=== PATIENT | female | born 1925 | race Hispanic/Latino ===

== ENCOUNTER 2016-12-08 19:07 | Inpatient (IN) | payer MEDICARE ==
[2016-12-08 19:18] VITALS: BMI 22.2
--- NOTE | 2016-12-08 19:33 | ED PDOC ---
Arrival/HPI - General Chief Complaint: Weakness/Neurological Deficit Time Seen by Provider: 12/08/16 19:10 Historian: Patient, Family - History of Present Illness Narrative History of Present Illness (Text): 12/08/16 19:29 Pt. presents to ED PMHX HTN,COPD,ulcerative colitis,chronic .leg wound,WV,CHF, TIA,DM,gout to ED with c/o generalized weakness,diarrhea for the past couple of days.Pt. with slight decreased appetite.Taking some liquids according to the family.No hx. of any fever.No N/V.Denies any chest or abdominal pain.No SOB. Past Medical History - Provider Review Nursing Documentation Reviewed: Yes - Travel History Have you recently traveled outside [place] w/in the past 3 mons?: No - Infectious Disease Hx of Infectious Diseases: None - Cardiac Hx Cardiac Disorders: Yes Hx Hypertension: Yes - Pulmonary Hx Respiratory Disorders: Yes Hx Chronic Obstructive Pulmonary Disease (COPD): Yes Hx Emphysema: Yes - Neurological Hx Neurological Disorder: Yes - HEENT Hx HEENT Disorder: Yes Other/Comment: wear weas glasses for reading and distance - Renal Hx Renal Disorder: No - Endocrine/Metabolic Hx Endocrine Disorders: No - Hematological/Oncological Hx Blood Disorders: No - Integumentary Hx Dermatological Disorder: No - Musculoskeletal/Rheumatological Hx Falls: No - Gastrointestinal Hx Gastrointestinal Disorders: Yes Other/Comment: colitis - Genitourinary/Gynecological Hx Genitourinary Disorders: No - Psychiatric Hx Psychophysiologic Disorder: Yes Hx Anxiety: Yes Hx Substance Use: No - Surgical History Other/Comment: pacemaker - Anesthesia Hx Anesthesia Reactions: No Hx Malignant Hyperthermia: No Family/Social History - Physician Review Nursing Documentation Reviewed: Yes Family/Social History: Hypertension Smoking Status: Never Smoked Hx Alcohol Use: No Hx Substance Use: No Allergies/Home Meds Allergies/Adverse Reactions: Allergies silver [From SilvaSorb] Allergy (Verified 12/09/16 01:05) SWELLING silver sulfadiazine [From Silvadene] Allergy (Verified 12/09/16 01:05) SWELLING Sulfa (Sulfonamide Antibiotics) Allergy (Verified 12/08/16 19:17) SHORTNESS OF BREATH Home Medications: Home Meds Medication Instructions Recorded Confirmed ALPRAZolam [Xanax] 0.125 mg PO BID PRN 12/08/16 12/08/16 Acetaminophen [Pain Relief Extra 500 mg PO BID PRN 12/08/16 12/08/16 Strength] Ascorbic Acid [Vitamin C] 120 mg PO DAILY 12/08/16 12/08/16 Aspirin [Adult Low Dose Aspirin EC] 81 mg PO DAILY 12/08/16 12/08/16 Ca/D3/Mag Ox/Zinc/Celery Cutter/Steffen/Bor 1 each PO DAILY 12/08/16 12/08/16 [Calcium 600+D3 Plus Caplet] Diclofenac Epolamine [Flector] 1 each TD PRN PRN 12/08/16 12/08/16 Fexofenadine HCl [HeatherNf] 180 mg PO DAILY 12/08/16 12/08/16 Fluticasone/Salmeterol 250/50 1 puff IH BID 12/08/16 12/08/16 [Advair Diskus] Lactobacillus Acidophilus [Bacid 500 cap PO DAILY 12/08/16 12/08/16 Acidophilus] Mesalamine [Lialda] 1.2 gm PO BID 12/08/16 12/08/16 Multivit with Iron,Hematinic 1 each PO DAILY 12/08/16 12/08/16 [Central-Katia] Omeprazole 20 mg PO DAILY 12/08/16 12/08/16 Valsartan/Hydrochlorothiazide 1 each PO DAILY 12/08/16 12/08/16 [Valsartan-Hctz 160-25 mg Tab] amLODIPine [Norvasc] 10 mg PO DAILY 12/08/16 12/08/16 Review of Systems - Review of Systems Systems not reviewed;Unavailable: Other (generalized weakness) Constitutional: Normal Eyes: Normal ENT: Normal Respiratory: Normal Cardiovascular: Normal Gastrointestinal: Normal Genitourinary Female: Normal Musculoskeletal: Normal Skin: Normal Neurological: Normal Endocrine: Normal Hemo/Lymphatic: Normal Psychiatric: Normal Physical Exam Vital Signs Temp Pulse Resp BP Pulse Ox 12/09/16 01:30 79 18 108/49 L 98 12/09/16 01:15 79 20 96/34 L 97 12/09/16 00:45 78 20 106/46 L 99 12/09/16 00:30 76 20 99/38 L 100 12/09/16 00:15 73 16 96/46 L 100 12/09/16 00:00 76 18 104/43 L 100 12/08/16 23:40 89 16 92/47 L 100 12/08/16 23:00 63 18 82/32 L 100 12/08/16 21:40 57 L 16 101/38 L 100 12/08/16 19:17 97.5 F L 67 16 121/45 L 100 Temperature: Afebrile Blood Pressure: Normal Pulse: Regular Respiratory Rate: Normal Appearance: Positive for: Well-Appearing, Non-Toxic, Comfortable Pain Distress: None Mental Status: Positive for: Alert and Oriented X 3 - Systems Exam Head: Present: Atraumatic, Normocephalic Pupils: Present: PERRL Extroacular Muscles: Present: EOMI Conjunctiva: Present: Normal Ears: Present: NORMAL TM Mouth: Present: Dry Pharnyx: Present: Normal Neck: Present: Normal Range of Motion Respiratory/Chest: Present: Clear to Auscultation, Good Air Exchange. No: Respiratory Distress, Accessory Muscle Use Cardiovascular: Present: Regular Rate and Rhythm, Normal S1, S2. No: Murmurs Abdomen: Present: Normal Bowel Sounds. No: Tenderness, Distention, Peritoneal Signs Back: Present: Normal Inspection Upper Extremity: Present: Normal Inspection. No: Cyanosis, Edema Lower Extremity: Present: Normal Inspection, NORMAL PULSES, Normal ROM, Other ( chronic right lower leg wound/bandaged). No: Edema, CALF TENDERNESS Neurological: Present: GCS=15, CN II-XII Intact, Speech Normal, Motor Func Grossly Intact, Normal Sensory Function Skin: Present: Warm, Dry, Normal Color. No: Rashes Psychiatric: Present: Alert, Oriented x 3, Normal Insight, Normal Concentration Medical Decision Making ED Course and Treatment: 12/08/16 22:20 Reviewed radiology, Chest X-ray shows no acute processes. 12/08/16 22:23 Labs reviewed, lactate: 2.1, WBC: 21.1, and pH: 6.88. Code Sepsis called. Equipment Installer paged. 12/08/16 22:[address] Mcguire, tobacco curer, who agrees to evaluate pt. CT Abdomen and Pelvis ordered. 12/08/16 22:[address] Escobedo, covering for Dr. Mcenill, who is aware and agrees with plan. Requests pt go to ICU. Pt will be admitted to ICU for renal failure, sepsis, hyponatremic dehydration, and hyperkalemia under Dr. Mcneill's service. Requests Dr. Lowe on consult. - Critical Care Critical Care Minutes: 30 minutes - Lab Interpretations Lab Results: 12/08/16 19:50 12/08/16 19:50 Lab Results 12/08/16 22:31: Urine Color Yellow, Urine Appearance Slight-cloudy, Urine pH 5.0 , Ur Specific [place] >= 1.030, Urine Protein 30 H, Urine Glucose (UA) Negative , Urine Ketones Negative, Urine Blood Negative, Urine Nitrate Negative, Urine Bilirubin Negative, Urine Urobilinogen 0.2, Ur Leukocyte Esterase Large H, Urine RBC TEST NOT PERFORMED, Urine WBC 15 - 20, Ur Epithelial Cells Many, Amorphous Sediment Moderate, Urine Bacteria Small 12/08/16 20:40: pO2 228 H, VBG pH 6.88 L*, VBG pCO2 37.0 L, VBG HCO3 6.9 L, VBG Total CO2 8.0 L, VBG O2 Sat (Calc) 100.2 H, VBG Base Excess -25.5 L, Glucose 112 H, Lactate 2.1, FiO2 21.0, Sodium 107.0 L*, Chloride 88.0 L 12/08/16 19:50: WBC 21.1 H D, RBC 3.46 L, Hgb 10.2 L, Hct 29.6 L, MCV 85.5, MCH 29.5, MCHC 34.5, RDW 12.8, Plt Count 421, MPV 7.8 12/08/16 19:50: Sodium 118 L*, Potassium 5.9 H*, Chloride 90 L, Carbon Dioxide 12 L, Anion Gap 22 H, BUN 91 H, Creatinine 6.2 H, Est GFR ( Amer) 8, Est GFR (Non-Af Amer) 6, Random Glucose 118 H, Calcium 8.8, Total Bilirubin 0.5, AST 44 H, ALT 29, Alkaline Phosphatase 101, Lactate Dehydrogenase 432, Total Creatine Kinase 513 H, CK-MB (CK-2) 8.9 H, CK-MB (CK-2) % 1.7 L, Troponin I 0.02 D, Total Protein 7.2, Albumin 3.6, Globulin 3.7, Albumin/Globulin Ratio 1.0 L 12/08/16 19:50: PT 10.4, INR 0.96, APTT 31.4 H I have reviewed the lab results: Yes - RAD Interpretation Radiology Orders: 12/08/16 21:10 CHEST PORTABLE [RAD] Stat 12/08/16 22:39 ABD & PELVIS W/O PO OR IV CONT [CT] Stat Purchasing Manager/Sales: ED Physician - EKG Interpretation EKG Interpretation (Text): 12/08/16 20:28 EKG- 100% paced rhythm Interpreted by ED Physician: Yes Type: 12 lead EKG - Medication Orders Current Medication Orders: Acetaminophen (Tylenol 325mg Tab) 650 mg PO Q6H PRN PRN Reason: Fever >100.4 F Last Admin: 12/09/16 02:33 Dose: 650 mg Re-Assess: MAR Pain/Vitals Document 12/09/16 03:33 [facility] (Rec: 12/09/16 05:35 [facility] [id number] Pain Reassessment Is This A Pain ReAssessment? Yes Sleep Is patient sleeping during reassessment? Yes Arformoterol Tartrate (Brovana) 15 mcg IH [id number] [facility] Aspirin (Ecotrin) 81 mg PO DAILY [facility] Last Admin: 12/09/16 09:44 Dose: 81 mg Budesonide (Pulmicort Respules) 0.5 mg IH [id number] [facility] Last Admin: 12/09/16 08:09 Dose: 0.5 mg Heparin Sodium (Porcine) (Heparin) 5,000 units SC Q12 [facility] PRN Reason: Protocol Last Admin: 12/09/16 09:44 Dose: 5,000 units Metronidazole (Flagyl) 500 mg in 100 mls @ 100 mls/hr IVPB Q8 [facility] PRN Reason: Protocol Last Admin: 12/09/16 14:19 Dose: 100 mls/hr Ceftriaxone Sodium (Rocephin 1 Gram Ivpb) 1 gm in 100 mls @ 100 mls/hr IVPB DAILY [facility] PRN Reason: Protocol Stop: 12/17/16 10:09 Last Admin: 12/09/16 10:20 Dose: 100 mls/hr Sodium Bicarbonate 150 meq/ (Dextrose) 1,150 mls @ 75 mls/hr IV .[id number] [facility] Last Admin: 12/09/16 13:58 Dose: 75 mls/hr Lactobacillus Acidophilus (Bacid Acidophilus) 1 cap PO DAILY [facility] Last Admin: 12/09/16 11:03 Dose: 1 cap Ondansetron HCl (Zofran Inj) 4 mg IVP Q6H PRN PRN Reason: Nausea/Vomiting Pantoprazole Sodium (Protonix Ec Tab) 40 mg PO 0600 [facility] Last Admin: 12/09/16 08:34 Dose: 40 mg Potassium Chloride (Potassium Chloride Oral Soln) 40 meq PO ONCE ONE Stop: 12/09/16 19:24 Vancomycin HCl (Vancocin 25 Mg/Ml (Oral Use)) 250 mg PO QID [facility] PRN Reason: Protocol Stop: 12/18/16 14:01 Last Admin: 12/09/16 17:15 Dose: 250 mg Discontinued Medications Albumin Human (Albumin Human 5% (12.5 Gm/250 Ml)) 12.5 gm IV Q1H [facility] Stop: 12/09/16 15:01 Last Admin: 12/09/16 13:40 Dose: 12.5 gm Dextrose (Dextrose 50% Inj) 50 ml IVP ONCE ONE Stop: 12/08/16 20:47 Last Admin: 12/08/16 21:01 Dose: 50 ml Sodium Chloride (Sodium Chloride 0.9%) 500 mls @ 500 mls/hr IV .Q1H STA Stop: 12/08/16 20:40 Last Admin: 12/08/16 20:05 Dose: 500 mls/hr Sodium Chloride (Hypertonic Saline 3%) 500 mls @ 40 mls/hr IV .[id number] [facility] Last Admin: 12/08/16 21:02 Dose: 40 mls/hr Sodium Chloride (Sodium Chloride 0.9%) 500 mls @ 500 mls/hr IV .Q1H STA Stop: 12/08/16 21:44 Last Admin: 12/08/16 21:03 Dose: 500 mls/hr Sodium Chloride (Sodium Chloride 0.9%) 500 mls @ 500 mls/hr IV .Q1H STA Stop: 12/08/16 21:55 Last Admin: 12/08/16 21:35 Dose: 500 mls/hr Metronidazole (Flagyl) 500 mg in 100 mls @ 100 mls/hr IVPB STAT STA PRN Reason: Protocol Stop: 12/08/16 21:56 Last Admin: 12/08/16 22:49 Dose: 100 mls/hr Meropenem 1g/NS 100mL IVPB (Meropenem 1g/Ns 100ml Ivpb) 1 gm in 100 mls @ 100 mls/hr IVPB STAT STA PRN Reason: Protocol Stop: 12/08/16 22:02 Last Admin: 12/08/16 21:34 Dose: 100 mls/hr Sodium Chloride (Sodium Chloride 0.9%) 1,000 mls @ 150 mls/hr IV .Q6H40M [facility] Last Admin: 12/09/16 01:04 Dose: 150 mls/hr Meropenem 1g/NS 100mL IVPB (Meropenem 1g/Ns 100ml Ivpb) 1 gm in 100 mls @ 100 mls/hr IVPB Q8 [facility] PRN Reason: Protocol Stop: 12/09/16 06:59 Last Admin: 12/09/16 05:34 Dose: 100 mls/hr Dextrose (Dextrose 5% In Water 1000 Ml) 1,000 mls @ 150 mls/hr IV .Q6H40M [facility] Last Admin: 12/09/16 02:44 Dose: 150 mls/hr Sodium Chloride (Sodium Chloride 0.9%) 1,000 mls @ 75 mls/hr IV .[id number] [facility] Last Admin: 12/09/16 09:45 Dose: 75 mls/hr Vancomycin HCl (Vancomycin 1gm) 1 gm in 250 mls @ 167 mls/hr IVPB STAT STA PRN Reason: Protocol Stop: 12/09/16 11:37 Last Admin: 12/09/16 10:21 Dose: 167 mls/hr Sodium Chloride (Sodium Chloride 0.9%) 500 mls @ 999 mls/hr IV .Q31M STA Stop: 12/09/16 11:21 Last Admin: 12/09/16 11:13 Dose: 999 mls/hr Insulin Human Regular (Humulin R) 10 units IVP STAT STA Stop: 12/08/16 20:47 Last Admin: 12/08/16 21:01 Dose: 10 units Lactobacillus Acidophilus (Bacid Acidophilus) 500 cap PO DAILY [facility] Sodium Bicarbonate (Sodium Bicarbonate (8.4%) 50 Meq Syringe) 50 meq IVP ONCE ONE Stop: 12/08/16 20:48 Last Admin: 12/08/16 21:01 Dose: 50 meq Sodium Polystyrene Sulfonate (Kayexalate Oral Susp) 30 gm PO ONCE ONE Stop: 12/08/16 20:47 Last Admin: 12/08/16 21:02 Dose: 30 gm Disposition/Present on Arrival - Present on Arrival Any Indicators Present on Arrival: No History of DVT/PE: No History of Uncontrolled Diabetes: No Urinary Catheter: No History of Decub. Ulcer: No History Surgical Site Infection Following: None - Disposition Have Diagnosis and Disposition been Completed?: Yes Diagnosis: Hyponatremia, Dehydration, Renal failure, Hyperkalemia, Sepsis Disposition: HOSPITALIZED Disposition Time: 23:08 Patient Plan: ICU Patient Problems: Current Active Problems Problem Status Onset Dehydration Acute Hyperkalemia Acute Hyponatremia Acute Renal failure Acute Sepsis Acute Condition: GUARDED
[2016-12-08] MEDS ORDERED: Sodium Chloride 0.9% 500 ML IV STA ×3 (19:41→20:56)
[2016-12-08 20:01] LABS: HEMOGLOBIN 10.2 gm/dL (12.0-16.0); MEAN CELL VOLUME 85.5 fL (80.0-105.0); MEAN CORPUSCULAR HEMOGLOBIN 29.5 pg (25.0-35.0); MEAN CORPUSCULAR HGB CONC 34.5 g/dl (31.0-37.0); MEAN PLATELET VOLUME 7.8 fl (7.0-11.0); RBC 3.46 10^6/uL (3.5-6.1); RED CELL DISTRIBUTION WIDTH 12.8 % (11.5-14.5); WHITE BLOOD COUNT 21.1 10^3/ul (4.5-11.0)
[2016-12-08 20:16] LABS: INR 0.96 (0.93-1.08); PARTIAL THROMBOPLASTIN TIME 31.4 Seconds (23.7-30.8); PROTHROMBIN TIME 10.4 Seconds (9.9-11.8)
[2016-12-08 20:19] LABS: ALBUMIN 3.6 g/dL (3.0-4.8); CALCIUM 8.8 mg/dL (8.4-10.5)
[2016-12-08 20:30] LABS: TROPONIN I 0.02 ng/mL
[2016-12-08] MEDS ORDERED: Sodium Chloride 3% 500 ML IV SCH (20:45)
[2016-12-08] MEDS ORDERED: Insulin Regular 1 UNITS/0.01 ML ML IVP STA (20:46)
[2016-12-08] MEDS ORDERED: Sod Polystyrene Sulf 15 gm/60 ml Oral Susp PO ONE (20:46)
[2016-12-08] MEDS ORDERED: Dextrose 50% SYRINGE Inj (50 ml) IVP ONE (20:46)
[2016-12-08] MEDS ORDERED: Sodium Bicarbonate (8.4%) 50 Meq Syringe IVP ONE (20:47)
[2016-12-08] MEDS ORDERED: metroNIDAZOLE IV 500 mg/100 ml 500 MG/100 ML BAG IVPB STA (20:57)
[2016-12-08 20:58] LABS: CK MB% 1.7 % (2.5-3.0); CK-MB 8.9 ng/mL (0.0-3.6)
[2016-12-08] MEDS ORDERED: Meropenem 1g/NS 100mL IVPB 1 GM/100 ML PIGGYBACK IVPB STA (21:03)
[2016-12-08 21:09] LABS: VENOUS BLOOD GAS BASE EXCESS -25.5 mmol/L (0.0-2.0); VENOUS BLOOD GAS PO2 228 mm/Hg (30-55); VENOUS BLOOD PH 6.88 (7.32-7.43)
[2016-12-08 22:42] LABS: URINE BILIRUBIN NEGATIVE (NEGATIVE); URINE BLOOD NEGATIVE (NEGATIVE); URINE GLUCOSE (UA) NEGATIVE (NEGATIVE); URINE LEUKOCYTE ESTERASE LARGE Leu/uL (NEGATIVE); URINE NITRATE NEGATIVE (NEGATIVE); URINE PROTEIN 30 mg/dL (<30 mg/dL); URINE UROBILINOGEN 0.2 E.U./dL (<1 E.U./dL)
[2016-12-08 22:43] LABS: URINE APPEARANCE SLIGHT-CLOUDY (CLEAR); URINE COLOR YELLOW (YELLOW)
[2016-12-08 22:48] LABS: URINE AMORPHOUS SEDIMENT MODERATE; URINE BACTERIA SMALL (NEG); URINE EPITHELIAL CELLS MANY /hpf (0-5); URINE WBC 15 - 20 /hpf (0-6)
--- NOTE | 2016-12-08 23:30 | CP.PCM.HP ---
"History of Present Illness - History of Present Illness History of Present Illness: Patient is a 89 year old female who presented to the ED with complaints of generalized weakness and fatigue x 3 days. Per patient's daughter. Patient stated that she was functioning at her baseline; but starting 3 days ago she began to have diarrhea. Following her bouts her diarrhea, patient began showing symptoms of somnolence and fatigue. Patient has been compliant with all her medications. She currently denies feeling week. Per nurse and daughter , patient is looking much better than she did when she first arrived to the ED. This is s/p Fluids and Antibiotics. ROS: Denies: SOB, Chest Pain, Headache, palpitations, abdominal pain, N/V constipation, Dysuria, Dizziness, Lightheadedness, Muscle pain, back pain, changes in vision, recent changes in diet. Complains of: decreased appetite, non-bloody diarrhea PMHx: HTN, Ulcerative Colitis, Chronic Leg wound, GERD, Pacemaker, COPD PSHx: Denies Allergies: Sulfa Family Hx: Rheumatic Fever (Mother)| Emphysema (Father) Social Hx: Denies Tobacco, Alcohol, or other illicit drug use. Review of Systems - Review of Systems All systems: reviewed and no additional remarkable complaints except Past Patient History - Infectious Disease Hx of Infectious Diseases: None - Past Social History Smoking Status: Never Smoked - CARDIAC Hx Cardiac Disorders: Yes Hx Hypertension: Yes - PULMONARY Hx Respiratory Disorders: Yes Hx Chronic Obstructive Pulmonary Disease (COPD): Yes Hx Emphysema: Yes - NEUROLOGICAL Hx Neurological Disorder: Yes - HEENT Hx HEENT Problems: Yes Other/Comment: wear weas glasses for reading and distance - RENAL Hx Chronic Kidney Disease: No - ENDOCRINE/METABOLIC Hx Endocrine Disorders: No - HEMATOLOGICAL/ONCOLOGICAL Hx Blood Disorders: No - INTEGUMENTARY Hx Dermatological Problems: No - MUSCULOSKELETAL/RHEUMATOLOGICAL Hx Falls: No - GASTROINTESTINAL Hx Gastrointestinal Disorders: Yes Other/Comment: colitis - GENITOURINARY/GYNECOLOGICAL Hx Genitourinary Disorders: No - PSYCHIATRIC Hx Psychophysiologic Disorder: Yes Hx Anxiety: Yes Hx Substance Use: No - SURGICAL HISTORY Other/Comment: pacemaker - ANESTHESIA Hx Anesthesia Reactions: No Hx Malignant Hyperthermia: No Meds Allergies/Adverse Reactions: Allergies Allergy/AdvReac Type Severity Reaction Status Date / Time Sulfa (Sulfonamide Allergy SHORTNESS Verified 12/08/16 19:17 Antibiotics) OF BREATH Physical Exam - Constitutional Appears: Well, Non-toxic, No Acute Distress - Head Exam Head Exam: ATRAUMATIC, NORMOCEPHALIC - Eye Exam Eye Exam: EOMI, Normal appearance - ENT Exam ENT Exam: Mucous Membranes Moist - Neck Exam Neck exam: Negative for: Lymphadenopathy - Respiratory Exam Respiratory Exam: Clear to Auscultation Bilateral, NORMAL BREATHING PATTERN. absent: Rales, Rhonchi, Wheezes, Respiratory Distress, Stridor - Cardiovascular Exam Cardiovascular Exam: +S1, +S2. absent: Bradycardia, Tachycardia, Systolic Murmur Additional comments: +Pacemaker - GI/Abdominal Exam GI & Abdominal Exam: Soft. absent: Organomegaly, Tenderness Additional comments: No Suprapubic tenderness - Extremities Exam Extremities exam: Negative for: pedal edema Additional comments: Chronic leg wound on left leg. Currently wrapped. - Back Exam Back exam: absent: CVA tenderness (L), CVA tenderness (R) Additional comments: Severe Kyphosis - Neurological Exam Neurological exam: Alert, Oriented x3 - Psychiatric Exam Psychiatric exam: Normal Affect, Normal Mood - Skin Skin Exam: Dry, Normal Color, Warm Results - Vital Signs Recent Vital Signs: Last Vital Signs Temp 97.5 F L 12/08/16 19:17 Pulse 57 L 12/08/16 21:40 Resp 16 12/08/16 21:40 BP 101/38 L 12/08/16 21:40 Pulse Ox 100 12/08/16 21:40 - Labs Result Diagrams: 12/08/16 19:50 12/08/16 19:50 Labs: Laboratory Results - last 24 hr 12/08/16 12/08/16 12/08/16 19:50 19:50 19:50 WBC 21.1 H D RBC 3.46 L Hgb 10.2 L Hct 29.6 L MCV 85.5 MCH 29.5 MCHC 34.5 RDW 12.8 Plt Count 421 MPV 7.8 PT 10.4 INR 0.96 APTT 31.4 H pO2 VBG pH VBG pCO2 VBG HCO3 VBG Total CO2 VBG O2 Sat (Calc) VBG Base Excess Glucose Lactate FiO2 Sodium 118 L* Potassium 5.9 H* Chloride 90 L Carbon Dioxide 12 L Anion Gap 22 H BUN 91 H Creatinine 6.2 H Est GFR ( Amer) 8 Est GFR (Non-Af Amer) 6 Random Glucose 118 H Calcium 8.8 Total Bilirubin 0.5 AST 44 H ALT 29 Alkaline Phosphatase 101 Lactate Dehydrogenase 432 Total Creatine Kinase 513 H CK-MB (CK-2) 8.9 H CK-MB (CK-2) % 1.7 L Troponin I 0.02 D Total Protein 7.2 Albumin 3.6 Globulin 3.7 Albumin/Globulin Ratio 1.0 L Urine Color Urine Appearance Urine pH Ur Specific [place] Urine Protein Urine Glucose (UA) Urine Ketones Urine Blood Urine Nitrate Urine Bilirubin Urine Urobilinogen Ur Leukocyte Esterase Urine RBC Urine WBC Ur Epithelial Cells Amorphous Sediment Urine Bacteria 12/08/16 12/08/16 20:40 22:31 WBC RBC Hgb Hct MCV MCH MCHC RDW Plt Count MPV PT INR APTT pO2 228 H VBG pH 6.88 L* VBG pCO2 37.0 L VBG HCO3 6.9 L VBG Total CO2 8.0 L VBG O2 Sat (Calc) 100.2 H VBG Base Excess -25.5 L Glucose 112 H Lactate 2.1 FiO2 21.0 Sodium 107.0 L* Potassium Chloride 88.0 L Carbon Dioxide Anion Gap BUN Creatinine Est GFR ( Amer) Est GFR (Non-Af Amer) Random Glucose Calcium Total Bilirubin AST ALT Alkaline Phosphatase Lactate Dehydrogenase Total Creatine Kinase CK-MB (CK-2) CK-MB (CK-2) % Troponin I Total Protein Albumin Globulin Albumin/Globulin Ratio Urine Color Yellow Urine Appearance Slight-cloudy Urine pH 5.0 Ur Specific [place] >= 1.030 Urine Protein 30 H Urine Glucose (UA) Negative Urine Ketones Negative Urine Blood Negative Urine Nitrate Negative Urine Bilirubin Negative Urine Urobilinogen 0.2 Ur Leukocyte Esterase Large H Urine RBC TEST NOT PERFORMED Urine WBC 15 - 20 Ur Epithelial Cells Many Amorphous Sediment Moderate Urine Bacteria Small Assessment & Plan - Assessment and Plan (Free Text) Assessment: 89 year old female who presented to the ED with complaints of generalized fatigue and diarrhea. UA showed Large Leuk Es, elevated urine Protein, urine bacteria, and many epithelial cells. CXR shows no active disease. Lactate on Admission is 2.1, and WBC is 21.1. A code sepsis was called @ 10:24pm on . CT of Abd/Pelvis pending. Plan: 1. Sepsis -WBC 21.1; Lactate 2.1; UA"
[2016-12-09 00:09] LABS: VENOUS BLOOD GAS BASE EXCESS -17.3 mmol/L (0.0-2.0); VENOUS BLOOD GAS PO2 53 mm/Hg (30-55); VENOUS BLOOD PH 7.13 (7.32-7.43)
[2016-12-09] MEDS ORDERED: Sodium Chloride 0.9% 1,000 ML IV SCH ×2 (00:45→09:45)
[2016-12-09] MEDS: Meropenem 1g/NS 100mL IVPB 1 GM/100 ML PIGGYBACK IVPB SCH ×2 (01:00→05:34)
[2016-12-09 01:32] LABS: MEAN CELL VOLUME 85.1 fL (80.0-105.0); MEAN CORPUSCULAR HEMOGLOBIN 29.9 pg (25.0-35.0); MEAN CORPUSCULAR HGB CONC 35.1 g/dl (31.0-37.0); MEAN PLATELET VOLUME 7.7 fl (7.0-11.0); RBC 3.35 10^6/uL (3.5-6.1); RED CELL DISTRIBUTION WIDTH 12.8 % (11.5-14.5); WHITE BLOOD COUNT 22.5 10^3/ul (4.5-11.0)
[2016-12-09 01:45] LABS: CALCIUM 7.9 mg/dL (8.4-10.5)
--- NOTE | 2016-12-09 03:37 | CP.PCM.CON ---
"<Alvaro Hopson - Last Filed: 12/09/16 04:08> History of Present Illness - History of Present Illness History of Present Illness: Patient is a 89 year old female who presented to the ED with complaints of generalized weakness and fatigue x 3 days. Per patient's daughter. Patient stated that she was functioning at her baseline; but starting 3 days ago she began to have diarrhea. Following her bouts her diarrhea, patient began showing symptoms of somnolence and fatigue. Patient has been compliant with all her medications. She currently denies feeling week. Per nurse and daughter , patient is looking much better than she did when she first arrived to the ED. This is s/p Fluids and Antibiotics. ROS: Denies: SOB, Chest Pain, Headache, palpitations, abdominal pain, N/V constipation, Dysuria, Dizziness, Lightheadedness, Muscle pain, back pain, changes in vision, and recent changes in diet. Complains of: decreased appetite, non-bloody diarrhea PMHx: HTN, Ulcerative Colitis, Chronic Leg wound, GERD, Pacemaker, COPD PSHx: Denies Allergies: Sulfa Family Hx: Rheumatic Fever (Mother)| Emphysema (Father) Social Hx: Denies Tobacco, Alcohol, or other illicit drug use. Review of Systems - Review of Systems All systems: reviewed and no additional remarkable complaints except Past Patient History - Infectious Disease Hx of Infectious Diseases: None - Past Social History Smoking Status: Never Smoked - CARDIAC Hx Cardiac Disorders: Yes Hx Hypertension: Yes - PULMONARY Hx Respiratory Disorders: Yes Hx Chronic Obstructive Pulmonary Disease (COPD): Yes Hx Emphysema: Yes - NEUROLOGICAL Hx Neurological Disorder: Yes - HEENT Hx HEENT Problems: Yes Other/Comment: wear weas glasses for reading and distance - RENAL Hx Chronic Kidney Disease: No - ENDOCRINE/METABOLIC Hx Endocrine Disorders: No - HEMATOLOGICAL/ONCOLOGICAL Hx Blood Disorders: No - INTEGUMENTARY Hx Dermatological Problems: No - MUSCULOSKELETAL/RHEUMATOLOGICAL Hx Falls: No - GASTROINTESTINAL Hx Gastrointestinal Disorders: Yes Other/Comment: colitis - GENITOURINARY/GYNECOLOGICAL Hx Genitourinary Disorders: No - PSYCHIATRIC Hx Psychophysiologic Disorder: Yes Hx Anxiety: Yes Hx Substance Use: No - SURGICAL HISTORY Other/Comment: pacemaker - ANESTHESIA Hx Anesthesia Reactions: No Hx Malignant Hyperthermia: No Meds Allergies/Adverse Reactions: Allergies Allergy/AdvReac Type Severity Reaction Status Date / Time silver [From SilvaSorb] Allergy SWELLING Verified 12/09/16 01:05 silver sulfadiazine Allergy SWELLING Verified 12/09/16 01:05 [From Silvadene] Sulfa (Sulfonamide Allergy SHORTNESS Verified 12/08/16 19:17 Antibiotics) OF BREATH - Medications Medications: Current Medications Acetaminophen (Tylenol 325mg Tab) 650 mg PO Q6H PRN PRN Reason: Fever >100.4 F Last Admin: 12/09/16 02:33 Dose: 650 mg Arformoterol Tartrate (Brovana) 15 mcg IH [id number] [facility] Aspirin (Ecotrin) 81 mg PO DAILY [facility] Budesonide (Pulmicort Respules) 0.5 mg IH [id number] [facility] Heparin Sodium (Porcine) (Heparin) 5,000 units SC Q12 [facility] PRN Reason: Protocol Sodium Chloride (Sodium Chloride 0.9%) 1,000 mls @ 150 mls/hr IV .Q6H40M [facility] Last Admin: 12/09/16 01:04 Dose: 150 mls/hr Metronidazole (Flagyl) 500 mg in 100 mls @ 100 mls/hr IVPB Q8 [facility] PRN Reason: Protocol Meropenem 1g/NS 100mL IVPB (Meropenem 1g/Ns 100ml Ivpb) 1 gm in 100 mls @ 100 mls/hr IVPB Q8 [facility] PRN Reason: Protocol Stop: 12/09/16 06:59 Last Admin: 12/09/16 01:00 Dose: Not Given Dextrose (Dextrose 5% In Water 1000 Ml) 1,000 mls @ 150 mls/hr IV .Q6H40M [facility] Last Admin: 12/09/16 02:44 Dose: 150 mls/hr Lactobacillus Acidophilus (Bacid Acidophilus) 500 cap PO DAILY [facility] Ondansetron HCl (Zofran Inj) 4 mg IVP Q6H PRN PRN Reason: Nausea/Vomiting Pantoprazole Sodium (Protonix Ec Tab) 40 mg PO 0600 [facility] Physical Exam - Constitutional Appears: Well, No Acute Distress - Head Exam Head Exam: ATRAUMATIC, NORMOCEPHALIC - Eye Exam Eye Exam: EOMI, Normal appearance - ENT Exam ENT Exam: Mucous Membranes Moist - Neck Exam Neck exam: Negative for: Lymphadenopathy - Respiratory Exam Respiratory Exam: Clear to Auscultation Bilateral. absent: Accessory Muscle Use , Rales, Rhonchi, Wheezes, Respiratory Distress, Stridor - Cardiovascular Exam Cardiovascular Exam: +S1, +S2. absent: Bradycardia, Tachycardia, Diastolic murmur, Systolic Murmur Additional comments: +Pacemaker - GI/Abdominal Exam GI & Abdominal Exam: Normal Bowel Sounds, Soft. absent: Tenderness - Extremities Exam Extremities exam: Negative for: pedal edema Additional comments: Chronic wound on left leg. Currently dressed and wrapped. - Back Exam Back exam: absent: CVA tenderness (L), CVA tenderness (R) Additional comments: Severe Kyphosis - Neurological Exam Neurological exam: Alert, Oriented x3 - Psychiatric Exam Psychiatric exam: Normal Affect, Normal Mood - Skin Skin Exam: Dry, Intact, Normal Color, Warm Results - Vital Signs Recent Vital Signs: Last Vital Signs Temp 98 F 12/09/16 02:13 Pulse 78 12/09/16 03:00 Resp 27 H 12/09/16 03:00 BP 109/40 L 12/09/16 03:00 Pulse Ox 99 12/09/16 03:00 - Labs Result Diagrams: 12/09/16 01:10 12/09/16 01:10 Labs: Laboratory Results - last 24 hr 12/08/16 12/09/16 12/09/16 23:50 01:10 01:10 WBC 22.5 H RBC 3.35 L Hgb 10.0 L Hct 28.5 L MCV 85.1 MCH 29.9 MCHC 35.1 RDW 12.8 Plt Count 354 MPV 7.7 APTT 29.9 pO2 53 VBG pH 7.13 L* VBG pCO2 32.0 L VBG HCO3 10.6 L VBG Total CO2 11.6 L VBG O2 Sat (Calc) 90.3 H VBG Base Excess -17.3 L VBG Potassium 5.3 H Sodium 136.0 Chloride 89.0 L Glucose 75 Lactate 3.1 H FiO2 21.0 Potassium Carbon Dioxide Anion Gap BUN Creatinine Est GFR ( Amer) Est GFR (Non-Af Amer) Random Glucose Calcium Venous Blood Potassium 5.3 H 12/09/16 01:10 WBC RBC Hgb Hct MCV MCH MCHC RDW Plt Count MPV APTT pO2 VBG pH VBG pCO2 VBG HCO3 VBG Total CO2 VBG O2 Sat (Calc) VBG Base Excess VBG Potassium Sodium 127 L Chloride 100 Glucose Lactate FiO2 Potassium 4.4 Carbon Dioxide 12 L Anion Gap 19 BUN 83 H Creatinine 4.9 H Est GFR ( Amer) 10 Est GFR (Non-Af Amer) 8 Random Glucose 88 Calcium 7.9 L Venous Blood Potassium Assessment & Plan - Assessment and Plan (Free Text) Assessment: 89 year old with a PMHx of HTN, Ulcerative Colitis, Chronic Leg wound, GERD, Pacemaker, and COPD who is being admitted for generalized weakness, fatigue, anion gap metabolic acidosis, hypovolemic hyponatremia 2/2 diarrhea and Severe Sepsis. Plan: Neuro: Pt awake, oriented to self, place and time. Will cont. to monitor. Cardio: -Pacemaker -Hold Hypertensive due to hypotension -maintain MAP>65. Resp: -Saturating Well on RA -CXR pending Read -O2Sat >90% GI:. -NPO -Stool Cultures w/ c diff, OVA/Parasites, -CT Abd/pelvis pending read -Flagyl Nephro: GILBERT (Prerenal) -Anion Gap Metabolic Acidosis -Received Hypertonic Saline in ED (Stopped) -Normal Saline 150ml per hour. Do not correct more than 10mEq in 12hr period. ID: afebrile, leukocytosis at 22.5; lactate 2.1 -CT Abd/Pelvis Pending read -Blood/Urine Culture; Stool Culture w/ c Diff, OVA & Parasite -Meropenem and Flagyl Maintain normothermia Endo: -Random Glucose - 88 -Maintain euglycemia. Hem/Onc: HGB is 10 -Patient is at baseline. DVT PPX: Heparin GI PPX: Protonix Discussed and seen with PGY2 and attending Alvaro Hopson PGY1 - Date & Time Date: 12/08/16 Time: 23:00 <Glen Mcguire Q - Last Filed: 12/09/16 06:15> Meds - Medications Medications: Current Medications Acetaminophen (Tylenol 325mg Tab) 650 mg PO Q6H PRN PRN Reason: Fever >100.4 F Last Admin: 12/09/16 02:33 Dose: 650 mg Arformoterol Tartrate (Brovana) 15 mcg IH [id number] [facility] Aspirin (Ecotrin) 81 mg PO DAILY [facility] Budesonide (Pulmicort Respules) 0.5 mg IH [id number] [facility] Heparin Sodium (Porcine) (Heparin) 5,000 units SC Q12 [facility] PRN Reason: Protocol Sodium Chloride (Sodium Chloride 0.9%) 1,000 mls @ 150 mls/hr IV .Q6H40M [facility] Last Admin: 12/09/16 01:04 Dose: 150 mls/hr Metronidazole (Flagyl) 500 mg in 100 mls @ 100 mls/hr IVPB Q8 [facility] PRN Reason: Protocol Last Admin: 12/09/16 05:35 Dose: 100 mls/hr Meropenem 1g/NS 100mL IVPB (Meropenem 1g/Ns 100ml Ivpb) 1 gm in 100 mls @ 100 mls/hr IVPB Q8 [facility] PRN Reason: Protocol Stop: 12/09/16 06:59 Last Admin: 12/09/16 05:34 Dose: 100 mls/hr Dextrose (Dextrose 5% In Water 1000 Ml) 1,000 mls @ 150 mls/hr IV .Q6H40M [facility] Last Admin: 12/09/16 02:44 Dose: 150 mls/hr Lactobacillus Acidophilus (Bacid Acidophilus) 500 cap PO DAILY [facility] Ondansetron HCl (Zofran Inj) 4 mg IVP Q6H PRN PRN Reason: Nausea/Vomiting Pantoprazole Sodium (Protonix Ec Tab) 40 mg PO 0600 [facility] Results - Vital Signs Recent Vital Signs: Last Vital Signs Temp 97.9 F 12/09/16 04:00 Pulse 81 12/09/16 05:00 Resp 28 H 12/09/16 05:00 BP 115/42 L 12/09/16 05:00 Pulse Ox 99 12/09/16 05:00 - Labs Result Diagrams: 12/09/16 01:10 12/09/16 03:55 Labs: Laboratory Results - last 24 hr 12/08/16 12/09/16 12/09/16 23:50 01:10 01:10 WBC 22.5 H RBC 3.35 L Hgb 10.0 L Hct 28.5 L MCV 85.1 MCH 29.9 MCHC 35.1 RDW 12.8 Plt Count 354 MPV 7.7 APTT 29.9 pO2 53 VBG pH 7.13 L* VBG pCO2 32.0 L VBG HCO3 10.6 L VBG Total CO2 11.6 L VBG O2 Sat (Calc) 90.3 H VBG Base Excess -17.3 L VBG Potassium 5.3 H Sodium 136.0 Chloride 89.0 L Glucose 75 Lactate 3.1 H FiO2 21.0 Potassium Carbon Dioxide Anion Gap BUN Creatinine Est GFR ( Amer) Est GFR (Non-Af Amer) Random Glucose Calcium Venous Blood Potassium 5.3 H Urine Color Urine Appearance Urine pH Ur Specific [place] Urine Protein Urine Glucose (UA) Urine Ketones Urine Blood Urine Nitrate Urine Bilirubin Urine Urobilinogen Ur Leukocyte Esterase Urine RBC Urine WBC Urine Bacteria 12/09/16 12/09/16 12/09/16 01:10 03:55 04:00 WBC RBC Hgb Hct MCV MCH MCHC RDW Plt Count MPV APTT pO2 VBG pH VBG pCO2 VBG HCO3 VBG Total CO2 VBG O2 Sat (Calc) VBG Base Excess VBG Potassium Sodium 127 L 126 L Chloride 100 97 Glucose Lactate FiO2 Potassium 4.4 4.0 Carbon Dioxide 12 L 13 L Anion Gap 19 20 BUN 83 H 81 H Creatinine 4.9 H 4.5 H Est GFR ( Amer) 10 11 Est GFR (Non-Af Amer) 8 9 Random Glucose 88 146 H Calcium 7.9 L 8.1 L Venous Blood Potassium Urine Color Yellow Urine Appearance Slight-cloudy Urine pH 5.5 Ur Specific [place] 1.025 Urine Protein 30 H Urine Glucose (UA) Negative Urine Ketones Negative Urine Blood Negative Urine Nitrate Negative Urine Bilirubin Negative Urine Urobilinogen 0.2 Ur Leukocyte Esterase Negative Urine RBC 0 - 2 Urine WBC 0 - 2 Urine Bacteria Mod Attending/Attestation - Attestation I have personally seen and examined this patient.: Yes I have fully participated in the care of the patient.: Yes I have reviewed all pertinent clinical information: Yes Notes (Text): 12/09/16 06:07 I agree with the above mentioned note by the internet systems administrator with the addition/exception of the following: Physical exam: chronic lower extremity leg wound is present on the Right leg, not the left 89 y/o female with a PMHx as listed above presented to the ED with her daughters for worsening lethargy and weakness after experiencing 3 days of nonbloody diarrhea. Patient's daughter's reports that she has not been eating or drinking well and has slowly gotten more tired and lethargic so she was brought in. Patient's presentation and labs were all consistent with dehydration secondary to GI losses and GILBERT secondary to dehydration with hypovolemic hyponatremia. After receiving 1.5L IVF in the ED, she was started on hypertonic saline by the ED Physician. I discontinued this (she did not have neurological manifestations) and started her on 0.9% normal saline for volume resuscitation and a slower rate of Sodium correction. After a few short hours, her sodium had increased by 9mEq. 0.9% was stopped immediately and she was placed on D5W @ 150cc/hr. Her repeat Sodium has appropriately come down to 126 from 127 (initially started at 118). Will obtain repeat lab work this morning and adjust her IVF accordingly; stool cultures for the diarrhea have been sent. As per the daughter, the most recent course of Antibiotics she has had was po ciprofloxacin that she took for a total of 10 days approximately 5 weeks ago. She was admitted to the ICU for closer hemodynamic monitoring as well as frequent bloodwork for monitoring of her Sodium. All labs and images available thus far reviewed personally Case discussed with the residents as well as Dr. Brothers in the ED total time of care: 40 minutes"
[2016-12-09 04:10] LABS: CALCIUM 8.1 mg/dL (8.4-10.5)
[2016-12-09 04:40] LABS: PH,URINE 5.5 (4.7-8.0); URINE BILIRUBIN NEGATIVE (NEGATIVE); URINE BLOOD NEGATIVE (NEGATIVE); URINE GLUCOSE (UA) NEGATIVE (NEGATIVE); URINE LEUKOCYTE ESTERASE NEGATIVE Leu/uL (NEGATIVE); URINE NITRATE NEGATIVE (NEGATIVE); URINE PROTEIN 30 mg/dL (<30 mg/dL); URINE UROBILINOGEN 0.2 E.U./dL (<1 E.U./dL)
[2016-12-09 04:44] LABS: URINE APPEARANCE SLIGHT-CLOUDY (CLEAR); URINE COLOR YELLOW (YELLOW)
[2016-12-09 04:55] LABS: URINE RBC 0 - 2 /hpf (0-2); URINE WBC 0 - 2 /hpf (0-6)
[2016-12-09 04:58] LABS: URINE BACTERIA MOD (NEG)
[2016-12-09] MEDS: metroNIDAZOLE IV 500 mg/100 ml 500 MG/100 ML BAG IVPB SCH ×3 (05:35→22:00)
[2016-12-09 06:31] LABS: OSMOLALITY,URINE 329 mosm/kg (50-645)
[2016-12-09 07:49] LABS: CALCIUM 7.8 mg/dL (8.4-10.5)
[2016-12-09] MEDS ORDERED: Arformoterol 15 mcg/2 ml Inh Sol IH SCH (08:00)
[2016-12-09] MEDS: Budesonide 0.5 mg/2 ml Inhal Susp UD IH SCH ×2 (08:09→20:53)
[2016-12-09] MEDS: Pantoprazole 40 mg EC Tab PO SCH (08:34)
[2016-12-09] MEDS ORDERED: Lactobacillus Acidophilus 500 MU Cap PO SCH (10:00)
[2016-12-09] MEDS ORDERED: [UNRECOGNIZED DRUG - OTHER] PO SCH (10:00)
[2016-12-09] MEDS ORDERED: HYDROCHLOROTHIAZIDE PO SCH (10:00)
[2016-12-09] MEDS ORDERED: VALSARTAN PO SCH (10:00)
[2016-12-09] MEDS ORDERED: Vancomycin 1gm in NS 250ml 1 GM/250 ML BAG IVPB STA (10:08)
[2016-12-09] MEDS: cefTRIAXone 1 gm 1 GM/100 ML BAG IVPB SCH (10:20)
[2016-12-09] MEDS ORDERED: Sodium Chloride 0.9% 500 ML IV STA (10:51)
[2016-12-09] MEDS: Lactobacillus Acidophilus 500 MU Cap PO SCH (11:03)
--- NOTE | 2016-12-09 11:08 | CT ---
PROCEDURE: CT Abdomen and Pelvis without intravenous contrast HISTORY: renal failure COMPARISON: None. TECHNIQUE: Helical CT of the chest performed without intravenous contrast as per referring physician request. No prior CT available for comparison.. Contrast Dose: None Radiation dose: Total exam DLP = 403 mGy-cm. This CT exam was performed using one or more of the following dose reduction techniques: Automated exposure control, adjustment of the mA and/or kV according to patient size, and/or use of iterative reconstruction technique. FINDINGS: LOWER THORAX: Grossly nonfocal but significantly motion artifacted. Pacemaker leads are identified in the right heart which appears normal size nevertheless. LIVER: A segment of the hepatic flexure is interposed between the dome of the liver in the right hemidiaphragm posteriorly. Intrahepatic biliary duct dilatation is questioned. GALLBLADDER AND BILE DUCTS: Poorly identified either prominent artifacts from pacing leads as well as the lack of contrast agents. Cholelithiasis is questioned within the mildly distended gallbladder. PANCREAS: Unremarkable. No gross lesion or ductal dilatation. SPLEEN: Unremarkable. ADRENALS: Unremarkable. No mass. KIDNEYS AND URETERS: Unremarkable. No hydronephrosis. No solid mass. VASCULATURE: Atherosclerotic nonaneurysmal abdominal aorta. BOWEL: Sigmoid diverticular disease is suspected however no definite acute diverticulitis pattern is appreciated this time. . APPENDIX: Poorly identified appendix. No definite CT evidence of appendicitis nevertheless. PERITONEUM: Unremarkable. No free fluid. No free air. LYMPH NODES: Unremarkable. No enlarged lymph nodes. BLADDER: Unremarkable. REPRODUCTIVE: Unremarkable. BONES: Prominent lumbar scoliotic deformity with advanced multilevel degenerative disc disease. OTHER FINDINGS: None. IMPRESSION: Limited exam is did artifacts from the pacemaking leads in the heart scattered over the upper abdomen as well as body habitus and lack images intravenous contrast. Cholelithiasis within a contracted gallbladder with intrahepatic biliary dilatation is suspected. Consider follow-up abdomen ultrasound exam. Concur with [facility] report by Dr. Mae.
--- NOTE | 2016-12-09 11:24 | CP.PCM.PN ---
<Griselda Hollins - Last Filed: 12/09/16 12:27> Subjective - Date & Time of Evaluation Date of Evaluation: 12/09/16 Time of Evaluation: 11:24 - Subjective Subjective: PGY-2 ICU progress note Patient seen and examined at bedside in ICU. No acute distress. Patient presented to hospital for weakness and diarrhea. She states that this morning she feels better. Denies fever, chill, abd pain, chest pain, sob. She does report tenderness in RLE. Objective - Vital Signs/Intake and Output Vital Signs (last 24 hours): Temp Pulse Resp BP Pulse Ox 97.9 F 78 28 H 109/70 99 12/09/16 04:00 12/09/16 10:10 12/09/16 06:00 12/09/16 06:00 12/09/16 06:00 Intake and Output: 12/09/16 12/09/16 06:59 18:59 Intake Total 1100 Output Total 200 Balance 900 - Medications Medications: Current Medications Acetaminophen (Tylenol 325mg Tab) 650 mg PO Q6H PRN PRN Reason: Fever >100.4 F Last Admin: 12/09/16 02:33 Dose: 650 mg Arformoterol Tartrate (Brovana) 15 mcg IH [id number] [facility] Aspirin (Ecotrin) 81 mg PO DAILY [facility] Last Admin: 12/09/16 09:44 Dose: 81 mg Budesonide (Pulmicort Respules) 0.5 mg IH [id number] [facility] Last Admin: 12/09/16 08:09 Dose: 0.5 mg Heparin Sodium (Porcine) (Heparin) 5,000 units SC Q12 [facility] PRN Reason: Protocol Last Admin: 12/09/16 09:44 Dose: 5,000 units Metronidazole (Flagyl) 500 mg in 100 mls @ 100 mls/hr IVPB Q8 [facility] PRN Reason: Protocol Last Admin: 12/09/16 05:35 Dose: 100 mls/hr Sodium Chloride (Sodium Chloride 0.9%) 1,000 mls @ 75 mls/hr IV .[id number] [facility] Last Admin: 12/09/16 09:45 Dose: 75 mls/hr Ceftriaxone Sodium (Rocephin 1 Gram Ivpb) 1 gm in 100 mls @ 100 mls/hr IVPB DAILY [facility] PRN Reason: Protocol Stop: 12/17/16 10:09 Last Admin: 12/09/16 10:20 Dose: 100 mls/hr Vancomycin HCl (Vancomycin 1gm) 1 gm in 250 mls @ 167 mls/hr IVPB STAT [facility] PRN Reason: Protocol Stop: 12/09/16 11:37 Last Admin: 12/09/16 10:21 Dose: 167 mls/hr Lactobacillus Acidophilus (Bacid Acidophilus) 1 cap PO DAILY [facility] Last Admin: 12/09/16 11:03 Dose: 1 cap Ondansetron HCl (Zofran Inj) 4 mg IVP Q6H PRN PRN Reason: Nausea/Vomiting Pantoprazole Sodium (Protonix Ec Tab) 40 mg PO 0600 [facility] Last Admin: 12/09/16 08:34 Dose: 40 mg Vancomycin HCl (Vancocin 25 Mg/Ml (Oral Use)) 250 mg PO QID [facility] PRN Reason: Protocol Stop: 12/18/16 14:01 - Labs Labs: 12/09/16 01:10 12/09/16 07:25 PT 10.4 Seconds (9.9-11.8) 12/08/16 19:50 INR 0.96 (0.93-1.08) 12/08/16 19:50 APTT 29.9 Seconds (23.7-30.8) 12/09/16 01:10 - Constitutional Appears: No Acute Distress - Head Exam Head Exam: ATRAUMATIC, NORMOCEPHALIC - Eye Exam Eye Exam: EOMI, Normal appearance - ENT Exam ENT Exam: Mucous Membranes Moist - Respiratory Exam Respiratory Exam: Clear to Ausculation Bilateral, NORMAL BREATHING PATTERN. absent: Rales, Rhonchi, Wheezes, Respiratory Distress - Cardiovascular Exam Cardiovascular Exam: REGULAR RHYTHM, +S1, +S2. absent: Tachycardia, Diastolic murmur, Murmur - GI/Abdominal Exam GI & Abdominal Exam: Soft, Normal Bowel Sounds. absent: Distended, Firm, Tenderness - Extremities Exam Extremities Exam: Tenderness (RLE ). absent: Pedal Edema Additional comments: RLE wound with erhyema - Neurological Exam Neurological Exam: Alert, Awake, Oriented x3 - Skin Skin Exam: Dry, Intact, Normal Color, Warm Assessment and Plan - Assessment and Plan (Free Text) Assessment: 89 year old female with a PMHx of HTN, Ulcerative Colitis, Chronic Leg wound, GERD, Pacemaker, and COPD who is being admitted for severe sepsis, anion gap metabolic acidosis, GILBERT and hypovolemic hyponatremia most likely 2/2 diarrhea. Plan: Neuro: - Pt awake, alerted and oriented x3 - cont to monitor. Cardio: -Pacemaker -Hold Hypertensive due to hypotension -maintain MAP>65. Resp: - Saturating Well on RA - CXR pending Read - maintain SpO2 >90% - cont home meds, pulmicort, brovana GI:. - NPO - Stool Cultures w/ c diff, OVA/Parasites, - CT Abd/pelvis read pending. - abx vanco, ceftriaxone and Flagyl - GI consulted Nephro: - GILBERT - Anion Gap Metabolic Acidosis- improved - lactic acid 3.1, cont NS @75 - hyponatremia will not correct more than 10mEq in 12hr period. - nephro consulted ID: - afebrile with leukocytosis at 22.5; lactate 3.1 - CT Abd/pelvis read pending. - Blood/Urine Culture; Stool Culture w/ c Diff, OVA & Parasite - RLE wound with cellulitis - podiatry consulted - vanco, ceftriaxone and Flagyl - Maintain normothermia - ID conulted Endo: - Maintain euglycemia. Hem/Onc: HGB is 10 -Patient is at baseline. DVT PPX: Heparin GI PPX: Protonix <Thierno Luis - Last Filed: 12/09/16 15:12> Objective - Vital Signs/Intake and Output Vital Signs (last 24 hours): Temp Pulse Resp BP Pulse Ox 97.9 F 78 28 H 109/70 99 12/09/16 04:00 12/09/16 10:10 12/09/16 06:00 12/09/16 06:00 12/09/16 06:00 Intake and Output: 12/09/16 12/09/16 06:59 18:59 Intake Total 1100 Output Total 200 Balance 900 - Medications Medications: Current Medications Acetaminophen (Tylenol 325mg Tab) 650 mg PO Q6H PRN PRN Reason: Fever >100.4 F Last Admin: 12/09/16 02:33 Dose: 650 mg Arformoterol Tartrate (Brovana) 15 mcg IH [id number] [facility] Aspirin (Ecotrin) 81 mg PO DAILY [facility] Last Admin: 12/09/16 09:44 Dose: 81 mg Budesonide (Pulmicort Respules) 0.5 mg IH [id number] [facility] Last Admin: 12/09/16 08:09 Dose: 0.5 mg Heparin Sodium (Porcine) (Heparin) 5,000 units SC Q12 [facility] PRN Reason: Protocol Last Admin: 12/09/16 09:44 Dose: 5,000 units Metronidazole (Flagyl) 500 mg in 100 mls @ 100 mls/hr IVPB Q8 [facility] PRN Reason: Protocol Last Admin: 12/09/16 14:19 Dose: 100 mls/hr Ceftriaxone Sodium (Rocephin 1 Gram Ivpb) 1 gm in 100 mls @ 100 mls/hr IVPB DAILY [facility] PRN Reason: Protocol Stop: 12/17/16 10:09 Last Admin: 12/09/16 10:20 Dose: 100 mls/hr Sodium Bicarbonate 150 meq/ (Dextrose) 1,150 mls @ 75 mls/hr IV .[id number] [facility] Last Admin: 12/09/16 13:58 Dose: 75 mls/hr Lactobacillus Acidophilus (Bacid Acidophilus) 1 cap PO DAILY [facility] Last Admin: 12/09/16 11:03 Dose: 1 cap Ondansetron HCl (Zofran Inj) 4 mg IVP Q6H PRN PRN Reason: Nausea/Vomiting Pantoprazole Sodium (Protonix Ec Tab) 40 mg PO 0600 [facility] Last Admin: 12/09/16 08:34 Dose: 40 mg Vancomycin HCl (Vancocin 25 Mg/Ml (Oral Use)) 250 mg PO QID [facility] PRN Reason: Protocol Stop: 12/18/16 14:01 Last Admin: 12/09/16 14:19 Dose: 250 mg - Labs Labs: 12/09/16 01:10 12/09/16 11:50 PT 10.4 Seconds (9.9-11.8) 12/08/16 19:50 INR 0.96 (0.93-1.08) 12/08/16 19:50 APTT 29.9 Seconds (23.7-30.8) 12/09/16 01:10 Attending/Attestation - Attestation I have personally seen and examined this patient.: Yes I have fully participated in the care of the patient.: Yes I have reviewed all pertinent clinical information, including history, physical exam and plan: Yes Notes (Text): 12/09/16 15:07 89 yo female with severe sepsis secondary to likely billiary source ascending cholangitis vs acute cholecystitis, complicated by MODS, including GILBERT, septic encephalopathy, hyponatriemia, severe lactic acidosis. Fluid resusciatation is in progress, 750 cc of 5% albumin is given, bicarb drip is ongoing, empiric abx started, septic workup initiated. CT abdomen showed dilated CBD with choledocholithiasis and cholelithiasis. abdominal US confirmed dilated CBD. HIDA scan and MRCP are pending-->discussed with Dr. Dalal: GI. If positive will get surgery involved. Will trend procalcitonin, lactate and VBG/ph. Will maintain euvolemia, euglycemia and normothermia. Patient is DNR/DNI. ccm time 40 min
--- NOTE | 2016-12-09 11:50 | RAD ---
HISTORY: weak COMPARISON: Portable chest 04/15/2015. FINDINGS: LUNGS: Limited patchy infiltrate is questioned at the medial right apex with prominent elevation right hemidiaphragm again noted. The lower face obscures the medial apices bilaterally nevertheless. No pleural effusion or gross pneumothorax bilaterally. However after markers are stable as well as cardiac size. Pacemaker again identified. PLEURA: No significant pleural effusion identified, no pneumothorax apparent. CARDIOVASCULAR: As per above OSSEOUS STRUCTURES: No significant abnormalities. VISUALIZED UPPER ABDOMEN: Normal. OTHER FINDINGS: None. IMPRESSION: Limited right medial apical infiltrate is in question however the upper right medial apex obscured by the patient's lower face well as the left side. Remainder of the examination appears stable.
[2016-12-09 12:09] LABS: CALCIUM 7.9 mg/dL (8.4-10.5)
[2016-12-09] MEDS ORDERED: Sodium Chloride 0.9% 1,000 ML IV STA (12:36)
[2016-12-09] MEDS ORDERED: Sodium Bicarbonate 8.4% 150 MEQ in Dextrose 5% In Water 1,000 ML IV SCH ×2 (13:00)
--- NOTE | 2016-12-09 13:01 | CP.PCM.PN ---
"Subjective - Date & Time of Evaluation Date of Evaluation: 12/09/16 Time of Evaluation: 10:30 - Subjective Subjective: 89 y/o female with PMHx of HTN, Ulcerative Colitis, Chronic Leg wound, GERD, Pacemaker, COPD seen at bedside for superficial ulceration on right lower extremity. Pt is alert and awake but is not responding to the questions properly. Unable to obtain full history due to a poor historian. Pt appears to be resting comfortably in her bed. Pt appears in no acute distress. PMHx: HTN, Ulcerative Colitis, Chronic Leg wound, GERD, Pacemaker, COPD PSHx: Denies Allergies: Sulfa Family Hx: Rheumatic Fever (Mother)| Emphysema (Father) Social Hx: Denies Tobacco, Alcohol, or other illicit drug use Objective - Vital Signs/Intake and Output Vital Signs (last 24 hours): Temp Pulse Resp BP Pulse Ox 97.9 F 78 28 H 109/70 99 12/09/16 04:00 12/09/16 10:10 12/09/16 06:00 12/09/16 06:00 12/09/16 06:00 Intake and Output: 12/09/16 12/09/16 06:59 18:59 Intake Total 1100 Output Total 200 Balance 900 - Medications Medications: Current Medications Acetaminophen (Tylenol 325mg Tab) 650 mg PO Q6H PRN PRN Reason: Fever >100.4 F Last Admin: 12/09/16 02:33 Dose: 650 mg Albumin Human (Albumin Human 5% (12.5 Gm/250 Ml)) 12.5 gm IV Q1H [facility] Stop: 12/09/16 15:01 Arformoterol Tartrate (Brovana) 15 mcg IH [id number] [facility] Aspirin (Ecotrin) 81 mg PO DAILY [facility] Last Admin: 12/09/16 09:44 Dose: 81 mg Budesonide (Pulmicort Respules) 0.5 mg IH [id number] [facility] Last Admin: 12/09/16 08:09 Dose: 0.5 mg Heparin Sodium (Porcine) (Heparin) 5,000 units SC Q12 [facility] PRN Reason: Protocol Last Admin: 12/09/16 09:44 Dose: 5,000 units Metronidazole (Flagyl) 500 mg in 100 mls @ 100 mls/hr IVPB Q8 [facility] PRN Reason: Protocol Last Admin: 12/09/16 05:35 Dose: 100 mls/hr Ceftriaxone Sodium (Rocephin 1 Gram Ivpb) 1 gm in 100 mls @ 100 mls/hr IVPB DAILY [facility] PRN Reason: Protocol Stop: 12/17/16 10:09 Last Admin: 12/09/16 10:20 Dose: 100 mls/hr Sodium Bicarbonate 150 meq/ (Dextrose) 1,150 mls @ 75 mls/hr IV .[id number] [facility] Lactobacillus Acidophilus (Bacid Acidophilus) 1 cap PO DAILY [facility] Last Admin: 12/09/16 11:03 Dose: 1 cap Ondansetron HCl (Zofran Inj) 4 mg IVP Q6H PRN PRN Reason: Nausea/Vomiting Pantoprazole Sodium (Protonix Ec Tab) 40 mg PO 0600 [facility] Last Admin: 12/09/16 08:34 Dose: 40 mg Vancomycin HCl (Vancocin 25 Mg/Ml (Oral Use)) 250 mg PO QID [facility] PRN Reason: Protocol Stop: 12/18/16 14:01 - Labs Labs: 12/09/16 01:10 12/09/16 11:50 PT 10.4 Seconds (9.9-11.8) 12/08/16 19:50 INR 0.96 (0.93-1.08) 12/08/16 19:50 APTT 29.9 Seconds (23.7-30.8) 12/09/16 01:10 - Constitutional Appears: Well, Non-toxic, No Acute Distress - Extremities Exam Additional comments: VASC: DP/PT pulses are palpable 1/4 b/l, PHONE MANAGER: < 3 sec to all digits, TG: warm to warm, no pitting or non pitting edema noted b/l DERM: Diffuse superficial ulcer noted on distal right leg/ankle extending to drosum and plantar aspect of the foot with active serous drainage, [place] of fibrotic skin noted on the dorsum of the foot and lateral aspect of the leg, no malodor, no probe to bone, erythema noted on the distal leg as well as the foot , no clinical suspicion of active infection noted from the right lower extremity NEURO: Unable to obtain due to poor responses ORTHO: Tenderness on palpation of the right ankle as well as the foot - Neurological Exam Neurological Exam: Alert, Awake - Psychiatric Exam Psychiatric exam: Normal Affect, Normal Mood Assessment and Plan - Assessment and Plan (Free Text) Assessment: 89 y/o female seen at bedside for superficial ulceration on right lower extremity Plan: Pt evaluated and charts reviewed Pt discussed in details with attending Dr. Workman Vitals and labs reviewed (afebrile, WBC @ 22.5) Ulceration cleaned using saline and dressing applied using xeroform, ABD, kerlix Pt to remain on IV abx as per ID Podiatry to follow while patient is in house Thank you for the podiatry consult"
[2016-12-09] MEDS: Albumin Human 5% (12.5 gm/250 ml) IV SCH ×3 (13:26→13:55)
--- NOTE | 2016-12-09 13:38 | CP.PCM.CON ---
"History of Present Illness - History of Present Illness History of Present Illness: 89 y/o female with PMHx of HTN, Ulcerative Colitis, Chronic Leg wound, GERD, Pacemaker, COPD seen at bedside for superficial ulceration on right lower extremity. Pt is alert and awake but is not responding to the questions properly. Unable to obtain full history due to a poor historian. Pt appears to be resting comfortably in her bed. Pt appears in no acute distress. PMHx: HTN, Ulcerative Colitis, Chronic Leg wound, GERD, Pacemaker, COPD PSHx: Denies Allergies: Sulfa Family Hx: Rheumatic Fever (Mother)| Emphysema (Father) Social Hx: Denies Tobacco, Alcohol, or other illicit drug use Review of Systems - Constitutional Constitutional: As Per HPI Past Patient History - Infectious Disease Hx of Infectious Diseases: None - Past Social History Smoking Status: Never Smoked - CARDIAC Hx Cardiac Disorders: Yes Hx Hypertension: Yes - PULMONARY Hx Respiratory Disorders: Yes Hx Chronic Obstructive Pulmonary Disease (COPD): Yes Hx Emphysema: Yes - NEUROLOGICAL Hx Neurological Disorder: Yes - HEENT Hx HEENT Problems: Yes Other/Comment: wear [employer] glasses for reading and distance - RENAL Hx Chronic Kidney Disease: No - ENDOCRINE/METABOLIC Hx Endocrine Disorders: No - HEMATOLOGICAL/ONCOLOGICAL Hx Blood Disorders: No - INTEGUMENTARY Hx Dermatological Problems: No - MUSCULOSKELETAL/RHEUMATOLOGICAL Hx Falls: No - GASTROINTESTINAL Hx Gastrointestinal Disorders: Yes Other/Comment: colitis - GENITOURINARY/GYNECOLOGICAL Hx Genitourinary Disorders: No - PSYCHIATRIC Hx Psychophysiologic Disorder: Yes Hx Anxiety: Yes Hx Substance Use: No - SURGICAL HISTORY Other/Comment: pacemaker - ANESTHESIA Hx Anesthesia Reactions: No Hx Malignant Hyperthermia: No Meds Allergies/Adverse Reactions: Allergies Allergy/AdvReac Type Severity Reaction Status Date / Time silver [From SilvaSorb] Allergy SWELLING Verified 12/09/16 01:05 silver sulfadiazine Allergy SWELLING Verified 12/09/16 01:05 [From Silvadene] Sulfa (Sulfonamide Allergy SHORTNESS Verified 12/08/16 19:17 Antibiotics) OF BREATH - Medications Medications: Current Medications Acetaminophen (Tylenol 325mg Tab) 650 mg PO Q6H PRN PRN Reason: Fever >100.4 F Last Admin: 12/09/16 02:33 Dose: 650 mg Albumin Human (Albumin Human 5% (12.5 Gm/250 Ml)) 12.5 gm IV Q1H [facility] Stop: 12/09/16 15:01 Last Admin: 12/09/16 13:26 Dose: 12.5 gm Arformoterol Tartrate (Brovana) 15 mcg IH [id number] [facility] Aspirin (Ecotrin) 81 mg PO DAILY [facility] Last Admin: 12/09/16 09:44 Dose: 81 mg Budesonide (Pulmicort Respules) 0.5 mg IH [id number] [facility] Last Admin: 12/09/16 08:09 Dose: 0.5 mg Heparin Sodium (Porcine) (Heparin) 5,000 units SC Q12 [facility] PRN Reason: Protocol Last Admin: 12/09/16 09:44 Dose: 5,000 units Metronidazole (Flagyl) 500 mg in 100 mls @ 100 mls/hr IVPB Q8 [facility] PRN Reason: Protocol Last Admin: 12/09/16 05:35 Dose: 100 mls/hr Ceftriaxone Sodium (Rocephin 1 Gram Ivpb) 1 gm in 100 mls @ 100 mls/hr IVPB DAILY [facility] PRN Reason: Protocol Stop: 12/17/16 10:09 Last Admin: 12/09/16 10:20 Dose: 100 mls/hr Sodium Bicarbonate 150 meq/ (Dextrose) 1,150 mls @ 75 mls/hr IV .[id number] [facility] Lactobacillus Acidophilus (Bacid Acidophilus) 1 cap PO DAILY [facility] Last Admin: 12/09/16 11:03 Dose: 1 cap Ondansetron HCl (Zofran Inj) 4 mg IVP Q6H PRN PRN Reason: Nausea/Vomiting Pantoprazole Sodium (Protonix Ec Tab) 40 mg PO 0600 [facility] Last Admin: 12/09/16 08:34 Dose: 40 mg Vancomycin HCl (Vancocin 25 Mg/Ml (Oral Use)) 250 mg PO QID [facility] PRN Reason: Protocol Stop: 12/18/16 14:01 Physical Exam - Constitutional Appears: Well, Non-toxic, No Acute Distress - Extremities Exam Additional comments: VASC: DP/PT pulses are palpable 1/4 b/l, TOMATO GRADER: < 3 sec to all digits, TG: warm to warm, no pitting or non pitting edema noted b/l DERM: Diffuse superficial ulcer noted on distal right leg/ankle extending to drosum and plantar aspect of the foot with active serous drainage, [place] of fibrotic skin noted on the dorsum of the foot and lateral aspect of the leg, no malodor, no probe to bone, erythema noted on the distal leg as well as the foot , no clinical suspicion of active infection noted from the right lower extremity NEURO: Unable to obtain due to poor responses ORTHO: Tenderness on palpation of the right ankle as well as the foot - Neurological Exam Neurological exam: Alert - Psychiatric Exam Psychiatric exam: Normal Affect, Normal Mood Results - Vital Signs Recent Vital Signs: Last Vital Signs Temp 97.9 F 12/09/16 04:00 Pulse 78 12/09/16 10:10 Resp 28 H 12/09/16 06:00 BP 109/70 12/09/16 06:00 Pulse Ox 99 12/09/16 06:00 - Labs Result Diagrams: 12/09/16 01:10 12/09/16 11:50 Labs: Laboratory Results - last 24 hr 12/08/16 12/09/16 12/09/16 23:50 01:10 01:10 WBC 22.5 H RBC 3.35 L Hgb 10.0 L Hct 28.5 L MCV 85.1 MCH 29.9 MCHC 35.1 RDW 12.8 Plt Count 354 MPV 7.7 APTT 29.9 pO2 53 VBG pH 7.13 L* VBG pCO2 32.0 L VBG HCO3 10.6 L VBG Total CO2 11.6 L VBG O2 Sat (Calc) 90.3 H VBG Base Excess -17.3 L VBG Potassium 5.3 H Sodium 136.0 Chloride 89.0 L Glucose 75 Lactate 3.1 H FiO2 21.0 Potassium Carbon Dioxide Anion Gap BUN Creatinine Est GFR ( Amer) Est GFR (Non-Af Amer) Random Glucose Serum Osmolality Calcium TSH 3rd Generation Venous Blood Potassium 5.3 H Urine Color Urine Appearance Urine pH Ur Specific [place] Urine Protein Urine Glucose (UA) Urine Ketones Urine Blood Urine Nitrate Urine Bilirubin Urine Urobilinogen Ur Leukocyte Esterase Urine RBC Urine WBC Urine Bacteria Urine Osmolality Ur Random Sodium 12/09/16 12/09/16 12/09/16 01:10 03:55 04:00 WBC RBC Hgb Hct MCV MCH MCHC RDW Plt Count MPV APTT pO2 VBG pH VBG pCO2 VBG HCO3 VBG Total CO2 VBG O2 Sat (Calc) VBG Base Excess VBG Potassium Sodium 127 L 126 L Chloride 100 97 Glucose Lactate FiO2 Potassium 4.4 4.0 Carbon Dioxide 12 L 13 L Anion Gap 19 20 BUN 83 H 81 H Creatinine 4.9 H 4.5 H Est GFR ( Amer) 10 11 Est GFR (Non-Af Amer) 8 9 Random Glucose 88 146 H Serum Osmolality Calcium 7.9 L 8.1 L TSH 3rd Generation Venous Blood Potassium Urine Color Yellow Urine Appearance Slight-cloudy Urine pH 5.5 Ur Specific [place] 1.025 Urine Protein 30 H Urine Glucose (UA) Negative Urine Ketones Negative Urine Blood Negative Urine Nitrate Negative Urine Bilirubin Negative Urine Urobilinogen 0.2 Ur Leukocyte Esterase Negative Urine RBC 0 - 2 Urine WBC 0 - 2 Urine Bacteria Mod Urine Osmolality Ur Random Sodium 12/09/16 12/09/16 12/09/16 06:04 07:25 07:25 WBC RBC Hgb Hct MCV MCH MCHC RDW Plt Count MPV APTT pO2 VBG pH VBG pCO2 VBG HCO3 VBG Total CO2 VBG O2 Sat (Calc) VBG Base Excess VBG Potassium Sodium 124 L Chloride 97 Glucose Lactate FiO2 Potassium 3.7 Carbon Dioxide 14 L Anion Gap 17 BUN 74 H Creatinine 3.7 H Est GFR ( Amer) 14 Est GFR (Non-Af Amer) 12 Random Glucose 171 H Serum Osmolality 294 Calcium 7.8 L TSH 3rd Generation 0.97 Venous Blood Potassium Urine Color Urine Appearance Urine pH Ur Specific [place] Urine Protein Urine Glucose (UA) Urine Ketones Urine Blood Urine Nitrate Urine Bilirubin Urine Urobilinogen Ur Leukocyte Esterase Urine RBC Urine WBC Urine Bacteria Urine Osmolality 329 Ur Random Sodium 66 12/09/16 11:50 WBC RBC Hgb Hct MCV MCH MCHC RDW Plt Count MPV APTT pO2 VBG pH VBG pCO2 VBG HCO3 VBG Total CO2 VBG O2 Sat (Calc) VBG Base Excess VBG Potassium Sodium 126 L Chloride 100 Glucose Lactate FiO2 Potassium 3.4 L Carbon Dioxide 14 L Anion Gap 15 BUN 67 H Creatinine 3.3 H Est GFR ( Amer) 16 Est GFR (Non-Af Amer) 13 Random Glucose 129 H Serum Osmolality Calcium 7.9 L TSH 3rd Generation Venous Blood Potassium Urine Color Urine Appearance Urine pH Ur Specific [place] Urine Protein Urine Glucose (UA) Urine Ketones Urine Blood Urine Nitrate Urine Bilirubin Urine Urobilinogen Ur Leukocyte Esterase Urine RBC Urine WBC Urine Bacteria Urine Osmolality Ur Random Sodium Assessment & Plan - Assessment and Plan (Free Text) Assessment: 89 y/o female seen at bedside for superficial ulceration on right lower extremity Plan: Pt evaluated and charts reviewed Pt discussed in details with attending Dr. Workman Vitals and labs reviewed (afebrile, WBC @ 22.5) Ulceration cleaned using saline and dressing applied using xeroform, ABD, kerlix Pt to remain on IV abx as per ID Podiatry to follow while patient is in house Thank you for the podiatry consult - Date & Time Date: 12/09/16 Time: 10:30"
--- NOTE | 2016-12-09 13:46 | CARD ---
APPROVED REPORT EKG Measurement Heart [id number] <Conclusion> AV sequential or dual chamber electronic pacemaker
[2016-12-09] MEDS: Vancomycin 25 MG/ML PO SCH ×3 (14:19→21:12)
--- NOTE | 2016-12-09 14:45 | US ---
HISTORY: choledocholithiasis COMPARISON: Abdomen pelvis CT examination 12/08/2016 TECHNIQUE: Sonographic evaluation of the abdomen. FINDINGS: LIVER: Measures 12.5 cm. Normal echogenicity of the liver parenchyma. No mass. No intrahepatic bile duct dilatation. GALLBLADDER: Numerous gallstones identified at the dependent gallbladder with mural thickening up to 3.0 mm which is borderline abnormal. No pericholecystic fluid collection is associated however. COMMON BILE DUCT: Measures 13.8 mm. No choledocholithiasis appreciated. PANCREAS: Completely obscured by overlying bowel. RIGHT KIDNEY: Measures 9.3cm.Limited parenchymal evaluation due to body habitus. . No calculus, mass, or hydronephrosis. LEFT KIDNEY: Measures 9.5cm. Limited parenchymal evaluation due to body habitus. No calculus, mass, or hydronephrosis. SPLEEN: Normal in size and contour. No mass. AORTA: No aneurysmal dilatation. IVC: Unremarkable. OTHER FINDINGS: None. IMPRESSION: 1. Prominent dilatation of the common bile duct is identified without choledocholithiasis. Relatively extensive cholelithiasis layers in the dependent gallbladder and there is moderate mural thickening but no pericholecystic fluid collection. Clinically correlate for cholecystitis nevertheless. 2. Complete obscuring of the pancreas by overlying bowel. 3. No obstructive uropathy bilaterally in the kidneys. Renal parenchyma stone is obscured by body habitus bilaterally.
[2016-12-09 15:50] LABS: CALCIUM 7.7 mg/dL (8.4-10.5)
--- NOTE | 2016-12-09 17:26 | CP.PCM.CON ---
History of Present Illness - History of Present Illness History of Present Illness: This 20-year-old old patient with a past medical history of ulcerative colitis hypertension COPD coronary artery disease and diabetes mellitus chronic right leg ulceration was admitted for generalized weakness and diarrhea for past 3 days. No bleeding per rectum no fever. Patient was found to be in acute kidney injury,Hyponatremia and elevated WBC count over 22,000. Admitted to ICU with code "sepsis. Patient was also found to have mildly elevated LFTs. CT scan of the abdomen and pelvis was suggestive for gallstones and prominent CBD . Patient subsequently had an ultrasound scan of the abdomen showed gallstones and also dilated CBD 13.8. Patient's liver enzymes has been Nearly normal. Review of Systems - Review of Systems All systems: reviewed and no additional remarkable complaints except - Constitutional Constitutional: As Per HPI - EENT Ears: absent: Ear Discharge, Tinnitus Nose/Mouth/Throat: absent: Change in Voice, Dysphagia - Cardiovascular Cardiovascular: Leg Ulcers. absent: Chest Pain, Palpitations - Respiratory Respiratory: Dyspnea on Exertion. absent: Cough - Gastrointestinal Gastrointestinal: As Per HPI, Abdominal Pain, Belching - Neurological Neurological: As Per HPI - Hematologic/Lymphatic Hematologic: absent: Lymphadenopathy Past Patient History - Infectious Disease Hx of Infectious Diseases: None - Past Social History Smoking Status: Never Smoked - CARDIAC Hx Cardiac Disorders: Yes Hx Hypertension: Yes - PULMONARY Hx Respiratory Disorders: Yes Hx Chronic Obstructive Pulmonary Disease (COPD): Yes Hx Emphysema: Yes - NEUROLOGICAL Hx Neurological Disorder: Yes - HEENT Hx HEENT Problems: Yes Other/Comment: wear weas glasses for reading and distance - RENAL Hx Chronic Kidney Disease: No - ENDOCRINE/METABOLIC Hx Endocrine Disorders: No - HEMATOLOGICAL/ONCOLOGICAL Hx Blood Disorders: No - INTEGUMENTARY Hx Dermatological Problems: No - MUSCULOSKELETAL/RHEUMATOLOGICAL Hx Falls: No - GASTROINTESTINAL Hx Gastrointestinal Disorders: Yes Other/Comment: colitis - GENITOURINARY/GYNECOLOGICAL Hx Genitourinary Disorders: No - PSYCHIATRIC Hx Psychophysiologic Disorder: Yes Hx Anxiety: Yes Hx Substance Use: No - SURGICAL HISTORY Other/Comment: pacemaker - ANESTHESIA Hx Anesthesia Reactions: No Hx Malignant Hyperthermia: No Meds Allergies/Adverse Reactions: Allergies Allergy/AdvReac Type Severity Reaction Status Date / Time silver [From SilvaSorb] Allergy SWELLING Verified 12/09/16 01:05 silver sulfadiazine Allergy SWELLING Verified 12/09/16 01:05 [From Silvadene] Sulfa (Sulfonamide Allergy SHORTNESS Verified 12/08/16 19:17 Antibiotics) OF BREATH - Medications Medications: Current Medications Acetaminophen (Tylenol 325mg Tab) 650 mg PO Q6H PRN PRN Reason: Fever >100.4 F Last Admin: 12/09/16 02:33 Dose: 650 mg Arformoterol Tartrate (Brovana) 15 mcg IH [id number] [facility] Aspirin (Ecotrin) 81 mg PO DAILY [facility] Last Admin: 12/09/16 09:44 Dose: 81 mg Budesonide (Pulmicort Respules) 0.5 mg IH [id number] [facility] Last Admin: 12/09/16 08:09 Dose: 0.5 mg Heparin Sodium (Porcine) (Heparin) 5,000 units SC Q12 [facility] PRN Reason: Protocol Last Admin: 12/09/16 09:44 Dose: 5,000 units Metronidazole (Flagyl) 500 mg in 100 mls @ 100 mls/hr IVPB Q8 [facility] PRN Reason: Protocol Last Admin: 12/09/16 14:19 Dose: 100 mls/hr Ceftriaxone Sodium (Rocephin 1 Gram Ivpb) 1 gm in 100 mls @ 100 mls/hr IVPB DAILY [facility] PRN Reason: Protocol Stop: 12/17/16 10:09 Last Admin: 12/09/16 10:20 Dose: 100 mls/hr Sodium Bicarbonate 150 meq/ (Dextrose) 1,150 mls @ 75 mls/hr IV .[id number] [facility] Last Admin: 12/09/16 13:58 Dose: 75 mls/hr Lactobacillus Acidophilus (Bacid Acidophilus) 1 cap PO DAILY [facility] Last Admin: 12/09/16 11:03 Dose: 1 cap Ondansetron HCl (Zofran Inj) 4 mg IVP Q6H PRN PRN Reason: Nausea/Vomiting Pantoprazole Sodium (Protonix Ec Tab) 40 mg PO 0600 [facility] Last Admin: 12/09/16 08:34 Dose: 40 mg Vancomycin HCl (Vancocin 25 Mg/Ml (Oral Use)) 250 mg PO QID [facility] PRN Reason: Protocol Stop: 12/18/16 14:01 Last Admin: 12/09/16 14:19 Dose: 250 mg Physical Exam - Constitutional Appears: No Acute Distress - Head Exam Head Exam: ATRAUMATIC, NORMOCEPHALIC - ENT Exam ENT Exam: Mucous Membranes Moist, Normal External Ear Exam - Neck Exam Neck exam: Positive for: Meningismus ( pseudodiverticulosis was a diverticulum were watery material coming out is what only C Anne W out which occurs at pocket has only mucosal and serosal no muscular layer so what happens is that he gets inflamed because the vessels or compromise would be easily anything stuck or anything actively inflamed to CT scan abdomen positive E that he can get inflamed or the vessel into [id number] in cause bleeding in general pathophysiology and hematocrit with when he has somebody other rectal bleeding and pain bleeding and pain not diverticulitis colitis probably ischemic abdominal pain and bleeding not diverticulitis T6 not seem to visualize except in the exception for in general terms so the blood bleeding occurring diverticulum versus ileus so he really is causing interesting family in the floor because he wanted other complications relevant inflammation. No bleeding whatsoever and cooperative but other than diverticular disease bleeding is no extraluminal lesion clinically.), Normal Inspection, Thyromegaly ( with cramping pain that is because of angulation to much of feeling sick and also diverticular disease he may presence of diverticulum symptoms pseudodiverticulosis many people have it he probably anything for similarly medicine don't think it is because he sees like gallstones in the taking of her abdomen diverticulosis. Anything now recently have). Negative for: Lymphadenopathy (Continues to with diverticulosis is usually desired) - Cardiovascular Exam Cardiovascular Exam: +S1, +S2. absent: JVD - GI/Abdominal Exam GI & Abdominal Exam: Soft. absent: Mass, Tenderness - Extremities Exam Additional comments: Retrograde dressing present bandaged - Neurological Exam Neurological exam: Alert, Oriented x3 (Immediately carefully To the patient is bilateral pedal pulses present in the tic. 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 Right ICA patient IC [place] comparison here) Results - Vital Signs Recent Vital Signs: Last Vital Signs Temp 97.9 F 12/09/16 04:00 Pulse 85 12/09/16 14:00 Resp 28 H 12/09/16 06:00 BP 109/70 12/09/16 06:00 Pulse Ox 99 12/09/16 06:00 - Labs Result Diagrams: 12/09/16 01:10 12/09/16 15:30 Labs: Laboratory Results - last 24 hr 12/08/16 12/09/16 12/09/16 23:50 01:10 01:10 WBC 22.5 H RBC 3.35 L Hgb 10.0 L Hct 28.5 L MCV 85.1 MCH 29.9 MCHC 35.1 RDW 12.8 Plt Count 354 MPV 7.7 APTT 29.9 pO2 53 VBG pH 7.13 L* VBG pCO2 32.0 L VBG HCO3 10.6 L VBG Total CO2 11.6 L VBG O2 Sat (Calc) 90.3 H VBG Base Excess -17.3 L VBG Potassium 5.3 H Sodium 136.0 Chloride 89.0 L Glucose 75 Lactate 3.1 H FiO2 21.0 Potassium Carbon Dioxide Anion Gap BUN Creatinine Est GFR ( Amer) Est GFR (Non-Af Amer) Random Glucose Serum Osmolality Calcium TSH 3rd Generation Venous Blood Potassium 5.3 H Urine Color Urine Appearance Urine pH Ur Specific [place] Urine Protein Urine Glucose (UA) Urine Ketones Urine Blood Urine Nitrate Urine Bilirubin Urine Urobilinogen Ur Leukocyte Esterase Urine RBC Urine WBC Urine Bacteria Urine Osmolality Ur Random Sodium 12/09/16 12/09/16 12/09/16 01:10 03:55 04:00 WBC RBC Hgb Hct MCV MCH MCHC RDW Plt Count MPV APTT pO2 VBG pH VBG pCO2 VBG HCO3 VBG Total CO2 VBG O2 Sat (Calc) VBG Base Excess VBG Potassium Sodium 127 L 126 L Chloride 100 97 Glucose Lactate FiO2 Potassium 4.4 4.0 Carbon Dioxide 12 L 13 L Anion Gap 19 20 BUN 83 H 81 H Creatinine 4.9 H 4.5 H Est GFR ( Amer) 10 11 Est GFR (Non-Af Amer) 8 9 Random Glucose 88 146 H Serum Osmolality Calcium 7.9 L 8.1 L TSH 3rd Generation Venous Blood Potassium Urine Color Yellow Urine Appearance Slight-cloudy Urine pH 5.5 Ur Specific [place] 1.025 Urine Protein 30 H Urine Glucose (UA) Negative Urine Ketones Negative Urine Blood Negative Urine Nitrate Negative Urine Bilirubin Negative Urine Urobilinogen 0.2 Ur Leukocyte Esterase Negative Urine RBC 0 - 2 Urine WBC 0 - 2 Urine Bacteria Mod Urine Osmolality Ur Random Sodium 12/09/16 12/09/16 12/09/16 06:04 07:25 07:25 WBC RBC Hgb Hct MCV MCH MCHC RDW Plt Count MPV APTT pO2 VBG pH VBG pCO2 VBG HCO3 VBG Total CO2 VBG O2 Sat (Calc) VBG Base Excess VBG Potassium Sodium 124 L Chloride 97 Glucose Lactate FiO2 Potassium 3.7 Carbon Dioxide 14 L Anion Gap 17 BUN 74 H Creatinine 3.7 H Est GFR ( Amer) 14 Est GFR (Non-Af Amer) 12 Random Glucose 171 H Serum Osmolality 294 Calcium 7.8 L TSH 3rd Generation 0.97 Venous Blood Potassium Urine Color Urine Appearance Urine pH Ur Specific [place] Urine Protein Urine Glucose (UA) Urine Ketones Urine Blood Urine Nitrate Urine Bilirubin Urine Urobilinogen Ur Leukocyte Esterase Urine RBC Urine WBC Urine Bacteria Urine Osmolality 329 Ur Random Sodium 66 12/09/16 12/09/16 11:50 15:30 WBC RBC Hgb Hct MCV MCH MCHC RDW Plt Count MPV APTT pO2 VBG pH VBG pCO2 VBG HCO3 VBG Total CO2 VBG O2 Sat (Calc) VBG Base Excess VBG Potassium Sodium 126 L 128 L Chloride 100 102 Glucose Lactate FiO2 Potassium 3.4 L 3.4 L Carbon Dioxide 14 L 15 L Anion Gap 15 14 BUN 67 H 60 H Creatinine 3.3 H 2.8 H Est GFR ( Amer) 16 19 Est GFR (Non-Af Amer) 13 16 Random Glucose 129 H 120 H Serum Osmolality Calcium 7.9 L 7.7 L TSH 3rd Generation Venous Blood Potassium Urine Color Urine Appearance Urine pH Ur Specific [place] Urine Protein Urine Glucose (UA) Urine Ketones Urine Blood Urine Nitrate Urine Bilirubin Urine Urobilinogen Ur Leukocyte Esterase Urine RBC Urine WBC Urine Bacteria Urine Osmolality Ur Random Sodium Assessment & Plan - Assessment and Plan (Free Text) Assessment: 1. Sepsis elevated WBC count over 22,000. Differential diagnoses should include secondary to the left wound infection, rule out C. difficile rule out biliary 2. Gallstones, prominent CBD 13.8mm LFTs normal 3. Acute diarrhea likely secondary to gastroenteritis less likely secondary to the exacerbation of ulcerative colitis as the loose bowel movements is watery no bloody no abdominal pain and CT does not show any significant distention 4. History of ulcerative colitis 5. Acute kidney injury 6. Other comorbidities include coronary artery disease status post pacemaker placement Plan: 1. Follow up cultures 2. Stool for C. difficile 3. MRCP to further evaluate CBD 4. Continue antibiotics as per ID 5. Continue the present management Discussed with the patient's daughter who was at bed side at length and also discussed with order administrator and the surgical rn - Date & Time Date: 12/09/16 Time: 13:30
[2016-12-09] MEDS ORDERED: Potassium Chloride 40 mEq/30 ml LIQ UD PO ONE ×2 (19:23→20:32)
[2016-12-09 20:23] LABS: CALCIUM 7.7 mg/dL (8.4-10.5); VENOUS BLOOD GAS BASE EXCESS -4.6 mmol/L (0.0-2.0); VENOUS BLOOD GAS PO2 50 mm/Hg (30-55); VENOUS BLOOD PH 7.45 (7.32-7.43)
--- NOTE | 2016-12-09 21:09 | HP ---
DATE: 12/09/2016 HISTORY OF PRESENT ILLNESS: This is an 89-year-old female who is coming into the hospital with complaints of weakness. She has been having diarrhea for the past few days. She says her appetite has been poor. The patient has been taking liquids to try to prevent her from getting dehydrated. She denies any abdominal pain. No dysuria or frequency. No nocturia. No weakness in the arms or the legs. She does have difficulty ambulating, she has right foot with chronic skin changes. She is not able to give with history, because of underlying illness. Review of systems is limited. PAST MEDICAL HISTORY: Hypertension, COPD, ulcerative colitis, diabetes type 2, TIA, and pacemaker. SOCIAL HISTORY: She lives with her daughter. She denies smoke or drinking. FAMILY HISTORY: Noncontributory. PHYSICAL EXAMINATION: VITAL SIGNS: Temperature 97.9, pulse of 81, blood pressure is 109/70, respirations 28 and O2 saturation 99%. Height is 5 feet, weight is 111 pounds. BMI is 21.8. GENERAL: The patient is lying in bed, flat, and in no apparent distress. HEAD AND NECK EXAM: Atraumatic, normocephalic. Conjunctivae are pink. Throat is clear and mouth with moist mucosa. Oropharynx is benign. EYES: Extraocular movements are intact. PERRLA. NECK: Supple. No JVD, thyromegaly, or adenopathy. No bruits. HEART: S1 and S2 regular rate and rhythm. No murmurs, rubs, or gallops. LUNGS: Clear to auscultation bilaterally. No wheezing, rales, or rhonchi appreciated. No retractions on exam. ABDOMEN: Soft, nontender, and nondistended. Bowel sounds are positive in all quadrants. No rebound. No hepatosplenomegaly. EXTREMITIES: Right leg there is an erythema going up from the right foot to the ankle. 1+ pulses bilaterally. NEUROLOGIC: No facial asymmetry. Tongue is midline. No uvula deviation. Power is 5/5 in upper extremity and 5/5 in lower extremity. Sensation is normal in upper extremities and lower extremities. PSYCHIATRIC: She is alert, awake, and oriented x1. Blunted affect, poor insight. GENITOURINARY: No CVA tenderness. VASCULAR: 2+ pulses in carotid and pedal pulses. SKIN: No erythema or abnormal nodules noted. SPINE: Normal curvature. LYMPHADENOPATHY: No anterior cervical or posterior cervical adenopathy. No inguinal adenopathy. LABORATORY DATA: Sodium is 118, potassium is 5.9, creatinine is 6.2, troponin 0.02 and TSH is 0.97. White count of 21.1, hemoglobin is 10.2, platelet counts is 421. INR is 0.96. Urine shows urine osmolarity of 329 with urine sodium 66, proteins 30, ketones, blood and nitrates are negative. Repeat potassium is 3.7 and repeat sodium is 124. Chest x-ray shows no infiltrates as a pacemaker that is present. CT of the abdomen and pelvis is done, results are pending. She has a significant scoliosis kyphosis. There is cholelithiasis is present, no obstructive uropathy. EKG shows paced rhythm. ASSESSMENT: 1. Acute kidney injury. 2. Sepsis. 3. Hyperkalemia. 4. Hyponatremia. 5. Anemia. 6. Pacemaker. 7. Hypertension. 8. Osteoarthritis. 9. Chronic obstructive pulmonary disease. 10. Cholelithiasis. 11. Diverticulosis. 12. Kyphosis. 13. Right foot cellulitis. 14. Ulcerative colitis. PLAN: The patient is currently comfortable. She has a white count that is significantly elevated. She is going to be admitted to the ICU, because of the acute kidney injury and hyponatremia. I suspect that the patient is mostly volume depleted, because of the chronic diarrhea that she was having. She has ulcerative colitis and may need further optimization of her medications. She also has a right foot that look likes she has cellulitis. I will get Dr. Workman, who has been following the patient. The patient is going to be on heparin for DVT prophylaxis. The patient is on Protonix daily, is going to be on Pulmicort, she is on Tylenol as needed. She has renal to evaluate the patient for acute kidney injury and hyponatremia. The patient's sodium was being treated from the ER and sodium was increasing too fast for the rate and so she was given D5W. I will discontinue the patient's D5W. She also has relatively low blood pressure. I think that she may benefit from saline. I will get GI evaluation as well. Alex Escobedo MD [facility] # [id number]
--- NOTE | 2016-12-09 22:03 | CON ---
DATE: 12/09/2016 The patient is seen in the ICU, room 128, bed 2. CHIEF COMPLAINT: Weakness from several days. HISTORY OF PRESENT ILLNESS: This is an 89-year-old female coming from home, no recent hospitalization, with a chronic obstructive lung disease, hypertension, ulcerative colitis, anxiety, coronary artery disease, myocardial infarction, congestive heart failure, TIA, with long lower extremity wound, who is now admitted. The patient also with a history of pacemaker, is ALLERGIC TO SULFA, admitted with weakness. REVIEW OF SYSTEMS: Review of the patient had severe diarrhea, abdominal cramps. No chest pain, has mild shortness of breath, no headaches and no blood per rectum, there is frequency, but no dysuria. PAST MEDICAL HISTORY: Significant for COPD, hypertension, ulcerative colitis, anxiety, congestive hear failure, TIA, coronary artery disease, and myocardial infarction. PAST SURGICAL HISTORY: Significant for pacemaker. ALLERGIES: THE PATIENT IS ALLERGIC TO SULFA. MEDICATIONS AT HOME: Include the patient to be on Xanax and acidophilus. PHYSICAL EXAMINATION: GENERAL: The patient is in bed, appears chronically ill. VITAL SIGNS: Temperature of 97, blood pressure was 90/60, respiratory rate of 22, and heart rate was 80. HEENT: Unremarkable. NECK: Supple. LUNGS: Decreased breath sounds. HEART: Normal S1 and S2. ABDOMEN: Soft and nontender. No rebound, no guarding. EXTREMITIES: Examination of the patient's lower extremities reveals chronic changes of the ankle and foot. There is no evidence of active infection. LABORATORY EXAMINATION: Reveals a white count of 21,000, hemoglobin of 10. Coagulation is noted, and the chemistries reveal a BUN of 22, creatinine is 6.2, with AST of 44, and CK is 513. Urinalysis is noted, and there is 15-20 wbc's with small bacteria. The patient had a CAT scan of the abdomen and pelvis, the results are pending; emergency room chart is reviewed,no other information is available. ASSESSMENT AND PLAN: This is an 89-year-old female with chronic obstructive lung disease, hypertension, ulcerative colitis, anxiety, congestive heart failure, coronary heart disease, transient ischemic attack, myocardial infarction, chronic lower extremity wound and a pacemaker, admitted with weakness, white count of 21,000 with respiratory rate of 22, severe diarrhea, and ALLERGIC TO SULFA, and last creatinine on the last admission was 1.0 a year ago and now the patient has sever sepsis, gastrointestinal source of gastroenteritis verus ulcerative colitis complications with acute kidney injury, her creatinine is changed from 1.0 to 6.2 with chronic leg, ankle and foot changes, 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 We will treat the patient on Rocephin, Flagyl,and p o vancomycin pending blood culture, urine culture, stool culture, stool for Clostridium difficile, and we will make further recommendation. Case discussed with Dr. Escobedo. Miles Lowe MD
[2016-12-10] MEDS: metroNIDAZOLE IV 500 mg/100 ml 500 MG/100 ML BAG IVPB SCH ×3 (05:22→21:18)
[2016-12-10 06:28] LABS: HEMOGLOBIN 8.4 gm/dL (12.0-16.0); MEAN CELL VOLUME 83.9 fL (80.0-105.0); MEAN CORPUSCULAR HEMOGLOBIN 29.5 pg (25.0-35.0); MEAN CORPUSCULAR HGB CONC 35.1 g/dl (31.0-37.0); MEAN PLATELET VOLUME 7.9 fl (7.0-11.0); PLATELET COUNT 320 10^3/uL (120.0-450.0); RBC 2.85 10^6/uL (3.5-6.1)
[2016-12-10 06:38] LABS: ALBUMIN 2.7 g/dL (3.0-4.8); CALCIUM 7.9 mg/dL (8.4-10.5)
[2016-12-10 07:00] LABS: WHITE BLOOD COUNT 26.9 10^3/ul (4.5-11.0)
[2016-12-10 08:21] LABS: LYMPHOCYTE 1 % (22.0-35.0); MONOCYTE 5 % (1.0-6.0); NEUTROPHIL 94 % (50.0-70.0); PLATELET ESTIMATE NORMAL (NORMAL)
[2016-12-10] MEDS: Budesonide 0.5 mg/2 ml Inhal Susp UD IH SCH ×2 (08:24→19:48)
[2016-12-10] MEDS: Vancomycin 25 MG/ML PO SCH ×4 (10:00→21:28)
--- NOTE | 2016-12-10 10:01 | CP.PCM.PN ---
<Ashley Lewis - Last Filed: 12/10/16 09:56> Subjective - Date & Time of Evaluation Date of Evaluation: 12/10/16 Time of Evaluation: 09:30 - Subjective Subjective: 89 y/o female patient seen at bedside in CCU with Dr. De León present regarding ulceration of right lower extremity. Pt seen resting comfortably in bed at time of visit. Appears awake and alert at this time. Pt states that she does not recall how long she has had the wound to her right leg/foot. Does complain of some tenderness to touch of the right heel. Denies any other pedal complaints. Objective - Vital Signs/Intake and Output Vital Signs (last 24 hours): Temp Pulse Resp BP Pulse Ox 97.4 F L 71 32 H 103/36 L 95 12/10/16 04:00 12/10/16 06:00 12/10/16 06:00 12/10/16 06:00 12/10/16 06:00 Intake and Output: 12/10/16 12/10/16 06:59 18:59 Intake Total 1500 Output Total 850 Balance 650 - Medications Medications: Current Medications Acetaminophen (Tylenol 325mg Tab) 650 mg PO Q6H PRN PRN Reason: Fever >100.4 F Last Admin: 12/10/16 05:26 Dose: 650 mg Acetic Acid (Acetic Acid 0.25% Irrig) 0 ml TP DAILY [facility] Arformoterol Tartrate (Brovana) 15 mcg IH [id number] [facility] Aspirin (Ecotrin) 81 mg PO DAILY [facility] Last Admin: 12/09/16 09:44 Dose: 81 mg Budesonide (Pulmicort Respules) 0.5 mg IH [id number] [facility] Last Admin: 12/10/16 08:24 Dose: 0.5 mg Heparin Sodium (Porcine) (Heparin) 5,000 units SC Q12 [facility] PRN Reason: Protocol Last Admin: 12/09/16 21:13 Dose: 5,000 units Metronidazole (Flagyl) 500 mg in 100 mls @ 100 mls/hr IVPB Q8 [facility] PRN Reason: Protocol Last Admin: 12/10/16 05:22 Dose: 100 mls/hr Ceftriaxone Sodium (Rocephin 1 Gram Ivpb) 1 gm in 100 mls @ 100 mls/hr IVPB DAILY [facility] PRN Reason: Protocol Stop: 12/17/16 10:09 Last Admin: 12/09/16 10:20 Dose: 100 mls/hr Potassium Chloride 20 meq/ (Dextrose) 1,010 mls @ 75 mls/hr IV .[id number] [facility] Last Admin: 12/09/16 23:05 Dose: 75 mls/hr Lactobacillus Acidophilus (Bacid Acidophilus) 1 cap PO DAILY [facility] Last Admin: 12/09/16 11:03 Dose: 1 cap Ondansetron HCl (Zofran Inj) 4 mg IVP Q6H PRN PRN Reason: Nausea/Vomiting Pantoprazole Sodium (Protonix Ec Tab) 40 mg PO 0600 [facility] Last Admin: 12/09/16 08:34 Dose: 40 mg Vancomycin HCl (Vancocin 25 Mg/Ml (Oral Use)) 250 mg PO QID [facility] PRN Reason: Protocol Stop: 12/18/16 14:01 Last Admin: 12/09/16 21:12 Dose: 250 mg - Labs Labs: 12/10/16 05:20 12/10/16 05:20 PT 10.4 Seconds (9.9-11.8) 12/08/16 19:50 INR 0.96 (0.93-1.08) 12/08/16 19:50 APTT 29.9 Seconds (23.7-30.8) 12/09/16 01:10 - Constitutional Appears: Non-toxic, No Acute Distress - Extremities Exam Extremities Exam: absent: Calf Tenderness Additional comments: Bilateral low extremity exam: Dressing appears c/d/i to right foot VASC: DP/PT pulses are palpable 1/4 b/l, cap refill < 3 sec to all digits, skin temp runs warm to warm bl, no pedal edema appreciated DERM: diffuse superficial ulcer noted on distal right leg/ankle extending to dorsum and plantar aspect of the foot with active serous drainage, islands of fibrotic skin noted on the dorsum of the foot and lateral aspect of the leg with green coloration, mild malodor, no probe to bone, erythema noted on the distal leg as well as the foot, no clinical suspicion of active infection noted from the right lower extremity. No wounds noted to left lower extremity NEURO: protective pedal sensation is intact ORTHO: tender on palpation of plantar and posterior right heel - Neurological Exam Neurological Exam: Alert, Awake - Psychiatric Exam Psychiatric exam: Normal Affect, Normal Mood Assessment and Plan - Assessment and Plan (Free Text) Assessment: 89 y/o female patient with superficial, non-infection ulceration of right lower extremity Plan: Pt S&E at bedside with attending Dr. De León present Chart, labs and vitals were reviewed: afebrile, WBC trending up 29.5 today (up from 22.5) Right foot/ankle does not appear infected at this time. Right leg ulceration cleansed with sterile normal saline, dressing applied consisting of xeroform, DSD, ABD, kerlix Acetic acid ordered, to be used with dressing change tomorrow 12/11 Offloading heel boot applied to right foot/ankle. Pt is to wear at all times while in bed for offloading. Right foot x-ray ordered today (r/o OM) c/w IV abx as per ID Podiatry will follow while patient is in house. <Chi De León - Last Filed: 12/11/16 09:13> Objective - Vital Signs/Intake and Output Vital Signs (last 24 hours): Temp Pulse Resp BP Pulse Ox 99.3 F 66 38 H 110/42 L 92 L 12/11/16 06:00 12/11/16 07:00 12/11/16 07:00 12/11/16 07:00 12/11/16 07:00 Intake and Output: 12/11/16 12/11/16 06:59 18:59 Intake Total 1000 Output Total 650 Balance 350 - Medications Medications: Current Medications Acetaminophen (Tylenol 325mg Tab) 650 mg PO Q6H PRN PRN Reason: Fever >100.4 F Last Admin: 12/10/16 05:26 Dose: 650 mg Acetic Acid (Acetic Acid 0.25% Irrig) 0 ml TP DAILY [facility] Last Admin: 12/10/16 12:39 Dose: 25 applic Arformoterol Tartrate (Brovana) 15 mcg IH [id number] [facility] Aspirin (Ecotrin) 81 mg PO DAILY [facility] Last Admin: 12/10/16 13:03 Dose: 81 mg Budesonide (Pulmicort Respules) 0.5 mg IH [id number] [facility] Last Admin: 12/11/16 07:35 Dose: 0.5 mg Heparin Sodium (Porcine) (Heparin) 5,000 units SC Q12 [facility] PRN Reason: Protocol Last Admin: 12/10/16 21:18 Dose: 5,000 units Potassium Chloride 20 meq/ (Dextrose) 1,010 mls @ 75 mls/hr IV .[id number] [facility] Last Admin: 12/11/16 05:51 Dose: 75 mls/hr Piperacillin Sod/Tazobactam Sod (Zosyn 3.375 In Ns 100ml) 100 mls @ 200 mls/hr IVPB Q6 [facility] PRN Reason: Protocol Stop: 12/18/16 09:08 Lactobacillus Acidophilus (Bacid Acidophilus) 1 cap PO DAILY [facility] Last Admin: 12/10/16 12:53 Dose: 1 cap Ondansetron HCl (Zofran Inj) 4 mg IVP Q6H PRN PRN Reason: Nausea/Vomiting Pantoprazole Sodium (Protonix Ec Tab) 40 mg PO 0600 [facility] Last Admin: 12/11/16 05:46 Dose: 40 mg - Labs Labs: 12/11/16 05:30 12/11/16 05:30 PT 10.4 Seconds (9.9-11.8) 12/08/16 19:50 INR 0.96 (0.93-1.08) 12/08/16 19:50 APTT 29.9 Seconds (23.7-30.8) 12/09/16 01:10 Attending/Attestation - Attestation I have personally seen and examined this patient.: Yes I have fully participated in the care of the patient.: Yes I have reviewed all pertinent clinical information, including history, physical exam and plan: Yes
--- NOTE | 2016-12-10 12:24 | RAD ---
PROCEDURE: Right Foot Radiographs. HISTORY: heel ulcer, r/o OM COMPARISON: None. FINDINGS: BONES: Degenerative changes are seen. There is no bony destruction to suggest osteomyelitis JOINTS: Normal. SOFT TISSUES: Normal. OTHER FINDINGS: None. IMPRESSION: No evidence of osteomyelitis
[2016-12-10] MEDS: Acetic Acid 0.25% Irrig Sol TP SCH (12:39)
[2016-12-10] MEDS: Lactobacillus Acidophilus 500 MU Cap PO SCH (12:53)
[2016-12-10] MEDS: Pantoprazole 40 mg EC Tab PO SCH (12:55)
[2016-12-10] MEDS: cefTRIAXone 1 gm 1 GM/100 ML BAG IVPB SCH (12:56)
--- NOTE | 2016-12-10 14:03 | PN ---
DATE: 12/10/2016 SUBJECTIVE: Seen and examined at the bedside earlier today. The patient is awake and alert, in bed. No reports of any nausea, vomiting, shortness of breath, chest pain or abdominal pain. No acute overnight events reported. The patient is noted to have increasing WBC. The patient appears to be in no distress. PHYSICAL EXAMINATION: VITAL SIGNS: Temperature is 97.4, blood pressure 103/36, pulse 71, respirations 23, 95 on room air. HEENT: Sclerae is anicteric. NECK: Supple. CARDIAC: S1 and S2. LUNGS: Sounds are decreased breath sounds, but good air entry. ABDOMEN: With bowel sounds soft, nondistended, nontender on palpitation. No rebound, guarding, or organomegaly. LABORATORY DATA: Today is WBC is 26.9, H&H is 8.4 and 22.9, platelets 320. Her sodium is 131, K is 4.0. This is much improved compared to yesterday at 3.6. BUN 47, creatinine is 1.7, total bilirubin is 0.3. AST 48, ALT is 31, alkaline phosphatase is 87. The patient went for a foot x-ray and results are pending. She also went for an ultrasound yesterday and that showed numerous gallstones dependent in the gallbladder with mural thickening, borderline abnormal. CBD measure 13.8 mL. No choledocho cholelithiasis appreciated. The patient went for HIDA scan, the results are pending. ASSESSMENT: This is an 89-year-old female with history of ulcerative colitis, and coronary artery disease, status post pacemaker placement, came to the emergency room for generalized weakness and diarrhea past three days. The patient was found to have leukocytosis and status post occult sepsis. She was found to have mildly elevated liver function tests. The patient had a CT scan of abdomen and pelvis suggestive of gallstones and prominent CBD. This CBD measured 13.8 mL. Only, the patient noted to have elevated AST. The patient also with acute diarrhea may be secondary to gastroenteritis or exacerbation of ulcerative colitis, acute renal injury. The patient also have a foot wound, rule out any clostridium difficile or biliary contribution. PLAN: Followup the HIDA scan. Considering MRI and MRCP, but the patient has a pacemaker, is not a candidate for MRI. We will follow up stool culture and stool for C-diff, results are currently pending. The patient also has urinary tract infection. The patient is on oral vancomycin, IV Flagyl and ceftriaxone. He is on DVT prophylaxis. Continue probiotic. Continue PPI. She is also on aspirin. Status post , we will monitor the patient's electrolytes. As per ID, podiatry and renal, the patient was seen and case discussed with Dr. Cruz. MARSHAL Crump
--- NOTE | 2016-12-10 14:05 | NM ---
PROCEDURE: Nuclear Medicine Hepatobiliary Scan HISTORY: Cholelithiasis COMPARISON: December 09, 2016. Abdominal ultrasound. 12/08/2016 CT abdomen and pelvis. TECHNIQUE: 5.0 mCi of technetium 99m Mebrofenin was administered intravenously. Planar images of the abdomen were obtained at 5 min intervals to 60 mins. Delayed images were also obtained. FINDINGS: LIVER: Timely and homogenous uptake. COMMON BILE DUCT: identified at 15 mins. GALLBLADDER: identified at 45 mins. SMALL BOWEL: Identified at 45 mins. IMPRESSION: Normal Hepatobiliary Scan. The cystic duct is patent.
--- NOTE | 2016-12-10 14:38 | CP.PCM.PN ---
Subjective - Date & Time of Evaluation Date of Evaluation: 12/10/16 Time of Evaluation: 09:10 - Subjective Subjective: Comfortable in bed, not in distress, no fevers overnight. Objective - Vital Signs/Intake and Output Vital Signs (last 24 hours): Temp Pulse Resp BP Pulse Ox 97.4 F L 71 32 H 103/36 L 95 12/10/16 04:00 12/10/16 06:00 12/10/16 06:00 12/10/16 06:00 12/10/16 06:00 Intake and Output: 12/10/16 12/10/16 06:59 18:59 Intake Total 1500 Output Total 850 Balance 650 - Medications Medications: Current Medications Acetaminophen (Tylenol 325mg Tab) 650 mg PO Q6H PRN PRN Reason: Fever >100.4 F Last Admin: 12/10/16 05:26 Dose: 650 mg Acetic Acid (Acetic Acid 0.25% Irrig) 0 ml TP DAILY [facility] Last Admin: 12/10/16 12:39 Dose: 25 applic Arformoterol Tartrate (Brovana) 15 mcg IH [id number] [facility] Aspirin (Ecotrin) 81 mg PO DAILY [facility] Last Admin: 12/10/16 13:03 Dose: 81 mg Budesonide (Pulmicort Respules) 0.5 mg IH [id number] [facility] Last Admin: 12/10/16 08:24 Dose: 0.5 mg Heparin Sodium (Porcine) (Heparin) 5,000 units SC Q12 [facility] PRN Reason: Protocol Last Admin: 12/10/16 13:04 Dose: 5,000 units Metronidazole (Flagyl) 500 mg in 100 mls @ 100 mls/hr IVPB Q8 [facility] PRN Reason: Protocol Last Admin: 12/10/16 05:22 Dose: 100 mls/hr Ceftriaxone Sodium (Rocephin 1 Gram Ivpb) 1 gm in 100 mls @ 100 mls/hr IVPB DAILY [facility] PRN Reason: Protocol Stop: 12/17/16 10:09 Last Admin: 12/10/16 12:56 Dose: 100 mls/hr Potassium Chloride 20 meq/ (Dextrose) 1,010 mls @ 75 mls/hr IV .[id number] [facility] Last Admin: 12/10/16 13:04 Dose: 75 mls/hr Lactobacillus Acidophilus (Bacid Acidophilus) 1 cap PO DAILY [facility] Last Admin: 12/10/16 12:53 Dose: 1 cap Ondansetron HCl (Zofran Inj) 4 mg IVP Q6H PRN PRN Reason: Nausea/Vomiting Pantoprazole Sodium (Protonix Ec Tab) 40 mg PO 0600 [facility] Last Admin: 12/10/16 12:55 Dose: 40 mg Vancomycin HCl (Vancocin 25 Mg/Ml (Oral Use)) 250 mg PO QID [facility] PRN Reason: Protocol Stop: 12/18/16 14:01 Last Admin: 12/10/16 13:05 Dose: 250 mg - Labs Labs: 12/10/16 05:20 12/10/16 05:20 PT 10.4 Seconds (9.9-11.8) 12/08/16 19:50 INR 0.96 (0.93-1.08) 12/08/16 19:50 APTT 29.9 Seconds (23.7-30.8) 12/09/16 01:10 - Constitutional Appears: Non-toxic, No Acute Distress - Head Exam Head Exam: NORMAL INSPECTION - Neck Exam Neck Exam: absent: Meningismus - Respiratory Exam Respiratory Exam: Decreased Breath Sounds - Cardiovascular Exam Cardiovascular Exam: +S1, +S2 - GI/Abdominal Exam GI & Abdominal Exam: Soft. absent: Tenderness Assessment and Plan - Assessment and Plan (Free Text) Plan: Assessment severe sepsis with acute renal failure due to acute gastroenteritis R/O exacerbation of ulcerative colitis chronic left leg ulcer, R/O pyoderma gangrenosum COPD HTN CAD with chronic CHF S/P pacemaker placement anxiety disorder Plan Blood cx are negative x 1 day; follow up stool for C. diff. Continue Rocephin, Flagyl, PO Vancomycin (day 2) will monitor clinically
--- NOTE | 2016-12-10 15:16 | PN ---
DATE: SUBJECTIVE: The patient is 89 years old who was brought to emergency room because of generalized weakness. The patient states she was having diarrhea for few days with poor appetite and poor oral intake, did not have any abdominal discomfort. Her past medical history is significant for non-insulin dependent diabetes, hypertension, and COPD. The patient was admitted because of dehydration, acute renal failure, electrolyte imbalance. PHYSICAL EXAMINATION: GENERAL: She is awake, alert and communicative. VITAL SIGNS: She is afebrile. Pulse 71, respirations 23 and blood pressure 103/36. HEENT: S1 and S2, audible. ABDOMEN: Soft, nontender. No rebound. No guarding. NEUROLOGIC: The patient is awake and alert, able to communicate. LABORATORY DATA: WBC is 26.9, hemoglobin 8.4, hematocrit 23.9 and platelet of 320. Chemistry; Sodium 131, potassium 4.0, chloride 103, CO2 19, BUN 47, creatinine 1.7, blood sugar of 112. Blood cultures are negative. Urine shows Gram-positive cocci. Abdominal sonogram shows prominent dilatation of common bile duct without extensive choledocholithiasis layered in the dependent gallbladder and there is moderate mural thickening, but no pericholecystic fluid. CT scan of the abdomen and pelvis was done that shows pacemaker leads being scattered over the upper abdominal as well as because of the body habitus. ASSESSMENT: 1. Sepsis. 2. Cholelithiasis. 3. Acute renal failure. 4. Hypernatremia. 5. Leukocytosis. 6. Deconditioning. PLAN: Currently, the patient is on IV fluids. The patient is on metronidazole. Calcium is being supplemented. She is on Rocephin. We will continue that and awaiting HIDA scan. We will follow up CBC and CMP in a.m. Jorden Mcneill MD
--- NOTE | 2016-12-10 16:30 | CP.PCM.PN ---
<MAX BIGGSFABRIZIO - Last Filed: 12/10/16 16:26> Subjective - Date & Time of Evaluation Date of Evaluation: 12/10/16 Time of Evaluation: 07:30 - Subjective Subjective: Sumi Biggs DO PGY1 - ICU Progress Note Patient seen and examined at bedside. No acute events noted overnight. Patient is comfortable, but is complaining of right foot pain. Patient is AOx3, but does not recall the circumstances surrounding her admission to the hospital. She denies abdominal pain, N/V/D/C, CP, SOB. Objective - Vital Signs/Intake and Output Vital Signs (last 24 hours): Temp Pulse Resp BP Pulse Ox 97.4 F L 71 32 H 103/36 L 95 12/10/16 04:00 12/10/16 06:00 12/10/16 06:00 12/10/16 06:00 12/10/16 06:00 Intake and Output: 12/10/16 12/10/16 06:59 18:59 Intake Total 1500 Output Total 850 Balance 650 - Medications Medications: Current Medications Acetaminophen (Tylenol 325mg Tab) 650 mg PO Q6H PRN PRN Reason: Fever >100.4 F Last Admin: 12/10/16 05:26 Dose: 650 mg Acetic Acid (Acetic Acid 0.25% Irrig) 0 ml TP DAILY [facility] Last Admin: 12/10/16 12:39 Dose: 25 applic Arformoterol Tartrate (Brovana) 15 mcg IH [id number] [facility] Aspirin (Ecotrin) 81 mg PO DAILY [facility] Last Admin: 12/10/16 13:03 Dose: 81 mg Budesonide (Pulmicort Respules) 0.5 mg IH [id number] [facility] Last Admin: 12/10/16 08:24 Dose: 0.5 mg Heparin Sodium (Porcine) (Heparin) 5,000 units SC Q12 [facility] PRN Reason: Protocol Last Admin: 12/10/16 13:04 Dose: 5,000 units Metronidazole (Flagyl) 500 mg in 100 mls @ 100 mls/hr IVPB Q8 [facility] PRN Reason: Protocol Last Admin: 12/10/16 16:05 Dose: 100 mls/hr Ceftriaxone Sodium (Rocephin 1 Gram Ivpb) 1 gm in 100 mls @ 100 mls/hr IVPB DAILY [facility] PRN Reason: Protocol Stop: 12/17/16 10:09 Last Admin: 12/10/16 12:56 Dose: 100 mls/hr Potassium Chloride 20 meq/ (Dextrose) 1,010 mls @ 75 mls/hr IV .[id number] [facility] Last Admin: 12/10/16 13:04 Dose: 75 mls/hr Lactobacillus Acidophilus (Bacid Acidophilus) 1 cap PO DAILY [facility] Last Admin: 12/10/16 12:53 Dose: 1 cap Ondansetron HCl (Zofran Inj) 4 mg IVP Q6H PRN PRN Reason: Nausea/Vomiting Pantoprazole Sodium (Protonix Ec Tab) 40 mg PO 0600 [facility] Last Admin: 12/10/16 12:55 Dose: 40 mg Vancomycin HCl (Vancocin 25 Mg/Ml (Oral Use)) 250 mg PO QID [facility] PRN Reason: Protocol Stop: 12/18/16 14:01 Last Admin: 12/10/16 13:05 Dose: 250 mg - Labs Labs: 12/10/16 05:20 12/10/16 05:20 PT 10.4 Seconds (9.9-11.8) 12/08/16 19:50 INR 0.96 (0.93-1.08) 12/08/16 19:50 APTT 29.9 Seconds (23.7-30.8) 12/09/16 01:10 - Constitutional Appears: Non-toxic, No Acute Distress - Head Exam Head Exam: ATRAUMATIC, NORMOCEPHALIC - Eye Exam Eye Exam: EOMI, Normal appearance - ENT Exam ENT Exam: Mucous Membranes Moist - Neck Exam Neck Exam: Normal Inspection. absent: Lymphadenopathy, Meningismus - Respiratory Exam Respiratory Exam: Clear to Ausculation Bilateral. absent: Rales, Rhonchi, Wheezes - Cardiovascular Exam Cardiovascular Exam: Irregular Rhythm, +S1, +S2 - GI/Abdominal Exam GI & Abdominal Exam: Soft. absent: Tenderness Additional comments: Negative retana's sign - Extremities Exam Extremities Exam: absent: Calf Tenderness, Pedal Edema Additional comments: RLE: Dressing clean, dry, intact, covering entire right foot except toes. - Neurological Exam Neurological Exam: Alert, Awake, Oriented x3 - Psychiatric Exam Psychiatric exam: Normal Affect, Normal Mood - Skin Skin Exam: Dry, Intact, Normal Color Assessment and Plan - Assessment and Plan (Free Text) Assessment: 89 year old female with a PMHx of HTN, Ulcerative Colitis, Chronic Leg wound, GERD, Pacemaker, and COPD who was admitted for severe sepsis, anion gap metabolic acidosis, GILBERT and hypovolemic hyponatremia most likely 2/2 diarrhea. No longer meets SIRS criteria, but Plan: Neuro: - Pt awake, alerted and oriented x3 - cont to monitor. Cardio: - Pacemaker - Hold Hypertensive due to hypotension - maintain MAP>65. Resp: - Saturating Well on RA - CXR on 12/08 significant for right superior lobe infiltrate, but questioned because image is obscured by positioning - maintain SpO2 >90% - cont home meds, pulmicort, brovana GI: - NPO pending MRCP - Stool negative for C diff. Cultures and OVA/Parasites pending - CT Abd/pelvis read as significant for cholelithiasis in a contracted GB with intrahepatic biliary ductal dilitation - Abd US significant for common bile duct dilation 13.8mm without choledocolithiasis - HIDA scan done today, normal hepatobiliary scan with patent cystic duct - abx vanco, ceftriaxone and Flagyl - GI consulted, all recs appreciated. Discussed option for MRI and MRCP but contraindicated because of pacemaker. - Spoke to family, agreeable to have ERCP for further evaluation of the cholilithiasis and dilated CBD, pending GI recs Nephro: - GILBERT - Anion Gap Metabolic Acidosis - improved - lactic acid improved to 0.7, cont NS @75 - hyponatremia improving, will not correct more than 10mEq in 12hr period. - nephro consulted ID: - afebrile with increasing leukocytosis at 24.8; lactate 0.7, VSS - Blood culture shows no growth after 24 hrs. - Urine culture shows Gram+ cocci - Stool Culture pending, but negative for C diff - RLE wound with cellulitis, podiatry following - Continue vanco, ceftriaxone and Flagyl - Maintain normothermia - ID conulted Endo: - Maintain euglycemia. Hem/Onc: HGB is 10 - Patient is at baseline. DVT PPX: Heparin GI PPX: Protonix <Meghan TSANG,Inaaissatou H - Last Filed: 12/10/16 18:09> Objective - Vital Signs/Intake and Output Vital Signs (last 24 hours): Temp Pulse Resp BP Pulse Ox 97.4 F L 68 32 H 103/36 L 95 12/10/16 04:00 12/10/16 17:47 12/10/16 06:00 12/10/16 06:00 12/10/16 06:00 Intake and Output: 12/10/16 12/10/16 06:59 18:59 Intake Total 1500 Output Total 850 Balance 650 - Medications Medications: Current Medications Acetaminophen (Tylenol 325mg Tab) 650 mg PO Q6H PRN PRN Reason: Fever >100.4 F Last Admin: 12/10/16 05:26 Dose: 650 mg Acetic Acid (Acetic Acid 0.25% Irrig) 0 ml TP DAILY [facility] Last Admin: 12/10/16 12:39 Dose: 25 applic Arformoterol Tartrate (Brovana) 15 mcg IH [id number] [facility] Aspirin (Ecotrin) 81 mg PO DAILY [facility] Last Admin: 12/10/16 13:03 Dose: 81 mg Budesonide (Pulmicort Respules) 0.5 mg IH [id number] [facility] Last Admin: 12/10/16 08:24 Dose: 0.5 mg Heparin Sodium (Porcine) (Heparin) 5,000 units SC Q12 [facility] PRN Reason: Protocol Last Admin: 12/10/16 13:04 Dose: 5,000 units Metronidazole (Flagyl) 500 mg in 100 mls @ 100 mls/hr IVPB Q8 [facility] PRN Reason: Protocol Last Admin: 12/10/16 16:05 Dose: 100 mls/hr Ceftriaxone Sodium (Rocephin 1 Gram Ivpb) 1 gm in 100 mls @ 100 mls/hr IVPB DAILY [facility] PRN Reason: Protocol Stop: 12/17/16 10:09 Last Admin: 12/10/16 12:56 Dose: 100 mls/hr Potassium Chloride 20 meq/ (Dextrose) 1,010 mls @ 75 mls/hr IV .[id number] [facility] Last Admin: 12/10/16 13:04 Dose: 75 mls/hr Lactobacillus Acidophilus (Bacid Acidophilus) 1 cap PO DAILY [facility] Last Admin: 12/10/16 12:53 Dose: 1 cap Ondansetron HCl (Zofran Inj) 4 mg IVP Q6H PRN PRN Reason: Nausea/Vomiting Pantoprazole Sodium (Protonix Ec Tab) 40 mg PO 0600 [facility] Last Admin: 07/31/17 12:55 Dose: 40 mg Vancomycin HCl (Vancocin 25 Mg/Ml (Oral Use)) 250 mg PO QID [facility] PRN Reason: Protocol Stop: 12/18/16 14:01 Last Admin: 12/10/16 17:11 Dose: 250 mg - Labs Labs: 12/10/16 05:20 12/10/16 05:20 PT 10.4 Seconds (9.9-11.8) 12/08/16 19:50 INR 0.96 (0.93-1.08) 12/08/16 19:50 APTT 29.9 Seconds (23.7-30.8) 12/09/16 01:10 Attending/Attestation - Attestation I have personally seen and examined this patient.: Yes I have fully participated in the care of the patient.: Yes I have reviewed all pertinent clinical information, including history, physical exam and plan: Yes Notes (Text): 12/10/16 18:06 89 y/o F w/ SIRS Resolved Symptomatic Hyponatremia On empiric abx for possible GB source, L foot, UTI . CX pending currently Currently asymptomatic clinically . No pain or signs of shock. DNR/DNI , family at bedside doesn't want any surgery or invasive procedures to be done. dvt P PPi cc time 55 min
--- NOTE | 2016-12-10 23:11 | CP.PCM.PN ---
Subjective - Date & Time of Evaluation Date of Evaluation: 12/10/16 Time of Evaluation: 10:00 Objective - Vital Signs/Intake and Output Vital Signs (last 24 hours): Temp Pulse Resp BP Pulse Ox 100.2 F H 72 35 H 103/41 L 95 12/10/16 20:00 12/10/16 21:00 12/10/16 21:00 12/10/16 21:00 12/10/16 21:00 Intake and Output: 12/10/16 12/11/16 18:59 06:59 Intake Total 1500 Output Total 600 Balance 900 - Medications Medications: Current Medications Acetaminophen (Tylenol 325mg Tab) 650 mg PO Q6H PRN PRN Reason: Fever >100.4 F Last Admin: 12/10/16 05:26 Dose: 650 mg Acetic Acid (Acetic Acid 0.25% Irrig) 0 ml TP DAILY [facility] Last Admin: 12/10/16 12:39 Dose: 25 applic Arformoterol Tartrate (Brovana) 15 mcg IH [id number] [facility] Aspirin (Ecotrin) 81 mg PO DAILY [facility] Last Admin: 12/10/16 13:03 Dose: 81 mg Budesonide (Pulmicort Respules) 0.5 mg IH [id number] [facility] Last Admin: 12/10/16 19:48 Dose: 0.5 mg Heparin Sodium (Porcine) (Heparin) 5,000 units SC Q12 [facility] PRN Reason: Protocol Last Admin: 12/10/16 21:18 Dose: 5,000 units Metronidazole (Flagyl) 500 mg in 100 mls @ 100 mls/hr IVPB Q8 [facility] PRN Reason: Protocol Last Admin: 12/10/16 21:18 Dose: 100 mls/hr Ceftriaxone Sodium (Rocephin 1 Gram Ivpb) 1 gm in 100 mls @ 100 mls/hr IVPB DAILY [facility] PRN Reason: Protocol Stop: 12/17/16 10:09 Last Admin: 12/10/16 12:56 Dose: 100 mls/hr Potassium Chloride 20 meq/ (Dextrose) 1,010 mls @ 75 mls/hr IV .[id number] [facility] Last Admin: 12/10/16 13:04 Dose: 75 mls/hr Lactobacillus Acidophilus (Bacid Acidophilus) 1 cap PO DAILY [facility] Last Admin: 12/10/16 12:53 Dose: 1 cap Ondansetron HCl (Zofran Inj) 4 mg IVP Q6H PRN PRN Reason: Nausea/Vomiting Pantoprazole Sodium (Protonix Ec Tab) 40 mg PO 0600 [facility] Last Admin: 12/10/16 12:55 Dose: 40 mg Vancomycin HCl (Vancocin 25 Mg/Ml (Oral Use)) 250 mg PO QID [facility] PRN Reason: Protocol Stop: 12/18/16 14:01 Last Admin: 12/10/16 21:28 Dose: 250 mg - Labs Labs: 12/10/16 05:20 12/10/16 05:20 PT 10.4 Seconds (9.9-11.8) 12/08/16 19:50 INR 0.96 (0.93-1.08) 12/08/16 19:50 APTT 29.9 Seconds (23.7-30.8) 12/09/16 01:10 Assessment and Plan - Assessment and Plan (Free Text) Assessment: this is an addendum to the GI process report dictated by Lynne Tompkins NP. The patient was seen and evaluated here earlier. Discussed with the resident. HIDA scan was reviewed. CBD showed dilation but no obvious stone in the common bile duct. MRI could not be done as the patient has pacemaker. Patient was admitted with sepsis increasing leukocytosis acute diarrhea acute kidney injury.. Stool for C. difficile is negative history of ulcerative colitis no bleeding per rectum this admission patient had been on Lialda. No recent colonoscopy patient source of sepsis and cleared right leg wound was noticed it. Discussed with the podiatric just and impression was less likely the wound is accountability factors for this leukocytosis. Discussed with the patient's daughter before at length they do not want any surgical intervention or invasive procedures at that time. We will discuss with the family regarding EUS Thank you very much for Allowing us to participate In the care of the patient
--- NOTE | 2016-12-11 01:15 | CON ---
DATE: 12/10/2016 REASON FOR CONSULTATION: Hyponatremia, hypokalemia, sepsis, leukocytosis. HISTORY OF PRESENTING ILLNESS: An 89-year-old lady previously unknown to me, was brought to the emergency room with complaints of weakness. She was admitted with history of diarrhea for few days prior to admission. Also poor apatite, poor p.o. intake, although the patient was drinking. There was no history of any abdominal pain. No urinary complaints. No fever, no chills. In the emergency room, she was found to have severe hyponatremia, her sodium was 118 at the time of admission, she was also found to be hyperkalemic at presentation, her potassium was 5.9. She was hypotensive and tachycardiac at the time of admission. She has been receiving IV fluids and potassium supplementation. Her sodium as improved nicely. Her potassium is also improving. She had elevated WBC count with left shift. Initial urinalysis reveal large leukocyte esterase. Urine cultures growing on positive cocci. CT of the abdomen showed cholelithiasis within a contracted gallbladder. Abdominal ultrasound showed prominent dilatation of the common bile duct, normal size kidneys, left kidney 9.5 cm, right kidney 9.3 cm, no hydronephrosis. She was also found to have acute kidney injury, her creatinine was 6.2 at the time of admission. PAST MEDICAL AND SURGICAL HISTORY: Hypertension, COPD, ulcerative colitis, NIDDM, TIA, pacemaker. FAMILY HISTORY: Noncontributory. SOCIAL HISTORY: No smoking, no alcohol use, no IV drug abuse. ALLERGIES: SILVER, SULFA. CURRENT MEDICATIONS: Brovana, aspirin, Flagyl, heparin, D5W with potassium at 75, Protonix, Pulmicort, ceftriaxone, Tylenol, vancomycin, Zofran. The patient was on valsartan, hydrochlorothiazide at home. REVIEW OF SYSTEMS: All systems are reviewed, pertinent positives are mentioned in the history of presenting illness, rest unremarkable. PHYSICAL EXAMINATION: GENERAL: Thinly-built cachectic elderly lady, lying in bed. VITAL SIGNS: Blood pressure 103/36, heart rate 71, respiratory rate 23 and temperature 97.4. HEENT: Normocephalic, atraumatic, positive pallor, no icterus. NECK: Supple. No JVD. LUNGS: Bilateral equal air entry, bilateral rhonchi, no rales. CARDIAC: S1 and S2, regular rate and rhythm. No murmur, no rub. ABDOMEN: Soft, nondistended, nontender, bowel sounds present. EXTREMITIES: No lower extremity edema. INTAKE AND OUTPUT: 4305/2215. LABORATORY DATA: WBC 27, hemoglobin 8.4, hematocrit 24, platelets 320, polys 94, lymphocytes 1%. Sodium 131, potassium 4.0, chloride 103, CO2 of 19, BUN 47, creatinine 1.3, glucose 112, calcium 7.9. AST 48, ALT 31. Total protein 5.4, albumin 2.7. X-ray of the foot, degenerative changes, no evidence of osteo. ASSESSMENT AND PLAN: 1. Acute kidney injury, superimposed and chronic kidney disease stage 2?. 2. Severe hyponatremia. 3. Hypokalemia. 4. Non-anion gap metabolic acidosis. 5. Leukocytosis, with left chest, source of sepsis genitourinary versus cholecystitis?. 6. Hypoalbuminemia. 7. Severe anemia. 8. ? gastrointestinal blood loss. PLAN: 1. The patient's acute kidney injury is nicely resolving. The etiology of her acute kidney injury was largely prerenal azotemia in the setting of diarrhea, decrease p.o. intake, ARB, diuretic. 2. In light of the patient's severe anemia and initial hyperkalemia need to consider GI blood loss. 3. Change IV fluids to D5 normal saline with 20 mEq of KCl at 75. 4. Check iron stores. 5. Check stool occults. 6. Followup cultures. 7. Continue empiric antibiotics. 8. Advance feeding as recommended by GI. Case discussed at bedside with daughter at length. Case discussed with ICU staff. More than 35 minutes was spent in the care of this critically ill patient. Kaitlin Anderson MD
[2016-12-11] MEDS: Pantoprazole 40 mg EC Tab PO SCH (05:46)
[2016-12-11] MEDS: metroNIDAZOLE IV 500 mg/100 ml 500 MG/100 ML BAG IVPB SCH (05:46)
[2016-12-11 06:37] LABS: HEMOGLOBIN 9.1 gm/dL (12.0-16.0); MEAN CELL VOLUME 85.5 fL (80.0-105.0); MEAN CORPUSCULAR HEMOGLOBIN 29.3 pg (25.0-35.0); MEAN CORPUSCULAR HGB CONC 34.2 g/dl (31.0-37.0); PLATELET COUNT 326 10^3/uL (120.0-450.0); RBC 3.11 10^6/uL (3.5-6.1); RED CELL DISTRIBUTION WIDTH 13.3 % (11.5-14.5)
[2016-12-11 06:54] LABS: WHITE BLOOD COUNT 27.2 10^3/ul (4.5-11.0)
[2016-12-11 07:33] LABS: ALBUMIN 2.7 g/dL (3.0-4.8); CALCIUM 8.1 mg/dL (8.4-10.5)
[2016-12-11] MEDS: Budesonide 0.5 mg/2 ml Inhal Susp UD IH SCH ×2 (07:35→19:52)
[2016-12-11 07:47] LABS: BAND 1 % (0-2); LYMPHOCYTE 2 % (22.0-35.0); MONOCYTE 5 % (1.0-6.0); NEUTROPHIL 92 % (50.0-70.0)
[2016-12-11 07:49] LABS: HYPOCHROMIA SLIGHT; PLATELET ESTIMATE NORMAL (NORMAL)
[2016-12-11 08:25] LABS: % IRON SATURATION 11 % (20-55); IRON 18 ug/dL (45-180); TOTAL IRON BINDING CAPACITY 163 ug/dL (265-497)
[2016-12-11] MEDS: Acetic Acid 0.25% Irrig Sol TP SCH (10:00)
[2016-12-11] MEDS: Lactobacillus Acidophilus 500 MU Cap PO SCH (10:05)
--- NOTE | 2016-12-11 13:03 | CP.PCM.PN ---
<Mayco Barfield - Last Filed: 12/11/16 12:52> Subjective - Date & Time of Evaluation Date of Evaluation: 12/11/16 Time of Evaluation: 12:40 - Subjective Subjective: 89 y/o female patient seen at bedside in CCU with Dr. De León present regarding ulceration of right lower extremity. Pt seen resting comfortably in bed at time of visit, with daughters present. Does complain of decreased tenderness to right heel, and compliance with use of foam boot. Pt reports increased drainage to outer dressing. Denies any other pedal complaints. Objective - Vital Signs/Intake and Output Vital Signs (last 24 hours): Temp Pulse Resp BP Pulse Ox 99.3 F 66 38 H 110/42 L 92 L 12/11/16 06:00 12/11/16 07:00 12/11/16 07:00 12/11/16 07:00 12/11/16 07:00 Intake and Output: 12/11/16 12/11/16 06:59 18:59 Intake Total 1000 Output Total 650 Balance 350 - Medications Medications: Current Medications Acetaminophen (Tylenol 325mg Tab) 650 mg PO Q6H PRN PRN Reason: Fever >100.4 F Last Admin: 12/10/16 05:26 Dose: 650 mg Acetic Acid (Acetic Acid 0.25% Irrig) 0 ml TP DAILY [facility] Last Admin: 12/10/16 12:39 Dose: 25 applic Arformoterol Tartrate (Brovana) 15 mcg IH [id number] [facility] Aspirin (Ecotrin) 81 mg PO DAILY [facility] Last Admin: 12/11/16 10:05 Dose: 81 mg Budesonide (Pulmicort Respules) 0.5 mg IH [id number] [facility] Last Admin: 12/11/16 07:35 Dose: 0.5 mg Heparin Sodium (Porcine) (Heparin) 5,000 units SC Q12 [facility] PRN Reason: Protocol Last Admin: 12/11/16 10:05 Dose: 5,000 units Potassium Chloride 20 meq/ (Dextrose) 1,010 mls @ 75 mls/hr IV .[id number] [facility] Last Admin: 12/11/16 05:51 Dose: 75 mls/hr Piperacillin Sod/Tazobactam Sod (Zosyn 3.375 In Ns 100ml) 100 mls @ 200 mls/hr IVPB Q6 [facility] PRN Reason: Protocol Stop: 12/18/16 09:08 Lactobacillus Acidophilus (Bacid Acidophilus) 1 cap PO DAILY [facility] Last Admin: 12/11/16 10:05 Dose: 1 cap Ondansetron HCl (Zofran Inj) 4 mg IVP Q6H PRN PRN Reason: Nausea/Vomiting Pantoprazole Sodium (Protonix Ec Tab) 40 mg PO 0600 [facility] Last Admin: 12/11/16 05:46 Dose: 40 mg - Labs Labs: 12/11/16 05:30 12/11/16 05:30 PT 10.4 Seconds (9.9-11.8) 12/08/16 19:50 INR 0.96 (0.93-1.08) 12/08/16 19:50 APTT 29.9 Seconds (23.7-30.8) 12/09/16 01:10 - Constitutional Appears: Well, Non-toxic, No Acute Distress - Extremities Exam Additional comments: Bilateral low extremity exam: Dressing appears c/d/i to right foot VASC: DP/PT pulses are palpable 1/4 b/l, cap refill < 3 sec to all digits, skin temp runs warm to warm bl, no pedal edema appreciated DERM: diffuse superficial ulcer noted on distal right leg/ankle extending to dorsum and plantar aspect of the foot with active serous drainage, islands of fibrotic skin noted on the dorsum of the foot and lateral aspect of the leg with green coloration, mild malodor, no probe to bone, erythema noted on the distal leg as well as the foot, no clinical suspicion of active infection noted from the right lower extremity. No wounds noted to left lower extremity NEURO: protective pedal sensation is intact ORTHO: tender on palpation of plantar and posterior right heel - Neurological Exam Neurological Exam: Alert, Awake, Oriented x3 - Psychiatric Exam Psychiatric exam: Normal Affect, Normal Mood Assessment and Plan - Assessment and Plan (Free Text) Assessment: 89 y/o female patient with superficial, non-infection ulceration of right lower extremity Plan: Pt evaluated and treated at bedside with attending Dr. De León present. Chart, labs and vitals were reviewed: afebrile, WBC = 27.2, trending up from ysterday. Right foot/ankle absent signs of infection. Right leg ulceration cleansed with acetic acid and sterile normal saline. Dressed with xeroform, DSD, ABD, kerlix, and FERDINAND Offloading heel boot applied to right foot/ankle. Pt is to wear at all times while in bed for offloading. Post-op shoe ordered. Right foot x-ray results: unremarkable; negative for OM; diffuse osteopenia and arthritic changes noted. c/w IV abx as per ID Podiatry will follow while patient is in house. <Chi De León - Last Filed: 12/12/16 11:34> Objective - Vital Signs/Intake and Output Vital Signs (last 24 hours): Temp Pulse Resp BP Pulse Ox 98 F 63 47 H 102/46 L 94 L 12/12/16 05:58 12/12/16 06:01 12/12/16 06:01 12/12/16 06:01 12/12/16 06:01 Intake and Output: 12/12/16 12/12/16 06:59 18:59 Intake Total 980 Output Total 500 Balance 480 - Medications Medications: Current Medications Acetaminophen (Tylenol 325mg Tab) 650 mg PO Q6H PRN PRN Reason: Fever >100.4 F Last Admin: 12/10/16 05:26 Dose: 650 mg Acetic Acid (Acetic Acid 0.25% Irrig) 0 ml TP DAILY [facility] Last Admin: 12/11/16 10:00 Dose: 25 applic Arformoterol Tartrate (Brovana) 15 mcg IH [id number] [facility] Aspirin (Ecotrin) 81 mg PO DAILY [facility] Last Admin: 12/11/16 10:05 Dose: 81 mg Budesonide (Pulmicort Respules) 0.5 mg IH [id number] [facility] Last Admin: 12/12/16 07:26 Dose: 0.5 mg Heparin Sodium (Porcine) (Heparin) 5,000 units SC Q12 [facility] PRN Reason: Protocol Last Admin: 12/11/16 22:12 Dose: 5,000 units Piperacillin Sod/Tazobactam Sod (Zosyn 3.375 In Ns 100ml) 100 mls @ 200 mls/hr IVPB Q6 [facility] PRN Reason: Protocol Stop: 12/18/16 09:08 Last Admin: 12/12/16 08:03 Dose: 200 mls/hr Potassium Chloride 20 meq/ (Sodium Chloride) 1,010 mls @ 60 mls/hr IV .[id number] [facility] Last Admin: 12/11/16 17:24 Dose: 60 mls/hr Lactobacillus Acidophilus (Bacid Acidophilus) 1 cap PO DAILY [facility] Last Admin: 12/12/16 09:59 Dose: 1 cap Ondansetron HCl (Zofran Inj) 4 mg IVP Q6H PRN PRN Reason: Nausea/Vomiting Pantoprazole Sodium (Protonix Ec Tab) 40 mg PO 0600 [facility] Last Admin: 12/12/16 08:03 Dose: 40 mg - Labs Labs: 12/12/16 05:40 12/12/16 05:40 PT 13.4 Seconds (9.9-11.8) H 12/12/16 05:40 INR 1.24 (0.93-1.08) H 12/12/16 05:40 APTT 35.7 Seconds (23.7-30.8) H 12/11/16 15:45 Attending/Attestation - Attestation I have personally seen and examined this patient.: Yes I have fully participated in the care of the patient.: Yes I have reviewed all pertinent clinical information, including history, physical exam and plan: Yes
--- NOTE | 2016-12-11 13:47 | CP.PCM.PN ---
Subjective - Date & Time of Evaluation Date of Evaluation: 12/11/16 Time of Evaluation: 09:20 - Subjective Subjective: Patient is comfortable in bed, not in distress, afebrile, no abdominal pain, no vomiting. Objective - Vital Signs/Intake and Output Vital Signs (last 24 hours): Temp Pulse Resp BP Pulse Ox 99.3 F 66 38 H 110/42 L 92 L 12/11/16 06:00 12/11/16 07:00 12/11/16 07:00 12/11/16 07:00 12/11/16 07:00 Intake and Output: 12/11/16 12/11/16 06:59 18:59 Intake Total 1000 Output Total 650 Balance 350 - Medications Medications: Current Medications Acetaminophen (Tylenol 325mg Tab) 650 mg PO Q6H PRN PRN Reason: Fever >100.4 F Last Admin: 12/10/16 05:26 Dose: 650 mg Acetic Acid (Acetic Acid 0.25% Irrig) 0 ml TP DAILY [facility] Last Admin: 12/10/16 12:39 Dose: 25 applic Arformoterol Tartrate (Brovana) 15 mcg IH [id number] [facility] Aspirin (Ecotrin) 81 mg PO DAILY [facility] Last Admin: 12/10/16 13:03 Dose: 81 mg Budesonide (Pulmicort Respules) 0.5 mg IH [id number] [facility] Last Admin: 12/11/16 07:35 Dose: 0.5 mg Heparin Sodium (Porcine) (Heparin) 5,000 units SC Q12 [facility] PRN Reason: Protocol Last Admin: 12/10/16 21:18 Dose: 5,000 units Metronidazole (Flagyl) 500 mg in 100 mls @ 100 mls/hr IVPB Q8 [facility] PRN Reason: Protocol Last Admin: 12/11/16 05:46 Dose: 100 mls/hr Ceftriaxone Sodium (Rocephin 1 Gram Ivpb) 1 gm in 100 mls @ 100 mls/hr IVPB DAILY [facility] PRN Reason: Protocol Stop: 12/17/16 10:09 Last Admin: 12/10/16 12:56 Dose: 100 mls/hr Potassium Chloride 20 meq/ (Dextrose) 1,010 mls @ 75 mls/hr IV .[id number] [facility] Last Admin: 12/11/16 05:51 Dose: 75 mls/hr Lactobacillus Acidophilus (Bacid Acidophilus) 1 cap PO DAILY [facility] Last Admin: 12/10/16 12:53 Dose: 1 cap Ondansetron HCl (Zofran Inj) 4 mg IVP Q6H PRN PRN Reason: Nausea/Vomiting Pantoprazole Sodium (Protonix Ec Tab) 40 mg PO 0600 [facility] Last Admin: 12/11/16 05:46 Dose: 40 mg - Labs Labs: 12/11/16 05:30 PT 10.4 Seconds (9.9-11.8) 12/08/16 19:50 INR 0.96 (0.93-1.08) 12/08/16 19:50 APTT 29.9 Seconds (23.7-30.8) 12/09/16 01:10 - Constitutional Appears: Non-toxic, No Acute Distress - Head Exam Head Exam: NORMAL INSPECTION - ENT Exam ENT Exam: Mucous Membranes Moist - Neck Exam Neck Exam: absent: Meningismus - Respiratory Exam Respiratory Exam: Decreased Breath Sounds - Cardiovascular Exam Cardiovascular Exam: +S1, +S2 - GI/Abdominal Exam GI & Abdominal Exam: Soft. absent: Tenderness - Extremities Exam Additional comments: right leg with dry dressings in place Assessment and Plan - Assessment and Plan (Free Text) Plan: Assessment severe sepsis with acute renal failure due to acute gastroenteritis R/O exacerbation of ulcerative colitis R/O biliary tree infection chronic left leg ulcer, R/O pyoderma gangrenosum COPD HTN CAD with chronic CHF S/P pacemaker placement anxiety disorder Plan Blood cx are negative stool for C. diff. is negative switched antibiotics to Zosyn pending further work up of the common bile duct and biliary tree will continue to monitor clinically
[2016-12-11] MEDS: Piperacillin/Tazobact 3.375 gm 100 ML IVPB SCH (14:22)
--- NOTE | 2016-12-11 15:53 | PN ---
SUBJECTIVE: The patient is currently seen sitting up in a chair in the ICU. She appears to be stable. She is n.p.o. and awaiting an ERCP to evaluate her dilated common bile ducts and possible biliary tract source for elevated white blood cell count. MEDICATIONS: Medication list reviewed. The patient is currently on acidophilus, Brovana, Ecotrin, subQ heparin, IV fluid, D5W with KCl 75 mL an hour, Protonix, Pulmicort, Respules, Tylenol p.r.n., Zofran p.r.n. and Zosyn. OBJECTIVE: INTAKE/OUTPUT: Intake 2500, output 1250. VITAL SIGNS: Temperature 99.3, respiratory rate is 36?, oxygen saturation 92% with pulse of 66 with a blood pressure of 110/42. HEENT EXAM: Shows her to be normocephalic and atraumatic. Conjunctivae are pale. Sclerae are nonicteric. NECK: Supple. No neck vein distention. CHEST: Clear to auscultation and percussion. No rales. No rhonchi. No wheezing. CARDIOVASCULAR: Shows regular rate and rhythm without murmurs, rubs or gallops. ABDOMEN: Soft. Bowel sounds normal. No rebound, guarding, no masses. EXTREMITIES: Show dressing of her right lower extremity. No lower extremity edema. LABORATORY DATA AND IMAGING: CBC; white blood cell count up to 27.2 with hemoglobin of 8.1, platelet count is 326,000. Chemistries: Sodium of 131, potassium 4.5, chloride 102 with a CO2 of 20, BUN of 34 with a creatinine of 1.1, her BUN is down from high of 91 down to 34, baseline BUN is less than 20, creatinine is down from 6.2 to 1.1. Her baseline creatinine is 1.0. Calcium is 8.1, iron saturations are 11%. Liver enzymes mild elevation of her AST, albumin is 2.7. Urine showed a urine osmolarity of 329 with a random urine sodium of 66. Microbiology, blood cultures are negative at 48 hour. Urine culture is positive for enterococcus. Stool for C. diff is negative. ASSESSMENT: 1. Acute renal failure, resolved. The patient is slightly prerenal, this was resolved with further IV fluid hydration. 2. Status post hyponatremia. This has essentially resolved. Sodium is up from 118 to 131. 3. Status post hypokalemia. 4. Leukocytosis with enterococcal urinary tract infection with possibility of biliary tract sepsis. The patient is scheduled for an ERCP later today in light of her dilated bile ducts and gallstones. 5. Hypertension, blood pressure is controlled. Off blood pressure medication at this time. 6. History of ulcerative colitis currently stable. 7. History of noninsulin-dependent diabetes mellitus, glucose control is acceptable. PLAN: 1. Agree with plans for ERCP. 2. Continue to monitor labs daily. 3. I will switch the patient over to isotonic IV fluids in place of hypotonic IV fluids and continue potassium chloride supplements. 4. Complete a course of antibiotic therapy for enterococcal UTI. 5. We will start the patient on iron supplements in light of her iron saturation of 11%. Sea Patel MD
--- NOTE | 2016-12-11 16:56 | PN ---
DATE: 12/11/2016 SUBJECTIVE: The patient is an 89-year-old seen and examined, look much better, awake and alert n.p.o. endoscopy today. PHYSICAL EXAMINATION: VITAL SIGNS: She is afebrile, pulse 66, respiration 30, blood pressure 110/42. LUNGS: Bilateral fair airflow. No rhonchi or crackles. HEART: S1 and S2 audible. ABDOMEN: Soft, nontender. No rebound. No guarding. NEUROLOGICALLY: The patient is awake, alert and able to communicate. Bilateral leg no edema. LABORATORY DATA: WBC is 27.2, hemoglobin 9.1, hematocrit 26, platelet 326. Chemistries; sodium 131, potassium 4.5, chloride 102, CO2 of 20, BUN 34, creatinine 1.1, blood sugar 100, iron is 18 and saturation is 11%, TIBC is 163. Her HIDA scan is negative. X-ray of the foot is negative. Ultrasound of the abdomen shows prominent dilatation of the common bile duct without choledocholithiasis. ASSESSMENT AND PLAN: 1. Leukocytosis; etiology is still unclear other than urinary tract infection, blood cultures are negative, stools for Clostridium difficile done yesterday is negative. 2. Resolving renal failure. 3. Hypernatremia resolved. 4. Deconditioning and difficulty walking. PLAN: The patient is going for endoscopy US. She is an n.p.o. will continue her on IV fluid. We will continue current antibiotic. She is on Brovana. Followup her CBC and CMP in a.m. She is currently on Zosyn, continue that. I will request for incentive spirometry and she is on SCDs, Continue that followup. Jorden Mcneill MD
--- NOTE | 2016-12-11 19:45 | PN ---
DATE: 12/11/2016 GASTROENTEROLOGY FOLLOWUP NOTE SUBJECTIVE: Seen and examined at the bedside. The patient no reports of acute overnight event. The patient denies nausea, vomiting, or abdominal pain. No reports of any diarrhea or GI bleed. PHYSICAL EXAMINATION: VITAL SIGNS: Temperature is 99.3, blood pressure is 110/42, pulse 56, respirations 22, pulse ox 92. HEENT: Sclerae are anicteric. NECK: Supple. CARDIAC: S1 and S2. LUNGS: Sounds are decreased breath sounds. No rales or wheeze. ABDOMEN: Bowel sounds soft, nontender. No rebound or guarding. NEUROLOGIC: Awake, alert, and oriented. LABORATORY DATA: Today; WBC 27.2, H and H 9.1 and 26.6, platelets are 326. Sodium is 131, K is 4.5, BUN 34, creatinine is 1.1, total bilirubin 0.4, AST 42, ALT , alk phos is 87. ASSESSMENT: This is an 89-year-old female with a past medical history of ulcerative colitis, coronary artery disease status post pacemaker, complained of generalized weakness and diarrhea for the past 3 days, went to the emergency room and found to have leukocytosis, unknown etiology. The patient also noted to have mildly elevated liver functions. The patient status post CT scan of the abdomen and pelvis suggestive of gallstone and prominent CBD. The patient also with acute diarrhea, likely secondary to gastroenteritis or could be exacerbation of the ulcerative colitis. The patient also has a right foot wound, which had extremity x-ray which is negative for osteomyelitis. PLAN: The patient had HIDA scan, it was negative. Her WBC noted to be elevated again today. The patient is not a candidate for MRI secondary to the pacemaker. She will undergo EGD, EUS, and possible ERCP depending on EUS findings. Detailed discussion done with the patient's daughterPrudence earlier this morning on the telephone and now also this afternoon with both daughters at the bedside. They all are agreeable for procedure. The patient is going to have an EGD, EUS, and possible ERCP depending on EUS findings tomorrow. She is currently on clear liquids, NPO after midnight, but can have a clear liquid breakfast. She is also on aspirin which should be on hold for morning as well as hold heparin dose in the morning. Orders were placed in the computer. Continue PPI and the patient can have a clear liquid breakfast in the a.m. and n.p.o. after. Currently on IV antibiotics and on IV fluids for hydration. We will again continue to monitor her CBC and CMP. I spoke to nursing staff and family at the bedside. The patient was seen and case discussed with Dr. Cruz. MARSHAL Crump
--- NOTE | 2016-12-11 23:24 | CP.PCM.PN ---
Subjective - Date & Time of Evaluation Date of Evaluation: 12/11/16 Time of Evaluation: 14:15 - Subjective Subjective: feeling better and denies any abdominal pain Objective - Vital Signs/Intake and Output Vital Signs (last 24 hours): Temp Pulse Resp BP Pulse Ox 99.3 F 66 38 H 110/42 L 92 L 12/11/16 06:00 12/11/16 07:00 12/11/16 07:00 12/11/16 07:00 12/11/16 07:00 Intake and Output: 12/11/16 12/12/16 18:59 06:59 Intake Total 300 Output Total 401 Balance -101 - Medications Medications: Current Medications Acetaminophen (Tylenol 325mg Tab) 650 mg PO Q6H PRN PRN Reason: Fever >100.4 F Last Admin: 12/10/16 05:26 Dose: 650 mg Acetic Acid (Acetic Acid 0.25% Irrig) 0 ml TP DAILY [facility] Last Admin: 12/11/16 10:00 Dose: 25 applic Arformoterol Tartrate (Brovana) 15 mcg IH [id number] [facility] Aspirin (Ecotrin) 81 mg PO DAILY [facility] Last Admin: 12/11/16 10:05 Dose: 81 mg Budesonide (Pulmicort Respules) 0.5 mg IH [id number] [facility] Last Admin: 12/11/16 19:52 Dose: 0.5 mg Heparin Sodium (Porcine) (Heparin) 5,000 units SC Q12 [facility] PRN Reason: Protocol Last Admin: 12/11/16 22:12 Dose: 5,000 units Piperacillin Sod/Tazobactam Sod (Zosyn 3.375 In Ns 100ml) 100 mls @ 200 mls/hr IVPB Q6 [facility] PRN Reason: Protocol Stop: 12/18/16 09:08 Last Admin: 12/11/16 14:22 Dose: 200 mls/hr Potassium Chloride 20 meq/ (Sodium Chloride) 1,010 mls @ 60 mls/hr IV .[id number] [facility] Last Admin: 12/11/16 17:24 Dose: 60 mls/hr Lactobacillus Acidophilus (Bacid Acidophilus) 1 cap PO DAILY [facility] Last Admin: 12/11/16 10:05 Dose: 1 cap Ondansetron HCl (Zofran Inj) 4 mg IVP Q6H PRN PRN Reason: Nausea/Vomiting Pantoprazole Sodium (Protonix Ec Tab) 40 mg PO 0600 [facility] Last Admin: 12/11/16 05:46 Dose: 40 mg - Labs Labs: 12/11/16 05:30 12/11/16 05:30 PT 10.4 Seconds (9.9-11.8) 12/08/16 19:50 INR 0.96 (0.93-1.08) 12/08/16 19:50 APTT 35.7 Seconds (23.7-30.8) H 12/11/16 15:45 - Head Exam Head Exam: ATRAUMATIC - Eye Exam Eye Exam: EOMI, PERRL - ENT Exam ENT Exam: Mucous Membranes Moist - Neck Exam Neck Exam: Full ROM, Normal Inspection, Tenderness. absent: Lymphadenopathy - Respiratory Exam Respiratory Exam: Clear to Ausculation Bilateral. absent: Accessory Muscle Use - Cardiovascular Exam Cardiovascular Exam: REGULAR RHYTHM, +S1, +S2. absent: JVD - GI/Abdominal Exam GI & Abdominal Exam: Soft, Tenderness. absent: Mass - Extremities Exam Extremities Exam: Full ROM. absent: Calf Tenderness, Pedal Edema - Neurological Exam Neurological Exam: Alert, Awake, Oriented x3 - Skin Skin Exam: Normal Color. absent: Cyanosis Assessment and Plan - Assessment and Plan (Free Text) Assessment: patient WBC count appears to be increasing. Clinically patient is stable. This was observed is unclear. She has a dilated common bile duct. Rule out CBD stone. Patient is reviewed in subcutaneous heparin in a.m. Platelets appears to be improving renal function also improving Plan: we will reschedule the ERCP EUS in a.m. Discussed with patient's daughters and ICU staff
[2016-12-12] MEDS: Piperacillin/Tazobact 3.375 gm 100 ML IVPB SCH ×6 (05:39→18:33)
[2016-12-12 06:37] LABS: BASO # 0.01 K/mm3 (0.0-2.0); GRAN # 21.37 (1.4-6.5); GRAN % 89.2 % (50.0-68.0); HEMOGLOBIN 9.9 gm/dL (12.0-16.0); LYMPH # 1.1 (1.2-3.4); LYMPH % 4.5 % (22.0-35.0); MEAN CELL VOLUME 86.1 fL (80.0-105.0); MEAN CORPUSCULAR HEMOGLOBIN 29.2 pg (25.0-35.0); MEAN CORPUSCULAR HGB CONC 33.9 g/dl (31.0-37.0); MEAN PLATELET VOLUME 8.1 fl (7.0-11.0); MONO # 1.5 (0.1-0.6); MONO % 6.3 % (1.0-6.0); PLATELET COUNT 330 10^3/uL (120.0-450.0); RBC 3.39 10^6/uL (3.5-6.1); RED CELL DISTRIBUTION WIDTH 13.2 % (11.5-14.5)
[2016-12-12 06:46] LABS: INR 1.24 (0.93-1.08); PROTHROMBIN TIME 13.4 Seconds (9.9-11.8)
[2016-12-12 06:52] LABS: ALB/GLOB RATIO 0.8 (1.1-1.8); ALBUMIN 2.7 g/dL (3.0-4.8); ALT/SGPT 34 U/L (7-56); AST/SGOT 28 U/L (15-39); BLOOD UREA NITROGEN 23 mg/dL (7-21); CALCIUM 8.3 mg/dL (8.4-10.5); GFR AFRICAN-AMERICAN > 60; GFR NON-AFRICAN AMERICAN 52
[2016-12-12] MEDS: Budesonide 0.5 mg/2 ml Inhal Susp UD IH SCH ×2 (07:26→18:00)
[2016-12-12] MEDS: Pantoprazole 40 mg EC Tab PO SCH (08:03)
[2016-12-12] MEDS: Lactobacillus Acidophilus 500 MU Cap PO SCH (09:59)
--- NOTE | 2016-12-12 10:33 | CP.PCM.PN ---
<Mayco Barfield - Last Filed: 12/12/16 12:39> Subjective - Date & Time of Evaluation Date of Evaluation: 12/12/16 Time of Evaluation: 11:10 - Subjective Subjective: 89 y/o female patient seen at bedside in CCU regarding ulceration of right lower extremity. Pt seen resting comfortably in bed at time of visit. Does complain of mild tenderness to right heel, and compliance with use of foam boot. Pt to go to OR today for potential ERCP. Per family request due to the pain cause by dressing change desire for dressing change to be performed tomorrow post-operatively. No Noted strikethough to outer dressing, dressing left intact. Objective - Vital Signs/Intake and Output Vital Signs (last 24 hours): Temp Pulse Resp BP Pulse Ox 98 F 63 47 H 102/46 L 94 L 12/12/16 05:58 12/12/16 06:01 12/12/16 06:01 12/12/16 06:01 12/12/16 06:01 Intake and Output: 12/12/16 12/12/16 06:59 18:59 Intake Total 980 Output Total 500 Balance 480 - Medications Medications: Current Medications Acetaminophen (Tylenol 325mg Tab) 650 mg PO Q6H PRN PRN Reason: Fever >100.4 F Last Admin: 12/10/16 05:26 Dose: 650 mg Acetic Acid (Acetic Acid 0.25% Irrig) 0 ml TP DAILY [facility] Last Admin: 12/11/16 10:00 Dose: 25 applic Arformoterol Tartrate (Brovana) 15 mcg IH [id number] [facility] Aspirin (Ecotrin) 81 mg PO DAILY [facility] Last Admin: 12/11/16 10:05 Dose: 81 mg Budesonide (Pulmicort Respules) 0.5 mg IH [id number] [facility] Last Admin: 12/12/16 07:26 Dose: 0.5 mg Heparin Sodium (Porcine) (Heparin) 5,000 units SC Q12 [facility] PRN Reason: Protocol Last Admin: 12/11/16 22:12 Dose: 5,000 units Piperacillin Sod/Tazobactam Sod (Zosyn 3.375 In Ns 100ml) 100 mls @ 200 mls/hr IVPB Q6 [facility] PRN Reason: Protocol Stop: 12/18/16 09:08 Last Admin: 12/12/16 08:03 Dose: 200 mls/hr Potassium Chloride 20 meq/ (Sodium Chloride) 1,010 mls @ 60 mls/hr IV .[id number] [facility] Last Admin: 12/11/16 17:24 Dose: 60 mls/hr Lactobacillus Acidophilus (Bacid Acidophilus) 1 cap PO DAILY [facility] Last Admin: 12/12/16 09:59 Dose: 1 cap Ondansetron HCl (Zofran Inj) 4 mg IVP Q6H PRN PRN Reason: Nausea/Vomiting Pantoprazole Sodium (Protonix Ec Tab) 40 mg PO 0600 [facility] Last Admin: 12/12/16 08:03 Dose: 40 mg - Labs Labs: 12/12/16 05:40 12/12/16 05:40 PT 13.4 Seconds (9.9-11.8) H 12/12/16 05:40 INR 1.24 (0.93-1.08) H 12/12/16 05:40 APTT 35.7 Seconds (23.7-30.8) H 12/11/16 15:45 - Constitutional Appears: Well, Non-toxic, No Acute Distress - Extremities Exam Additional comments: Right lower extremity exam: Dressing appears clean, dry, and intact to right foot VASC: DP/PT pulses are palpable 1/4 b/l, cap refill < 3 sec to all digits, skin temp runs warm to warm bl, no pedal edema appreciated DERM: diffuse superficial ulcer noted on distal right leg/ankle extending to dorsum and plantar aspect of the foot with active serous drainage, islands of fibrotic skin noted on the dorsum of the foot and lateral aspect of the leg with green coloration, mild malodor, no probe to bone, erythema noted on the distal leg as well as the foot, no clinical suspicion of active infection noted from the right lower extremity. No wounds noted to left lower extremity NEURO: protective pedal sensation is intact ORTHO: tender on palpation of plantar and posterior right heel. Left 2nd digit dorso-lateral gross dislocation noted, non reducible. - Neurological Exam Neurological Exam: Alert, Awake Assessment and Plan - Assessment and Plan (Free Text) Assessment: 89 y/o female patient with 1) superficial, non-infection ulceration of right lower extremity. 2) Left 2nd digit hammertoe dislocation and likely plantar plate compromise. Plan: Patient seen and wellness check performed. Chart, labs and vitals were reviewed: afebrile, WBC = 24.0, trending down. Tomorrow to continue with normal dressing change consisting of: Right leg ulceration cleansed with acetic acid and sterile normal saline. Dressed with xeroform, DSD, ABD, kerlix, and FERDINAND Offloading heel boot inplace to right foot/ankle. Pt is to continue to wear at all times while in bed for offloading heel. Post-op shoe noted delivered. continue IV abx as per ID Podiatry will follow while patient is in house. <Chi De León - Last Filed: 12/13/16 08:11> Objective - Vital Signs/Intake and Output Vital Signs (last 24 hours): Temp Pulse Resp BP Pulse Ox 98.8 F 88 20 114/71 95 12/13/16 06:00 12/13/16 06:00 12/13/16 06:00 12/13/16 06:00 12/13/16 06:00 Intake and Output: 12/13/16 12/13/16 06:59 18:59 Intake Total 1960 Output Total 1100 Balance 860 - Medications Medications: Current Medications Acetaminophen (Tylenol 325mg Tab) 650 mg PO Q6H PRN PRN Reason: Fever >100.4 F Last Admin: 12/10/16 05:26 Dose: 650 mg Acetic Acid (Acetic Acid 0.25% Irrig) 0 ml TP DAILY [facility] Last Admin: 12/12/16 17:59 Dose: Not Given Arformoterol Tartrate (Brovana) 15 mcg IH [id number] [facility] Last Admin: 12/13/16 07:48 Dose: 15 mcg Aspirin (Ecotrin) 81 mg PO DAILY [facility] Last Admin: 12/11/16 10:05 Dose: 81 mg Budesonide (Pulmicort Respules) 0.5 mg IH [id number] [facility] Last Admin: 12/13/16 07:48 Dose: 0.5 mg Heparin Sodium (Porcine) (Heparin) 5,000 units SC Q12 [facility] PRN Reason: Protocol Last Admin: 12/12/16 21:20 Dose: 5,000 units Piperacillin Sod/Tazobactam Sod (Zosyn 3.375 In Ns 100ml) 100 mls @ 200 mls/hr IVPB Q6 [facility] PRN Reason: Protocol Stop: 12/18/16 09:08 Last Admin: 12/13/16 05:20 Dose: 200 mls/hr Potassium Chloride 20 meq/ (Sodium Chloride) 1,010 mls @ 60 mls/hr IV .[id number] [facility] Last Admin: 12/13/16 05:21 Dose: 60 mls/hr Lactobacillus Acidophilus (Bacid Acidophilus) 1 cap PO DAILY [facility] Last Admin: 12/12/16 09:59 Dose: 1 cap Ondansetron HCl (Zofran Inj) 4 mg IVP Q6H PRN PRN Reason: Nausea/Vomiting Pantoprazole Sodium (Protonix Ec Tab) 40 mg PO 0600 [facility] Last Admin: 12/13/16 05:21 Dose: 40 mg - Labs Labs: 12/13/16 05:40 12/13/16 05:40 PT 13.4 Seconds (9.9-11.8) H 12/12/16 05:40 INR 1.24 (0.93-1.08) H 12/12/16 05:40 APTT 35.7 Seconds (23.7-30.8) H 12/11/16 15:45 Attending/Attestation - Attestation I have personally seen and examined this patient.: Yes I have fully participated in the care of the patient.: Yes I have reviewed all pertinent clinical information, including history, physical exam and plan: Yes
[2016-12-12] MEDS ORDERED: Iohexol 240 (50 ml) ONE (14:02)
--- NOTE | 2016-12-12 14:22 | PN ---
DATE: 12/12/2016 SUBJECTIVE: The patient is 89 years old seen and examined, seems to be much more awake, alert and oriented. N.p.o. for EUS and endoscopy today, we were not able to do yesterday because she was on heparin. PHYSICAL EXAMINATION: VITAL SIGNS: She is afebrile, pulse 66, respirations 17, blood pressure 114/42. LUNGS: Bilateral fair air flow. No rhonchi or crackle. HEART: S1 and S2 audible. ABDOMEN: Soft, nontender. No rebound. No guarding. NEUROLOGICALLY: She is awake and alert, able to communicate. Moves all extremities LABORATORY DATA: WBC is 24, hemoglobin 9.9, hematocrit 29, platelets of 330. Chemistry: Sodium 135, potassium 4.6, chloride 104, CO2 of 20, BUN 23, creatinine 1.0, blood sugar of 85, electrolytes within normal limits. ASSESSMENT AND PLAN: 1. Leukocytosis, etiology and source still unknown. 2. Cholelithiasis with no evidence of cholecystitis. 3. Enterococcus faecalis urinary tract infection. 4. History of chronic obstructive pulmonary disease. 5. Hypertension. 6. Status post pacemaker placement. PLAN: So far, FOSTER cultures are all negative. Currently, the patient is on Zosyn. She is going for endoscopy and EUS today, and after that, she will be transferred to telemetry. We will follow up her CBC and CMP. Jorden Mcneill MD
--- NOTE | 2016-12-12 14:59 | CP.PCM.PN ---
Subjective - Date & Time of Evaluation Date of Evaluation: 12/12/16 Time of Evaluation: 09:50 - Subjective Subjective: Comfortable, no fevers overnight, no abdominal pain, has some loose bowel movement yesterday but none today. Objective - Vital Signs/Intake and Output Vital Signs (last 24 hours): Temp Pulse Resp BP Pulse Ox 98 F 63 47 H 102/46 L 94 L 12/12/16 05:58 12/12/16 06:01 12/12/16 06:01 12/12/16 06:01 12/12/16 06:01 Intake and Output: 12/11/16 12/12/16 18:59 06:59 Intake Total 300 980 Output Total 401 500 Balance -101 480 - Medications Medications: Current Medications Acetaminophen (Tylenol 325mg Tab) 650 mg PO Q6H PRN PRN Reason: Fever >100.4 F Last Admin: 12/10/16 05:26 Dose: 650 mg Acetic Acid (Acetic Acid 0.25% Irrig) 0 ml TP DAILY [facility] Last Admin: 12/11/16 10:00 Dose: 25 applic Arformoterol Tartrate (Brovana) 15 mcg IH [id number] [facility] Aspirin (Ecotrin) 81 mg PO DAILY [facility] Last Admin: 12/11/16 10:05 Dose: 81 mg Budesonide (Pulmicort Respules) 0.5 mg IH [id number] [facility] Last Admin: 12/11/16 19:52 Dose: 0.5 mg Heparin Sodium (Porcine) (Heparin) 5,000 units SC Q12 [facility] PRN Reason: Protocol Last Admin: 12/11/16 22:12 Dose: 5,000 units Piperacillin Sod/Tazobactam Sod (Zosyn 3.375 In Ns 100ml) 100 mls @ 200 mls/hr IVPB Q6 [facility] PRN Reason: Protocol Stop: 12/18/16 09:08 Last Admin: 12/12/16 05:53 Dose: 200 mls/hr Potassium Chloride 20 meq/ (Sodium Chloride) 1,010 mls @ 60 mls/hr IV .[id number] [facility] Last Admin: 12/11/16 17:24 Dose: 60 mls/hr Lactobacillus Acidophilus (Bacid Acidophilus) 1 cap PO DAILY [facility] Last Admin: 12/11/16 10:05 Dose: 1 cap Ondansetron HCl (Zofran Inj) 4 mg IVP Q6H PRN PRN Reason: Nausea/Vomiting Pantoprazole Sodium (Protonix Ec Tab) 40 mg PO 0600 [facility] Last Admin: 12/11/16 05:46 Dose: 40 mg - Labs Labs: 12/11/16 05:30 12/11/16 05:30 PT 10.4 Seconds (9.9-11.8) 12/08/16 19:50 INR 0.96 (0.93-1.08) 12/08/16 19:50 APTT 35.7 Seconds (23.7-30.8) H 12/11/16 15:45 - Constitutional Appears: Non-toxic, No Acute Distress - Head Exam Head Exam: NORMAL INSPECTION - Neck Exam Neck Exam: absent: Meningismus - Respiratory Exam Respiratory Exam: Decreased Breath Sounds - Cardiovascular Exam Cardiovascular Exam: +S1, +S2 - GI/Abdominal Exam GI & Abdominal Exam: Soft. absent: Tenderness Assessment and Plan - Assessment and Plan (Free Text) Plan: Assessment severe sepsis with acute renal failure due to acute gastroenteritis R/O exacerbation of ulcerative colitis R/O biliary tree infection chronic left leg ulcer, R/O pyoderma gangrenosum COPD HTN CAD with chronic CHF S/P pacemaker placement anxiety disorder Plan Blood cx are negative stool for C. diff. is negative continue Zosyn (total day 4 of antibiotics) pending further work up of the common bile duct and biliary tree (ie. plan for EUS) will continue to monitor clinically
--- NOTE | 2016-12-12 15:20 | PN ---
DATE: 12/12/2016 SUBJECTIVE: The patient is seen lying in bed in the ICU. She is awake. She is alert. She is comfortable. She denies any pain. She denies any shortness of breath. She denies any nausea, vomiting. She reports some diarrhea this morning. PHYSICAL EXAMINATION: GENERAL: Elderly lady lying in bed in the ICU. VITAL SIGNS: Blood pressure 114/42, heart rate 66, respiratory rate 18, temperature 98, T-max is 100.2. HEENT: Normocephalic and atraumatic. Positive pallor. NECK: Supple. No JVD. LUNGS: Bilateral equal air entry, bilateral decreased breath sounds, no rales, no rhonchi. CARDIAC: S1 and S2, regular rate, and rhythm. No murmur, no rub. ABDOMEN: Soft, nondistended, nontender, bowel sounds are present. EXTREMITIES: No lower extremity edema. INTAKE AND OUTPUT: 1280/901. LABORATORY DATA: WBC 24, hemoglobin 9.9, hematocrit 29, platelets 330. Sodium 134, potassium 4.6, chloride 104, CO2 of 20, BUN 23, creatinine 1.0, glucose 85, calcium 8.3, phosphorous 2.7, magnesium 2.0, and albumin 2.7. Blood culture no growth so far. Urine culture Enterococcus faecalis. Stool culture negative. Clostridium difficile toxin negative. CURRENT MEDICATIONS: Lactobacillus, Brovana, Ecotrin, heparin, potassium 20 mEq, Protonix, Pulmicort, Tylenol, Zofran, Zosyn 3.375 q.6 hours, Iron 200 mg IV piggyback. ASSESSMENT AND PLAN: 1. Acute kidney injury, largely prerenal azotemia, resolved with hydration. 2. Resolved severe hyponatremia. 3. Resolved hypokalemia. 4. Leukocytosis, enterococcal urinary tract infection, suspected biliary tract sepsis. 5. Underlying history of ulcerative colitis. 6. Noninsulin-dependent diabetes mellitus. 7. Hypertension. 8. Hypoalbuminemia. 9. Anemia with low iron stores 10. Advanced age. PLAN: 1. Continue empiric antibiotics to cover for biliary sepsis. 2. Dose all antibiotics for creatinine clearance 30 to 50 mL per minute. 3. Avoid nephrotoxins. Kaitlin Anderson MD MTDIsabelle
--- NOTE | 2016-12-12 15:21 | PN ---
ADDENDUM 4. Continue iron infusion. 5. Check stool occult. 6. Plan for ERCP today. 7. Monitor urine output closely. 8. Monitor daily electrolytes. 9. Case discussed with daughter at bed side, ICU staff at great length, more than 35 minutes spent in the care of this critical ill patient. Kaitlin Anderson MD
[2016-12-12] MEDS ORDERED: Midazolam 2 MG/2 ML VIAL ONE (15:56)
[2016-12-12] MEDS ORDERED: Lidocaine 2% Jelly (30 ml) ONE (16:47)
--- NOTE | 2016-12-12 17:20 | CP.PCM.CON ---
History of Present Illness - History of Present Illness History of Present Illness: Patient evaluated by me today.Patien was S/f ERCP,EUS and EGD.Following issue were notice. saturation on room air was noticed 87% SOB Procedure can be done only by intubation patient has pigeon shape chest,both restrictive and obstructive disease strong possibility for postop intubation family did not agree suggested pulmonary consult and optimization of patient physical condition before procedure. patient hand over to dr Quick . Past Patient History - Infectious Disease Hx of Infectious Diseases: None - Past Social History Smoking Status: Never Smoked - CARDIAC Hx Cardiac Disorders: Yes Hx Hypertension: Yes - PULMONARY Hx Chronic Obstructive Pulmonary Disease (COPD): Yes - NEUROLOGICAL Hx Neurological Disorder: Yes - HEENT Hx HEENT Problems: Yes Other/Comment: wear weas glasses for reading and distance - RENAL Hx Chronic Kidney Disease: No - ENDOCRINE/METABOLIC Hx Endocrine Disorders: No - HEMATOLOGICAL/ONCOLOGICAL Hx Blood Transfusions: No Hx Blood Transfusion Reaction: No - INTEGUMENTARY Hx Dermatological Problems: No - MUSCULOSKELETAL/RHEUMATOLOGICAL Hx Falls: No - GASTROINTESTINAL Hx Gastrointestinal Disorders: Yes Other/Comment: colitis - GENITOURINARY/GYNECOLOGICAL Hx Genitourinary Disorders: No - PSYCHIATRIC Hx Psychophysiologic Disorder: Yes Hx Anxiety: Yes Hx Substance Use: No - SURGICAL HISTORY Hx Surgeries: Yes - ANESTHESIA Hx Anesthesia Reactions: No Hx Malignant Hyperthermia: No Meds Allergies/Adverse Reactions: Allergies Allergy/AdvReac Type Severity Reaction Status Date / Time silver [From SilvaSorb] Allergy SWELLING Verified 12/09/16 01:05 silver sulfadiazine Allergy SWELLING Verified 12/09/16 01:05 [From Silvadene] Sulfa (Sulfonamide Allergy SHORTNESS Verified 12/08/16 19:17 Antibiotics) OF BREATH - Medications Medications: Current Medications Acetaminophen (Tylenol 325mg Tab) 650 mg PO Q6H PRN PRN Reason: Fever >100.4 F Last Admin: 12/10/16 05:26 Dose: 650 mg Acetic Acid (Acetic Acid 0.25% Irrig) 0 ml TP DAILY [facility] Last Admin: 12/11/16 10:00 Dose: 25 applic Arformoterol Tartrate (Brovana) 15 mcg IH [id number] [facility] Aspirin (Ecotrin) 81 mg PO DAILY [facility] Last Admin: 12/11/16 10:05 Dose: 81 mg Budesonide (Pulmicort Respules) 0.5 mg IH [id number] [facility] Last Admin: 12/12/16 07:26 Dose: 0.5 mg Heparin Sodium (Porcine) (Heparin) 5,000 units SC Q12 [facility] PRN Reason: Protocol Last Admin: 12/11/16 22:12 Dose: 5,000 units Piperacillin Sod/Tazobactam Sod (Zosyn 3.375 In Ns 100ml) 100 mls @ 200 mls/hr IVPB Q6 [facility] PRN Reason: Protocol Stop: 12/18/16 09:08 Last Admin: 12/12/16 08:03 Dose: 200 mls/hr Potassium Chloride 20 meq/ (Sodium Chloride) 1,010 mls @ 60 mls/hr IV .[id number] [facility] Last Admin: 12/11/16 17:24 Dose: 60 mls/hr Lactobacillus Acidophilus (Bacid Acidophilus) 1 cap PO DAILY [facility] Last Admin: 12/12/16 09:59 Dose: 1 cap Ondansetron HCl (Zofran Inj) 4 mg IVP Q6H PRN PRN Reason: Nausea/Vomiting Pantoprazole Sodium (Protonix Ec Tab) 40 mg PO 0600 [facility] Last Admin: 12/12/16 08:03 Dose: 40 mg Results - Vital Signs Recent Vital Signs: Last Vital Signs Temp 97.9 F 12/12/16 12:00 Pulse 63 12/12/16 15:00 Resp 21 12/12/16 15:00 BP 116/45 L 12/12/16 14:00 Pulse Ox 85 L 12/12/16 16:22 - Labs Result Diagrams: 12/12/16 05:40 12/12/16 05:40 Labs: Laboratory Results - last 24 hr 12/11/16 12/12/16 12/12/16 15:45 05:40 05:40 WBC 24.0 H RBC 3.39 L Hgb 9.9 L Hct 29.2 L MCV 86.1 MCH 29.2 MCHC 33.9 RDW 13.2 Plt Count 330 MPV 8.1 Gran % 89.2 H Lymph % (Auto) 4.5 L [place] % (Auto) 6.3 H Eos % (Auto) 0.0 L Baso % (Auto) 0.0 Gran # 21.37 H Lymph # 1.1 L [place] # 1.5 H Eos # 0.0 Baso # 0.01 PT INR APTT 35.7 H Sodium 134 Potassium 4.6 Chloride 104 Carbon Dioxide 20 L Anion Gap 15 BUN 23 H Creatinine 1.0 Est GFR ( Amer) > 60 Est GFR (Non-Af Amer) 52 Random Glucose 85 Calcium 8.3 L Phosphorus 2.7 Magnesium 2.0 Total Bilirubin 0.6 AST 28 ALT 34 Alkaline Phosphatase 98 Total Protein 5.9 Albumin 2.7 L Globulin 3.2 Albumin/Globulin Ratio 0.8 L 12/12/16 05:40 WBC RBC Hgb Hct MCV MCH MCHC RDW Plt Count MPV Gran % Lymph % (Auto) [place] % (Auto) Eos % (Auto) Baso % (Auto) Gran # Lymph # [place] # Eos # Baso # PT 13.4 H INR 1.24 H APTT Sodium Potassium Chloride Carbon Dioxide Anion Gap BUN Creatinine Est GFR ( Amer) Est GFR (Non-Af Amer) Random Glucose Calcium Phosphorus Magnesium Total Bilirubin AST ALT Alkaline Phosphatase Total Protein Albumin Globulin Albumin/Globulin Ratio
[2016-12-12] MEDS: Acetic Acid 0.25% Irrig Sol TP SCH (17:59)
[2016-12-12] MEDS: Arformoterol 15 mcg/2 ml Inh Sol IH SCH (18:00)
[2016-12-12] MEDS ORDERED: Loperamide Hydrochloride 1 mg/5 ml Cup PO ONE (19:02)
[2016-12-13] MEDS: Piperacillin/Tazobact 3.375 gm 100 ML IVPB SCH ×4 (02:17→17:31)
[2016-12-13] MEDS: Pantoprazole 40 mg EC Tab PO SCH (05:21)
[2016-12-13 06:37] LABS: BASO # 0.02 K/mm3 (0.0-2.0); BASO % 0.1 % (0.0-3.0); EOS % 0.2 % (1.5-5.0); GRAN # 16.27 (1.4-6.5); GRAN % 83.2 % (50.0-68.0); HEMOGLOBIN 9.6 gm/dL (12.0-16.0); LYMPH # 1.6 (1.2-3.4); LYMPH % 8.2 % (22.0-35.0); MEAN CELL VOLUME 86.7 fL (80.0-105.0); MEAN CORPUSCULAR HEMOGLOBIN 29.1 pg (25.0-35.0); MEAN CORPUSCULAR HGB CONC 33.6 g/dl (31.0-37.0); MEAN PLATELET VOLUME 8.2 fl (7.0-11.0); MONO # 1.6 (0.1-0.6); MONO % 8.3 % (1.0-6.0); PLATELET COUNT 340 10^3/uL (120.0-450.0); RED CELL DISTRIBUTION WIDTH 13.4 % (11.5-14.5); WHITE BLOOD COUNT 19.6 10^3/ul (4.5-11.0)
[2016-12-13 06:49] LABS: ALB/GLOB RATIO 0.9 (1.1-1.8); ALBUMIN 2.7 g/dL (3.0-4.8); ALT/SGPT 33 U/L (7-56); AST/SGOT 28 U/L (15-39); BLOOD UREA NITROGEN 20 mg/dL (7-21); CALCIUM 8.2 mg/dL (8.4-10.5); GFR AFRICAN-AMERICAN > 60; GFR NON-AFRICAN AMERICAN 59
[2016-12-13] MEDS: Budesonide 0.5 mg/2 ml Inhal Susp UD IH SCH ×2 (07:48→19:57)
[2016-12-13] MEDS: Arformoterol 15 mcg/2 ml Inh Sol IH SCH ×2 (07:48→19:57)
--- NOTE | 2016-12-13 08:20 | CT ---
PROCEDURE: CT Chest without contrast HISTORY: sob COMPARISON: None. TECHNIQUE: Contiguous axial images were obtained through the chest without intravenous contrast enhancement. Sagittal and coronal reconstructions were performed. Radiation dose (DLP): 462.89 mGy-cm. This CT exam was performed using one or more of the following dose reduction techniques: Automated exposure control, adjustment of the mA and/or kV according to patient size, and/or use of iterative reconstruction technique. FINDINGS: LUNGS: Left upper lobe consolidation, likely pneumonia. Very small area of cavitation within the upper lobe consolidation. Nonspecific finding. Bilateral lower lobe subsegmental atelectasis, likely compressive atelectasis secondary to pleural effusions. MEDIASTINUM: Unremarkable thoracic aorta. No aneurysm. Mild cardiomegaly, with left ventricular and left atrial enlargement. Permanent pacemaker noted. Main pulmonary artery unremarkable. No vascular congestion. No lymphadenopathy. PLEURA: Small bilateral pleural effusion. No pneumothorax. BONES: No acute fracture. Thoracolumbar dextroscoliosis. Mild right lateral listhesis of L1 on L2 and L2 on L3. UPPER ABDOMEN: Distended gallbladder with dependent calculi. No mural thickening. No pericholecystic fluid. OTHER FINDINGS: None. IMPRESSION: Left upper lobe consolidation, possibly pneumonia. Bilateral pleural effusion with bilateral lower lobe compressive atelectasis. Additional minor findings as above. Preliminary interpretation of this examination was reported by [facility] at 9:33 p.m. on 12/12/2016. There is concurrence of this report with the preliminary interpretation.
--- NOTE | 2016-12-13 08:34 | CON ---
DATE: 12/13/2016 REFERRING PHYSICIAN: Dr. Cruz. REASON FOR CONSULTATION: Pneumonia with oxygen desaturation. HISTORY OF PRESENT ILLNESS: History was obtained via extensive discussion with the medical secretary. I have also discussed the case with the nurse at length. I have also reviewed the chart at length. The patient is not an adequate historian at the present time. The patient is a chronically ill 89-year-old female, with past medical history significant for chronic obstructive pulmonary disease, coronary artery disease, status post permanent pacemaker, ulcerative colitis, chronic leg cellulitis, diabetes mellitus, transient ischemic attack in the past, who presented originally-on 12/08/2016-with generalized weakness and diarrhea for the previous 2 days. Upon initial evaluation, it was noted that the patient was severely dehydrated and had multiple electrolyte abnormalities. She was thus admitted for additional evaluation. Again, I did discuss the case with the medical secretary and nurse at length. The patient is not short of breath at rest. She does have some mild chronic dyspnea on exertion. There is no history of significant cough or sputum production. No history of chest pain, coughing up of blood, or chest pain-made worse with deep respirations. The patient did have low-grade fevers at the beginning of her hospitalization. There have been no fevers for the past few days. No history of chills or infectious exposure. No history of night sweats, weight loss, or appetite change prior to the above events. No history of calf pains. No history of syncope or diaphoresis. No history of recent travel or trauma. REVIEW OF SYSTEMS: No acute urinary symptoms. No new neurologic or musculoskeletal complaints. No nausea or vomiting. Rest of the review of systems is negative. ALLERGIES: SULFA, SULFADIAZINE, AND SULFONAMIDE ANTIBIOTICS. SOCIAL HISTORY: Positive for tobacco. Negative for alcohol. FAMILY HISTORY: No inheritable diseases. HOME MEDICATIONS: Include Xanax, omeprazole, calcium, aspirin, valsartan, and Advair. PHYSICAL EXAMINATION GENERAL: The patient appears comfortable at rest. She is not short of breath. She is not using accessory muscles for breathing. VITAL SIGNS: Temperature is 98.8, pulse 88, respirations 18/20, blood pressure 114/71. Oxygen saturation on nasal cannula is 95%. HEENT: Normocephalic and atraumatic. NECK: No JVD. CARDIOVASCULAR: Systolic ejection murmur at the lower left sternal border. No S3 gallop. LUNGS: Decreased breath sounds at the bases. Minimal bilateral rhonchi. No wheezing. EXTREMITIES: Positive for edema. No cyanosis, no clubbing. Calves are nontender to palpation. GASTROINTESTINAL: Abdomen is soft, nontender, nondistended. Bowel sounds are positive. SKIN: There is a chronic left leg ulcer. No rashes. NEUROLOGIC: Exam is limited at the present time. PERTINENT LABORATORY DATA: CAT scan of the chest was done last night and reviewed. Thera are no official results on the chart as of yet. There are infiltrates in the left upper lobe and left lingular areas - with air bronchograms-consistent with pneumonia. There is also a probable small pneumatocele in the left upper lobe. Lastly, there are small bilateral pleural effusions with adjacent atelectasis. CBC: White count 19.6, hemoglobin 9.6, hematocrit 28.6, platelets are 340. Complete metabolic profile: Carbon dioxide 20, BUN 23, creatinine 1.0, calcium 8.3, albumin 2.7. Rest of the metabolic profile is within normal limits. Initial BUN/creatinine equals 91/6.2. IMPRESSION: 1. Multilobar pneumonia. 2. Acute gastroenteritis. 3. Sepsis syndrome. 4. Chronic obstructive pulmonary disease. 5. Coronary artery disease. 6. Renal insufficiency - improved. PLAN: The patient presented to [facility]-originally-on 12/08/2016-with main complaints of generalized weakness and diarrhea starting approximately 2 days prior to admission. In the emergency room, she had multiple electrolyte abnormalities and was thought to be very dehydrated. She was thus admitted for additional evaluation. Again, I did discuss the case with the medical secretary and nurse at length. They report no significant pulmonary symptoms. I did review the CAT scan of the chest-as above. There are infiltrates in the left upper lobe and left lingular areas-with air bronchograms-consistent with multilobar pneumonia. There are also some chronic small pleural effusions with adjacent atelectasis. On physical exam, there is only mild bronchospasm noted. There is no significant alveolar-arterial gradient. Oxygen saturation on nasal cannula is now 95%. I will continue with the current nebulizer treatments and inhaled steroids for now. I would continue with the antibiotic coverage as per infectious disease. Temperatures have resolved. The leukocytosis is resolving. I would continue with the GI and renal evaluations. Inputs are noted. The patient's clinical status remains guarded at this point in time. However, she is certainly improved-compared to the initial hospital status. I will discuss the above with the entire ICU team in the next few moments. I will also discuss the above with the attending physician. Thank you very much for this pulmonary consultation. Aleks Mejia MD MTDD
[2016-12-13] MEDS ORDERED: Vancomycin 1gm in NS 250ml 1 GM/250 ML BAG IVPB SCH (08:45)
[2016-12-13] MEDS: Acetic Acid 0.25% Irrig Sol TP SCH (09:45)
[2016-12-13] MEDS: Lactobacillus Acidophilus 500 MU Cap PO SCH (09:45)
--- NOTE | 2016-12-13 09:47 | CP.PCM.PN ---
Subjective - Date & Time of Evaluation Date of Evaluation: 12/13/16 Time of Evaluation: 09:30 - Subjective Subjective: Comfortable in bed, not in distress, afebrile overnight, breathing ok, no abdominal pain, still with left leg pain. Objective - Vital Signs/Intake and Output Vital Signs (last 24 hours): Temp Pulse Resp BP Pulse Ox 98.8 F 88 20 114/71 95 12/13/16 06:00 12/13/16 06:00 12/13/16 06:00 12/13/16 06:00 12/13/16 06:00 Intake and Output: 12/12/16 12/13/16 18:59 06:59 Intake Total 850 1960 Output Total 1150 1100 Balance -300 860 - Medications Medications: Current Medications Acetaminophen (Tylenol 325mg Tab) 650 mg PO Q6H PRN PRN Reason: Fever >100.4 F Last Admin: 12/10/16 05:26 Dose: 650 mg Acetic Acid (Acetic Acid 0.25% Irrig) 0 ml TP DAILY [facility] Last Admin: 12/12/16 17:59 Dose: Not Given Arformoterol Tartrate (Brovana) 15 mcg IH [id number] [facility] Last Admin: 12/12/16 18:00 Dose: 15 mcg Aspirin (Ecotrin) 81 mg PO DAILY [facility] Last Admin: 12/11/16 10:05 Dose: 81 mg Budesonide (Pulmicort Respules) 0.5 mg IH [id number] [facility] Last Admin: 12/12/16 18:00 Dose: 0.5 mg Heparin Sodium (Porcine) (Heparin) 5,000 units SC Q12 [facility] PRN Reason: Protocol Last Admin: 12/12/16 21:20 Dose: 5,000 units Piperacillin Sod/Tazobactam Sod (Zosyn 3.375 In Ns 100ml) 100 mls @ 200 mls/hr IVPB Q6 [facility] PRN Reason: Protocol Stop: 12/18/16 09:08 Last Admin: 12/13/16 05:20 Dose: 200 mls/hr Potassium Chloride 20 meq/ (Sodium Chloride) 1,010 mls @ 60 mls/hr IV .[id number] [facility] Last Admin: 12/13/16 05:21 Dose: 60 mls/hr Lactobacillus Acidophilus (Bacid Acidophilus) 1 cap PO DAILY [facility] Last Admin: 12/12/16 09:59 Dose: 1 cap Ondansetron HCl (Zofran Inj) 4 mg IVP Q6H PRN PRN Reason: Nausea/Vomiting Pantoprazole Sodium (Protonix Ec Tab) 40 mg PO 0600 [facility] Last Admin: 12/13/16 05:21 Dose: 40 mg - Labs Labs: 12/12/16 05:40 12/12/16 05:40 PT 13.4 Seconds (9.9-11.8) H 12/12/16 05:40 INR 1.24 (0.93-1.08) H 12/12/16 05:40 APTT 35.7 Seconds (23.7-30.8) H 12/11/16 15:45 - Constitutional Appears: Non-toxic, No Acute Distress - Head Exam Head Exam: NORMAL INSPECTION - ENT Exam ENT Exam: Mucous Membranes Moist - Neck Exam Neck Exam: absent: Meningismus - Respiratory Exam Respiratory Exam: Decreased Breath Sounds - Cardiovascular Exam Cardiovascular Exam: +S1, +S2 - GI/Abdominal Exam GI & Abdominal Exam: Soft. absent: Tenderness - Extremities Exam Additional comments: left leg with dressings in place Assessment and Plan - Assessment and Plan (Free Text) Plan: Assessment severe sepsis with acute renal failure probably due to left upper lobe healthcare-associated pneumonia, less likely biliary tree infection ulcerative colitis chronic left leg ulcer, R/O pyoderma gangrenosum COPD HTN CAD with chronic CHF S/P pacemaker placement anxiety disorder Plan Blood cx are negative, stool for C. diff. is negative continue Zosyn (total day 4 of antibiotics) and will add IV Vancomycin; reviewed CT chest done yesterday showing the left sided pneumonia follow up plans for further work up of the common bile duct and biliary tree (ie. plan for EUS) will continue to monitor clinically
--- NOTE | 2016-12-13 09:53 | CP.PCM.PN ---
<Mayco Barfield - Last Filed: 12/13/16 09:50> Subjective - Date & Time of Evaluation Date of Evaluation: 12/13/16 Time of Evaluation: 09:15 - Subjective Subjective: 89 y/o female patient seen at bedside in CCU with Dr. De León present regarding ulceration of right lower extremity. Pt seen resting comfortably in bed at time of visit, with daughters present. Does complain of decreased tenderness to right heel, and compliance with use of foam boot. Denies any other pedal complaints. Denies recent f/c/cp//sob/n/v/d. Pt's ERCP for yesterday cancelled due to intra-op hypoxia. Pulmonology optimization requestd by anesthesia. . Objective - Vital Signs/Intake and Output Vital Signs (last 24 hours): Temp Pulse Resp BP Pulse Ox 98.8 F 88 20 114/71 95 12/13/16 06:00 12/13/16 06:00 12/13/16 06:00 12/13/16 06:00 12/13/16 06:00 Intake and Output: 12/13/16 12/13/16 06:59 18:59 Intake Total 1960 Output Total 1100 Balance 860 - Medications Medications: Current Medications Acetaminophen (Tylenol 325mg Tab) 650 mg PO Q6H PRN PRN Reason: Fever >100.4 F Last Admin: 12/10/16 05:26 Dose: 650 mg Acetic Acid (Acetic Acid 0.25% Irrig) 0 ml TP DAILY [facility] Last Admin: 12/13/16 09:45 Dose: 1 applic Arformoterol Tartrate (Brovana) 15 mcg IH [id number] [facility] Last Admin: 12/13/16 07:48 Dose: 15 mcg Aspirin (Ecotrin) 81 mg PO DAILY [facility] Last Admin: 12/11/16 10:05 Dose: 81 mg Budesonide (Pulmicort Respules) 0.5 mg IH [id number] [facility] Last Admin: 12/13/16 07:48 Dose: 0.5 mg Heparin Sodium (Porcine) (Heparin) 5,000 units SC Q12 [facility] PRN Reason: Protocol Last Admin: 12/13/16 09:45 Dose: 5,000 units Piperacillin Sod/Tazobactam Sod (Zosyn 3.375 In Ns 100ml) 100 mls @ 200 mls/hr IVPB Q6 [facility] PRN Reason: Protocol Stop: 12/18/16 09:08 Last Admin: 12/13/16 05:20 Dose: 200 mls/hr Potassium Chloride 20 meq/ (Sodium Chloride) 1,010 mls @ 60 mls/hr IV .[id number] [facility] Last Admin: 12/13/16 05:21 Dose: 60 mls/hr Vancomycin HCl (Vancomycin 750 Mg In Ns) 750 mg in 250 mls @ 167 mls/hr IVPB Q12H [facility] PRN Reason: Protocol Lactobacillus Acidophilus (Bacid Acidophilus) 1 cap PO DAILY [facility] Last Admin: 12/13/16 09:45 Dose: 1 cap Ondansetron HCl (Zofran Inj) 4 mg IVP Q6H PRN PRN Reason: Nausea/Vomiting Pantoprazole Sodium (Protonix Ec Tab) 40 mg PO 0600 [facility] Last Admin: 12/13/16 05:21 Dose: 40 mg - Labs Labs: 12/13/16 05:40 12/13/16 05:40 PT 13.4 Seconds (9.9-11.8) H 12/12/16 05:40 INR 1.24 (0.93-1.08) H 12/12/16 05:40 APTT 35.7 Seconds (23.7-30.8) H 12/11/16 15:45 - Constitutional Appears: Well, Non-toxic, No Acute Distress - Extremities Exam Additional comments: Right lower extremity exam: Dressing appears clean, dry, and intact to right foot VASC: DP/PT pulses are palpable 1/4 b/l, cap refill < 3 sec to all digits, skin temp runs warm to warm bl, no pedal edema appreciated DERM: diffuse superficial ulcer noted on distal right leg/ankle extending to dorsum and plantar aspect of the foot with active serous drainage, islands of fibrotic skin noted on the dorsum of the foot and lateral aspect of the leg with green coloration, mild malodor, no probe to bone, erythema noted on the distal leg as well as the foot, no clinical suspicion of active infection noted from the right lower extremity. No wounds noted to left lower extremity NEURO: protective pedal sensation is intact ORTHO: tender on palpation of plantar and posterior right heel. Left 2nd digit dorso-lateral gross dislocation noted, non reducible. - Neurological Exam Neurological Exam: Alert, Awake - Psychiatric Exam Psychiatric exam: Normal Affect Assessment and Plan - Assessment and Plan (Free Text) Assessment: 89 y/o female patient with 1) superficial, non-infection ulceration of right lower extremity. 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 Plan: Patient evaluated and treated with attending Sherry De León present. Chart, labs and vitals were reviewed: afebrile, WBC = 19.6, trending down. Right leg ulceration cleansed with sterile normal saline. Dressed with xeroform , DSD, ABD, kerlix, and FERDINAND Offloading heel boot inplace to right foot/ankle. Pt is to continue to wear at all times while in bed for offloading heel. Post-op shoe to be applied to right LE when ambulating. continue IV abx as per ID Podiatry will follow while patient is in house. <Chi De León - Last Filed: 12/14/16 11:12> Objective - Vital Signs/Intake and Output Vital Signs (last 24 hours): Temp Pulse Resp BP Pulse Ox 97.6 F 90 28 H 114/51 L 90 L 12/14/16 08:00 12/14/16 08:00 12/14/16 08:00 12/14/16 08:00 12/14/16 08:00 Intake and Output: 12/14/16 12/14/16 06:59 18:59 Intake Total 820 Balance 820 - Medications Medications: Current Medications Acetaminophen (Tylenol 325mg Tab) 650 mg PO Q6H PRN PRN Reason: Fever >100.4 F Last Admin: 12/10/16 05:26 Dose: 650 mg Acetic Acid (Acetic Acid 0.25% Irrig) 0 ml TP DAILY [facility] Last Admin: 12/13/16 09:45 Dose: 1 applic Albuterol/Ipratropium (Duoneb 3 Mg/0.5 Mg (3 Ml) Ud) 3 ml IH Q2H PRN PRN Reason: Shortness of Breath Last Admin: 12/13/16 23:43 Dose: 3 ml Alprazolam (Xanax) 0.125 mg PO BID PRN; Protocol PRN Reason: Anxiety Stop: 12/20/16 18:01 Last Admin: 12/14/16 10:37 Dose: 0.125 mg Arformoterol Tartrate (Brovana) 15 mcg IH [id number] [facility] Last Admin: 12/14/16 07:21 Dose: 15 mcg Aspirin (Ecotrin) 81 mg PO DAILY [facility] Last Admin: 12/14/16 10:41 Dose: 81 mg Budesonide (Pulmicort Respules) 0.5 mg IH [id number] [facility] Last Admin: 12/14/16 07:21 Dose: 0.5 mg Heparin Sodium (Porcine) (Heparin) 5,000 units SC Q12 [facility] PRN Reason: Protocol Last Admin: 12/14/16 10:40 Dose: 5,000 units Piperacillin Sod/Tazobactam Sod (Zosyn 3.375 In Ns 100ml) 100 mls @ 200 mls/hr IVPB Q6 [facility] PRN Reason: Protocol Stop: 12/18/16 09:08 Last Admin: 12/14/16 05:54 Dose: 200 mls/hr Potassium Chloride 20 meq/ (Sodium Chloride) 1,010 mls @ 60 mls/hr IV .[id number] [facility] Last Admin: 12/14/16 04:00 Dose: 60 mls/hr Vancomycin HCl (Vancomycin 750 Mg In Ns) 750 mg in 250 mls @ 167 mls/hr IVPB Q12H [facility] PRN Reason: Protocol Last Admin: 12/14/16 10:39 Dose: 167 mls/hr Iron Sucrose 200 mg/ Sodium (Chloride) 110 mls @ 110 mls/hr IVPB DAILY [facility] Stop: 12/15/16 10:59 Last Admin: 12/14/16 10:39 Dose: 110 mls/hr Lactobacillus Acidophilus (Bacid Acidophilus) 1 cap PO DAILY [facility] Last Admin: 12/14/16 10:36 Dose: 1 cap Ondansetron HCl (Zofran Inj) 4 mg IVP Q6H PRN PRN Reason: Nausea/Vomiting Pantoprazole Sodium (Protonix Ec Tab) 40 mg PO 0600 [facility] Last Admin: 12/14/16 06:05 Dose: 40 mg - Labs Labs: 12/14/16 09:30 12/14/16 09:30 PT 13.4 Seconds (9.9-11.8) H 12/12/16 05:40 INR 1.24 (0.93-1.08) H 12/12/16 05:40 APTT 35.7 Seconds (23.7-30.8) H 12/11/16 15:45 Attending/Attestation - Attestation I have personally seen and examined this patient.: Yes I have fully participated in the care of the patient.: Yes I have reviewed all pertinent clinical information, including history, physical exam and plan: Yes
[2016-12-13] MEDS: Vancomycin 750mg 750 MG/250 ML BAG IVPB SCH ×2 (10:35→22:13)
--- NOTE | 2016-12-13 12:52 | CP.PCM.PN ---
<Lynne Joshi - Last Filed: 12/13/16 12:45> Subjective - Date & Time of Evaluation Date of Evaluation: 12/13/16 Time of Evaluation: 08:45 - Subjective Subjective: S&E at bedside, had low O2 sat yesterday, egd/eus cancelled, patient had flexsig, no sedation, found diverticulosis, and stool aspiration done. Patient denies SOB, CP, N/V or abdominal pain. Objective - Vital Signs/Intake and Output Vital Signs (last 24 hours): Temp Pulse Resp BP Pulse Ox 98.8 F 87 45 H 122/51 L 90 L 12/13/16 06:00 12/13/16 11:00 12/13/16 11:00 12/13/16 11:00 12/13/16 11:00 Intake and Output: 12/13/16 12/13/16 06:59 18:59 Intake Total 1960 Output Total 1100 Balance 860 - Medications Medications: Current Medications Acetaminophen (Tylenol 325mg Tab) 650 mg PO Q6H PRN PRN Reason: Fever >100.4 F Last Admin: 12/10/16 05:26 Dose: 650 mg Acetic Acid (Acetic Acid 0.25% Irrig) 0 ml TP DAILY [facility] Last Admin: 12/13/16 09:45 Dose: 1 applic Alprazolam (Xanax) 0.125 mg PO BID PRN; Protocol PRN Reason: Anxiety Stop: 12/20/16 18:01 Last Admin: 12/13/16 12:21 Dose: 0.125 mg Arformoterol Tartrate (Brovana) 15 mcg IH [id number] [facility] Last Admin: 12/13/16 07:48 Dose: 15 mcg Aspirin (Ecotrin) 81 mg PO DAILY [facility] Last Admin: 12/13/16 10:44 Dose: 81 mg Budesonide (Pulmicort Respules) 0.5 mg IH [id number] [facility] Last Admin: 12/13/16 07:48 Dose: 0.5 mg Heparin Sodium (Porcine) (Heparin) 5,000 units SC Q12 [facility] PRN Reason: Protocol Last Admin: 12/13/16 09:45 Dose: 5,000 units Piperacillin Sod/Tazobactam Sod (Zosyn 3.375 In Ns 100ml) 100 mls @ 200 mls/hr IVPB Q6 [facility] PRN Reason: Protocol Stop: 12/18/16 09:08 Last Admin: 12/13/16 12:28 Dose: 200 mls/hr Potassium Chloride 20 meq/ (Sodium Chloride) 1,010 mls @ 60 mls/hr IV .[id number] [facility] Last Admin: 12/13/16 05:21 Dose: 60 mls/hr Vancomycin HCl (Vancomycin 750 Mg In Ns) 750 mg in 250 mls @ 167 mls/hr IVPB Q12H [facility] PRN Reason: Protocol Last Admin: 12/13/16 10:35 Dose: 167 mls/hr Iron Sucrose 200 mg/ Sodium (Chloride) 110 mls @ 110 mls/hr IVPB DAILY [facility] Stop: 12/15/16 10:59 Last Admin: 12/13/16 10:43 Dose: 110 mls/hr Lactobacillus Acidophilus (Bacid Acidophilus) 1 cap PO DAILY [facility] Last Admin: 12/13/16 09:45 Dose: 1 cap Ondansetron HCl (Zofran Inj) 4 mg IVP Q6H PRN PRN Reason: Nausea/Vomiting Pantoprazole Sodium (Protonix Ec Tab) 40 mg PO 0600 [facility] Last Admin: 12/13/16 05:21 Dose: 40 mg - Labs Labs: 12/13/16 05:40 12/13/16 05:40 PT 13.4 Seconds (9.9-11.8) H 12/12/16 05:40 INR 1.24 (0.93-1.08) H 12/12/16 05:40 APTT 35.7 Seconds (23.7-30.8) H 12/11/16 15:45 - Constitutional Appears: No Acute Distress - Head Exam Head Exam: NORMOCEPHALIC - Eye Exam Eye Exam: Normal appearance. absent: Scleral icterus - ENT Exam ENT Exam: Mucous Membranes Moist - Neck Exam Neck Exam: Normal Inspection - Respiratory Exam Respiratory Exam: NORMAL BREATHING PATTERN. absent: Respiratory Distress - Cardiovascular Exam Cardiovascular Exam: +S1, +S2 - GI/Abdominal Exam GI & Abdominal Exam: Soft, Normal Bowel Sounds. absent: Guarding, Tenderness, Rebound - Extremities Exam Extremities Exam: absent: Calf Tenderness, Pedal Edema - Neurological Exam Neurological Exam: Alert, Awake, Oriented x3 - Skin Skin Exam: Dry, Pallor, Warm Assessment and Plan - Assessment and Plan (Free Text) Assessment: ASSESSMENT: Sepsis, leukocytosis improving, unkown cause,flexsig negative COPD Gallstones w/ Prominent CBD, h/o pacemaker no MRI Mild elevation LFT, now remains WNL H/O Ulcerative Colitis Right foot wound,xray negative for osteomylitis PLAN: advance diet low fiber soft diet on Aspirin on heparin SQ BID continue GI prophylaxsis continue IV antibiotics as per ID monitor h/h FU cdiff aspirate Seen and case discussed with Dr. Cruz. <Jeane Cruz V - Last Filed: 12/14/16 00:03> Objective - Vital Signs/Intake and Output Vital Signs (last 24 hours): Temp Pulse Resp BP Pulse Ox 97.2 F L 62 49 H 120/57 L 95 12/13/16 16:00 12/13/16 22:00 12/13/16 22:00 12/13/16 22:00 12/13/16 22:00 Intake and Output: 12/13/16 12/14/16 18:59 06:59 Intake Total 1430 Output Total 400 Balance 1030 - Medications Medications: Current Medications Acetaminophen (Tylenol 325mg Tab) 650 mg PO Q6H PRN PRN Reason: Fever >100.4 F Last Admin: 12/10/16 05:26 Dose: 650 mg Acetic Acid (Acetic Acid 0.25% Irrig) 0 ml TP DAILY [facility] Last Admin: 12/13/16 09:45 Dose: 1 applic Albuterol/Ipratropium (Duoneb 3 Mg/0.5 Mg (3 Ml) Ud) 3 ml IH Q2H PRN PRN Reason: Shortness of Breath Alprazolam (Xanax) 0.125 mg PO BID PRN; Protocol PRN Reason: Anxiety Stop: 12/20/16 18:01 Last Admin: 12/13/16 20:34 Dose: 0.125 mg Arformoterol Tartrate (Brovana) 15 mcg IH [id number] [facility] Last Admin: 12/13/16 19:57 Dose: 15 mcg Aspirin (Ecotrin) 81 mg PO DAILY [facility] Last Admin: 12/13/16 10:44 Dose: 81 mg Budesonide (Pulmicort Respules) 0.5 mg IH [id number] [facility] Last Admin: 12/13/16 19:57 Dose: 0.5 mg Heparin Sodium (Porcine) (Heparin) 5,000 units SC Q12 [facility] PRN Reason: Protocol Last Admin: 12/13/16 09:45 Dose: 5,000 units Piperacillin Sod/Tazobactam Sod (Zosyn 3.375 In Ns 100ml) 100 mls @ 200 mls/hr IVPB Q6 [facility] PRN Reason: Protocol Stop: 12/18/16 09:08 Last Admin: 12/13/16 17:31 Dose: 200 mls/hr Potassium Chloride 20 meq/ (Sodium Chloride) 1,010 mls @ 60 mls/hr IV .[id number] [facility] Last Admin: 12/13/16 05:21 Dose: 60 mls/hr Vancomycin HCl (Vancomycin 750 Mg In Ns) 750 mg in 250 mls @ 167 mls/hr IVPB Q12H [facility] PRN Reason: Protocol Last Admin: 12/13/16 22:13 Dose: 167 mls/hr Iron Sucrose 200 mg/ Sodium (Chloride) 110 mls @ 110 mls/hr IVPB DAILY [facility] Stop: 12/15/16 10:59 Last Admin: 12/13/16 10:43 Dose: 110 mls/hr Lactobacillus Acidophilus (Bacid Acidophilus) 1 cap PO DAILY [facility] Last Admin: 12/13/16 09:45 Dose: 1 cap Ondansetron HCl (Zofran Inj) 4 mg IVP Q6H PRN PRN Reason: Nausea/Vomiting Pantoprazole Sodium (Protonix Ec Tab) 40 mg PO 0600 [facility] Last Admin: 12/13/16 05:21 Dose: 40 mg - Labs Labs: 12/13/16 05:40 12/13/16 05:40 PT 13.4 Seconds (9.9-11.8) H 12/12/16 05:40 INR 1.24 (0.93-1.08) H 12/12/16 05:40 APTT 35.7 Seconds (23.7-30.8) H 12/11/16 15:45 Attending/Attestation - Attestation I have personally seen and examined this patient.: Yes I have fully participated in the care of the patient.: Yes I have reviewed all pertinent clinical information, including history, physical exam and plan: Yes
--- NOTE | 2016-12-13 13:36 | PN ---
DATE: 12/13/2016 SUBJECTIVE: The patient is seen lying in bed in the ICU. Daughter is at the bedside. She complains of some shortness of breath, she also complaints of pain in her right foot. She denies any chest tightness. She denies any abdominal pain. She denies any nausea, or vomiting. PHYSICAL EXAMINATION GENERAL: Thinly-built elderly lady with severe kyphosis, I seen lying in bed in the ICU. VITAL SIGNS: Blood pressure of 114/71, heart rate of 88, respiratory rate of 20, and temperature of 98,8. HEENT: Normocephalic and atraumatic. NECK: Supple. No JVD. LUNGS: Bilateral equal air entry, crackles at the left base, bilateral rhonchi. CARDIAC: S1 and S2, regular rate and rhythm. No murmur and no rub. ABDOMEN: Soft, nondistended, and nontender. Bowel sounds are present.. EXTREMITIES: Dressing of the right foot. INTAKE AND OUTPUT: 2810/2240. LABORATORY DATA: WBC of 19.6, hemoglobin of 9.6, hematocrit of 28.6, and platelets of 340. Sodium of 138, potassium of 4.6, chloride of 109, CO2 of 17, BUN of 20, and creatinine of 0.9. Glucose of 83, calcium of 8.2, AST of 28, ALT of 33, and albumin of 2.7. Urine culture; Enterococcus faecalis and Clostridium difficile negative. CURRENT MEDICATIONS: Lactobacillus, Brovana, Ecotrin, heparin subcutaneously, normal saline with 20 mEq of potassium, at 60 Protonix, Pulmicort, Tylenol, vancomycin 750 q 12 hours., Zofran, and Zosyn 3.375 q. 6 hours. DIAGNOSTIC DATA: CT test done yesterday left upper lobe consolidation, possibly pneumonia. bilateral pleural effusion with bilateral lower lobe compressive atelectasis. Status post sigmoidoscopy yesterday. ASSESSMENT: 1. Acute kidney injury, prerenal azotemia, resolved nicely with hydration. 2. Resolved severe hyponatremia. 3. Status post septic shock, multiorgan dysfunction. 4. Enterococcal urinary tract infection, possible pneumonia, and possible biliary sepsis. 5. Improving leukocytosis. 6. History of ulcerative colitis. 7. Noninsulin-dependent diabetes mellitus. 8. History of hypertension 9. Severe anemia with low iron stores. 10. Canceled endoscopic retrograde cholangiopancreatography yesterday, because of respiratory distress and inability lie flat. PLAN: 1. Continue antibiotics to cover for community acquired pneumonia, enterococcal urinary tract infection. 2. antibiotics for creatinine clearance about 50 ml per minute. 3. Continue Venofer. 4. Check stool occults. 5. Discontinue IV fluids if p.o intake is adequate. 6. Monitored urine output closely. 7. Push p.o. intake. 8. Case discussed with daughter at bedside at length, case discuss with ICU staff, more than 35 minutes spent in the care of this critical ill patient. Kaitlin Anderson MD
--- NOTE | 2016-12-13 14:44 | PN ---
SUBJECTIVE: The patient is an 89-year-old seen and examined, doing well, eating and diet will be advanced today. No cough, no congestion, no fever, no chills. PHYSICAL EXAMINATION VITAL SIGNS: She is afebrile, pulse 87, respirations 13, blood pressure 122/51. LUNGS: Bilateral fair airflow. No rhonchi or crackles. HEART: S1 and S2 audible. ABDOMEN: Soft, nontender. No rebound. No guarding. NEUROLOGICALLY: She is awake, alert and able to communicate. Moves all extremities. LABORATORY DATA: WBC is 19.6, hemoglobin 9.6, hematocrit 28.6, platelets 340. Chemistry sodium 138, potassium 4.6, chloride 109, CO2 of 17, BUN 20 and creatinine 0.9. Blood sugar of 83, electrolytes within normal limit. Her urine positive for Enterococcus faecalis. Stool for C. diff is negative. However, CT scan of the chest was done that shows left upper lobe pneumonia, small focus. The patient is already on vancomycin and Zosyn. ASSESSMENT AND PLAN: 1. Acute renal failure, resolved. 2. Left upper lobe consolidation. 3. Bilateral pleural effusion. 4. Compressive atelectasis. 5. Severe osteoarthritis. 6. Cholelithiasis, but no evidence of cholecystitis. 7. Enterococcus faecalis. 8. Hypertension. 9. Status post pacemaker placement. PLAN: Currently the patient is on Zosyn, being followed by ID, we will advance her diet. Continue on Brovana. She is on subq heparin, we will continue that. Continue her IV fluid once she start eating. We will discontinue her IV fluid and current p.o. intake. For now she is on vancomycin and Zosyn. She will be transfer to today. Jorden Mcneill MD
[2016-12-13] MEDS: Albuterol-Ipratrop 3 mg / 0.5 (3 ml) UD IH PRN (23:43)
[2016-12-14] MEDS: Piperacillin/Tazobact 3.375 gm 100 ML IVPB SCH ×5 (05:54→23:14)
[2016-12-14] MEDS: Pantoprazole 40 mg EC Tab PO SCH (06:05)
[2016-12-14] MEDS: Budesonide 0.5 mg/2 ml Inhal Susp UD IH SCH ×2 (07:21→19:51)
[2016-12-14] MEDS: Arformoterol 15 mcg/2 ml Inh Sol IH SCH ×2 (07:21→19:51)
--- NOTE | 2016-12-14 09:37 | CP.PCM.PN ---
Subjective - Date & Time of Evaluation Date of Evaluation: 12/14/16 Time of Evaluation: 09:10 - Subjective Subjective: Comfortable in bed, not in distress, afebrile, had an episode of anxiety yesterday. No diarrhea. Objective - Vital Signs/Intake and Output Vital Signs (last 24 hours): Temp Pulse Resp BP Pulse Ox 97.2 F L 66 45 H 117/47 L 90 L 12/13/16 16:00 12/14/16 06:00 12/14/16 06:00 12/14/16 05:59 12/14/16 06:00 Intake and Output: 12/13/16 12/14/16 18:59 06:59 Intake Total 1430 Output Total 400 Balance 1030 - Medications Medications: Current Medications Acetaminophen (Tylenol 325mg Tab) 650 mg PO Q6H PRN PRN Reason: Fever >100.4 F Last Admin: 12/10/16 05:26 Dose: 650 mg Acetic Acid (Acetic Acid 0.25% Irrig) 0 ml TP DAILY [facility] Last Admin: 12/13/16 09:45 Dose: 1 applic Albuterol/Ipratropium (Duoneb 3 Mg/0.5 Mg (3 Ml) Ud) 3 ml IH Q2H PRN PRN Reason: Shortness of Breath Last Admin: 12/13/16 23:43 Dose: 3 ml Alprazolam (Xanax) 0.125 mg PO BID PRN; Protocol PRN Reason: Anxiety Stop: 12/20/16 18:01 Last Admin: 12/13/16 20:34 Dose: 0.125 mg Arformoterol Tartrate (Brovana) 15 mcg IH [id number] [facility] Last Admin: 12/13/16 19:57 Dose: 15 mcg Aspirin (Ecotrin) 81 mg PO DAILY [facility] Last Admin: 12/13/16 10:44 Dose: 81 mg Budesonide (Pulmicort Respules) 0.5 mg IH [id number] [facility] Last Admin: 12/13/16 19:57 Dose: 0.5 mg Heparin Sodium (Porcine) (Heparin) 5,000 units SC Q12 [facility] PRN Reason: Protocol Last Admin: 12/13/16 23:00 Dose: 5,000 units Piperacillin Sod/Tazobactam Sod (Zosyn 3.375 In Ns 100ml) 100 mls @ 200 mls/hr IVPB Q6 [facility] PRN Reason: Protocol Stop: 12/18/16 09:08 Last Admin: 12/14/16 05:54 Dose: 200 mls/hr Potassium Chloride 20 meq/ (Sodium Chloride) 1,010 mls @ 60 mls/hr IV .[id number] [facility] Last Admin: 12/14/16 04:00 Dose: 60 mls/hr Vancomycin HCl (Vancomycin 750 Mg In Ns) 750 mg in 250 mls @ 167 mls/hr IVPB Q12H [facility] PRN Reason: Protocol Last Admin: 12/13/16 22:13 Dose: 167 mls/hr Iron Sucrose 200 mg/ Sodium (Chloride) 110 mls @ 110 mls/hr IVPB DAILY [facility] Stop: 12/15/16 10:59 Last Admin: 12/13/16 10:43 Dose: 110 mls/hr Lactobacillus Acidophilus (Bacid Acidophilus) 1 cap PO DAILY [facility] Last Admin: 12/13/16 09:45 Dose: 1 cap Ondansetron HCl (Zofran Inj) 4 mg IVP Q6H PRN PRN Reason: Nausea/Vomiting Pantoprazole Sodium (Protonix Ec Tab) 40 mg PO 0600 [facility] Last Admin: 12/14/16 06:05 Dose: 40 mg - Labs Labs: 12/13/16 05:40 12/13/16 05:40 PT 13.4 Seconds (9.9-11.8) H 12/12/16 05:40 INR 1.24 (0.93-1.08) H 12/12/16 05:40 APTT 35.7 Seconds (23.7-30.8) H 12/11/16 15:45 - Constitutional Appears: Non-toxic, No Acute Distress - Head Exam Head Exam: NORMAL INSPECTION - Neck Exam Neck Exam: absent: Meningismus - Respiratory Exam Respiratory Exam: Decreased Breath Sounds - Cardiovascular Exam Cardiovascular Exam: +S1, +S2 - GI/Abdominal Exam GI & Abdominal Exam: Soft. absent: Tenderness Assessment and Plan - Assessment and Plan (Free Text) Plan: Assessment severe sepsis with acute renal failure probably due to left upper and lower lobe healthcare-associated pneumonia, less likely biliary tree infection ulcerative colitis chronic left leg ulcer, R/O pyoderma gangrenosum COPD HTN CAD with chronic CHF S/P pacemaker placement anxiety disorder Plan Blood cx are negative, stool for C. diff. is negative continue Zosyn (total day 5 of antibiotics) and IV Vancomycin (day 2); reviewed CT chest done yesterday showing the left sided pneumonia currently no plans for EUS will continue to monitor clinically
[2016-12-14 09:39] LABS: HEMOGLOBIN 9.2 gm/dL (12.0-16.0); MEAN CELL VOLUME 88.2 fL (80.0-105.0); MEAN CORPUSCULAR HEMOGLOBIN 29.4 pg (25.0-35.0); MEAN CORPUSCULAR HGB CONC 33.3 g/dl (31.0-37.0); RBC 3.13 10^6/uL (3.5-6.1); RED CELL DISTRIBUTION WIDTH 13.7 % (11.5-14.5); WHITE BLOOD COUNT 21.5 10^3/ul (4.5-11.0)
[2016-12-14 09:48] LABS: ALB/GLOB RATIO 0.8 (1.1-1.8); ALBUMIN 2.7 g/dL (3.0-4.8); ALT/SGPT 36 U/L (7-56); AST/SGOT 36 U/L (15-39); BLOOD UREA NITROGEN 22 mg/dL (7-21); CALCIUM 8.6 mg/dL (8.4-10.5); GFR AFRICAN-AMERICAN > 60; GFR NON-AFRICAN AMERICAN 52
[2016-12-14] MEDS: Lactobacillus Acidophilus 500 MU Cap PO SCH (10:36)
[2016-12-14] MEDS: Vancomycin 750mg 750 MG/250 ML BAG IVPB SCH ×2 (10:39→21:16)
--- NOTE | 2016-12-14 10:52 | PN ---
PULMONARY PROGRESS NOTE DATE: 12/14/2016 SUBJECTIVE: The patient appears comfortable this morning. She is mildly short of breath, but in no acute distress. PHYSICAL EXAMINATION VITAL SIGNS: Temperature is 97.2, pulse on the monitor is 74, respirations approximately 22, and blood pressure is 117/47. Oxygen saturation on nasal cannula is 91%. HEENT: Normocephalic and atraumatic. NECK: No JVD. CARDIOVASCULAR: Systolic ejection murmur at the lower left sternal border. No S3 gallop. LUNGS: Decreased breath sounds at the bases. Minimal bilateral rhonchi. No wheezing. EXTREMITIES: Positive for edema. No cyanosis and no clubbing. Calves are nontender to palpation. GASTROINTESTINAL: Abdomen is soft, nontender, and nondistended. Bowel sounds are positive. SKIN: Chronic left leg ulcer. No rashes. NEUROLOGIC: Limited at the present time. IMPRESSION: 1. Multilobar pneumonia. 2. Acute gastroenteritis. 3. Sepsis syndrome. 4. Chronic obstructive pulmonary disease. 5. Coronary artery disease. 6. Renal insufficiency -- improved. PLAN: The patient appears comfortable this morning. She is mildly short of breath, but in no acute distress. I did discuss the case with night nurse at length. The night nurse stated that the patient had pretty good night. On physical exam, only minimal bronchospasm is noted. I will continue with the current nebulizer treatments and inhaled steroids for now. I would continue with the antibiotic coverage as per Infectious Diseases, input by Dr. Varela is noted. Temperatures have now fully resolved. Repeat a.m. labs are pending. Clinical status of the patient is certainly improved. However, the future status/prognosis of this elderly patient does remain very guarded. All are aware. I will discuss the above with the entire ICU team in the next few months. I will also discuss the above with Dr. Mcneill later this morning. Aleks Mejia MD MTDIsabelle
--- NOTE | 2016-12-14 14:22 | CP.PCM.PN ---
<Mayco Barfield - Last Filed: 12/14/16 14:31> Subjective - Date & Time of Evaluation Date of Evaluation: 12/14/16 Time of Evaluation: 14:10 - Subjective Subjective: 89 y/o female patient seen at bedside present regarding ulceration of right lower extremity. Pt seen resting comfortably in bed at time of visit, with daughter present. Does complain of decreased tenderness to right heel, and compliance with use of foam boot. Pt has worked with physical therapy today for early weighting reconditioning. Denies any other pedal complaints. Denies recent f/c/cp//sob/n/v/d. Objective - Vital Signs/Intake and Output Vital Signs (last 24 hours): Temp Pulse Resp BP Pulse Ox 97.6 F 90 28 H 114/51 L 90 L 12/14/16 08:00 12/14/16 08:00 12/14/16 08:00 12/14/16 08:00 12/14/16 08:00 Intake and Output: 12/14/16 12/14/16 06:59 18:59 Intake Total 820 Balance 820 - Medications Medications: Current Medications Acetaminophen (Tylenol 325mg Tab) 650 mg PO Q6H PRN PRN Reason: Fever >100.4 F Last Admin: 12/10/16 05:26 Dose: 650 mg Acetic Acid (Acetic Acid 0.25% Irrig) 0 ml TP DAILY [facility] Last Admin: 12/13/16 09:45 Dose: 1 applic Albuterol/Ipratropium (Duoneb 3 Mg/0.5 Mg (3 Ml) Ud) 3 ml IH Q2H PRN PRN Reason: Shortness of Breath Last Admin: 12/13/16 23:43 Dose: 3 ml Alprazolam (Xanax) 0.125 mg PO BID PRN; Protocol PRN Reason: Anxiety Stop: 12/20/16 18:01 Last Admin: 12/14/16 10:37 Dose: 0.125 mg Arformoterol Tartrate (Brovana) 15 mcg IH [id number] [facility] Last Admin: 12/14/16 07:21 Dose: 15 mcg Aspirin (Ecotrin) 81 mg PO DAILY [facility] Last Admin: 12/14/16 10:41 Dose: 81 mg Budesonide (Pulmicort Respules) 0.5 mg IH [id number] [facility] Last Admin: 12/14/16 07:21 Dose: 0.5 mg Heparin Sodium (Porcine) (Heparin) 5,000 units SC Q12 [facility] PRN Reason: Protocol Last Admin: 12/14/16 10:40 Dose: 5,000 units Piperacillin Sod/Tazobactam Sod (Zosyn 3.375 In Ns 100ml) 100 mls @ 200 mls/hr IVPB Q6 [facility] PRN Reason: Protocol Stop: 12/18/16 09:08 Last Admin: 12/14/16 05:54 Dose: 200 mls/hr Vancomycin HCl (Vancomycin 750 Mg In Ns) 750 mg in 250 mls @ 167 mls/hr IVPB Q12H [facility] PRN Reason: Protocol Last Admin: 12/14/16 10:39 Dose: 167 mls/hr Iron Sucrose 200 mg/ Sodium (Chloride) 110 mls @ 110 mls/hr IVPB DAILY [facility] Stop: 12/15/16 10:59 Last Admin: 12/14/16 10:39 Dose: 110 mls/hr Lactobacillus Acidophilus (Bacid Acidophilus) 1 cap PO DAILY [facility] Last Admin: 12/14/16 10:36 Dose: 1 cap Ondansetron HCl (Zofran Inj) 4 mg IVP Q6H PRN PRN Reason: Nausea/Vomiting Pantoprazole Sodium (Protonix Ec Tab) 40 mg PO 0600 [facility] Last Admin: 12/14/16 06:05 Dose: 40 mg - Labs Labs: 12/14/16 09:30 12/14/16 09:30 PT 13.4 Seconds (9.9-11.8) H 12/12/16 05:40 INR 1.24 (0.93-1.08) H 12/12/16 05:40 APTT 35.7 Seconds (23.7-30.8) H 12/11/16 15:45 - Constitutional Appears: Well, Non-toxic, No Acute Distress - Extremities Exam Additional comments: Right lower extremity exam: Dressing appears clean, dry, and intact to right foot VASC: DP/PT pulses are palpable 1/4 b/l, cap refill < 3 sec to all digits, skin temp runs warm to warm bl, no pedal edema appreciated DERM: diffuse superficial ulcer noted on distal right leg/ankle extending to dorsum and plantar aspect of the foot with weeping serous discharge. Wound base is a mixture of granular tissue and epithelializing tissue. Abscenece of prior green coloration on lateral foot. No malodor, no probe to bone. Minor marginal blanchable erythema noted on the distal leg as well as the foot, no clinical suspicion of active infection noted from the right lower extremity. No wounds noted to left lower extremity NEURO: protective pedal sensation is intact ORTHO: tender on palpation of plantar and posterior right heel. Left 2nd digit dorso-lateral gross dislocation noted, non reducible. - Neurological Exam Neurological Exam: Alert, Awake Assessment and Plan - Assessment and Plan (Free Text) Assessment: 89 y/o female patient with 1) superficial, non-infection ulceration of right lower extremity. 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 Plan: Patient evaluated and treated with attending Sherry De León present. Chart, labs and vitals were reviewed: afebrile, WBC = 21.5, trending up. Right leg ulceration cleansed with sterile normal saline. Dressed with xeroform , DSD, ABD, kerlix, and [place] Offloading heel boot inplace to right foot/ankle. Pt is to continue to wear at all times while in bed for offloading heel. Post-op shoe to be applied to right LE when ambulating. continue IV abx as per ID. Podiatry will follow while patient is in house. <Chi De León - Last Filed: 12/14/16 17:40> Objective - Vital Signs/Intake and Output Vital Signs (last 24 hours): Temp Pulse Resp BP Pulse Ox 97.6 F 90 28 H 114/51 L 91 L 12/14/16 08:00 12/14/16 08:00 12/14/16 08:00 12/14/16 08:00 12/14/16 15:36 Intake and Output: 12/14/16 12/14/16 06:59 18:59 Intake Total 820 Balance 820 - Medications Medications: Current Medications Acetaminophen (Tylenol 325mg Tab) 650 mg PO Q6H PRN PRN Reason: Fever >100.4 F Last Admin: 12/10/16 05:26 Dose: 650 mg Acetic Acid (Acetic Acid 0.25% Irrig) 0 ml TP DAILY [facility] Last Admin: 12/13/16 09:45 Dose: 1 applic Albuterol/Ipratropium (Duoneb 3 Mg/0.5 Mg (3 Ml) Ud) 3 ml IH Q2H PRN PRN Reason: Shortness of Breath Last Admin: 12/14/16 15:20 Dose: 3 ml Alprazolam (Xanax) 0.125 mg PO BID PRN; Protocol PRN Reason: Anxiety Stop: 12/20/16 18:01 Last Admin: 12/14/16 16:10 Dose: 0.125 mg Arformoterol Tartrate (Brovana) 15 mcg IH [id number] [facility] Last Admin: 12/14/16 07:21 Dose: 15 mcg Aspirin (Ecotrin) 81 mg PO DAILY [facility] Last Admin: 12/14/16 10:41 Dose: 81 mg Budesonide (Pulmicort Respules) 0.5 mg IH [id number] [facility] Last Admin: 12/14/16 07:21 Dose: 0.5 mg Heparin Sodium (Porcine) (Heparin) 5,000 units SC Q12 [facility] PRN Reason: Protocol Last Admin: 12/14/16 10:40 Dose: 5,000 units Piperacillin Sod/Tazobactam Sod (Zosyn 3.375 In Ns 100ml) 100 mls @ 200 mls/hr IVPB Q6 [facility] PRN Reason: Protocol Stop: 12/18/16 09:08 Last Admin: 12/14/16 14:50 Dose: 200 mls/hr Vancomycin HCl (Vancomycin 750 Mg In Ns) 750 mg in 250 mls @ 167 mls/hr IVPB Q12H [facility] PRN Reason: Protocol Last Admin: 12/14/16 10:39 Dose: 167 mls/hr Iron Sucrose 200 mg/ Sodium (Chloride) 110 mls @ 110 mls/hr IVPB DAILY [facility] Stop: 12/15/16 10:59 Last Admin: 12/14/16 10:39 Dose: 110 mls/hr Lactobacillus Acidophilus (Bacid Acidophilus) 1 cap PO DAILY [facility] Last Admin: 12/14/16 10:36 Dose: 1 cap Nystatin (Nystop Topical Powder) 1 gm TOP TID [facility] Ondansetron HCl (Zofran Inj) 4 mg IVP Q6H PRN PRN Reason: Nausea/Vomiting Pantoprazole Sodium (Protonix Ec Tab) 40 mg PO 0600 [facility] Last Admin: 12/14/16 06:05 Dose: 40 mg - Labs Labs: 12/14/16 09:30 12/14/16 09:30 PT 13.4 Seconds (9.9-11.8) H 12/12/16 05:40 INR 1.24 (0.93-1.08) H 12/12/16 05:40 APTT 35.7 Seconds (23.7-30.8) H 12/11/16 15:45 Attending/Attestation - Attestation I have personally seen and examined this patient.: Yes I have fully participated in the care of the patient.: Yes I have reviewed all pertinent clinical information, including history, physical exam and plan: Yes
--- NOTE | 2016-12-14 14:41 | PN ---
SUBJECTIVE: The patient is an 89 years old, seen and examined sitting in chair, seems to be comfortable. No nausea, no vomiting, no diarrhea. Eating and tolerating. PHYSICAL EXAMINATION: VITAL SIGNS: She is afebrile, pulse is 90, respirations 28, blood pressure 114/51. LUNGS: Bilateral fair airflow. No rhonchi or crackles. CHEST: She has significant kyphoscoliosis. NEUROLOGIC: She is awake and alert. Moves all extremities. LABORATORY EXAM: WBC is 21.5, hemoglobin 9.2, hematocrit 27.6, platelets 294. Chemistry; sodium 144, potassium 4.5, chloride 113, CO2 of 18, BUN 22, creatinine 1.0, blood sugar of 171. ASSESSMENT: 1. Left upper lobe pneumonia. 2. Enterococcus faecalis urinary tract infection. 3. Hypertension. 4. Chronic anemia. 5. Bilateral pleural effusion. PLAN: The patient is transferred to [facility]. We will encourage ambulation. Continue on current antibiotic. Continue on vancomycin and Zosyn, and continue her aspirin and DVT prophylaxis. The patient seems to be eating and tolerating well. We will discontinue her IV fluids. Follow up her CBC and CMP in a.m. Jorden Mcneill MD
--- NOTE | 2016-12-14 14:47 | CP.PCM.PN ---
<Lynne Joshi - Last Filed: 12/14/16 14:47> Subjective - Date & Time of Evaluation Date of Evaluation: 12/14/16 Time of Evaluation: 09:10 - Subjective Subjective: Seen and examined earlier today. The chart was reviewed.no acute overnight events reported. Daughter is at bedside. Denies nausea, vomiting, fever, chills, or abdominal pain. No reports of diarrhea. C. difficile obtained from 12/12 to was negative. Objective - Vital Signs/Intake and Output Vital Signs (last 24 hours): Temp Pulse Resp BP Pulse Ox 97.6 F 90 28 H 114/51 L 90 L 12/14/16 08:00 12/14/16 08:00 12/14/16 08:00 12/14/16 08:00 12/14/16 08:00 Intake and Output: 12/14/16 12/14/16 06:59 18:59 Intake Total 820 Balance 820 - Medications Medications: Current Medications Acetaminophen (Tylenol 325mg Tab) 650 mg PO Q6H PRN PRN Reason: Fever >100.4 F Last Admin: 12/10/16 05:26 Dose: 650 mg Acetic Acid (Acetic Acid 0.25% Irrig) 0 ml TP DAILY [facility] Last Admin: 12/13/16 09:45 Dose: 1 applic Albuterol/Ipratropium (Duoneb 3 Mg/0.5 Mg (3 Ml) Ud) 3 ml IH Q2H PRN PRN Reason: Shortness of Breath Last Admin: 12/13/16 23:43 Dose: 3 ml Alprazolam (Xanax) 0.125 mg PO BID PRN; Protocol PRN Reason: Anxiety Stop: 12/20/16 18:01 Last Admin: 12/14/16 10:37 Dose: 0.125 mg Arformoterol Tartrate (Brovana) 15 mcg IH [id number] [facility] Last Admin: 12/14/16 07:21 Dose: 15 mcg Aspirin (Ecotrin) 81 mg PO DAILY [facility] Last Admin: 12/14/16 10:41 Dose: 81 mg Budesonide (Pulmicort Respules) 0.5 mg IH [id number] [facility] Last Admin: 12/14/16 07:21 Dose: 0.5 mg Heparin Sodium (Porcine) (Heparin) 5,000 units SC Q12 [facility] PRN Reason: Protocol Last Admin: 12/14/16 10:40 Dose: 5,000 units Piperacillin Sod/Tazobactam Sod (Zosyn 3.375 In Ns 100ml) 100 mls @ 200 mls/hr IVPB Q6 [facility] PRN Reason: Protocol Stop: 12/18/16 09:08 Last Admin: 12/14/16 05:54 Dose: 200 mls/hr Vancomycin HCl (Vancomycin 750 Mg In Ns) 750 mg in 250 mls @ 167 mls/hr IVPB Q12H [facility] PRN Reason: Protocol Last Admin: 12/14/16 10:39 Dose: 167 mls/hr Iron Sucrose 200 mg/ Sodium (Chloride) 110 mls @ 110 mls/hr IVPB DAILY [facility] Stop: 12/15/16 10:59 Last Admin: 12/14/16 10:39 Dose: 110 mls/hr Lactobacillus Acidophilus (Bacid Acidophilus) 1 cap PO DAILY [facility] Last Admin: 12/14/16 10:36 Dose: 1 cap Ondansetron HCl (Zofran Inj) 4 mg IVP Q6H PRN PRN Reason: Nausea/Vomiting Pantoprazole Sodium (Protonix Ec Tab) 40 mg PO 0600 [facility] Last Admin: 12/14/16 06:05 Dose: 40 mg - Labs Labs: 12/14/16 09:30 12/14/16 09:30 PT 13.4 Seconds (9.9-11.8) H 12/12/16 05:40 INR 1.24 (0.93-1.08) H 12/12/16 05:40 APTT 35.7 Seconds (23.7-30.8) H 12/11/16 15:45 - Constitutional Appears: No Acute Distress - Head Exam Head Exam: NORMOCEPHALIC - Eye Exam Eye Exam: Normal appearance. absent: Scleral icterus Pupil Exam: NORMAL ACCOMODATION - ENT Exam ENT Exam: Mucous Membranes Moist - Neck Exam Neck Exam: Normal Inspection - Respiratory Exam Respiratory Exam: NORMAL BREATHING PATTERN. absent: Respiratory Distress - Cardiovascular Exam Cardiovascular Exam: +S1, +S2 - GI/Abdominal Exam GI & Abdominal Exam: Soft, Normal Bowel Sounds. absent: Tenderness, Hernia, Rebound - Extremities Exam Extremities Exam: absent: Calf Tenderness, Pedal Edema - Neurological Exam Neurological Exam: Alert, Awake, Oriented x3 - Skin Skin Exam: Dry, Warm Assessment and Plan - Assessment and Plan (Free Text) Assessment: ASSESSMENT: Sepsis, leukocytosis improving Pneumonia COPD Gallstones w/ Prominent CBD, h/o pacemaker no MRI Mild elevation LFT, now remains WNL H/O Ulcerative Colitis Right foot wound,xray negative for osteomylitis PLAN: continue low fiber soft diet on Aspirin on heparin SQ BID continue GI prophylaxsis continue IV antibiotics as per ID monitor h/h Seen and case discussed with Dr. Cruz. <Jeane Cruz V - Last Filed: 12/15/16 00:05> Objective - Vital Signs/Intake and Output Vital Signs (last 24 hours): Temp Pulse Resp BP Pulse Ox 97.7 F 62 20 127/66 91 L 12/14/16 16:00 12/14/16 16:00 12/14/16 16:00 12/14/16 16:00 12/14/16 16:00 Intake and Output: 12/14/16 12/15/16 18:59 06:59 Intake Total 240 Balance 240 - Medications Medications: Current Medications Acetaminophen (Tylenol 325mg Tab) 650 mg PO Q6H PRN PRN Reason: Fever >100.4 F Last Admin: 12/10/16 05:26 Dose: 650 mg Acetic Acid (Acetic Acid 0.25% Irrig) 0 ml TP DAILY [facility] Last Admin: 12/13/16 09:45 Dose: 1 applic Albuterol/Ipratropium (Duoneb 3 Mg/0.5 Mg (3 Ml) Ud) 3 ml IH Q2H PRN PRN Reason: Shortness of Breath Last Admin: 12/14/16 19:51 Dose: 3 ml Alprazolam (Xanax) 0.125 mg PO BID PRN; Protocol PRN Reason: Anxiety Stop: 12/20/16 18:01 Last Admin: 12/14/16 23:01 Dose: 0.125 mg Arformoterol Tartrate (Brovana) 15 mcg IH [id number] [facility] Last Admin: 12/14/16 19:51 Dose: 15 mcg Aspirin (Ecotrin) 81 mg PO DAILY [facility] Last Admin: 12/14/16 10:41 Dose: 81 mg Budesonide (Pulmicort Respules) 0.5 mg IH [id number] [facility] Last Admin: 12/14/16 19:51 Dose: 0.5 mg Heparin Sodium (Porcine) (Heparin) 5,000 units SC Q12 [facility] PRN Reason: Protocol Last Admin: 12/14/16 21:21 Dose: 5,000 units Piperacillin Sod/Tazobactam Sod (Zosyn 3.375 In Ns 100ml) 100 mls @ 200 mls/hr IVPB Q6 [facility] PRN Reason: Protocol Stop: 12/18/16 09:08 Last Admin: 12/14/16 23:14 Dose: 200 mls/hr Vancomycin HCl (Vancomycin 750 Mg In Ns) 750 mg in 250 mls @ 167 mls/hr IVPB Q12H [facility] PRN Reason: Protocol Last Admin: 12/14/16 21:16 Dose: 167 mls/hr Iron Sucrose 200 mg/ Sodium (Chloride) 110 mls @ 110 mls/hr IVPB DAILY [facility] Stop: 12/15/16 10:59 Last Admin: 12/14/16 10:39 Dose: 110 mls/hr Lactobacillus Acidophilus (Bacid Acidophilus) 1 cap PO DAILY [facility] Last Admin: 12/14/16 10:36 Dose: 1 cap Nystatin (Nystop Topical Powder) 1 gm TOP TID [facility] Last Admin: 12/14/16 18:18 Dose: 1 gm Ondansetron HCl (Zofran Inj) 4 mg IVP Q6H PRN PRN Reason: Nausea/Vomiting Pantoprazole Sodium (Protonix Ec Tab) 40 mg PO 0600 [facility] Last Admin: 12/14/16 06:05 Dose: 40 mg - Labs Labs: 12/14/16 09:30 12/14/16 09:30 PT 13.4 Seconds (9.9-11.8) H 12/12/16 05:40 INR 1.24 (0.93-1.08) H 12/12/16 05:40 APTT 35.7 Seconds (23.7-30.8) H 12/11/16 15:45 Attending/Attestation - Attestation I have personally seen and examined this patient.: Yes I have fully participated in the care of the patient.: Yes I have reviewed all pertinent clinical information, including history, physical exam and plan: Yes Notes (Text): p
[2016-12-14] MEDS: Albuterol-Ipratrop 3 mg / 0.5 (3 ml) UD IH PRN ×2 (15:20→19:51)
[2016-12-14] MEDS: Nystatin 100,000 Units/gm Topical Pow(15 gm) TOP SCH (18:18)
--- NOTE | 2016-12-14 18:57 | PN ---
DATE: 12/14/2016 SUBJECTIVE: The patient is seen, sitting in chair. She is awake, she is alert, she is comfortable. She still has some dyspnea on exertion. PHYSICAL EXAMINATION: GENERAL: Elderly lady, sitting in chair in no acute distress. VITAL SIGNS: Blood pressure of 114/51, heart rate of 90, respiratory rate of 28, and temperature of 97.6. HEENT: Normocephalic and atraumatic. NECK: Supple. No JVD. LUNGS: Bilateral equal air entry, basal rales on left side, crackles on left side. CARDIAC: S1 and S2, regular rate and rhythm, no murmur, no rub. ABDOMEN: Soft, nondistended, and nontender. Bowel sounds are present. EXTREMITIES: Dressing of the right foot. INTAKE AND OUTPUT: 2240/400. LABORATORY DATA: WBC 21, hemoglobin of 9.2, hematocrit 27, and platelets of 294. Sodium 144, potassium 4.5, chloride of 103, CO2 of 18, BUN 22, creatinine 1.0, glucose of 171, calcium 8.6, AST 36, ALT of 36, and albumin of 2.7. C. diff negative. CURRENT MEDICATIONS: Lactobacillus, Brovana, Duoneb, Ecotrin, heparin subQ, Venofer 200 mg IV piggyback, Protonix, Pulmicort, Tylenol, vancomycin, Xanax, Zofran, and Zosyn 3.375 q. 6. ASSESSMENT: 1. Resolved acute kidney injury. 2. Resolved hyperkalemia. 3. Status post sepsis. 4. Pneumonia. 5. Colitis. 6. Enterococcal urinary tract infection. PLAN: 1. Continue antibiotics as per IV recommendations. 2. Dose all antibiotics for creatinine clearance about 30 to 50 mL per minute. 3. Avoid nephrotoxins. 4. Push p.o. intake. Kaitlin Anderson MD
[2016-12-15] MEDS: Albuterol-Ipratrop 3 mg / 0.5 (3 ml) UD IH PRN (05:35)
[2016-12-15] MEDS: Piperacillin/Tazobact 3.375 gm 100 ML IVPB SCH ×4 (05:49→18:10)
[2016-12-15] MEDS: Pantoprazole 40 mg EC Tab PO SCH (05:49)
--- NOTE | 2016-12-15 06:42 | CP.PCM.PN ---
Subjective - Date & Time of Evaluation Date of Evaluation: 12/15/16 Time of Evaluation: 06:21 - Subjective Subjective: Patient was seen at bedside. As per nurse , pulse ox was 85% on 5L/min.She had received nebulizer treatment about an hour ago.Next dose is due in another hour. Patient complaints of little sob. Has no chest pain, nausea, palpitation, sweating. 89 year old woman admitted with weakness, diarrhoea,anorexia,GILBERT,Sepsis. Has PMH of Ulcerative colitis, COPD, HTN, DM II, TIA, Pacemakeer insertion, anemia, osteoarthritis, cholelithiasis, diverticulosis, kyphosis. Objective - Vital Signs/Intake and Output Vital Signs (last 24 hours): Temp Pulse Resp BP Pulse Ox 97.7 F 62 20 127/66 91 L 12/14/16 16:00 12/14/16 16:00 12/14/16 16:00 12/14/16 16:00 12/14/16 16:00 Intake and Output: 12/14/16 12/15/16 18:59 06:59 Intake Total 360 Balance 360 - Medications Medications: Current Medications Acetaminophen (Tylenol 325mg Tab) 650 mg PO Q6H PRN PRN Reason: Fever >100.4 F Last Admin: 12/10/16 05:26 Dose: 650 mg Acetic Acid (Acetic Acid 0.25% Irrig) 0 ml TP DAILY [facility] Last Admin: 12/13/16 09:45 Dose: 1 applic Albuterol/Ipratropium (Duoneb 3 Mg/0.5 Mg (3 Ml) Ud) 3 ml IH Q2H PRN PRN Reason: Shortness of Breath Last Admin: 12/14/16 19:51 Dose: 3 ml Alprazolam (Xanax) 0.125 mg PO BID PRN; Protocol PRN Reason: Anxiety Stop: 12/20/16 18:01 Last Admin: 12/14/16 23:01 Dose: 0.125 mg Arformoterol Tartrate (Brovana) 15 mcg IH [id number] [facility] Last Admin: 12/14/16 19:51 Dose: 15 mcg Aspirin (Ecotrin) 81 mg PO DAILY [facility] Last Admin: 12/14/16 10:41 Dose: 81 mg Budesonide (Pulmicort Respules) 0.5 mg IH [id number] [facility] Last Admin: 12/14/16 19:51 Dose: 0.5 mg Heparin Sodium (Porcine) (Heparin) 5,000 units SC Q12 [facility] PRN Reason: Protocol Last Admin: 12/14/16 21:21 Dose: 5,000 units Piperacillin Sod/Tazobactam Sod (Zosyn 3.375 In Ns 100ml) 100 mls @ 200 mls/hr IVPB Q6 [facility] PRN Reason: Protocol Stop: 12/18/16 09:08 Last Admin: 12/15/16 05:49 Dose: 200 mls/hr Vancomycin HCl (Vancomycin 750 Mg In Ns) 750 mg in 250 mls @ 167 mls/hr IVPB Q12H [facility] PRN Reason: Protocol Last Admin: 12/14/16 21:16 Dose: 167 mls/hr Iron Sucrose 200 mg/ Sodium (Chloride) 110 mls @ 110 mls/hr IVPB DAILY [facility] Stop: 12/15/16 10:59 Last Admin: 12/14/16 10:39 Dose: 110 mls/hr Lactobacillus Acidophilus (Bacid Acidophilus) 1 cap PO DAILY [facility] Last Admin: 12/14/16 10:36 Dose: 1 cap Nystatin (Nystop Topical Powder) 1 gm TOP TID [facility] Last Admin: 12/14/16 18:18 Dose: 1 gm Ondansetron HCl (Zofran Inj) 4 mg IVP Q6H PRN PRN Reason: Nausea/Vomiting Pantoprazole Sodium (Protonix Ec Tab) 40 mg PO 0600 [facility] Last Admin: 12/15/16 05:49 Dose: 40 mg - Labs Labs: 12/14/16 09:30 12/14/16 09:30 PT 13.4 Seconds (9.9-11.8) H 12/12/16 05:40 INR 1.24 (0.93-1.08) H 12/12/16 05:40 APTT 35.7 Seconds (23.7-30.8) H 12/11/16 15:45 - Constitutional Appears: Well, No Acute Distress - Head Exam Head Exam: ATRAUMATIC, NORMAL INSPECTION, NORMOCEPHALIC - Eye Exam Eye Exam: Normal appearance - ENT Exam ENT Exam: Normal External Ear Exam Additional comments: Hard of hearing. - Neck Exam Neck Exam: Normal Inspection - Respiratory Exam Respiratory Exam: Rales (Bilateral occasional.), Respiratory Distress (Mild.) Additional comments: Mild respiratory distress. - Cardiovascular Exam Cardiovascular Exam: REGULAR RHYTHM. absent: JVD - GI/Abdominal Exam GI & Abdominal Exam: Normal Bowel Sounds - Rectal Exam Rectal Exam: Deferred - Exam Additional comments: Deferred. - Extremities Exam Extremities Exam: Normal Inspection - Back Exam Back Exam: NORMAL INSPECTION - Neurological Exam Neurological Exam: Oriented x3 - Psychiatric Exam Psychiatric exam: Normal Affect, Normal Mood - Skin Skin Exam: Normal Color Assessment and Plan - Assessment and Plan (Free Text) Assessment: Hypoxia. CHF. PNA. COPD. Hypertension. DM II. Hx TIA. Hx PPM insertion. GILBERT. Anemia. OA. Plan: Pulmicort / Brovana treatment stat instead of at 7:30AM. Portable CXR stat---->both lower lobe infiltrte in comparision with 12/08 cxr.CHF? Continue present management.
[2016-12-15] MEDS: Arformoterol 15 mcg/2 ml Inh Sol IH SCH (06:45)
[2016-12-15] MEDS: Budesonide 0.5 mg/2 ml Inhal Susp UD IH SCH ×3 (06:45→20:10)
[2016-12-15] MEDS: Levalbuterol 0.63 MG/3 ML Inhal Soln UD IH SCH ×3 (07:50→20:10)
[2016-12-15 07:51] LABS: HEMOGLOBIN 8.6 gm/dL (12.0-16.0); MEAN CELL VOLUME 90.2 fL (80.0-105.0); MEAN CORPUSCULAR HEMOGLOBIN 29.2 pg (25.0-35.0); MEAN CORPUSCULAR HGB CONC 32.3 g/dl (31.0-37.0); MEAN PLATELET VOLUME 8.5 fl (7.0-11.0); PLATELET COUNT 325 10^3/uL (120.0-450.0); RBC 2.95 10^6/uL (3.5-6.1); RED CELL DISTRIBUTION WIDTH 13.9 % (11.5-14.5); WHITE BLOOD COUNT 21.7 10^3/ul (4.5-11.0)
[2016-12-15 07:58] LABS: ALB/GLOB RATIO 0.8 (1.1-1.8); ALBUMIN 2.6 g/dL (3.0-4.8); ALT/SGPT 32 U/L (7-56); AST/SGOT 23 U/L (15-39); BLOOD UREA NITROGEN 26 mg/dL (7-21); CALCIUM 8.5 mg/dL (8.4-10.5); GFR AFRICAN-AMERICAN > 60; GFR NON-AFRICAN AMERICAN 59
--- NOTE | 2016-12-15 08:23 | RAD ---
HISTORY: hypoxia. COMPARISON: 12/08/2016 FINDINGS: LUNGS: Moderate vascular congestion and minimal bibasilar infiltrates consistent with CHF PLEURA: No significant pleural effusion identified, no pneumothorax apparent. CARDIOVASCULAR: Normal. OSSEOUS STRUCTURES: No significant abnormalities. VISUALIZED UPPER ABDOMEN: Normal. OTHER FINDINGS: None. IMPRESSION: Moderate vascular congestion and minimal bibasilar infiltrates consistent with CHF
[2016-12-15 09:01] LABS: ANISOCYTOSIS SLIGHT; LYMPHOCYTE 7 % (22.0-35.0); MONOCYTE 3 % (1.0-6.0); NEUTROPHIL 90 % (50.0-70.0); PLATELET ESTIMATE NORMAL (NORMAL); POIKILOCYTOSIS SLIGHT
[2016-12-15] MEDS: Lactobacillus Acidophilus 500 MU Cap PO SCH (10:14)
--- NOTE | 2016-12-15 10:23 | CP.PCM.PN ---
<Jamar Frausto - Last Filed: 12/15/16 10:20> Subjective - Date & Time of Evaluation Date of Evaluation: 12/15/16 Time of Evaluation: 09:20 - Subjective Subjective: 89 year old female patient seen at bedside with attending, Dr. De León, for right lower extremity ulceration. Patient seen resting comfortably, AAOx3 and NAD. Patient is accompanied by daughter at bedside. Patient admits to tenderness to RLE. Patient denies any acute events overnight. Patient denies N/V /F/D/C/SOB/calf pain. No other pedal complaints at this time. Objective - Vital Signs/Intake and Output Vital Signs (last 24 hours): Temp Pulse Resp BP Pulse Ox 98.2 F 64 20 140/74 85 L 12/15/16 08:25 12/15/16 08:25 12/15/16 08:25 12/15/16 08:25 12/15/16 08:25 Intake and Output: 12/15/16 12/15/16 06:59 18:59 Intake Total 360 Balance 360 - Medications Medications: Current Medications Acetaminophen (Tylenol 325mg Tab) 650 mg PO Q6H PRN PRN Reason: Fever >100.4 F Last Admin: 12/10/16 05:26 Dose: 650 mg Acetic Acid (Acetic Acid 0.25% Irrig) 0 ml TP DAILY [facility] Last Admin: 12/13/16 09:45 Dose: 1 applic Albuterol/Ipratropium (Duoneb 3 Mg/0.5 Mg (3 Ml) Ud) 3 ml IH Q2H PRN PRN Reason: Shortness of Breath Last Admin: 12/15/16 05:35 Dose: 3 ml Alprazolam (Xanax) 0.125 mg PO BID PRN; Protocol PRN Reason: Anxiety Stop: 12/20/16 18:01 Last Admin: 12/14/16 23:01 Dose: 0.125 mg Aspirin (Ecotrin) 81 mg PO DAILY [facility] Last Admin: 12/14/16 10:41 Dose: 81 mg Budesonide (Pulmicort Respules) 0.5 mg IH [id number] [facility] Last Admin: 12/15/16 06:45 Dose: 0.5 mg Heparin Sodium (Porcine) (Heparin) 5,000 units SC Q12 [facility] PRN Reason: Protocol Last Admin: 12/14/16 21:21 Dose: 5,000 units Piperacillin Sod/Tazobactam Sod (Zosyn 3.375 In Ns 100ml) 100 mls @ 200 mls/hr IVPB Q6 [facility] PRN Reason: Protocol Stop: 12/18/16 09:08 Last Admin: 12/15/16 05:49 Dose: 200 mls/hr Iron Sucrose 200 mg/ Sodium (Chloride) 110 mls @ 110 mls/hr IVPB DAILY [facility] Stop: 12/15/16 10:59 Last Admin: 12/14/16 10:39 Dose: 110 mls/hr Doxycycline Hyclate 100 mg/ (Sodium Chloride) 100 mls @ 100 mls/hr IVPB Q12 [facility] PRN Reason: Protocol Stop: 12/22/16 10:01 Lactobacillus Acidophilus (Bacid Acidophilus) 1 cap PO DAILY [facility] Last Admin: 12/14/16 10:36 Dose: 1 cap Levalbuterol HCl (Xopenex) 0.63 mg IH [id number] [facility] Last Admin: 12/15/16 07:50 Dose: Not Given Linezolid (Zyvox) 600 mg PO BID [facility] PRN Reason: Protocol Mupirocin (Bactroban Ointment) 0 gm TOP QD5 [facility] Nystatin (Nystop Topical Powder) 1 gm TOP TID [facility] Last Admin: 12/14/16 18:18 Dose: 1 gm Ondansetron HCl (Zofran Inj) 4 mg IVP Q6H PRN PRN Reason: Nausea/Vomiting Pantoprazole Sodium (Protonix Ec Tab) 40 mg PO 0600 [facility] Last Admin: 12/15/16 05:49 Dose: 40 mg - Labs Labs: 12/15/16 07:42 12/15/16 07:42 PT 13.4 Seconds (9.9-11.8) H 12/12/16 05:40 INR 1.24 (0.93-1.08) H 12/12/16 05:40 APTT 35.7 Seconds (23.7-30.8) H 12/11/16 15:45 - Constitutional Appears: Well, Non-toxic, No Acute Distress - Extremities Exam Additional comments: RLE focused physical exam: Dressing appears clean, dry, and intact to right foot VASC: DP/PT pulses are palpable 1/4, cap refill < 3 sec to all digits, TG WNL, no pedal edema appreciated DERM: diffuse superficial ulcer noted on distal right leg/ankle extending to dorsum and plantar aspect of the foot with mild serous drainaged noted. Wound base is a mixture of granular tissue and epithelializing tissue. Abscenece of prior green coloration on lateral foot. No malodor, no probe to bone. Minor marginal blanchable erythema noted on the distal leg as well as the foot, no clinical suspicion of active infection noted from the right lower extremity. No wounds noted to left lower extremity NEURO: protective pedal sensation is intact ORTHO: Tenderness on palpation of plantar and posterior right heel. Left 2nd digit dorso-lateral gross dislocation noted, non reducible. - Neurological Exam Neurological Exam: Alert, Awake, Oriented x3 - Psychiatric Exam Psychiatric exam: Normal Affect, Normal Mood Assessment and Plan - Assessment and Plan (Free Text) Assessment: 89 y/o female patient with 1) superficial, non-infection ulceration of right lower extremity. 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 Plan: Patient seen and evaluated at bedside with attending, Dr. De León. Chart, vitals, labs reviewed = afebrile, WBC continuing to trend upwards @ 21.7 (21.5 on 12/14/16, 19.6 12/13/16). Right lower extremity cleansed with sterile saline. Nystatin powder applied to RLE and dressed with adaptic, DSD, and a lose FERDINAND wrap. Patient is to continue to wear offloading boot to RLE. continue IV abx as per ID = [facility] will continue to follow while patient in house <Chi De León - Last Filed: 12/18/16 11:55> Objective - Vital Signs/Intake and Output Vital Signs (last 24 hours): Temp Pulse Resp BP Pulse Ox 98.6 F 67 18 135/66 98 12/18/16 06:00 12/18/16 06:00 12/18/16 06:00 12/18/16 06:00 12/18/16 06:00 Intake and Output: 12/18/16 12/18/16 06:59 18:59 Intake Total 480 1940 Output Total 650 Balance -170 1940 - Medications Medications: Current Medications Acetaminophen (Tylenol 325mg Tab) 650 mg PO Q6H PRN PRN Reason: Fever >100.4 F Last Admin: 12/10/16 05:26 Dose: 650 mg Acetic Acid (Acetic Acid 0.25% Irrig) 0 ml TP DAILY [facility] Last Admin: 12/18/16 11:24 Dose: Not Given Albuterol/Ipratropium (Duoneb 3 Mg/0.5 Mg (3 Ml) Ud) 3 ml IH Q2H PRN PRN Reason: Shortness of Breath Last Admin: 12/18/16 07:40 Dose: 3 ml Alprazolam (Xanax) 0.125 mg PO BID PRN; Protocol PRN Reason: Anxiety Stop: 12/20/16 18:01 Last Admin: 12/15/16 10:18 Dose: 0.125 mg Aspirin (Ecotrin) 81 mg PO DAILY [facility] Last Admin: 12/18/16 09:57 Dose: 81 mg Betamethasone/Clotrimazole (Lotrisone) 0 gm TOP BID [facility] Last Admin: 12/18/16 11:24 Dose: Not Given Budesonide (Pulmicort Respules) 0.5 mg IH [id number] [facility] Last Admin: 12/18/16 07:40 Dose: 0.5 mg Heparin Sodium (Porcine) (Heparin) 5,000 units SC Q12 [facility] PRN Reason: Protocol Last Admin: 12/18/16 09:57 Dose: 5,000 units Doxycycline Hyclate 100 mg/ (Sodium Chloride) 100 mls @ 100 mls/hr IVPB Q12 [facility] PRN Reason: Protocol Stop: 12/22/16 10:01 Last Admin: 12/18/16 09:59 Dose: 100 mls/hr Dextrose (Dextrose 5% In Water 1000 Ml) 1,000 mls @ 60 mls/hr IV .[id number] [facility] Last Admin: 12/18/16 08:40 Dose: Not Given Potassium Chloride (Potassium Chloride 10 Meq/100 Ml) 10 meq in 100 mls @ 100 mls/hr IVPB Q2H [facility] Stop: 12/18/16 17:29 Last Admin: 12/18/16 11:20 Dose: 100 mls/hr Lactobacillus Acidophilus (Bacid Acidophilus) 1 cap PO DAILY [facility] Last Admin: 12/18/16 09:56 Dose: 1 cap Levalbuterol HCl (Xopenex) 0.63 mg IH [id number] [facility] Last Admin: 12/18/16 07:41 Dose: Not Given Linezolid (Zyvox) 600 mg PO BID [facility] PRN Reason: Protocol Last Admin: 12/18/16 09:59 Dose: 600 mg Lorazepam (Ativan) 0.25 mg IVP Q6H PRN; Protocol PRN Reason: Anxiety Last Admin: 12/18/16 02:36 Dose: 0.25 mg Magnesium Oxide (Mag-Ox) 400 mg PO BID [facility] Last Admin: 12/18/16 11:20 Dose: 400 mg Mupirocin (Bactroban Ointment) 0 gm TOP QD5 [facility] Last Admin: 12/17/16 16:51 Dose: Not Given Nystatin (Nystop Topical Powder) 1 gm TOP TID [facility] Last Admin: 12/18/16 09:58 Dose: 1 gm Ondansetron HCl (Zofran Inj) 4 mg IVP Q6H PRN PRN Reason: Nausea/Vomiting Pantoprazole Sodium (Protonix Ec Tab) 40 mg PO 0600 [facility] Last Admin: 12/18/16 05:32 Dose: Not Given Potassium Chloride (Potassium Chloride Oral Soln) 20 meq PO BID [facility] Last Admin: 12/18/16 11:20 Dose: 20 meq - Labs Labs: 12/18/16 06:10 12/18/16 06:10 PT 13.4 Seconds (9.9-11.8) H 12/12/16 05:40 INR 1.24 (0.93-1.08) H 12/12/16 05:40 APTT 35.7 Seconds (23.7-30.8) H 12/11/16 15:45 Attending/Attestation - Attestation I have personally seen and examined this patient.: Yes I have fully participated in the care of the patient.: Yes I have reviewed all pertinent clinical information, including history, physical exam and plan: Yes
[2016-12-15] MEDS: Nystatin 100,000 Units/gm Topical Pow(15 gm) TOP SCH ×3 (10:26→18:50)
--- NOTE | 2016-12-15 10:47 | PN ---
SUBJECTIVE: The patient is currently seen on 5R. She is eating breakfast. She is comfortable in bed. No acute distress. Her BUN and creatinine have fallen back to baseline levels. MEDICATIONS: Medication list reviewed. The patient is currently on probiotics, DuoNeb, Ecotrin, subQ heparin, IV iron, nystatin, Protonix, Pulmicort, Tylenol p.r.n., vancomycin, Xanax, Xopenex, Zofran p.r.n. and Zosyn. OBJECTIVE: INTAKE/OUTPUT: Intake 360, output not charted. VITAL SIGNS: Blood pressure 140/74, temperature 98.2, respiratory rate 20 with a pulse of 64, pulse ox is 85% to 91% on nasal cannula oxygen 3 to 5 L/per minute. HEENT EXAM: Normocephalic and atraumatic. Conjunctivae are pale. Sclerae are nonicteric. NECK: Supple. No neck vein distention. CHEST: Clear to auscultation and percussion. No rales. No rhonchi. No wheezing. CARDIOVASCULAR: Shows a regular rate and rhythm without murmurs, rubs, or gallops. ABDOMEN: Soft. Bowel sounds are normal. No rebound, no guarding, no masses. EXTREMITIES: No edema. No cyanosis, no clubbing. She has dressings over her right lower extremity. LABORATORY DATA AND IMAGING: Chest x-ray done today shows moderate vascular congestion and minimal bibasilar infiltrates, possible mild CHF. No focal infiltrates noted otherwise. CBC; white blood cell count 21.7, hemoglobin 9.6 with a platelet count of 325,000. Chemistry; sodium 146, potassium 4.1, chloride 117 with a CO2 of 17, anion gap is 16, BUN 26 with a creatinine of 0.9. Glucose is 131, calcium is normal. Liver enzymes are normal. Albumin is 2.6. Microbiology; urine was positive for enterococcus. Blood cultures were negative. Stools were all negative. Stool for C. diff was negative. ASSESSMENT: 1. Acute renal failure resolved. The patient remains slightly prerenal with a sodium level now of 146. I encouraged her to increase her p.o. fluid intake. We will try and avoid any IV fluid hydration. 2. Status post hypernatremia, sodium is gone from 118 up to 146. 3. Status post hypokalemia. 4. Leukocytosis with enterococcal urinary tract infection and likely left upper lobe pneumonia. The patient will complete her course of antibiotic therapy. 5. Hypertension. Blood pressure is controlled, off blood pressure medication at this time. 6. History of ulcerative colitis, currently stable. 7. History of noninsulin-dependent diabetes mellitus, glucose control is acceptable. PLAN: 1. Complete course of antibiotic therapy, the patient continues to have a leukocytosis. 2. Encouraged the patient to increase p.o. fluid intake in light of her mild prerenal azotemia and sodium level of 146. 3. Continue iron supplementation in light of her iron deficiency anemia. Her iron saturations were a 11%. 4. The patient needs intensive physical therapy and rehabilitation. Sea Patel MD MTDD
--- NOTE | 2016-12-15 11:50 | PN ---
DATE: 12/15/2016 SUBJECTIVE: The patient appears comfortable this morning. She is mildly short of breath at rest,but in no acute distress. She does remain weak and frail looking. PHYSICAL EXAMINATION: VITAL SIGNS: Temperature is 97.7, pulse is 62, respirations 20/22, blood pressure 127/66. Oxygen saturation on nasal cannula is 91%. HEENT: Normocephalic and atraumatic. NECK: No JVD. CARDIOVASCULAR: Systolic ejection murmur at the lower left sternal border. Questionable S3 gallop. LUNGS: Decreased breath sounds at the bases. Minimal bilateral rhonchi. No wheezing. EXTREMITIES: Positive for edema. No cyanosis; no clubbing. Calves are nontender to palpation. GASTROINTESTINAL: Abdomen is soft, nontender, and nondistended. Bowel sounds are positive. SKIN: Chronic left leg ulcer. No rashes. NEUROLOGIC: Limited at the present time. PERTINENT LABORATORY DATA: Chest x-ray was done this morning and reviewed. I did compare the chest x-ray to the last film done on 12/08/2016. The chest x-ray this morning is a very poor portable semi-erect film. Compared to the previous film, the most current film does show mild-moderate pulmonary edema. PLAN: I will give one dose of Lasix this morning, and check the BNP. I would continue the antibiotic coverage-- as per infectious disease for now. The temperatures have resolved. I would continue the renal evaluation. Input by Dr. Anderson is noted. Overall status/prognosis of this very elderly patient--remains very guarded at best. I will discuss the above with the attending physician. Aleks Mejia MD [facility]
--- NOTE | 2016-12-15 13:05 | PN ---
SUBJECTIVE: The patient is an 89-year-old, seen and examined. Daughter is at the bedside, she states she chokes whenever she eats. She was having cough and congestion and she desaturated a little bit. However, she is awake and alert. PHYSICAL EXAMINATION VITAL SIGNS: She is afebrile, pulse 64, respirations 20, blood pressure 140/74. LUNGS: Bilateral good air flow. No rhonchi or crackles. HEART: S1 and S2 audible. ABDOMEN: Soft, nontender. No rebound. No guarding. NEUROLOGICAL: The patient is awake, alert and communicative. 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 Her face is symmetrical. Nonicteric sclerae. [place] conjunctivae. LABORATORY DATA: WBC is 21.7, hemoglobin 8.6, hematocrit 26 and platelet of 325. Chemistry; sodium 146, potassium 4.1, chloride 117, CO2 of 17, BUN 26, creatinine 0.9, blood sugar of 131. Chest x-ray was done today showed congestion and minimal bibasilar infiltrate consistent with CHF. ASSESSMENT AND PLAN: Resolving pneumonia and new episode of hypoxia and desaturation and cough. We will get CT scan of the chest to rule out aspiration. Currently, the patient is on doxycycline. She was given dose of Lasix. She is off IV fluids. She is on Zyvox, Zosyn and doxycycline as per ID recommendation. We will get CT scan of the chest done and also get swallow evaluation and make further recommendation. Followup CBC and CMP in a.m., to follow up her kidney function. Jorden Mcneill MD
--- NOTE | 2016-12-15 14:13 | CP.PCM.PN ---
Subjective - Date & Time of Evaluation Date of Evaluation: 12/15/16 Time of Evaluation: 13:10 - Subjective Subjective: Patient is now on a BiPAP. No fevers overnight. Objective - Vital Signs/Intake and Output Vital Signs (last 24 hours): Temp Pulse Resp BP Pulse Ox 98.2 F 64 20 140/74 85 L 12/15/16 08:25 12/15/16 08:25 12/15/16 08:25 12/15/16 08:25 12/15/16 08:25 Intake and Output: 12/15/16 12/15/16 06:59 18:59 Intake Total 360 Balance 360 - Medications Medications: Current Medications Acetaminophen (Tylenol 325mg Tab) 650 mg PO Q6H PRN PRN Reason: Fever >100.4 F Last Admin: 12/10/16 05:26 Dose: 650 mg Acetic Acid (Acetic Acid 0.25% Irrig) 0 ml TP DAILY [facility] Last Admin: 12/13/16 09:45 Dose: 1 applic Albuterol/Ipratropium (Duoneb 3 Mg/0.5 Mg (3 Ml) Ud) 3 ml IH Q2H PRN PRN Reason: Shortness of Breath Last Admin: 12/15/16 05:35 Dose: 3 ml Alprazolam (Xanax) 0.125 mg PO BID PRN; Protocol PRN Reason: Anxiety Stop: 12/20/16 18:01 Last Admin: 12/14/16 23:01 Dose: 0.125 mg Aspirin (Ecotrin) 81 mg PO DAILY [facility] Last Admin: 12/14/16 10:41 Dose: 81 mg Budesonide (Pulmicort Respules) 0.5 mg IH [id number] [facility] Last Admin: 12/15/16 06:45 Dose: 0.5 mg Heparin Sodium (Porcine) (Heparin) 5,000 units SC Q12 [facility] PRN Reason: Protocol Last Admin: 12/14/16 21:21 Dose: 5,000 units Piperacillin Sod/Tazobactam Sod (Zosyn 3.375 In Ns 100ml) 100 mls @ 200 mls/hr IVPB Q6 [facility] PRN Reason: Protocol Stop: 12/18/16 09:08 Last Admin: 12/15/16 05:49 Dose: 200 mls/hr Vancomycin HCl (Vancomycin 750 Mg In Ns) 750 mg in 250 mls @ 167 mls/hr IVPB Q12H [facility] PRN Reason: Protocol Last Admin: 12/14/16 21:16 Dose: 167 mls/hr Iron Sucrose 200 mg/ Sodium (Chloride) 110 mls @ 110 mls/hr IVPB DAILY [facility] Stop: 12/15/16 10:59 Last Admin: 12/14/16 10:39 Dose: 110 mls/hr Lactobacillus Acidophilus (Bacid Acidophilus) 1 cap PO DAILY [facility] Last Admin: 12/14/16 10:36 Dose: 1 cap Levalbuterol HCl (Xopenex) 0.63 mg IH [id number] [facility] Last Admin: 12/15/16 07:50 Dose: Not Given Mupirocin (Bactroban Ointment) 0 gm TOP QD5 [facility] Nystatin (Nystop Topical Powder) 1 gm TOP TID [facility] Last Admin: 12/14/16 18:18 Dose: 1 gm Ondansetron HCl (Zofran Inj) 4 mg IVP Q6H PRN PRN Reason: Nausea/Vomiting Pantoprazole Sodium (Protonix Ec Tab) 40 mg PO 0600 [facility] Last Admin: 12/15/16 05:49 Dose: 40 mg - Labs Labs: 12/15/16 07:42 12/15/16 07:42 PT 13.4 Seconds (9.9-11.8) H 12/12/16 05:40 INR 1.24 (0.93-1.08) H 12/12/16 05:40 APTT 35.7 Seconds (23.7-30.8) H 12/11/16 15:45 - Constitutional Appears: Other (on BiPAP, has mild respiratory distress) - Head Exam Head Exam: NORMAL INSPECTION - Neck Exam Neck Exam: absent: Meningismus - Respiratory Exam Respiratory Exam: Decreased Breath Sounds - Cardiovascular Exam Cardiovascular Exam: +S1, +S2 - GI/Abdominal Exam GI & Abdominal Exam: Soft. absent: Tenderness Assessment and Plan - Assessment and Plan (Free Text) Plan: Assessment severe sepsis with acute renal failure probably due to left upper and lower lobe healthcare-associated pneumonia, less likely biliary tree infection ulcerative colitis chronic left leg ulcer, R/O pyoderma gangrenosum COPD HTN CAD with chronic CHF S/P pacemaker placement anxiety disorder Plan Blood cx are negative, stool for C. diff. is negative continue Zosyn (total day 6 of antibiotics) and we have switched IV Vancomycin to Zyvox (day 3); reviewed CT chest done 2 days ago showing the left sided pneumonia - follow up repeat CT chest to be done tomorrow currently no plans for EUS will continue to monitor clinically
[2016-12-15] MEDS: Vancomycin 25 MG/ML PO SCH ×3 (15:28→21:45)
[2016-12-16] MEDS: Piperacillin/Tazobact 3.375 gm 100 ML IVPB SCH ×4 (00:27→18:00)
[2016-12-16] MEDS: Levalbuterol 0.63 MG/3 ML Inhal Soln UD IH SCH ×4 (02:15→20:30)
[2016-12-16] MEDS: Pantoprazole 40 mg EC Tab PO SCH (05:59)
[2016-12-16 07:41] LABS: BASO # 0.01 K/mm3 (0.0-2.0); BASO % 0.1 % (0.0-3.0); GRAN # 14.97 (1.4-6.5); GRAN % 87.8 % (50.0-68.0); HEMOGLOBIN 9.4 gm/dL (12.0-16.0); LYMPH # 0.8 (1.2-3.4); LYMPH % 4.8 % (22.0-35.0); MEAN CELL VOLUME 91.6 fL (80.0-105.0); MEAN CORPUSCULAR HEMOGLOBIN 29.3 pg (25.0-35.0); MEAN PLATELET VOLUME 8.5 fl (7.0-11.0); MONO # 1.2 (0.1-0.6); MONO % 7.3 % (1.0-6.0); PLATELET COUNT 324 10^3/uL (120.0-450.0); RBC 3.21 10^6/uL (3.5-6.1); RED CELL DISTRIBUTION WIDTH 14.1 % (11.5-14.5)
[2016-12-16 07:52] LABS: BLOOD UREA NITROGEN 26 mg/dL (7-21)
[2016-12-16 07:53] LABS: ALB/GLOB RATIO 0.9 (1.1-1.8); ALBUMIN 2.8 g/dL (3.0-4.8); ALT/SGPT 29 U/L (7-56); AST/SGOT 24 U/L (15-39); CALCIUM 8.6 mg/dL (8.4-10.5); GFR AFRICAN-AMERICAN > 60; GFR NON-AFRICAN AMERICAN 52; MAGNESIUM 1.6 mg/dL (1.7-2.2)
[2016-12-16] MEDS: Budesonide 0.5 mg/2 ml Inhal Susp UD IH SCH ×2 (08:06→20:31)
--- NOTE | 2016-12-16 09:02 | PN ---
DATE: 12/16/2016 SUBJECTIVE: The patient appears more comfortable this morning. She is not short of breath at rest. PHYSICAL EXAMINATION: VITAL SIGNS: Temperature 98.2, pulse is 59, respirations 18, blood pressure 119/67. Oxygen saturation on BiPAP is 97% to 99%. HEENT: Normocephalic and atraumatic. NECK: No JVD. CARDIOVASCULAR: Systolic ejection murmur at the lower left sternal border. Positive S3 gallop. LUNGS: Decreased breath sounds at the bases. Minimal/less rhonchi. No wheezing. EXTREMITIES: Positive for edema. No cyanosis; no clubbing. Calves are nontender to palpation. GASTROINTESTINAL: Abdomen is soft, nontender, and nondistended. Bowel sounds are positive. SKIN: Chronic left leg ulcer. No rashes. NEUROLOGIC: Limited at the present time. PERTINENT LABORATORY DATA: [place] [address]. IMPRESSION: 1. Acute congestive heart failure. 2. Multilobar pneumonia. 3. Acute gastroenteritis. 4. Sepsis syndrome. 5. Chronic obstructive pulmonary disease. 6. Coronary artery disease. PLAN: The patient appears more comfortable this morning. She is not short of breath at rest. She is currently on BiPAP, with an oxygen saturation of 97% to 99%. As stated previously, the chest x-ray done yesterday reveals an increase in the pulmonary vascular congestive changes. I have also reviewed the laboratory data. A significant increase in the BNP is noted. The patient did receive several doses of Lasix yesterday and is much more comfortable this morning. On physical exam, there is less bronchospasm noted. I will continue with the current nebulizer treatments and inhaled steroids for now. Renal and Infectious Diseases evaluations are noted. Repeat a.m. labs are pending. I will give another dose of Lasix this morning. I will also order a repeat chest [id number] comparison. Clinical status of the patient is improved-compared to yesterday. However, again, the overall status/prognosis for this elderly patient remains very guarded at best. I will discuss the above with the attending physician. Aleks Mejia MD [facility] # [id number] [facility]
[2016-12-16] MEDS: Vancomycin 25 MG/ML PO SCH ×4 (09:17→22:52)
[2016-12-16] MEDS: Acetic Acid 0.25% Irrig Sol TP SCH (09:17)
[2016-12-16] MEDS: Lactobacillus Acidophilus 500 MU Cap PO SCH (09:17)
[2016-12-16] MEDS: Nystatin 100,000 Units/gm Topical Pow(15 gm) TOP SCH ×3 (09:24→18:02)
--- NOTE | 2016-12-16 11:15 | CP.PCM.PN ---
Subjective - Date & Time of Evaluation Date of Evaluation: 12/16/16 Time of Evaluation: 09:55 - Subjective Subjective: Patient is breathing better, no fevers overnight. Objective - Vital Signs/Intake and Output Vital Signs (last 24 hours): Temp Pulse Resp BP Pulse Ox 98.2 F 59 L 18 119/67 97 12/16/16 06:00 12/16/16 06:00 12/16/16 06:00 12/16/16 06:00 12/16/16 06:00 Intake and Output: 12/15/16 12/16/16 18:59 06:59 Intake Total 40 300 Output Total 6 900 Balance 34 -600 - Medications Medications: Current Medications Acetaminophen (Tylenol 325mg Tab) 650 mg PO Q6H PRN PRN Reason: Fever >100.4 F Last Admin: 12/10/16 05:26 Dose: 650 mg Acetic Acid (Acetic Acid 0.25% Irrig) 0 ml TP DAILY [facility] Last Admin: 12/13/16 09:45 Dose: 1 applic Albuterol/Ipratropium (Duoneb 3 Mg/0.5 Mg (3 Ml) Ud) 3 ml IH Q2H PRN PRN Reason: Shortness of Breath Last Admin: 12/15/16 05:35 Dose: 3 ml Alprazolam (Xanax) 0.125 mg PO BID PRN; Protocol PRN Reason: Anxiety Stop: 12/20/16 18:01 Last Admin: 12/15/16 10:18 Dose: 0.125 mg Aspirin (Ecotrin) 81 mg PO DAILY [facility] Last Admin: 12/15/16 10:15 Dose: 81 mg Budesonide (Pulmicort Respules) 0.5 mg IH [id number] [facility] Last Admin: 12/15/16 20:10 Dose: 0.5 mg Heparin Sodium (Porcine) (Heparin) 5,000 units SC Q12 [facility] PRN Reason: Protocol Last Admin: 12/15/16 21:44 Dose: 5,000 units Piperacillin Sod/Tazobactam Sod (Zosyn 3.375 In Ns 100ml) 100 mls @ 200 mls/hr IVPB Q6 [facility] PRN Reason: Protocol Stop: 12/18/16 09:08 Last Admin: 12/16/16 05:43 Dose: 200 mls/hr Doxycycline Hyclate 100 mg/ (Sodium Chloride) 100 mls @ 100 mls/hr IVPB Q12 [facility] PRN Reason: Protocol Stop: 12/22/16 10:01 Last Admin: 12/15/16 21:46 Dose: 100 mls/hr Lactobacillus Acidophilus (Bacid Acidophilus) 1 cap PO DAILY [facility] Last Admin: 12/15/16 10:14 Dose: 1 cap Levalbuterol HCl (Xopenex) 0.63 mg IH [id number] [facility] Last Admin: 12/16/16 02:15 Dose: 0.63 mg Linezolid (Zyvox) 600 mg PO BID [facility] PRN Reason: Protocol Last Admin: 12/15/16 18:39 Dose: Not Given Mupirocin (Bactroban Ointment) 0 gm TOP QD5 [facility] Last Admin: 12/15/16 17:00 Dose: 1 oin Nystatin (Nystop Topical Powder) 1 gm TOP TID [facility] Last Admin: 12/15/16 18:50 Dose: 1 gm Ondansetron HCl (Zofran Inj) 4 mg IVP Q6H PRN PRN Reason: Nausea/Vomiting Pantoprazole Sodium (Protonix Ec Tab) 40 mg PO 0600 [facility] Last Admin: 12/16/16 05:59 Dose: 40 mg Vancomycin HCl (Vancocin 25 Mg/Ml (Oral Use)) 250 mg PO QID [facility] PRN Reason: Protocol Last Admin: 12/15/16 21:45 Dose: 250 mg - Labs Labs: 12/15/16 07:42 12/15/16 07:42 PT 13.4 Seconds (9.9-11.8) H 12/12/16 05:40 INR 1.24 (0.93-1.08) H 12/12/16 05:40 APTT 35.7 Seconds (23.7-30.8) H 12/11/16 15:45 - Constitutional Appears: Non-toxic, No Acute Distress - Head Exam Head Exam: NORMAL INSPECTION - ENT Exam ENT Exam: Mucous Membranes Moist - Neck Exam Neck Exam: absent: Meningismus - Respiratory Exam Respiratory Exam: Decreased Breath Sounds - Cardiovascular Exam Cardiovascular Exam: +S1, +S2 - GI/Abdominal Exam GI & Abdominal Exam: Soft. absent: Tenderness Assessment and Plan - Assessment and Plan (Free Text) Plan: Assessment severe sepsis with acute renal failure probably due to left upper and lower lobe healthcare-associated pneumonia, less likely biliary tree infection loose bowel movement, R/O C. diff. infection ulcerative colitis chronic left leg ulcer, R/O pyoderma gangrenosum COPD HTN CAD with chronic CHF S/P pacemaker placement anxiety disorder Plan Blood cx are negative continue Zosyn (total day 7 of antibiotics) and Zyvox (day 4); reviewed CT chest done 2 days ago showing the left sided pneumonia - follow up repeat CT chest to be done today currently no plans for EUS follow up stool for C. diff - on PO Vancomycin (day 2) will continue to monitor clinically
--- NOTE | 2016-12-16 22:01 | CP.PCM.PN ---
Subjective - Date & Time of Evaluation Date of Evaluation: 12/15/16 Time of Evaluation: 15:45 - Subjective Subjective: patient is on BiPAP. Patient's daughter was at bedside Objective - Vital Signs/Intake and Output Vital Signs (last 24 hours): Temp Pulse Resp BP Pulse Ox 97.7 F 65 20 139/78 85 L 12/15/16 17:28 12/15/16 20:10 12/15/16 17:28 12/15/16 17:28 12/15/16 08:25 Intake and Output: 12/15/16 12/16/16 18:59 06:59 Intake Total 40 Output Total 6 Balance 34 - Medications Medications: Current Medications Acetaminophen (Tylenol 325mg Tab) 650 mg PO Q6H PRN PRN Reason: Fever >100.4 F Last Admin: 12/10/16 05:26 Dose: 650 mg Acetic Acid (Acetic Acid 0.25% Irrig) 0 ml TP DAILY [facility] Last Admin: 12/13/16 09:45 Dose: 1 applic Albuterol/Ipratropium (Duoneb 3 Mg/0.5 Mg (3 Ml) Ud) 3 ml IH Q2H PRN PRN Reason: Shortness of Breath Last Admin: 12/15/16 05:35 Dose: 3 ml Alprazolam (Xanax) 0.125 mg PO BID PRN; Protocol PRN Reason: Anxiety Stop: 12/20/16 18:01 Last Admin: 12/15/16 10:18 Dose: 0.125 mg Aspirin (Ecotrin) 81 mg PO DAILY [facility] Last Admin: 12/15/16 10:15 Dose: 81 mg Budesonide (Pulmicort Respules) 0.5 mg IH [id number] [facility] Last Admin: 12/15/16 20:10 Dose: 0.5 mg Heparin Sodium (Porcine) (Heparin) 5,000 units SC Q12 [facility] PRN Reason: Protocol Last Admin: 12/15/16 10:15 Dose: 5,000 units Piperacillin Sod/Tazobactam Sod (Zosyn 3.375 In Ns 100ml) 100 mls @ 200 mls/hr IVPB Q6 [facility] PRN Reason: Protocol Stop: 12/18/16 09:08 Last Admin: 12/15/16 18:10 Dose: 200 mls/hr Doxycycline Hyclate 100 mg/ (Sodium Chloride) 100 mls @ 100 mls/hr IVPB Q12 [facility] PRN Reason: Protocol Stop: 12/22/16 10:01 Last Admin: 12/15/16 10:25 Dose: 100 mls/hr Lactobacillus Acidophilus (Bacid Acidophilus) 1 cap PO DAILY [facility] Last Admin: 12/15/16 10:14 Dose: 1 cap Levalbuterol HCl (Xopenex) 0.63 mg IH [id number] [facility] Last Admin: 12/15/16 20:10 Dose: 0.63 mg Linezolid (Zyvox) 600 mg PO BID [facility] PRN Reason: Protocol Last Admin: 12/15/16 18:39 Dose: Not Given Mupirocin (Bactroban Ointment) 0 gm TOP QD5 [facility] Last Admin: 12/15/16 17:00 Dose: 1 oin Nystatin (Nystop Topical Powder) 1 gm TOP TID [facility] Last Admin: 12/15/16 18:50 Dose: 1 gm Ondansetron HCl (Zofran Inj) 4 mg IVP Q6H PRN PRN Reason: Nausea/Vomiting Pantoprazole Sodium (Protonix Ec Tab) 40 mg PO 0600 [facility] Last Admin: 12/15/16 05:49 Dose: 40 mg Vancomycin HCl (Vancocin 25 Mg/Ml (Oral Use)) 250 mg PO QID [facility] PRN Reason: Protocol Last Admin: 12/15/16 18:38 Dose: Not Given - Labs Labs: 12/15/16 07:42 12/15/16 07:42 PT 13.4 Seconds (9.9-11.8) H 12/12/16 05:40 INR 1.24 (0.93-1.08) H 12/12/16 05:40 APTT 35.7 Seconds (23.7-30.8) H 12/11/16 15:45 - Constitutional Appears: No Acute Distress - Head Exam Head Exam: ATRAUMATIC, NORMOCEPHALIC - Eye Exam Eye Exam: EOMI, PERRL - ENT Exam ENT Exam: Mucous Membranes Moist - Respiratory Exam Respiratory Exam: Accessory Muscle Use, Rhonchi Additional comments: on BiPAP - Cardiovascular Exam Cardiovascular Exam: +S1, +S2. absent: JVD - GI/Abdominal Exam GI & Abdominal Exam: Soft. absent: Tenderness - Extremities Exam Extremities Exam: absent: Calf Tenderness, Joint Swelling Assessment and Plan - Assessment and Plan (Free Text) Assessment: 1. Respiratory failure on BiPAP 2. Pneumonia 3. Dilated bile duct normal LFT less likely biliary. 4. History of ulcerative colitis 5. Diarrhea C. difficile negative flexible sigmoidoscopy did not reveal any colitis or pseudomembrane 6. Chronic leg ulcers rule out pyoderma 7. Her comorbidities included coronary artery disease CHF status post permanent pacemaker placement 8. Anxiety 9.hypertension Patient has both restrictive and obstructive pulmonary disease patient is a DNR/ DNI family do not want intubation. Patient also has pectus carinatum Plan: 1. Continue antibiotics as per ID 2. On empiric vancomycin therapy 3. Discussed with the patient's daughter again at length do not want any aggressive invasive intervention at this time
--- NOTE | 2016-12-16 22:08 | CP.PCM.PN ---
Subjective - Date & Time of Evaluation Date of Evaluation: 12/16/16 Time of Evaluation: 12:30 - Subjective Subjective: appears more comfortable still on BiPAP patient's daughter was at bedside at the time of examination Objective - Vital Signs/Intake and Output Vital Signs (last 24 hours): Temp Pulse Resp BP Pulse Ox 98 F 66 18 135/65 98 12/16/16 16:53 12/16/16 20:25 12/16/16 16:53 12/16/16 16:53 12/16/16 16:53 Intake and Output: 12/16/16 12/17/16 18:59 06:59 Output Total 800 Balance -800 - Medications Medications: Current Medications Acetaminophen (Tylenol 325mg Tab) 650 mg PO Q6H PRN PRN Reason: Fever >100.4 F Last Admin: 12/10/16 05:26 Dose: 650 mg Acetic Acid (Acetic Acid 0.25% Irrig) 0 ml TP DAILY [facility] Last Admin: 12/16/16 09:17 Dose: Not Given Albuterol/Ipratropium (Duoneb 3 Mg/0.5 Mg (3 Ml) Ud) 3 ml IH Q2H PRN PRN Reason: Shortness of Breath Last Admin: 12/15/16 05:35 Dose: 3 ml Alprazolam (Xanax) 0.125 mg PO BID PRN; Protocol PRN Reason: Anxiety Stop: 12/20/16 18:01 Last Admin: 12/15/16 10:18 Dose: 0.125 mg Aspirin (Ecotrin) 81 mg PO DAILY [facility] Last Admin: 12/16/16 09:17 Dose: Not Given Budesonide (Pulmicort Respules) 0.5 mg IH [id number] [facility] Last Admin: 12/16/16 20:31 Dose: 0.5 mg Heparin Sodium (Porcine) (Heparin) 5,000 units SC Q12 [facility] PRN Reason: Protocol Last Admin: 12/16/16 09:24 Dose: 5,000 units Piperacillin Sod/Tazobactam Sod (Zosyn 3.375 In Ns 100ml) 100 mls @ 200 mls/hr IVPB Q6 [facility] PRN Reason: Protocol Stop: 12/18/16 09:08 Last Admin: 12/16/16 18:00 Dose: 200 mls/hr Doxycycline Hyclate 100 mg/ (Sodium Chloride) 100 mls @ 100 mls/hr IVPB Q12 [facility] PRN Reason: Protocol Stop: 12/22/16 10:01 Last Admin: 12/16/16 12:22 Dose: 100 mls/hr Lactobacillus Acidophilus (Bacid Acidophilus) 1 cap PO DAILY [facility] Last Admin: 12/16/16 09:17 Dose: Not Given Levalbuterol HCl (Xopenex) 0.63 mg IH [id number] [facility] Last Admin: 12/16/16 20:30 Dose: 0.63 mg Linezolid (Zyvox) 600 mg PO BID [facility] PRN Reason: Protocol Last Admin: 12/16/16 17:15 Dose: Not Given Mupirocin (Bactroban Ointment) 0 gm TOP QD5 [facility] Last Admin: 12/16/16 17:14 Dose: Not Given Nystatin (Nystop Topical Powder) 1 gm TOP TID [facility] Last Admin: 12/16/16 18:02 Dose: 1 gm Ondansetron HCl (Zofran Inj) 4 mg IVP Q6H PRN PRN Reason: Nausea/Vomiting Pantoprazole Sodium (Protonix Ec Tab) 40 mg PO 0600 [facility] Last Admin: 12/16/16 05:59 Dose: 40 mg Vancomycin HCl (Vancocin 25 Mg/Ml (Oral Use)) 250 mg PO QID [facility] PRN Reason: Protocol Last Admin: 12/16/16 17:14 Dose: Not Given - Labs Labs: 12/16/16 07:34 12/16/16 07:34 PT 13.4 Seconds (9.9-11.8) H 12/12/16 05:40 INR 1.24 (0.93-1.08) H 12/12/16 05:40 APTT 35.7 Seconds (23.7-30.8) H 12/11/16 15:45 - Constitutional Appears: No Acute Distress - Head Exam Head Exam: ATRAUMATIC, NORMOCEPHALIC - Eye Exam Eye Exam: EOMI, Normal appearance, PERRL - ENT Exam ENT Exam: Mucous Membranes Moist, Normal External Ear Exam - Neck Exam Neck Exam: Normal Inspection. absent: Lymphadenopathy - Respiratory Exam Respiratory Exam: Rhonchi, Respiratory Distress Additional comments: on BiPAP - Cardiovascular Exam Cardiovascular Exam: +S1, +S2. absent: JVD - GI/Abdominal Exam GI & Abdominal Exam: Soft. absent: Tenderness, Mass - Extremities Exam Extremities Exam: absent: Calf Tenderness, Pedal Edema Assessment and Plan - Assessment and Plan (Free Text) Assessment: 1. Respiratory distress on BiPAP 2. Pneumonia 3. Dilated CBD 4. Ulcerative colitis history 5. Chronic leg as well as rule out to pyoderma 6. Diarrhea. C. difficile stool test was negative flexible sigmoidoscopy did not reveal any colitis or pseudomembrane 7. Coronary artery disease CHF status post pacemaker placement 8. Anxiety, hypertension 9. Hypokalemia and hypomagnesemia being supplemented Plan: 1. Continue antibiotics as per ID 2. White cell show count showing improvement. On empiric by mouth vancomycin with improvement of the white cell count 3. Discussed with the patient's daughter was at bedside 4. Dilated CBD near normal LFT less likely biliary source of sepsis. EUS ERCP cancer patient has a restrictive and obstructive pulmonary disease. Family does not want intubation and they're concerned about her prolonged ventilatory support postprocedure
--- NOTE | 2016-12-17 00:23 | PN ---
DATE: 12/16/2016 HISTORY OF PRESENT ILLNESS: The patient was admitted to the hospital with weakness and diarrhea for few days. She has urosepsis, left upper lobe pneumonia. She had an episode of desaturation, currently on BiPAP. Daughter is at bedside. The patient appears comfortable. There is conflict among family members as to the level of care. The current daughter, Ms. Foss has power of district attorney. She gave all the papers to the nursing staff. She is stating that her other sister does not want her to be on BiPAP. She is in disagreement with level of care. The patient is nodding head that she is comfortable with the BiPAP. She is not in distress. Breathing has improved. No fever, no cough with expectoration. No event overnight. White count is declining. PAST MEDICAL HISTORY: Hypertension, COPD, ulcerative colitis, diabetes mellitus type 2, TIA, pacemaker. SOCIAL HISTORY: Lives with her daughter. PERSONAL HISTORY: No history of smoking or alcohol abuse. FAMILY HISTORY: Noncontributory. MEDICATIONS: Tylenol 650 q. 6 hours p.r.n., DuoNeb q. 6 hours p.r.n., Xanax 0.125 mg p.o. b.i.d., aspirin 81 mg daily, Pulmicort capsules, doxycycline q. 12 hours, heparin 5000 subcu q. 12, Xopenex q. 6 hours, schedule Zyvox 600 mg p.o. b.i.d., Nystatin 1 g topical t.i.d., Zofran p.r.n., Protonix 40 mg daily, vancomycin 250 mg p.o. q.i.d., and Zosyn. PHYSICAL EXAMINATION GENERAL: Comfortable in bed, in no acute distress. She appears comfortable. VITAL SIGNS: Temperature 98, heart rate is 93 per minute, blood pressure 135/65, heart rate is 88 per minute, respiratory rate 18 per minute, oxygen saturation 98% on BiPAP. HEENT: Oral mucosa appears comfortable. NECK: No lymphadenopathy. CHEST: Air entry present, equal, bilateral. No added sounds. CARDIOVASCULAR: S1, S2 normal. No murmur, no gallop. ABDOMEN: Soft, nontender. No hepatosplenomegaly. EXTREMITIES: Right extremity in dressing. 1+ pulsation present. NEUROLOGIC: Alert, unable to talk. Moving all the limbs. Lymphadenopathy, none. SKIN: Intact. LABORATORY DATA: White count 17,000, hemoglobin 9.4, hematocrit 29.4, platelet count 324. Sodium 152, potassium 2.9, creatinine 1. Bilirubin 0.4, transaminase normal. ASSESSMENT: 1. Urosepsis. 2. Left upper lobe pneumonia. 3. Leukocytosis. 4. Anemia. 5. Ulcerative colitis. 6. Right foot cellulitis. 7. Chronic obstructive pulmonary disease. 8. Diverticulosis. PLAN: She is currently comfortable with BiPAP, currently on IV antibiotic as per ID, vancomycin p.o., Zosyn and Zyvox. She is on bronchodilators. She is getting Xanax b.i.d. We will continue doxycycline also, heparin 5000 b.i.d. for DVT prophylaxis. Nystatin topical powder for application. White count is declining 17,000, it was initially 27,000. Hemoglobin and hematocrit have been stable. We will continue to monitor. Electrolytes are normal. Renal function is normal. LFTs improved. Discussed with daughter who is at bedside, Ms. Foss and discussed with the staff nurse. Kasey Grande MD
[2016-12-17] MEDS: Piperacillin/Tazobact 3.375 gm 100 ML IVPB SCH ×5 (00:54→23:36)
[2016-12-17] MEDS: Levalbuterol 0.63 MG/3 ML Inhal Soln UD IH SCH ×4 (02:24→21:10)
[2016-12-17] MEDS: Pantoprazole 40 mg EC Tab PO SCH (06:40)
[2016-12-17] MEDS: Budesonide 0.5 mg/2 ml Inhal Susp UD IH SCH ×2 (07:17→21:10)
--- NOTE | 2016-12-17 07:51 | PN ---
DATE: 12/17/2016 SUBJECTIVE: The patient appears more comfortable this morning. She is not short of breath at rest. PHYSICAL EXAMINATION VITAL SIGNS: Temperature is 97.3, pulse 70, respirations 18, blood pressure 131/63. Oxygen saturation on BiPAP is 100%. HEENT: Normocephalic, atraumatic. NECK: No JVD. CARDIOVASCULAR: Systolic ejection murmur at the lower left sternal border. Positive S3 gallop. LUNGS: Decreased breath sounds at the bases. Minimal/less rhonchi. No wheezing. EXTREMITIES: Less edema. No cyanosis, no clubbing. Calves are nontender to palpation. GASTROINTESTINAL: Abdomen is soft, nontender, nondistended. Bowel sounds are positive. SKIN: Chronic left leg ulcer. No rashes. NEUROLOGIC: Exam is limited at the present time. IMPRESSION: 1. Acute congestive heart failure. 2. Multilobar pneumonia. 3. Acute gastroenteritis. 4. Sepsis syndrome. 5. Chronic obstructive pulmonary disease. 6. Coronary artery disease. PLAN: The patient appears comfortable this morning. She is not short of breath at rest. She is currently on BiPAP with an oxygen saturation of 100%. I did discuss the case with the nurse at length. The nurse stated that the patient had a good night. On physical exam, there is less bronchospasm noted. I will continue with the current nebulizer treatments and inhaled steroids for now. We will also try changing the BiPAP to at night, and on a p.r.n. basis-discussed with nurse at length. The patient has received several doses of Lasix over the past few days. I did order a chest x-ray-two view-- for this patient-later today. CAT scan of the chest was also ordered. I would hold off on the CAT scan of the chest-as I am weary of placing the patient flat in a CAT scanner. I would continue with the antibiotic coverage as per infectious disease. Input by Dr. Varela is noted, Clinical status of the patient is certainly improved-compared to a few days ago. However, again, the overall status/prognosis for this elderly patient remains very guarded. I did have a long talk with the daughter yesterday and today. She understands. I will also discuss the above with the attending physician. Aleks Mejia MD [facility] # [id number] [facility]
[2016-12-17 09:11] LABS: HEMOGLOBIN 9.4 gm/dL (12.0-16.0); MEAN CELL VOLUME 93.2 fL (80.0-105.0); MEAN CORPUSCULAR HEMOGLOBIN 29.2 pg (25.0-35.0); MEAN CORPUSCULAR HGB CONC 31.3 g/dl (31.0-37.0); MEAN PLATELET VOLUME 8.6 fl (7.0-11.0); RBC 3.22 10^6/uL (3.5-6.1); RED CELL DISTRIBUTION WIDTH 14.3 % (11.5-14.5); WHITE BLOOD COUNT 15.5 10^3/ul (4.5-11.0)
[2016-12-17 09:12] LABS: CALCIUM 8.9 mg/dL (8.4-10.5)
--- NOTE | 2016-12-17 09:41 | CP.PCM.PN ---
Subjective - Date & Time of Evaluation Date of Evaluation: 12/17/16 Time of Evaluation: 09:35 - Subjective Subjective: 89 year old female patient seen at bedside with attending, Dr. Workman, for right lower extremity ulceration. Patient seen resting comfortably in bed, pt on BiPAP during evaluation. Patient's daughter is present at bedside. Patient admits to tenderness to RLE. Patient denies any acute events overnight. Patient denies N/V/F/D/C/SOB/calf pain. No other pedal complaints at this time. Objective - Vital Signs/Intake and Output Vital Signs (last 24 hours): Temp Pulse Resp BP Pulse Ox 97.3 F L 70 18 131/63 100 12/17/16 06:00 12/17/16 06:00 12/17/16 06:00 12/17/16 06:00 12/17/16 06:00 Intake and Output: 12/17/16 12/17/16 06:59 18:59 Intake Total 300 Balance 300 - Medications Medications: Current Medications Acetaminophen (Tylenol 325mg Tab) 650 mg PO Q6H PRN PRN Reason: Fever >100.4 F Last Admin: 12/10/16 05:26 Dose: 650 mg Acetic Acid (Acetic Acid 0.25% Irrig) 0 ml TP DAILY [facility] Last Admin: 12/16/16 09:17 Dose: Not Given Albuterol/Ipratropium (Duoneb 3 Mg/0.5 Mg (3 Ml) Ud) 3 ml IH Q2H PRN PRN Reason: Shortness of Breath Last Admin: 12/15/16 05:35 Dose: 3 ml Alprazolam (Xanax) 0.125 mg PO BID PRN; Protocol PRN Reason: Anxiety Stop: 12/20/16 18:01 Last Admin: 12/15/16 10:18 Dose: 0.125 mg Aspirin (Ecotrin) 81 mg PO DAILY [facility] Last Admin: 12/16/16 09:17 Dose: Not Given Budesonide (Pulmicort Respules) 0.5 mg IH [id number] [facility] Last Admin: 12/17/16 07:17 Dose: 0.5 mg Heparin Sodium (Porcine) (Heparin) 5,000 units SC Q12 [facility] PRN Reason: Protocol Last Admin: 12/16/16 23:43 Dose: 5,000 units Piperacillin Sod/Tazobactam Sod (Zosyn 3.375 In Ns 100ml) 100 mls @ 200 mls/hr IVPB Q6 [facility] PRN Reason: Protocol Stop: 12/18/16 09:08 Last Admin: 12/17/16 05:21 Dose: 200 mls/hr Doxycycline Hyclate 100 mg/ (Sodium Chloride) 100 mls @ 100 mls/hr IVPB Q12 [facility] PRN Reason: Protocol Stop: 12/22/16 10:01 Last Admin: 12/16/16 23:10 Dose: 100 mls/hr Lactobacillus Acidophilus (Bacid Acidophilus) 1 cap PO DAILY [facility] Last Admin: 12/16/16 09:17 Dose: Not Given Levalbuterol HCl (Xopenex) 0.63 mg IH [id number] [facility] Last Admin: 12/17/16 07:17 Dose: 0.63 mg Linezolid (Zyvox) 600 mg PO BID [facility] PRN Reason: Protocol Last Admin: 12/16/16 17:15 Dose: Not Given Mupirocin (Bactroban Ointment) 0 gm TOP QD5 [facility] Last Admin: 12/16/16 17:14 Dose: Not Given Nystatin (Nystop Topical Powder) 1 gm TOP TID [facility] Last Admin: 12/16/16 18:02 Dose: 1 gm Ondansetron HCl (Zofran Inj) 4 mg IVP Q6H PRN PRN Reason: Nausea/Vomiting Pantoprazole Sodium (Protonix Ec Tab) 40 mg PO 0600 [facility] Last Admin: 12/17/16 06:40 Dose: Not Given Vancomycin HCl (Vancocin 25 Mg/Ml (Oral Use)) 250 mg PO QID [facility] PRN Reason: Protocol Last Admin: 12/16/16 22:52 Dose: Not Given - Labs Labs: 12/17/16 08:45 12/17/16 08:45 PT 13.4 Seconds (9.9-11.8) H 12/12/16 05:40 INR 1.24 (0.93-1.08) H 12/12/16 05:40 APTT 35.7 Seconds (23.7-30.8) H 12/11/16 15:45 - Constitutional Appears: Well, No Acute Distress - Extremities Exam Additional comments: Bilateral LE focused physical exam: Dressing appears clean, dry, and intact to right foot. Heel off-devulcanizer loader to right LE is not in place. VASC: DP/PT pulses are palpable 1/4, cap refill < 3 sec to all digits, TG WNL, no pedal edema appreciated DERM: Right-diffuse superficial ulcer noted on distal right leg/ankle extending to dorsum and plantar aspect of the foot with mild serous exudate noted. Wound base is a mixture of granular tissue and epithelializing tissue. Minor marginal blanchable erythema noted on the distal leg as well as the foot, no clinical suspicion of active infection noted from the right lower extremity. Distal right heel early stage dark-eschar Left- No wounds noted to left lower extremity, no heel eschars noted. NEURO: protective pedal sensation is intact ORTHO: Tenderness on palpation of plantar and posterior right heel. Left 2nd digit dorso-lateral gross dislocation noted, non reducible. - Neurological Exam Neurological Exam: Alert, Awake, Oriented x3 Assessment and Plan - Assessment and Plan (Free Text) Assessment: 89 y/o female patient with 1) superficial, non-infection ulceration of right lower extremity vs pyoderma . 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 Plan: Patient seen and evaluated at bedside with attending, Dr. Workman. Chart, vitals, labs reviewed = afebrile, WBC = 15.5K trending downwards. Right lower extremity cleansed with sterile saline. Nystatin powder applied to RLE and dressed with DSD, and a lose FERDINAND wrap. Ordered Lotrisone. Ordered secondary to left lower extremity off-devulcanizer loader. Patient is to continue to wear offloading boot to RLE while in bed. . continue IV abx as per ID. Podiatry will continue to follow while patient in house
[2016-12-17] MEDS: Lactobacillus Acidophilus 500 MU Cap PO SCH (10:21)
[2016-12-17] MEDS: Vancomycin 25 MG/ML PO SCH (10:21)
[2016-12-17] MEDS: Acetic Acid 0.25% Irrig Sol TP SCH (10:47)
[2016-12-17] MEDS: Clotrimazole/Betamethasone Cream(15 gm) TOP SCH ×2 (10:47→18:08)
--- NOTE | 2016-12-17 10:54 | RAD ---
HISTORY: SOB COMPARISON: 12/15/2016 FINDINGS: LUNGS: No active pulmonary disease. PLEURA: No significant pleural effusion identified, no pneumothorax apparent. CARDIOVASCULAR: Decreased vascular congestion. The heart is normal in size OSSEOUS STRUCTURES: No significant abnormalities. VISUALIZED UPPER ABDOMEN: Normal. OTHER FINDINGS: Dual lead pacemaker IMPRESSION: Decreased vascular congestion
[2016-12-17] MEDS ORDERED: Potassium Chloride 20 mEq/15 ml LIQ UD PO STA (11:05)
[2016-12-17] MEDS ORDERED: Magnesium Sulfate 2 GM in Sodium Chloride 0.9% 100 ML IVPB ONE (11:10)
--- NOTE | 2016-12-17 11:27 | CP.PCM.PN ---
Subjective - Date & Time of Evaluation Date of Evaluation: 12/17/16 Time of Evaluation: 08:25 - Subjective Subjective: Now off the BiPAP machine, breathing a little better today, no fevers overnight. Objective - Vital Signs/Intake and Output Vital Signs (last 24 hours): Temp Pulse Resp BP Pulse Ox 97.7 F 67 18 142/62 100 12/17/16 00:01 12/17/16 02:00 12/17/16 00:01 12/17/16 00:01 12/17/16 00:01 Intake and Output: 12/16/16 12/17/16 18:59 06:59 Output Total 800 Balance -800 - Medications Medications: Current Medications Acetaminophen (Tylenol 325mg Tab) 650 mg PO Q6H PRN PRN Reason: Fever >100.4 F Last Admin: 12/10/16 05:26 Dose: 650 mg Acetic Acid (Acetic Acid 0.25% Irrig) 0 ml TP DAILY [facility] Last Admin: 12/16/16 09:17 Dose: Not Given Albuterol/Ipratropium (Duoneb 3 Mg/0.5 Mg (3 Ml) Ud) 3 ml IH Q2H PRN PRN Reason: Shortness of Breath Last Admin: 12/15/16 05:35 Dose: 3 ml Alprazolam (Xanax) 0.125 mg PO BID PRN; Protocol PRN Reason: Anxiety Stop: 12/20/16 18:01 Last Admin: 12/15/16 10:18 Dose: 0.125 mg Aspirin (Ecotrin) 81 mg PO DAILY [facility] Last Admin: 12/16/16 09:17 Dose: Not Given Budesonide (Pulmicort Respules) 0.5 mg IH [id number] [facility] Last Admin: 12/16/16 20:31 Dose: 0.5 mg Heparin Sodium (Porcine) (Heparin) 5,000 units SC Q12 [facility] PRN Reason: Protocol Last Admin: 12/16/16 23:43 Dose: 5,000 units Piperacillin Sod/Tazobactam Sod (Zosyn 3.375 In Ns 100ml) 100 mls @ 200 mls/hr IVPB Q6 [facility] PRN Reason: Protocol Stop: 12/18/16 09:08 Last Admin: 12/17/16 05:21 Dose: 200 mls/hr Doxycycline Hyclate 100 mg/ (Sodium Chloride) 100 mls @ 100 mls/hr IVPB Q12 [facility] PRN Reason: Protocol Stop: 12/22/16 10:01 Last Admin: 12/16/16 23:10 Dose: 100 mls/hr Lactobacillus Acidophilus (Bacid Acidophilus) 1 cap PO DAILY [facility] Last Admin: 12/16/16 09:17 Dose: Not Given Levalbuterol HCl (Xopenex) 0.63 mg IH [id number] [facility] Last Admin: 12/17/16 02:24 Dose: 0.63 mg Linezolid (Zyvox) 600 mg PO BID [facility] PRN Reason: Protocol Last Admin: 12/16/16 17:15 Dose: Not Given Mupirocin (Bactroban Ointment) 0 gm TOP QD5 [facility] Last Admin: 12/16/16 17:14 Dose: Not Given Nystatin (Nystop Topical Powder) 1 gm TOP TID [facility] Last Admin: 12/16/16 18:02 Dose: 1 gm Ondansetron HCl (Zofran Inj) 4 mg IVP Q6H PRN PRN Reason: Nausea/Vomiting Pantoprazole Sodium (Protonix Ec Tab) 40 mg PO 0600 [facility] Last Admin: 12/16/16 05:59 Dose: 40 mg Vancomycin HCl (Vancocin 25 Mg/Ml (Oral Use)) 250 mg PO QID [facility] PRN Reason: Protocol Last Admin: 12/16/16 22:52 Dose: Not Given - Labs Labs: 12/16/16 07:34 12/16/16 07:34 PT 13.4 Seconds (9.9-11.8) H 12/12/16 05:40 INR 1.24 (0.93-1.08) H 12/12/16 05:40 APTT 35.7 Seconds (23.7-30.8) H 12/11/16 15:45 - Constitutional Appears: Non-toxic, No Acute Distress - Head Exam Head Exam: NORMAL INSPECTION - ENT Exam ENT Exam: Mucous Membranes Moist - Neck Exam Neck Exam: absent: Meningismus - Respiratory Exam Respiratory Exam: Decreased Breath Sounds - Cardiovascular Exam Cardiovascular Exam: +S1, +S2 - GI/Abdominal Exam GI & Abdominal Exam: Soft. absent: Tenderness Assessment and Plan - Assessment and Plan (Free Text) Plan: Assessment severe sepsis with acute renal failure probably due to left upper and lower lobe healthcare-associated pneumonia, less likely biliary tree infection ulcerative colitis chronic left leg ulcer, R/O pyoderma gangrenosum COPD HTN CAD with chronic CHF S/P pacemaker placement anxiety disorder Plan Blood cx are negative continue Zosyn (total day 8 of antibiotics) and Zyvox (day 5); reviewed CT chest done 2 days ago showing the left sided pneumonia - follow up repeat CXR - will target 7-10 days of therapy currently no plans for EUS patient has no more LBM - will d/c PO Vancomycin and d/c isolation will continue to monitor clinically
[2016-12-17] MEDS: Nystatin 100,000 Units/gm Topical Pow(15 gm) TOP SCH ×3 (11:36→18:27)
--- NOTE | 2016-12-17 13:59 | PN ---
DATE: 12/17/2016 SUBJECTIVE: The patient is 89 years old, seen and examined, much more awake, alert, and oriented. Saturating well. No shortness of breath. PHYSICAL EXAMINATION: VITAL SIGNS: She is afebrile. Pulse 70, respiration 18, blood pressure 131/63. LUNGS: Bilateral fair air flow. No rhonchi or crackle. HEART: S1 and S2 audible. ABDOMEN: Soft, nontender. No rebound and no guarding. NEUROLOGIC: She is awake and alert, able to communicate. EXTREMITIES: Bilateral leg, no edema. LABORATORY DATA: WBC is 15.5, hemoglobin 9.4, hematocrit 30, platelets 354. Chemistry: Sodium 157, potassium 2.5, chloride 119, CO2 23, BUN 26, creatinine 1.1, blood sugar of 86, magnesium of 1.6. X-ray of the chest showed improved congestion. ASSESSMENT: 1. Respiratory insufficiency, was on BiPAP, now she is saturating well without BiPAP. 2. Resolving acute renal failure. 3. Left upper and lower lobe infiltrate. 4. History of chronic obstructive pulmonary disease. 5. Coronary artery disease. 6. Status post pacemaker. 7. Anxiety disorder. PLAN: Continue the patient on Zosyn and Zyvox. The patient is hypernatremic. I discussed with the patient's daughter by bedside by the bedside to encourage p.o. fluid. The patient is hypokalemic, so we will supplement potassium by 10 mEq and 40 mEq of p.o. dose, so the plan is magnesium sulfate. Jorden Mcneill MD
--- NOTE | 2016-12-17 16:32 | PN ---
SUBJECTIVE: The patient is seen lying in bed. She is awake. She is alert. She is comfortable. She does not appear to be in any kind of distress. PHYSICAL EXAMINATION: VITAL SIGNS: Blood pressure 134/67, heart rate 72, respiratory rate 18, temperature 97. HEENT: Normocephalic, atraumatic. NECK: Supple. No JVD. LUNGS: Bilateral equal air entry, bilateral rhonchi, crackles left base. CARDIAC: S1 and S2, regular rate and rhythm, no murmur, no rub. ABDOMEN: Soft, nondistended, nontender. Bowel sounds are present. EXTREMITIES: No lower extremity edema. INTAKE AND OUTPUT: 300/800. LABORATORY DATA: WBC 15.5, hemoglobin 9, hematocrit 30, platelets 354. Sodium 157, potassium 2.5, chloride 119, CO2 23, BUN 26, creatinine 1.1, glucose 86, calcium 8.9, phosphorous 3.6, magnesium 1.6, albumin 3.0, globulin 3.1. CURRENT MEDICATIONS: Ativan, Bacid, Bactroban, doxycycline, DuoNeb, Ecotrin, heparin, Lotrisone, Nystatin, Protonix, Pulmicort, Tylenol, Xanax, Xopenex, Zofran, Zosyn 3.375 q. 6, Zyvox. ASSESSMENT: 1. Severe hyponatremia. 2. Severe hypokalemia. 3. Hypomagnesemia. 4. Left lower lobe pneumonia. 5. Resolved acute kidney injury. 6. Anxiety. PLAN: 1. Potassium supplementation. 2. Magnesium supplementation. 3. Hypotonic IV fluids D5W at 60 mL per hour. 4. Antibiotics as per ID recommendations. 5. Avoid nephrotoxins. 6. Monitor electrolytes closely. 7. The patient is DNR/DNI. Kaitlin Anderson MD
[2016-12-18 01:52] VITALS: O2SAT 98
[2016-12-18] MEDS: Levalbuterol 0.63 MG/3 ML Inhal Soln UD IH SCH ×4 (02:47→20:16)
[2016-12-18] MEDS: Pantoprazole 40 mg EC Tab PO SCH (05:32)
[2016-12-18] MEDS: Piperacillin/Tazobact 3.375 gm 100 ML IVPB SCH (05:32)
--- NOTE | 2016-12-18 07:10 | PN ---
DATE: 12/18/2016 SUBJECTIVE: The patient appears very comfortable at rest. She is not short of breath. PHYSICAL EXAMINATION VITAL SIGNS: Temperature is 97.9, pulse 65, respirations 18, blood pressure 125/49. Oxygen saturation on nasal cannula is 98%. HEENT: Normocephalic and atraumatic. NECK: No JVD. CARDIOVASCULAR: Systolic ejection murmur at the lower left sternal border. Positive S3 gallop. LUNGS: Decreased breath sounds at the bases. Minimal rhonchi. No wheezing. EXTREMITIES: Less edema. No cyanosis, no clubbing. Calves are nontender to palpation. GASTROINTESTINAL: Abdomen is soft, nontender, nondistended. Bowel sounds are positive. SKIN: Chronic left leg ulcer. No rashes. NEUROLOGIC: Exam is limited at the present time. PERTINENT LABORATORY DATA: Chest x-ray was repeated yesterday and reviewed. The chest x-ray has certainly improved - with a decrease in the pulmonary edema. IMPRESSION: 1. Acute congestive heart failure - improved. 2. Multilobar pneumonia. 3. Acute gastroenteritis. 4. Sepsis syndrome. 5. Chronic obstructive pulmonary disease. 6. Coronary artery disease. PLAN: The patient appears very comfortable this morning. She is not short of breath at rest. She states she is feeling much better overall. Oxygen saturation on nasal cannula is now 98%. I did review the last chest x-ray - as above. The chest x-ray shows definite improvement with a decrease in the pulmonary edema (previously seen). The patient has been started on intravenous fluids as per renal. I would certainly watch the input and output data closely. The patient remains on antibiotic therapy - as per infectious disease. There are no temperatures noted. The leukocytosis has much improved/decreased. Clinical status of the patient has certainly improved - compared to last week. However, again, the overall status/prognosis of this patient remains very guarded at best. I did discuss the case with the daughter at length again yesterday. I will discuss the above with the attending physician. Aleks Mejia MD [facility]
[2016-12-18 07:17] LABS: HEMOGLOBIN 8.7 g/dL (12.0-16.0); MEAN CELL VOLUME 91.4 fl (80.0-105.0); MEAN CORPUSCULAR HEMOGLOBIN 28.8 pg (25.0-35.0); MEAN CORPUSCULAR HGB CONC 31.5 g/dl (31.0-37.0); MEAN PLATELET VOLUME 8.9 fl (7.0-11.0); RBC 3.02 10^6/uL (3.5-6.1); RED CELL DISTRIBUTION WIDTH 14.5 % (11.5-14.5); WHITE BLOOD COUNT 15.6 10^3/ul (4.5-11.0)
[2016-12-18] MEDS: Albuterol-Ipratrop 3 mg / 0.5 (3 ml) UD IH PRN (07:40)
[2016-12-18] MEDS: Budesonide 0.5 mg/2 ml Inhal Susp UD IH SCH ×2 (07:40→20:16)
[2016-12-18 07:50] LABS: ALBUMIN 2.7 g/dL (3.0-4.8); ALT/SGPT 28 U/L (7-56); AST/SGOT 25 U/L (15-39); BLOOD UREA NITROGEN 21 mg/dL (7-21); CALCIUM 8.6 mg/dL (8.4-10.5); GFR AFRICAN-AMERICAN > 60; GFR NON-AFRICAN AMERICAN 59
[2016-12-18] MEDS: Lactobacillus Acidophilus 500 MU Cap PO SCH (09:56)
[2016-12-18] MEDS: Nystatin 100,000 Units/gm Topical Pow(15 gm) TOP SCH ×3 (09:58→18:00)
[2016-12-18] MEDS ORDERED: Potassium Chloride 20 mEq/15 ml LIQ UD PO ONE (10:07)
[2016-12-18] MEDS: Potassium Chloride 20 mEq/15 ml LIQ UD PO SCH ×3 (11:20→18:02)
[2016-12-18] MEDS: Magnesium Oxide 400 mg Tab UD PO SCH ×2 (11:20→18:00)
[2016-12-18] MEDS: Clotrimazole/Betamethasone Cream(15 gm) TOP SCH ×2 (11:24→18:00)
[2016-12-18] MEDS: Acetic Acid 0.25% Irrig Sol TP SCH (11:24)
--- NOTE | 2016-12-18 13:28 | CP.PCM.PN ---
<Mayco Barfield - Last Filed: 12/18/16 13:25> Subjective - Date & Time of Evaluation Date of Evaluation: 12/18/16 Time of Evaluation: 12:26 - Subjective Subjective: 89 year old female patient seen at bedside for right lower extremity ulceration. Patient seen resting comfortably in bed. Patient's daughter is present at bedside. Patient admits to reduced tenderness to RLE. Pt's daughter wishes to have elongated toenails addressed. Patient denies any acute events overnight. Patient denies N/V/F/D/C/SOB/calf pain. No other pedal complaints at this time. Objective - Vital Signs/Intake and Output Vital Signs (last 24 hours): Temp Pulse Resp BP Pulse Ox 98.4 F 64 19 154/76 H 98 12/18/16 12:00 12/18/16 12:00 12/18/16 12:00 12/18/16 12:00 12/18/16 06:00 Intake and Output: 12/18/16 12/18/16 06:59 18:59 Intake Total 480 1940 Output Total 650 Balance -170 1940 - Medications Medications: Current Medications Acetaminophen (Tylenol 325mg Tab) 650 mg PO Q6H PRN PRN Reason: Fever >100.4 F Last Admin: 12/10/16 05:26 Dose: 650 mg Acetic Acid (Acetic Acid 0.25% Irrig) 0 ml TP DAILY [facility] Last Admin: 12/18/16 11:24 Dose: Not Given Albuterol/Ipratropium (Duoneb 3 Mg/0.5 Mg (3 Ml) Ud) 3 ml IH Q2H PRN PRN Reason: Shortness of Breath Last Admin: 12/18/16 07:40 Dose: 3 ml Alprazolam (Xanax) 0.125 mg PO BID PRN; Protocol PRN Reason: Anxiety Stop: 12/20/16 18:01 Last Admin: 12/15/16 10:18 Dose: 0.125 mg Aspirin (Ecotrin) 81 mg PO DAILY [facility] Last Admin: 12/18/16 09:57 Dose: 81 mg Betamethasone/Clotrimazole (Lotrisone) 0 gm TOP BID [facility] Last Admin: 12/18/16 11:24 Dose: Not Given Budesonide (Pulmicort Respules) 0.5 mg IH [id number] [facility] Last Admin: 12/18/16 07:40 Dose: 0.5 mg Heparin Sodium (Porcine) (Heparin) 5,000 units SC Q12 [facility] PRN Reason: Protocol Last Admin: 12/18/16 09:57 Dose: 5,000 units Doxycycline Hyclate 100 mg/ (Sodium Chloride) 100 mls @ 100 mls/hr IVPB Q12 [facility] PRN Reason: Protocol Stop: 12/22/16 10:01 Last Admin: 12/18/16 09:59 Dose: 100 mls/hr Potassium Chloride (Potassium Chloride 10 Meq/100 Ml) 10 meq in 100 mls @ 100 mls/hr IVPB Q2H [facility] Stop: 12/18/16 17:29 Last Admin: 12/18/16 13:01 Dose: 100 mls/hr Potassium Chloride 20 meq/ (Dextrose) 1,010 mls @ 60 mls/hr IV .[id number] [facility] Lactobacillus Acidophilus (Bacid Acidophilus) 1 cap PO DAILY [facility] Last Admin: 12/18/16 09:56 Dose: 1 cap Levalbuterol HCl (Xopenex) 0.63 mg IH [id number] [facility] Last Admin: 12/18/16 07:41 Dose: Not Given Linezolid (Zyvox) 600 mg PO BID [facility] PRN Reason: Protocol Last Admin: 12/18/16 09:59 Dose: 600 mg Lorazepam (Ativan) 0.25 mg IVP Q6H PRN; Protocol PRN Reason: Anxiety Last Admin: 12/18/16 12:06 Dose: 0.25 mg Magnesium Oxide (Mag-Ox) 400 mg PO BID [facility] Last Admin: 12/18/16 11:20 Dose: 400 mg Mupirocin (Bactroban Ointment) 0 gm TOP QD5 [facility] Last Admin: 12/17/16 16:51 Dose: Not Given Nystatin (Nystop Topical Powder) 1 gm TOP TID [facility] Last Admin: 12/18/16 09:58 Dose: 1 gm Ondansetron HCl (Zofran Inj) 4 mg IVP Q6H PRN PRN Reason: Nausea/Vomiting Pantoprazole Sodium (Protonix Ec Tab) 40 mg PO 0600 [facility] Last Admin: 12/18/16 05:32 Dose: Not Given Potassium Chloride (Potassium Chloride Oral Soln) 20 meq PO BID [facility] Last Admin: 12/18/16 11:20 Dose: 20 meq - Labs Labs: 12/18/16 06:10 12/18/16 06:10 PT 13.4 Seconds (9.9-11.8) H 12/12/16 05:40 INR 1.24 (0.93-1.08) H 12/12/16 05:40 APTT 35.7 Seconds (23.7-30.8) H 12/11/16 15:45 - Constitutional Appears: Well, Non-toxic, No Acute Distress - Extremities Exam Extremities Exam: Normal Inspection Additional comments: Bilateral LE focused physical exam: Dressing appears clean, dry, and intact to right foot. Heel off-liquid loader to right LE is not in place. VASC: DP/PT pulses are palpable 1/4, cap refill < 3 sec to all digits, TG WNL, no pedal edema appreciated DERM: Right-diffuse superficial ulcer noted on distal right leg/ankle extending to dorsum and plantar aspect of the foot with mild serous exudate noted. Wound base is a mixture of granular tissue and erly stage epithelializing tissue. Minor marginal blanchable erythema noted on the distal leg as well as the foot , no clinical suspicion of active infection noted from the right lower extremity. Distal right heel early stage dark-eschar Left- No wounds noted to left lower extremity, no heel eschars noted. NEURO: protective pedal sensation is intact ORTHO: Tenderness on palpation of plantar and posterior right heel. Bilateral 2nd digit dorso-lateral gross dislocation noted, non reducible. - Neurological Exam Neurological Exam: Alert, Awake, Oriented x3 Assessment and Plan - Assessment and Plan (Free Text) Assessment: 89 y/o female patient with 1) superficial, non-infection ulceration of right lower extremity vs pyoderma . 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 Plan: Patient seen and evaluated at bedside with attending, Dr. De León. Chart, vitals, labs reviewed = afebrile, WBC = 15.6K. Right lower extremity cleansed with sterile saline. Cortisone and Nystatin powder applied to RLE and dressed with DSD, and a lose FERDINAND wrap. Pending secondary to left lower extremity off-liquid loader. Patient is to continue to wear offloading boot to RLE while in bed. . continue IV abx as per ID. Podiatry will continue to follow while patient in house <Chi De León - Last Filed: 12/18/16 13:49> Objective - Vital Signs/Intake and Output Vital Signs (last 24 hours): Temp Pulse Resp BP Pulse Ox 98.4 F 64 19 154/76 H 98 12/18/16 12:00 12/18/16 12:00 12/18/16 12:00 12/18/16 12:00 12/18/16 06:00 Intake and Output: 12/18/16 12/18/16 06:59 18:59 Intake Total 480 1940 Output Total 650 Balance -170 1940 - Medications Medications: Current Medications Acetaminophen (Tylenol 325mg Tab) 650 mg PO Q6H PRN PRN Reason: Fever >100.4 F Last Admin: 12/10/16 05:26 Dose: 650 mg Acetic Acid (Acetic Acid 0.25% Irrig) 0 ml TP DAILY [facility] Last Admin: 12/18/16 11:24 Dose: Not Given Albuterol/Ipratropium (Duoneb 3 Mg/0.5 Mg (3 Ml) Ud) 3 ml IH Q2H PRN PRN Reason: Shortness of Breath Last Admin: 12/18/16 07:40 Dose: 3 ml Alprazolam (Xanax) 0.125 mg PO BID PRN; Protocol PRN Reason: Anxiety Stop: 12/20/16 18:01 Last Admin: 12/15/16 10:18 Dose: 0.125 mg Aspirin (Ecotrin) 81 mg PO DAILY [facility] Last Admin: 12/18/16 09:57 Dose: 81 mg Betamethasone/Clotrimazole (Lotrisone) 0 gm TOP BID [facility] Last Admin: 12/18/16 11:24 Dose: Not Given Budesonide (Pulmicort Respules) 0.5 mg IH [id number] [facility] Last Admin: 12/18/16 07:40 Dose: 0.5 mg Heparin Sodium (Porcine) (Heparin) 5,000 units SC Q12 [facility] PRN Reason: Protocol Last Admin: 12/18/16 09:57 Dose: 5,000 units Doxycycline Hyclate 100 mg/ (Sodium Chloride) 100 mls @ 100 mls/hr IVPB Q12 [facility] PRN Reason: Protocol Stop: 12/22/16 10:01 Last Admin: 12/18/16 09:59 Dose: 100 mls/hr Potassium Chloride (Potassium Chloride 10 Meq/100 Ml) 10 meq in 100 mls @ 100 mls/hr IVPB Q2H [facility] Stop: 12/18/16 17:29 Last Admin: 12/18/16 13:01 Dose: 100 mls/hr Potassium Chloride 20 meq/ (Dextrose) 1,010 mls @ 60 mls/hr IV .[id number] [facility] Lactobacillus Acidophilus (Bacid Acidophilus) 1 cap PO DAILY [facility] Last Admin: 12/18/16 09:56 Dose: 1 cap Levalbuterol HCl (Xopenex) 0.63 mg IH [id number] [facility] Last Admin: 12/18/16 13:35 Dose: 0.63 mg Linezolid (Zyvox) 600 mg PO BID [facility] PRN Reason: Protocol Last Admin: 12/18/16 09:59 Dose: 600 mg Lorazepam (Ativan) 0.25 mg IVP Q6H PRN; Protocol PRN Reason: Anxiety Last Admin: 12/18/16 12:06 Dose: 0.25 mg Magnesium Oxide (Mag-Ox) 400 mg PO BID [facility] Last Admin: 12/18/16 11:20 Dose: 400 mg Mupirocin (Bactroban Ointment) 0 gm TOP QD5 [facility] Last Admin: 12/17/16 16:51 Dose: Not Given Nystatin (Nystop Topical Powder) 1 gm TOP TID [facility] Last Admin: 12/18/16 09:58 Dose: 1 gm Ondansetron HCl (Zofran Inj) 4 mg IVP Q6H PRN PRN Reason: Nausea/Vomiting Pantoprazole Sodium (Protonix Ec Tab) 40 mg PO 0600 [facility] Last Admin: 12/18/16 05:32 Dose: Not Given Potassium Chloride (Potassium Chloride Oral Soln) 20 meq PO BID [facility] Last Admin: 12/18/16 11:20 Dose: 20 meq - Labs Labs: 12/18/16 06:10 12/18/16 06:10 PT 13.4 Seconds (9.9-11.8) H 12/12/16 05:40 INR 1.24 (0.93-1.08) H 12/12/16 05:40 APTT 35.7 Seconds (23.7-30.8) H 12/11/16 15:45 Attending/Attestation - Attestation I have personally seen and examined this patient.: Yes I have fully participated in the care of the patient.: Yes I have reviewed all pertinent clinical information, including history, physical exam and plan: Yes
--- NOTE | 2016-12-18 16:20 | CP.PCM.PN ---
Subjective - Date & Time of Evaluation Date of Evaluation: 12/18/16 Time of Evaluation: 08:50 - Subjective Subjective: Comfortable in bed, not in distress, afebrile. Objective - Vital Signs/Intake and Output Vital Signs (last 24 hours): Temp Pulse Resp BP Pulse Ox 97.9 F 65 18 125/49 L 98 12/18/16 00:01 12/18/16 06:00 12/18/16 00:01 12/18/16 00:01 12/18/16 00:01 - Medications Medications: Current Medications Acetaminophen (Tylenol 325mg Tab) 650 mg PO Q6H PRN PRN Reason: Fever >100.4 F Last Admin: 12/10/16 05:26 Dose: 650 mg Acetic Acid (Acetic Acid 0.25% Irrig) 0 ml TP DAILY [facility] Last Admin: 12/17/16 10:47 Dose: Not Given Albuterol/Ipratropium (Duoneb 3 Mg/0.5 Mg (3 Ml) Ud) 3 ml IH Q2H PRN PRN Reason: Shortness of Breath Last Admin: 12/15/16 05:35 Dose: 3 ml Alprazolam (Xanax) 0.125 mg PO BID PRN; Protocol PRN Reason: Anxiety Stop: 12/20/16 18:01 Last Admin: 12/15/16 10:18 Dose: 0.125 mg Aspirin (Ecotrin) 81 mg PO DAILY [facility] Last Admin: 12/17/16 10:21 Dose: Not Given Betamethasone/Clotrimazole (Lotrisone) 0 gm TOP BID [facility] Last Admin: 12/17/16 18:08 Dose: Not Given Budesonide (Pulmicort Respules) 0.5 mg IH [id number] [facility] Last Admin: 12/17/16 21:10 Dose: 0.5 mg Heparin Sodium (Porcine) (Heparin) 5,000 units SC Q12 [facility] PRN Reason: Protocol Last Admin: 12/17/16 21:14 Dose: 5,000 units Piperacillin Sod/Tazobactam Sod (Zosyn 3.375 In Ns 100ml) 100 mls @ 200 mls/hr IVPB Q6 [facility] PRN Reason: Protocol Stop: 12/18/16 09:08 Last Admin: 12/18/16 05:32 Dose: 200 mls/hr Doxycycline Hyclate 100 mg/ (Sodium Chloride) 100 mls @ 100 mls/hr IVPB Q12 [facility] PRN Reason: Protocol Stop: 12/22/16 10:01 Last Admin: 12/17/16 21:18 Dose: 100 mls/hr Dextrose (Dextrose 5% In Water 1000 Ml) 1,000 mls @ 60 mls/hr IV .[id number] [facility] Last Admin: 12/17/16 16:52 Dose: 60 mls/hr Lactobacillus Acidophilus (Bacid Acidophilus) 1 cap PO DAILY [facility] Last Admin: 12/17/16 10:21 Dose: Not Given Levalbuterol HCl (Xopenex) 0.63 mg IH [id number] [facility] Last Admin: 12/18/16 02:47 Dose: 0.63 mg Linezolid (Zyvox) 600 mg PO BID [facility] PRN Reason: Protocol Last Admin: 12/17/16 18:10 Dose: 600 mg Lorazepam (Ativan) 0.25 mg IVP Q6H PRN; Protocol PRN Reason: Anxiety Last Admin: 12/18/16 02:36 Dose: 0.25 mg Mupirocin (Bactroban Ointment) 0 gm TOP QD5 [facility] Last Admin: 12/17/16 16:51 Dose: Not Given Nystatin (Nystop Topical Powder) 1 gm TOP TID [facility] Last Admin: 12/17/16 18:27 Dose: 1 gm Ondansetron HCl (Zofran Inj) 4 mg IVP Q6H PRN PRN Reason: Nausea/Vomiting Pantoprazole Sodium (Protonix Ec Tab) 40 mg PO 0600 [facility] Last Admin: 12/18/16 05:32 Dose: Not Given - Labs Labs: 12/17/16 08:45 12/17/16 08:45 PT 13.4 Seconds (9.9-11.8) H 12/12/16 05:40 INR 1.24 (0.93-1.08) H 12/12/16 05:40 APTT 35.7 Seconds (23.7-30.8) H 12/11/16 15:45 - Constitutional Appears: Non-toxic, No Acute Distress - Head Exam Head Exam: NORMAL INSPECTION - ENT Exam ENT Exam: Mucous Membranes Moist - Neck Exam Neck Exam: absent: Meningismus - Respiratory Exam Respiratory Exam: Decreased Breath Sounds - Cardiovascular Exam Cardiovascular Exam: +S1, +S2 - GI/Abdominal Exam GI & Abdominal Exam: Soft. absent: Tenderness Assessment and Plan - Assessment and Plan (Free Text) Plan: Assessment severe sepsis with acute renal failure probably due to left upper and lower lobe healthcare-associated pneumonia, less likely biliary tree infection ulcerative colitis chronic left leg ulcer, R/O pyoderma gangrenosum COPD HTN CAD with chronic CHF S/P pacemaker placement anxiety disorder Plan Blood cx are negative continue Zosyn (total day 9 of antibiotics) and Zyvox (day 6); reviewed CT chest done 2 days ago showing the left sided pneumonia - follow up repeat CXR - will target 7-10 days of therapy currently no plans for EUS will continue to monitor clinically
--- NOTE | 2016-12-18 16:23 | PN ---
SUBJECTIVE: The patient is currently receiving both oral and IV potassium supplements for low-potassium level. The patient is set for transferred to the TCU later today. She is completing a course of antibiotics for her urinary tract infection and her upper lobe pneumonia along with her leg wounds. MEDICATIONS: Medication list reviewed. The patient is on acetic acid, Ativan, acidophilus, Bactroban, D5W 60 mL an hour, doxycycline, albuterol, Ecotrin, heparin, Lotrisone, magnesium oxide, Nystatin, oral and IV potassium supplements, Protonix, Pulmicort, Tylenol p.r.n., Xanax p.r.n., Xopenex, Zofran p.r.n., and Zyvox p.o. OBJECTIVE: INTAKE AND OUTPUT: Intake 1939. Output, not charted. PHYSICAL EXAMINATION: VITAL SIGNS: Blood pressure 154/76, temperature 98.4, pulse 64, respiratory rate of 19. HEENT: Eyes are closed. NECK: No neck vein distention. CHEST: Clear to auscultation and percussion. No rales. No rhonchi. No wheezing. CARDIOVASCULAR: Shows irregular rate and rhythm with no audible murmurs, rubs or gallops. ABDOMEN: Soft. Bowel sounds are normal. No rebound, no guarding. EXTREMITIES: Show no edema. No cyanosis. No clubbing. She has dressings over her right lower extremity with her leg raised. LABORATORY DATA AND IMAGING: CBC; white blood cell count today 15.6 with a hemoglobin of 8.7 and platelet count of 336,000. Chemistry; sodium 154, potassium 2.5 being supplemented. Chloride 117; CO2 of 26 with a BUN of 21 and a creatinine of 0.9. Glucose is 122. Calcium is 8.6. Magnesium is 2.0, phosphorous is 3.6. Liver enzymes are normal. Albumin is 2.7. Microbiology; leg wounds are positive for pseudomonas and amie. Stools are negative for C. diff. Initial urine culture was positive for enterococcus. ASSESSMENT: 1. Acute renal failure, resolved. Prerenal azotemia, resolved. The patient remains with a mildly elevated sodium level. It is difficult for her to increase her p.o. fluid hydration. She right now remains on IV fluid hydration. If the IV fluid hydration will continue in the TCU, the patient should be on hypotonic fluids, perhaps D5W with potassium. 2. Hypokalemia. Magnesium levels are normal. The patient will continue both oral and IV potassium supplements. No evidence according to her for any diarrhea. 3. Leukocytosis secondary to enterococcal urinary tract infection, leg wounds and a left upper lobe pneumonia. The patient will complete her course of antibiotic therapy and this will likely continue in the TCU. 4. Hypertension. Blood pressure is controlled. We will off medication. 5. History of ulcerative colitis, appears to be stable and no diarrhea. 6. History of noninsulin-dependent diabetes mellitus, glucose control is acceptable. PLAN: 1. Complete a course of antibiotic therapy, I agree with decision to move the patient to the TCU for completion of her antibiotics. 2. DNR/DNI noted. 3. Continue to monitor labs on a routine basis in the TCU. 4. The patient has received a course of iron supplementation. We will continue to monitor the patient along with you in laid of her electrolyte-related issues. Sea Patel MD
--- NOTE | 2016-12-18 23:04 | PN ---
DATE: SUBJECTIVE: The patient is 89 years old seen and examined. She was just given Ativan, because she had right foot dressing done by *------*. Otherwise, she was doing well. Not eating that good. PHYSICAL EXAMINATION: VITAL SIGNS: She is afebrile, pulse 50, respirations 20, blood pressure 142/66. LUNGS: Bilateral fair air flow, although diffusely decreased breath sound. HEART: S1 and S2 audible. ABDOMEN: Soft, nontender. No rebound and no guarding. NEUROLOGIC: She is sleepy, but arousable. Able to move all extremities. Had generalized weakness. LABORATORY DATA: WBC is 15.6, hemoglobin 8.7, hematocrit 27.6, platelet of 336. Chemistry: Sodium 154, potassium 2.5, chloride 170, CO2 26, BUN 21, creatinine 0.9, blood sugar 122, magnesium is 2. Her leg wound has pseudomonas aeruginosa and amie parapsilosis. Her stool for C. diff was done on 12/12/2016 is negative. ASSESSMENT AND PLAN: 1. Status post respiratory failure. 2. Chronic obstructive pulmonary disease. 3. Pneumonia. 4. Right foot ulcer. 5. History of hypertension. 6. Coronary artery disease. 7. Resolving renal insufficiency. 8. Hypokalemia. 9. Hypernatremia. PLAN: I spoke to the daughter at the bedside and encouraged p.o. fluid, IV fluid has been discontinued. Continue on nebulizer treatment. Ativan as needed. She is on doxycycline, Protonix, and Zyvox and awaiting TCU evaluation and acceptance and when that is available, the patient can be transferred to TCU. Jorden Mcneill MD
[2016-12-19] MEDS: Levalbuterol 0.63 MG/3 ML Inhal Soln UD IH SCH ×3 (01:31→13:21)
[2016-12-19] MEDS: Pantoprazole 40 mg EC Tab PO SCH (05:03)
[2016-12-19 05:21] LABS: HEMOGLOBIN 8.6 g/dL (12.0-16.0); MEAN CELL VOLUME 91.6 fl (80.0-105.0); MEAN CORPUSCULAR HEMOGLOBIN 28.8 pg (25.0-35.0); MEAN CORPUSCULAR HGB CONC 31.4 g/dl (31.0-37.0); MEAN PLATELET VOLUME 8.8 fl (7.0-11.0); RBC 2.99 10^6/uL (3.5-6.1); RED CELL DISTRIBUTION WIDTH 15.3 % (11.5-14.5); WHITE BLOOD COUNT 16.4 10^3/ul (4.5-11.0)
[2016-12-19 05:50] LABS: ALBUMIN 2.7 g/dL (3.0-4.8); ALT/SGPT 34 U/L (7-56); AST/SGOT 22 U/L (15-39); BLOOD UREA NITROGEN 14 mg/dL (7-21); CALCIUM 8.6 mg/dL (8.4-10.5); GFR AFRICAN-AMERICAN > 60; GFR NON-AFRICAN AMERICAN > 60; MAGNESIUM 1.8 mg/dL (1.7-2.2)
--- NOTE | 2016-12-19 07:54 | PN ---
DATE: 12/19/2016 SUBJECTIVE: The patient appears comfortable this morning. She is not short of breath at rest. PHYSICAL EXAMINATION VITAL SIGNS: Temperature 97.9, pulse 73, respirations 18, blood pressure 134/57. Oxygen saturation on nasal cannula is 98%. HEENT: Normocephalic and atraumatic. NECK: No JVD. CARDIOVASCULAR: Systolic ejection murmur at the lower left sternal border. Positive S3 gallop. LUNGS: Decreased breath sounds at the bases. Minimal/less rhonchi. No wheezing. GI: Abdomen is soft, nontender, nondistended. Bowel sounds are positive. EXTREMITIES: Less edema, no cyanosis, no clubbing. Calves are nontender to palpation. SKIN: Chronic left leg ulcer. No rashes. NEUROLOGIC: Limited at the present time. IMPRESSION: 1. Acute congestive heart failure - improved. 2. Multilobar pneumonia. 3. Acute gastroenteritis. 4. Sepsis syndrome. 5. Chronic obstructive pulmonary disease. 6. Coronary artery disease. PLAN: The patient appears comfortable this morning. She is not short of breath at rest. She states she is feeling much better overall. Oxygen saturation remains at 98% on nasal cannula. I did note the last chest x-ray in yesterday's assessment. The last chest x-ray was improved with a decrease in the pulmonary edema. I will continue the current nebulizer treatments and inhaled steroids for now. The bronchospasm is less. The alveolar arterial gradient is also less. The patient remains on antibiotic therapy - as per infectious disease. Temperatures have resolved. Repeat a.m. labs are pending. Clinical status of the patient is certainly improved. However, again, future status/prognosis for this patient remains very guarded. I do discuss the case with the daughter each day. All are aware. I will discuss the above with Dr. Castro. Aleks Mejia MD MTDD
[2016-12-19] MEDS: Budesonide 0.5 mg/2 ml Inhal Susp UD IH SCH (08:26)
[2016-12-19] MEDS: Potassium Chloride 20 mEq/15 ml LIQ UD PO SCH (09:59)
[2016-12-19] MEDS: Magnesium Oxide 400 mg Tab UD PO SCH (10:00)
[2016-12-19] MEDS: Lactobacillus Acidophilus 500 MU Cap PO SCH (10:00)
[2016-12-19] MEDS: Nystatin 100,000 Units/gm Topical Pow(15 gm) TOP SCH ×2 (10:00→15:15)
[2016-12-19] MEDS: Clotrimazole/Betamethasone Cream(15 gm) TOP SCH (10:02)
--- NOTE | 2016-12-19 10:24 | CP.PCM.PN ---
Subjective - Date & Time of Evaluation Date of Evaluation: 12/19/16 Time of Evaluation: 14:07 - Subjective Subjective: 89 year old female patient seen at bedside for right lower extremity ulceration. Patient seen resting comfortably in bed. Patient's daughter is present at bedside. Patient admits to pain during dressing changes of the right lower extremity. Patient denies any acute events overnight. Patient denies N/V/F /D/C/SOB/calf pain. No other pedal complaints at this time. Objective - Vital Signs/Intake and Output Vital Signs (last 24 hours): Temp Pulse Resp BP Pulse Ox 97.8 F 72 18 136/70 98 12/19/16 06:00 12/19/16 08:34 12/19/16 06:00 12/19/16 06:00 12/19/16 06:00 Intake and Output: 12/19/16 12/19/16 06:59 18:59 Intake Total 940 Balance 940 - Medications Medications: Current Medications Acetaminophen (Tylenol 325mg Tab) 650 mg PO Q6H PRN PRN Reason: Fever >100.4 F Last Admin: 12/10/16 05:26 Dose: 650 mg Acetic Acid (Acetic Acid 0.25% Irrig) [address] [facility] Last Admin: 12/18/16 11:24 Dose: Not Given Albuterol/Ipratropium (Duoneb 3 Mg/0.5 Mg (3 Ml) Ud) 3 ml IH Q2H PRN PRN Reason: Shortness of Breath Last Admin: 12/18/16 07:40 Dose: 3 ml Alprazolam (Xanax) 0.125 mg PO BID PRN; Protocol PRN Reason: Anxiety Stop: 12/20/16 18:01 Last Admin: 12/15/16 10:18 Dose: 0.125 mg Aspirin (Ecotrin) [address] [facility] Last Admin: 12/19/16 10:00 Dose: 81 mg Betamethasone/Clotrimazole (Lotrisone) [address] [facility] Last Admin: 12/19/16 10:02 Dose: 1 applic Budesonide (Pulmicort Respules) 0.[id number] [facility] Last Admin: 12/19/16 08:26 Dose: 0.5 mg Heparin Sodium (Porcine) (Heparin) 5,000 units SC Q12 [facility] PRN Reason: Protocol Last Admin: 12/19/16 10:01 Dose: 5,000 units Doxycycline Hyclate 100 mg/ (Sodium Chloride) 100 mls @ 100 mls/hr IVPB Q12 [facility] PRN Reason: Protocol Stop: 12/22/16 10:01 Last Admin: 12/19/16 10:04 Dose: 100 mls/hr Potassium Chloride 20 meq/ (Dextrose) 1,010 mls @ 60 mls/hr IV .[id number] [facility] Last Admin: 12/19/16 10:16 Dose: 60 mls/hr Lactobacillus Acidophilus (Bacid Acidophilus) [address] [facility] Last Admin: 12/19/16 10:00 Dose: 1 cap Levalbuterol HCl (Xopenex) 0.[id number] [facility] Last Admin: 12/19/16 08:26 Dose: 0.63 mg Linezolid (Zyvox) 600 mg PO BID [facility] PRN Reason: Protocol Last Admin: 12/19/16 10:16 Dose: 600 mg Lorazepam (Ativan) 0.25 mg IVP Q6H PRN; Protocol PRN Reason: Anxiety Last Admin: 12/18/16 12:06 Dose: 0.25 mg Magnesium Oxide (Mag-Ox) [address] [facility] Last Admin: 12/19/16 10:00 Dose: 400 mg Mupirocin (Bactroban Ointment) [address] [facility] Last Admin: 12/18/16 17:59 Dose: Not Given Nystatin (Nystop Topical Powder) [address] [facility] Last Admin: 12/19/16 10:00 Dose: 1 gm Ondansetron HCl (Zofran Inj) 4 mg IVP Q6H PRN PRN Reason: Nausea/Vomiting Pantoprazole Sodium (Protonix Ec Tab) [address] [facility] Last Admin: 12/19/16 05:03 Dose: Not Given - Labs Labs: 12/19/16 04:30 12/19/16 04:30 PT 13.4 Seconds (9.9-11.8) H 12/12/16 05:40 INR 1.24 (0.93-1.08) H 12/12/16 05:40 APTT 35.7 Seconds (23.7-30.8) H 12/11/16 15:45 - Constitutional Appears: Well, Non-toxic, No Acute Distress - Extremities Exam Additional comments: Bilateral LE focused physical exam: Dressing appears clean, dry, and intact to right foot. Heel off-tank car loader to right LE is not in place. VASC: DP/PT pulses are palpable 1/4, cap refill < 3 sec to all digits, TG WNL, no pedal edema appreciated DERM: Bilateral elongated, yellowed, brittle nails to all 10 toe nail plates. Right-diffuse superficial ulcer noted on distal right leg/ankle extending to dorsum and plantar aspect of the foot with mild serous exudate noted. Wound base is a mixture of granular tissue and early stage epithelializing tissue. Minor marginal blanchable erythema noted on the distal leg as well as the foot , no clinical suspicion of active infection noted from the right lower extremity. Distal right heel early stage dark-eschar Left- No wounds noted to left lower extremity, no heel eschars noted. NEURO: protective pedal sensation is intact ORTHO: Tenderness on palpation of plantar and posterior right heel. Bilateral 2nd digit dorso-lateral gross dislocation noted, non reducible. - Neurological Exam Neurological Exam: Alert, Awake Assessment and Plan - Assessment and Plan (Free Text) Assessment: 89 y/o female patient with 1) superficial, non-infection ulceration of right lower extremity vs pyoderma . 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 Plan: Patient seen and evaluated at bedside with attending, Dr. Workman. Chart, vitals, labs reviewed = afebrile, WBC = 16.4K Right lower extremity cleansed with sterile saline. Applied Cortisone to right lower extremity wounds. Dressed sites with adaptic with DSD, no longer will apply FERDINAND wrap. Held Nystatin until further notice for right leg wound, Acetic acid discontinued. Aseptic onychoreduction of all 10 nail plates performed without incident. Pending secondary to left lower extremity off-tank car loader. Patient is to continue to wear offloading boot to RLE while in bed. continue IV abx as per ID. Podiatry will continue to follow while patient in house and after transfer to TCU.
[2016-12-19] MEDS ORDERED: POTASSIUM PHOSPHATE IV SCH (11:35)
[2016-12-19] MEDS ORDERED: WATER IV SCH (11:35)
[2016-12-19] MEDS ORDERED: DEXTROSE IV SCH (11:35)
[2016-12-19] MEDS ORDERED: Dextrose 5%/0.45% NS 1,000 ML IV SCH (11:45)
[2016-12-19 12:29] VITALS: BP 134/62; PULSE 68; RESP 19; TEMP 98.2
--- NOTE | 2016-12-19 13:33 | CP.PCM.PN ---
Subjective - Date & Time of Evaluation Date of Evaluation: 12/19/16 Time of Evaluation: 09:10 - Subjective Subjective: Comfortable in bed, not in distress, afebrile. Objective - Vital Signs/Intake and Output Vital Signs (last 24 hours): Temp Pulse Resp BP Pulse Ox 98.2 F 68 19 134/62 98 12/19/16 12:00 12/19/16 12:00 12/19/16 12:00 12/19/16 12:00 12/19/16 06:00 Intake and Output: 12/19/16 12/19/16 06:59 18:59 Intake Total 940 Balance 940 - Medications Medications: Current Medications Acetaminophen (Tylenol 325mg Tab) 650 mg PO Q6H PRN PRN Reason: Fever >100.4 F Last Admin: 12/10/16 05:26 Dose: 650 mg Acetic Acid (Acetic Acid 0.25% Irrig) 0 ml TP DAILY [facility] Last Admin: 12/18/16 11:24 Dose: Not Given Albuterol/Ipratropium (Duoneb 3 Mg/0.5 Mg (3 Ml) Ud) 3 ml IH Q2H PRN PRN Reason: Shortness of Breath Last Admin: 12/18/16 07:40 Dose: 3 ml Alprazolam (Xanax) 0.125 mg PO BID PRN; Protocol PRN Reason: Anxiety Stop: 12/20/16 18:01 Last Admin: 12/15/16 10:18 Dose: 0.125 mg Aspirin (Ecotrin) 81 mg PO DAILY [facility] Last Admin: 12/19/16 10:00 Dose: 81 mg Betamethasone/Clotrimazole (Lotrisone) 0 gm TOP BID [facility] Last Admin: 12/19/16 10:02 Dose: 1 applic Budesonide (Pulmicort Respules) 0.5 mg IH [id number] [facility] Last Admin: 12/19/16 08:26 Dose: 0.5 mg Doxycycline Hyclate (Doryx) 100 mg PO Q12 [facility] PRN Reason: Protocol Heparin Sodium (Porcine) (Heparin) 5,000 units SC Q12 [facility] PRN Reason: Protocol Last Admin: 12/19/16 10:01 Dose: 5,000 units Dextrose/Sodium Chloride (Dextrose 5%/0.45% Ns 1000 Ml) 1,000 mls @ 40 mls/hr IV .Q24H [facility] Lactobacillus Acidophilus (Bacid Acidophilus) 1 cap PO DAILY [facility] Last Admin: 12/19/16 10:00 Dose: 1 cap Levalbuterol HCl (Xopenex) 0.63 mg IH [id number] [facility] Last Admin: 12/19/16 13:21 Dose: 0.63 mg Linezolid (Zyvox) 600 mg PO BID [facility] PRN Reason: Protocol Last Admin: 12/19/16 10:16 Dose: 600 mg Lorazepam (Ativan) 0.25 mg IVP Q6H PRN; Protocol PRN Reason: Anxiety Last Admin: 12/18/16 12:06 Dose: 0.25 mg Magnesium Oxide (Mag-Ox) 400 mg PO BID [facility] Last Admin: 12/19/16 10:00 Dose: 400 mg Mupirocin (Bactroban Ointment) 0 gm TOP QD5 [facility] Last Admin: 12/18/16 17:59 Dose: Not Given Nystatin (Nystop Topical Powder) 1 gm TOP TID [facility] Last Admin: 12/19/16 10:00 Dose: 1 gm Ondansetron HCl (Zofran Inj) 4 mg IVP Q6H PRN PRN Reason: Nausea/Vomiting Pantoprazole Sodium (Protonix Ec Tab) 40 mg PO 0600 [facility] Last Admin: 12/19/16 05:03 Dose: Not Given Potassium Phos/Sodium Phos (Neutra-Phos) 1 pkt PO BID [facility] - Labs Labs: 12/19/16 04:30 12/19/16 04:30 PT 13.4 Seconds (9.9-11.8) H 12/12/16 05:40 INR 1.24 (0.93-1.08) H 12/12/16 05:40 APTT 35.7 Seconds (23.7-30.8) H 12/11/16 15:45 - Constitutional Appears: Non-toxic, No Acute Distress - Head Exam Head Exam: NORMAL INSPECTION - ENT Exam ENT Exam: Mucous Membranes Moist - Neck Exam Neck Exam: absent: Lymphadenopathy, Meningismus - Respiratory Exam Respiratory Exam: Decreased Breath Sounds - Cardiovascular Exam Cardiovascular Exam: +S1, +S2 - GI/Abdominal Exam GI & Abdominal Exam: Soft. absent: Tenderness Assessment and Plan - Assessment and Plan (Free Text) Plan: Assessment severe sepsis with acute renal failure probably due to left upper and lower lobe healthcare-associated pneumonia, slowly improving ulcerative colitis chronic left leg ulcer, R/O pyoderma gangrenosum COPD HTN CAD with chronic CHF S/P pacemaker placement anxiety disorder Plan Blood cx are negative continue Zosyn (total day 10 of antibiotics) and Zyvox (day 7); reviewed CT chest done 2 days ago showing the left sided pneumonia - follow up repeat CXR - will target 7-10 days of therapy - should be able to d/c antibiotics in the next 24-48 hours will continue to monitor clinically
--- NOTE | 2016-12-19 13:39 | PN ---
DATE: GI FOLLOWUP NOTE SUBJECTIVE: Seen and examined at the bedside earlier today. Denies any nausea or vomiting. No shortness of breath, chest pain, or abdominal pain. PHYSICAL EXAMINATION: VITAL SIGNS: Temperature is 97.8, blood pressure 136/70, pulse 72, respirations 18, 98 nasal cannula. HEENT: Sclerae are anicteric. NECK: Supple. CARDIAC: S1 and S2. LUNGS: Sounds with decreased breath sounds. Positive rhonchi. No wheezing. ABDOMEN: Bowel sounds soft, nondistended, nontender on palpation. No rebound or guarding. EXTREMITIES: The patient has left leg ulcer, which is chronic, it is wrapped in bandage. NEUROLOGIC: Awake and alert. Receiving her breathing treatment. LABORATORY DATA: WBC is 16.4, H and H is 8.6 and 27.4, platelets are 304. Sodium 148, potassium 3.3, BUN is 14, creatinine 0.7, mag 1.8. LFTs were within normal limits. ASSESSMENT: Sepsis, pneumonia, improving congestive heart failure, chronic obstructive pulmonary disease, history of ulcerative colitis, dilated common bile duct. PLAN: Continue antibiotics as per ID. Monitor LFTs within normal limits. The patient is not an optimal candidate for EOS, ERCP secondary to her obstructive and restricted pulmonary disease. The patient's family does not want intubation and concerned about prolong ventilatory support post procedure. Continue her pureed diet. She is on aspirin, also on doxycycline, DVT prophylaxis, probiotic, Zyvox. Off vancomycin. Seen and discussed with Dr. Cruz. MARSHAL Crump
[2016-12-19] MEDS ORDERED: Nystatin 100,000 Units/gm Topical Pow(15 gm) TOP SCH (14:14)
[2016-12-19] MEDS: Acetic Acid 0.25% Irrig Sol TP SCH (15:14)
--- NOTE | 2016-12-19 16:21 | PN ---
DATE: 12/19/2016 SUBJECTIVE: The patient is seen sitting in bed. She is awake. She is alert. She denies any pain. She denies any shortness of breath. PHYSICAL EXAMINATION: GENERAL: Elderly lady, sitting in bed. VITAL SIGNS: Blood pressure 136/70, heart rate 70, respiratory rate 18, temperature 97.8. HEENT: Normocephalic and atraumatic. NECK: Supple. No JVD. LUNGS: Bilateral equal air entry, crackles at left base. No rhonchi. CARDIAC: S1 and S2, regular rate and rhythm, no murmur, no rub. ABDOMEN: Soft, nondistended, nontender. Bowel sounds are present. EXTREMITIES: Dressing of the left foot. INTAKE AND OUTPUT: 2880? LABORATORY DATA: WBC 16, hemoglobin 8.6, hematocrit 27, and platelets 304. Sodium 148, potassium 3.3, chloride 115, CO2 of 27, BUN 14, creatinine 0.7, glucose 130, calcium 8.6, phosphorous 1.8, magnesium 1.8, albumin 2.7. Wound cultures, pseudomonas and amie from the right foot. CURRENT MEDICATIONS: Ativan, Bacid, Bactroban, doxycycline 100 q. 12; DuoNeb, Ecotrin, heparin, Lotrisone, magnesium oxide, D5W with 20 mEq of KCL at 60, Protonix, Pulmicort, Tylenol, Xanax, Xopenex, Zofran, Zyvox. ASSESSMENT: 1. Resolved acute kidney injury. 2. Severe hypernatremia/dehydration, resolving, sodium much improved. 3. Hypokalemia. 4. Hypophosphatemia. 5. Left base pneumonia. 6. Wound infection. PLAN: 1. Change IV fluids to D5W with potassium phosphate at 60 mL per hour. 2. Antibiotics as per ID recommendations. 3. Physical therapy. 4. Add antifungals? Kaitlin Anderson MD
[2016-12-19] MEDS ORDERED: Potassium & Sodium Phosphate PO SCH (18:00)
--- NOTE | 2016-12-19 22:26 | CON ---
DATE: 12/19/2016 REQEUESTING PHYSICIAN: Dr. Mcneill_. REASON FOR CONSULTATION: Chest pain. HISTORY OF PRESENT ILLNESS: This is an 89-year-old woman, well known to us, with a history of AV conduction disease, status post permanent pacemaker implant and multiple cardiac risk factors, who was admitted with generalized weakness and diarrhea. While in the hospital, she complains of retrosternal chest discomfort. She is fairly inactive and has difficulty moving and has been jostled about in bed as need for her care. Early today, she began to complain of retrosternal chest discomfort. Electrocardiogram is nondiagnostic because of the chronic paced rhythm. There is no prior history of coronary artery disease. She does have significant risk factors given her history of diabetes and hypertension. She has also had TIA in the past. PAST MEDICAL HISTORY: Known for the problems mentioned above. She does have COPD and ulcerative colitis as well. CURRENT MEDICATIONS: Include Ativan p.r.n., doxycycline, DuoNeb inhaler, Ecotrin, subcutaneous heparin, Neutra-Phos, Protonix, Pulmicort inhaler, Xanax, Xopenex, and Zyvox. ALLERGIES: SHE HAS HAD REACTIONS TO SULFAS IN THE PAST. FAMILY HISTORY: Both parents are from age-related illnesses of family history of premature heart disease. SOCIAL HISTORY: She does not smoke or drink. REVIEW OF SYSTEMS: A 10-point review of systems is otherwise fairly unremarkable except for the problems mentioned above. PHYSICAL EXAMINATION GENERAL: She is a very elderly woman, who appears relatively frail. VITAL SIGNS: Her blood pressure is 136/70, the pulse is 70 with ventricular pacing, respirations are 16, she is afebrile. HEENT: [place] wasting is noted. NECK: No JVD present. CHEST: Kyphoscoliosis is present. Diminished breath sounds are noted bilaterally. HEART: PMI normal position and no pathologic murmur or gallops noted. ABDOMEN: Soft, nontender with normoactive bowel sounds. EXTREMITIES: Trace edema. Right foot is in a soft boot. SKIN: Warm and dry. PSYCHIATRIC: Normal mood and affect. NEUROLOGIC: No gross motor or sensory or speech. DIAGNOSTIC DATA: Potassium is 3.3 and has been replaced, BUN and creatinine 14 and 0.7, glucose is 130. Hemoglobin and hematocrit were 8.6 and 27.4, white count is 16.4, platelet count is 304,000. Electrocardiogram reveals a ventricular paced rhythm. Chest x-ray reveals possible apical infiltrate with poor inspiratory effort. IMPRESSION: 1. Chest pain with reproducible symptoms, this mainly due to musculoskeletal cause. 2. AV conduction disease, status post permanent pacemaker implant, stable at present. 3. History of severe chronic obstructive pulmonary disease. 4. History of severe deconditioning. RECOMMENDATIONS: A troponin has been drawn and will be checked, however, the pain is likely noncardiac in nature. Continue conservative management, appears most appropriate at this time. Assuming her troponin is normal, transfer to TCU would be reasonable. We will continue to arrange for pacemaker followup as an outpatient. Thank you for this consultation. Daniel Lord MD MTDD
--- NOTE | 2016-12-20 00:54 | CARD ---
APPROVED REPORT EKG Measurement Heart [id number] MT [id number] [id number] <Conclusion> Atrial sensed ventricular paced rhythm
--- NOTE | 2016-12-20 06:41 | DS ---
HOSPITAL COURSE: The patient is 89 years old, she was admitted with respiratory distress. She had abdominal pain. She was in acute renal failure with poor oral intake, so the patient was resuscitative with IV fluid. Her GI workup was done. HIDA scan was unremarkable, however, ultrasound showed cholelithiasis, but not acute cholecystitis, so she was treated with IV antibiotics. She also found to have right foot ulcer under care of Dr. Finney for that. Then plan was to do EUS, but given the patient's respiratory status and severe osteoarthritis, the test was postponed. CT scan of the chest on 12/12 showed left upper lobe consolidation and she also has Enterococcus faecalis UTI, so had been on antibiotic. Initially, she was in ICU and then transfer to telemetry. PHYSICAL EXAMINATION: GENERAL: Today, she is awake and alert, able to communicate. VITAL SIGNS: She is afebrile, pulse 68, respirations 18 and blood pressure 136/70. LUNGS: Bilateral fair airflow. No rhonchi or crackles. HEART: S1 and S2 audible. ABDOMEN: Soft and nontender. No rebound. No guarding. NEUROLOGIC: She is awake and alert, able to communicate, hard of hearing. LABORATORY DATA: WBC 16.4, hemoglobin 8.6, hematocrit 27.4 and platelets of 304. Chemistry; sodium 148, potassium 3.3, chloride 115, CO2 of 27, BUN 14, creatinine 0.7, blood sugar of 130 and phosphorus is 1.8. ASSESSMENT AND PLAN: 1. Resolving left upper lobe pneumonia. 2. Leukocytosis. 3. Right foot ulcer. 4. Chronic obstructive pulmonary disease. 5. Hypertension. 6. Coronary artery disease. The patient complain of chest pain this morning, Dr. Lord was consulted. EKG was done unremarkable. Awaiting troponin. The patient seems to be clinically and hemodynamically stable. Discuss with the patient's daughter and will discharge the patient and admit her in TCU. I will switch her doxycycline 2 p.o. for another 2-3 days to complete 10 days and will followup her CBC and CMP in a.m. Jorden Mcneill MD [facility] # [id number]
== END 2016-12-19 15:47 | DRG 871 ==
LOC: ED 19:07 → ERH 23:01 → CCU 12-09 02:16 → 5RSO 12-14 12:44 → 2RNO 12-15 15:02
PROVIDERS: ADMIT Internal Medicine; ATTEND Internal Medicine
PROC: 3E0F7GC Introduction of Other Therapeutic Substance into Respiratory Tract, Via Natural or Artificial Opening (ICD-10-PCS; 2016-12-09)
PROC: 0DJD8ZZ Inspection of Lower Intestinal Tract, Via Natural or Artificial Opening Endoscopic (ICD-10-PCS; principal; 2016-12-12 15:00)
PROC: 5A09457 Assistance with Respiratory Ventilation, 24-96 Consecutive Hours, Continuous Positive Airway Pressure (ICD-10-PCS; 2016-12-15)
DX: A41.9 Sepsis, unspecified organism (principal); J18.9 Pneumonia, unspecified organism; N17.9 Acute kidney failure, unspecified; G93.41 Metabolic encephalopathy; J96.91 Respiratory failure, unspecified with hypoxia; I13.0 Hypertensive heart and chronic kidney disease with heart failure and stage 1 through stage 4 chronic kidney disease, or unspecified chronic kidney disease; E87.0 Hyperosmolality and hypernatremia; J44.0 Chronic obstructive pulmonary disease with (acute) lower respiratory infection; K51.90 Ulcerative colitis, unspecified, without complications; I50.9 Heart failure, unspecified; E87.2 Acidosis; E87.1 Hypo-osmolality and hyponatremia; L03.115 Cellulitis of right lower limb; L97.929 Non-pressure chronic ulcer of unspecified part of left lower leg with unspecified severity; N39.0 Urinary tract infection, site not specified; E11.22 Type 2 diabetes mellitus with diabetic chronic kidney disease; E87.5 Hyperkalemia; E86.0 Dehydration; M10.9 Gout, unspecified; M40.209 Unspecified kyphosis, site unspecified; M19.90 Unspecified osteoarthritis, unspecified site; K57.90 Diverticulosis of intestine, part unspecified, without perforation or abscess without bleeding; K21.9 Gastro-esophageal reflux disease without esophagitis; R65.20 Severe sepsis without septic shock; N18.2 Chronic kidney disease, stage 2 (mild); I25.10 Atherosclerotic heart disease of native coronary artery without angina pectoris; E11.622 Type 2 diabetes mellitus with other skin ulcer; B95.2 Enterococcus as the cause of diseases classified elsewhere; R26.2 Difficulty in walking, not elsewhere classified; E11.621 Type 2 diabetes mellitus with foot ulcer; L97.519 Non-pressure chronic ulcer of other part of right foot with unspecified severity; D50.9 Iron deficiency anemia, unspecified; E87.6 Hypokalemia; E83.42 Hypomagnesemia; M20.42 Other hammer toe(s) (acquired), left foot; F41.9 Anxiety disorder, unspecified; Z66 Do not resuscitate; Z79.84 Long term (current) use of oral hypoglycemic drugs; Z86.73 Personal history of transient ischemic attack (TIA), and cerebral infarction without residual deficits; I25.2 Old myocardial infarction; Q67.7 Pectus carinatum; Z95.0 Presence of cardiac pacemaker; Z88.2 Allergy status to sulfonamides; K80.70 Calculus of gallbladder and bile duct without cholecystitis without obstruction

== ENCOUNTER 2016-12-19 15:47 | Inpatient (IN) | payer OTHER, MEDICARE ==
[2016-12-19 16:36] VITALS: BMI 25.4
[2016-12-19] MEDS ORDERED: LORazepam Half Tablet 0.25 MG PO PRN (16:47)
[2016-12-19] MEDS ORDERED: Potassium Chl 20mEq & D5W 1,000 ML IV SCH (16:47)
[2016-12-19] MEDS ORDERED: Albuterol-Ipratrop 3 mg / 0.5 (3 ml) UD IH PRN (16:47)
[2016-12-19] MEDS: Magnesium Oxide 400 mg Tab UD PO SCH (18:42)
[2016-12-19] MEDS: Clotrimazole/Betamethasone Cream(15 gm) TOP SCH (18:42)
[2016-12-19] MEDS: Nystatin 100,000 Units/gm Topical Pow(15 gm) TOP SCH (18:43)
[2016-12-19] MEDS: Arformoterol 15 mcg/2 ml Inh Sol IH SCH (21:23)
[2016-12-19] MEDS: Budesonide 0.5 mg/2 ml Inhal Susp UD IH SCH (21:23)
[2016-12-20] MEDS: Piperacillin/Tazobact 3.375 gm 100 ML IVPB SCH ×4 (02:21→17:51)
[2016-12-20] MEDS: Pantoprazole 40 mg EC Tab PO SCH (05:23)
[2016-12-20] MEDS: Budesonide 0.5 mg/2 ml Inhal Susp UD IH SCH ×2 (07:22→20:03)
[2016-12-20] MEDS: Arformoterol 15 mcg/2 ml Inh Sol IH SCH ×2 (07:22→20:03)
[2016-12-20 07:29] LABS: ADD MANUAL DIFF? NO
[2016-12-20 07:32] LABS: BASO # 0.01 K/mm3 (0.0-2.0); BASO % 0.1 % (0.0-3.0); EOS % 0.2 % (1.5-5.0); GRAN # 11.59 (1.4-6.5); GRAN % 88.2 % (50.0-68.0); HEMATOCRIT 27.3 % (36.0-48.0); LYMPH # 0.7 (1.2-3.4); LYMPH % 5.3 % (22.0-35.0); MEAN CELL VOLUME 93.2 fl (80.0-105.0); MEAN CORPUSCULAR HEMOGLOBIN 29.7 pg (25.0-35.0); MEAN CORPUSCULAR HGB CONC 31.9 g/dl (31.0-37.0); MEAN PLATELET VOLUME 9.4 fl (7.0-11.0); MONO # 0.8 (0.1-0.6); MONO % 6.2 % (1.0-6.0); PLATELET COUNT 301 10^3/uL (120.0-450.0); RED CELL DISTRIBUTION WIDTH 15.6 % (11.5-14.5); WHITE BLOOD COUNT 13.1 10^3/ul (4.5-11.0)
[2016-12-20 07:45] LABS: BLOOD UREA NITROGEN 11 mg/dL (7-21); CALCIUM 8.5 mg/dL (8.4-10.5); CARBON DIOXIDE 27 mmol/L (21-33); CHLORIDE 113 mmol/L (95-110); GFR AFRICAN-AMERICAN > 60; GLUCOSE,RANDOM 97 mg/dL (70-110); POTASSIUM 3.6 mmol/L (3.6-5.0); SODIUM 147 mmol/L (132-148)
[2016-12-20] MEDS: Lactobacillus Acidophilus 500 MU Cap PO SCH (09:37)
[2016-12-20] MEDS: Magnesium Oxide 400 mg Tab UD PO SCH ×2 (09:38→17:50)
[2016-12-20] MEDS: Clotrimazole/Betamethasone Cream(15 gm) TOP SCH ×2 (11:18→17:51)
[2016-12-20] MEDS: Nystatin 100,000 Units/gm Topical Pow(15 gm) TOP SCH ×3 (11:19→17:51)
--- NOTE | 2016-12-20 11:42 | CP.PCM.PN ---
<Cali Sharpe - Last Filed: 12/20/16 11:37> Subjective - Date & Time of Evaluation Date of Evaluation: 12/20/16 Time of Evaluation: 10:37 - Subjective Subjective: 89 year old female patient seen at bedside for right lower extremity ulceration. Patient seen resting comfortably in bed. Patient's daughter is present at bedside. Patient admits to pain during dressing changes of the right lower extremity. Patient denies any acute events overnight. Patient denies N/V/F /D/C/SOB/calf pain. No other pedal complaints at this time. Objective - Vital Signs/Intake and Output Vital Signs (last 24 hours): Temp Pulse Resp BP Pulse Ox 97.8 F 54 L 14 91/49 L 12/19/16 17:15 12/19/16 17:15 12/19/16 17:15 12/19/16 17:15 - Medications Medications: Current Medications Albuterol/Ipratropium (Duoneb 3 Mg/0.5 Mg (3 Ml) Ud) 3 ml IH Q2H PRN; Protocol PRN Reason: Shortness of Breath Alprazolam (Xanax) 0.125 mg PO BID PRN; Protocol PRN Reason: Anxiety Stop: 12/26/16 16:36 Arformoterol Tartrate (Brovana) 15 mcg IH [id number] [facility] Last Admin: 12/20/16 07:22 Dose: 15 mcg Aspirin (Ecotrin) 81 mg PO 0800 [facility] PRN Reason: Protocol Last Admin: 12/20/16 08:37 Dose: 81 mg Betamethasone/Clotrimazole (Lotrisone) 1 gm TOP BID [facility] PRN Reason: Protocol Last Admin: 12/20/16 11:18 Dose: Not Given Budesonide (Pulmicort Respules) 0.5 mg IH [id number] [facility] PRN Reason: Protocol Last Admin: 12/20/16 07:22 Dose: 0.5 mg Heparin Sodium (Porcine) (Heparin) 5,000 units SC 0600,1800 [facility] PRN Reason: Protocol Last Admin: 12/20/16 05:22 Dose: 5,000 units Piperacillin Sod/Tazobactam Sod (Zosyn 3.375 In Ns 100ml) 100 mls @ 200 mls/hr IVPB Q6 [facility] PRN Reason: Protocol Stop: 12/27/16 00:01 Last Admin: 12/20/16 05:23 Dose: 200 mls/hr Lactobacillus Acidophilus (Bacid Acidophilus) 1 cap PO DAILY [facility] Last Admin: 12/20/16 09:37 Dose: 1 cap Levalbuterol HCl (Xopenex) 0.63 mg IH [id number] PRN; Protocol PRN Reason: Shortness of Breath Linezolid (Zyvox) 600 mg PO BID [facility] PRN Reason: Protocol Last Admin: 12/20/16 09:39 Dose: 600 mg Lorazepam (Ativan) 0.25 mg PO Q6H PRN; Protocol PRN Reason: Anxiety Last Admin: 12/20/16 09:36 Dose: 0.25 mg Magnesium Oxide (Mag-Ox) 400 mg PO BID [facility] Last Admin: 12/20/16 09:38 Dose: 400 mg Nystatin (Nystop Topical Powder) 1 gm TOP TID [facility] PRN Reason: Protocol Last Admin: 12/20/16 11:19 Dose: 1 applic Ondansetron HCl (Zofran Inj) 4 mg IVP Q6H PRN; Protocol PRN Reason: Nausea/Vomiting Pantoprazole Sodium (Protonix Ec Tab) 40 mg PO 0600 [facility] Last Admin: 12/20/16 05:23 Dose: 40 mg - Labs Labs: 12/20/16 06:00 12/20/16 06:00 - Constitutional Appears: Well, Non-toxic, No Acute Distress - Extremities Exam Additional comments: Bilateral LE focused physical exam: Dressing appears clean, dry, and intact to right foot. Heel off-extractor loader and unloader to right LE is not in place. VASC: DP/PT pulses are palpable 1/4, cap refill < 3 sec to all digits, skin temperature warm to warm from proximal to distal, no pedal edema appreciated DERM: Bilateral elongated, yellowed, brittle nails to all 10 toe nail plates. Right-diffuse superficial ulcer noted on distal right leg/ankle extending to dorsum and plantar aspect of the foot with mild serous exudate noted. Wound base is a mixture of granular tissue and early stage epithelializing tissue. Minor marginal blanchable erythema noted on the distal leg as well as the foot , no clinical suspicion of active infection noted from the right lower extremity. Distal right heel early stage dark-eschar Left- No wounds noted to left lower extremity, no heel eschars noted. NEURO: protective pedal sensation is intact ORTHO: Tenderness on palpation of plantar and posterior right heel. Bilateral 2nd digit dorso-lateral gross dislocation noted, non reducible. - Neurological Exam Neurological Exam: Alert, Awake, Oriented x3 - Psychiatric Exam Psychiatric exam: Normal Affect, Normal Mood Assessment and Plan - Assessment and Plan (Free Text) Assessment: 89 y/o female patient with 1) superficial, non-infection ulceration of right lower extremity vs pyoderma . 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 Plan: Patient seen and evaluated at bedside with attending, Dr. Workman. Chart, vitals, labs reviewed = afebrile, WBC = 13.1 decreased from 16.4 12/20/16 Cortisone cream was not applied at this time Right leg wound dressed with non-adhesive dressing, ABD and kirlix. Patient tolerated dressing change well Pending secondary to left lower extremity off-extractor loader and unloader. Patient is to continue to wear offloading boot to RLE while in bed. continue IV abx as per ID. Podiatry will continue to follow while patient in house <Ashlie Workman - Last Filed: 12/23/16 19:57> Objective - Vital Signs/Intake and Output Vital Signs (last 24 hours): Temp Pulse Resp BP Pulse Ox 98.3 F 85 20 142/62 94 L 12/23/16 08:00 12/23/16 08:00 12/23/16 08:00 12/23/16 08:00 12/22/16 06:00 - Medications Medications: Current Medications Acetaminophen (Tylenol 325mg Tab) 650 mg PO Q6H PRN PRN Reason: Pain, moderate (4-7) Last Admin: 12/22/16 09:31 Dose: 650 mg Albuterol/Ipratropium (Duoneb 3 Mg/0.5 Mg (3 Ml) Ud) 3 ml IH Q2H PRN; Protocol PRN Reason: Shortness of Breath Alprazolam (Xanax) 0.125 mg PO BID PRN; Protocol PRN Reason: Anxiety Stop: 12/26/16 16:36 Last Admin: 12/23/16 13:59 Dose: 0.125 mg Arformoterol Tartrate (Brovana) 15 mcg IH [id number] [facility] Last Admin: 12/23/16 07:32 Dose: 15 mcg Aspirin (Ecotrin) 81 mg PO 0800 [facility] PRN Reason: Protocol Last Admin: 12/23/16 08:08 Dose: 81 mg Betamethasone/Clotrimazole (Lotrisone) 1 gm TOP BID [facility] PRN Reason: Protocol Last Admin: 12/23/16 18:28 Dose: 1 dose Budesonide (Pulmicort Respules) 0.5 mg IH [id number] [facility] PRN Reason: Protocol Last Admin: 12/23/16 07:32 Dose: 0.5 mg Heparin Sodium (Porcine) (Heparin) 5,000 units SC 0600,1800 [facility] PRN Reason: Protocol Last Admin: 12/23/16 18:26 Dose: 5,000 units Lactobacillus Acidophilus (Bacid Acidophilus) 1 cap PO DAILY [facility] Last Admin: 12/23/16 10:27 Dose: 1 cap Levalbuterol HCl (Xopenex) 0.63 mg IH [id number] PRN; Protocol PRN Reason: Shortness of Breath Magnesium Oxide (Mag-Ox) 400 mg PO BID [facility] Last Admin: 12/23/16 18:28 Dose: 400 mg Nystatin (Nystop Topical Powder) 1 gm TOP TID [facility] PRN Reason: Protocol Last Admin: 12/23/16 18:37 Dose: Not Given Ondansetron HCl (Zofran Inj) 4 mg IVP Q6H PRN; Protocol PRN Reason: Nausea/Vomiting Pantoprazole Sodium (Protonix Ec Tab) 40 mg PO 0600 [facility] Last Admin: 12/23/16 06:27 Dose: 40 mg - Labs Labs: 12/22/16 06:00 12/22/16 06:00 Attending/Attestation - Attestation I have personally seen and examined this patient.: Yes I have fully participated in the care of the patient.: Yes I have reviewed all pertinent clinical information, including history, physical exam and plan: Yes
--- NOTE | 2016-12-20 12:42 | PN ---
PULMONARY NOTE: DATE: 12/20/2016 SUBJECTIVE: The patient appears comfortable this morning. She is not short of breath at rest. PHYSICAL EXAMINATION VITAL SIGNS: Temperature is 97.8, pulse this morning is approximately 80, respirations 16/18, last blood pressure recorded 91/49. Oxygen saturation on nasal cannula is 98%. HEENT: Normocephalic and atraumatic. NECK: No JVD. CARDIOVASCULAR: Systolic ejection murmur at the lower left sternal border. Positive S3 gallop. LUNGS: Decreased breath sounds at the bases. Much less rhonchi. No wheezing. EXTREMITIES: Less edema. No cyanosis, no clubbing. Calves are nontender to palpation. GASTROINTESTINAL: Abdomen is soft, nontender, and nondistended. Bowel sounds are positive. SKIN: Chronic left leg ulcer. No rashes. NEUROLOGIC: Limited at the present time. IMPRESSION: 1. Acute congestive heart failure - improved. 2. Multilobar pneumonia. 3. Acute gastroenteritis. 4. Sepsis syndrome. 5. Chronic obstructive pulmonary disease. 6. Coronary artery disease. PLAN: The patient appears comfortable this morning. She is not short of breath at rest. She does state that she is feeling better overall. Oxygen saturation on nasal cannula is 98%. I will continue with the current nebulizer treatments and inhaled steroids for now. The patient did have a cardiology consult with Dr. Lord yesterday. His input is noted. The patient is now on the transitional unit where she will participate with physical therapy. Clinical status for the patient is significantly improved - compared to last week. However, again, the overall status/prognosis for this elderly patient does remain guarded. All are aware. I will discuss the above with Dr. Mcneill. Aleks Mejia MD MTDD
--- NOTE | 2016-12-20 17:27 | CP.PCM.CON ---
History of Present Illness - History of Present Illness History of Present Illness: 89 year old female with PMH of ulcerative colitis, chronic left leg ulcer, COPD , HTN, CAD with chronic CHF, S/P pacemaker placement, anxiety disorder was initially brought in to [facility] because of lethargy and she was found to be in sepsis due to left sided HCAP. She has been on antibiotics and has been doing well, as well as on BiPAP for a short time. She is now transferred to [facility] for continued medical therapy and physical rehabilitation. Infectious Diseases consult is requested to further evaluate and manage. Currently, the patient is comfortable in bed, not in distress. She denies fever or chills, no nausea or vomiting, no chest pain, no SOB, no headache or dizziness, no abdominal pain, no diarrhea, no dysuria. Review of Systems - Review of Systems All systems: reviewed and no additional remarkable complaints except (as per HPI ) Past Patient History - Infectious Disease Hx of Infectious Diseases: None - Past Social History Smoking Status: Never Smoked - CARDIAC Hx Cardiac Disorders: Yes Hx Hypertension: Yes - PULMONARY Hx Chronic Obstructive Pulmonary Disease (COPD): Yes - NEUROLOGICAL Hx Neurological Disorder: Yes - HEENT Hx HEENT Problems: Yes Other/Comment: wear [employer] glasses for reading and distance - RENAL Hx Chronic Kidney Disease: No - ENDOCRINE/METABOLIC Hx Endocrine Disorders: No - HEMATOLOGICAL/ONCOLOGICAL Hx Blood Disorders: No - INTEGUMENTARY Hx Dermatological Problems: No - MUSCULOSKELETAL/RHEUMATOLOGICAL Hx Falls: Yes - GASTROINTESTINAL Hx Gastrointestinal Disorders: Yes (SWALLOWING PROBLEM,ON PUREED.ENSURE CLEAR, DEHYDRATION) - GENITOURINARY/GYNECOLOGICAL Hx Genitourinary Disorders: Yes Hx Reproductive Disorders: No - PSYCHIATRIC Hx Psychophysiologic Disorder: Yes Hx Anxiety: Yes Hx Substance Use: No - SURGICAL HISTORY Hx Surgeries: Yes - ANESTHESIA Hx Anesthesia Reactions: No Hx Malignant Hyperthermia: No Meds Allergies/Adverse Reactions: Allergies Allergy/AdvReac Type Severity Reaction Status Date / Time silver [From SilvaSorb] Allergy SWELLING Verified 12/19/16 16:33 silver sulfadiazine Allergy SWELLING Verified 12/19/16 16:33 [From Silvadene] Sulfa (Sulfonamide Allergy SHORTNESS Verified 12/19/16 16:33 Antibiotics) OF BREATH - Medications Medications: Current Medications Albuterol/Ipratropium (Duoneb 3 Mg/0.5 Mg (3 Ml) Ud) 3 ml IH Q2H PRN; Protocol PRN Reason: Shortness of Breath Alprazolam (Xanax) 0.125 mg PO BID PRN; Protocol PRN Reason: Anxiety Stop: 12/26/16 16:36 Arformoterol Tartrate (Brovana) 15 mcg IH [id number] [facility] Last Admin: 12/19/16 21:23 Dose: 15 mcg Aspirin (Ecotrin) 81 mg PO 0800 [facility] PRN Reason: Protocol Betamethasone/Clotrimazole (Lotrisone) 1 gm TOP BID [facility] PRN Reason: Protocol Last Admin: 12/19/16 18:42 Dose: 1 b Budesonide (Pulmicort Respules) 0.5 mg IH [id number] [facility] PRN Reason: Protocol Last Admin: 12/19/16 21:23 Dose: 0.5 mg Heparin Sodium (Porcine) (Heparin) 5,000 units SC 0600,1800 [facility] PRN Reason: Protocol Last Admin: 12/19/16 18:46 Dose: 5,000 units Potassium Chloride/Dextrose (Potassium Chl 20 Meq In D5w) 1,000 mls @ 40 mls/ hr IV .Q24H [facility] PRN Reason: Protocol Last Admin: 12/19/16 18:50 Dose: 40 mls/hr Piperacillin Sod/Tazobactam Sod (Zosyn 3.375 In Ns 100ml) 100 mls @ 200 mls/hr IVPB Q6 [facility] PRN Reason: Protocol Stop: 12/27/16 00:01 Lactobacillus Acidophilus (Bacid Acidophilus) 1 cap PO DAILY [facility] Levalbuterol HCl (Xopenex) 0.63 mg IH [id number] PRN; Protocol PRN Reason: Shortness of Breath Linezolid (Zyvox) 600 mg PO BID [facility] PRN Reason: Protocol Lorazepam (Ativan) 0.25 mg PO Q6H PRN; Protocol PRN Reason: Anxiety Magnesium Oxide (Mag-Ox) 400 mg PO BID [facility] Last Admin: 12/19/16 18:42 Dose: 400 mg Nystatin (Nystop Topical Powder) 1 gm TOP TID [facility] PRN Reason: Protocol Last Admin: 12/19/16 18:43 Dose: 1 750 Ondansetron HCl (Zofran Inj) 4 mg IVP Q6H PRN; Protocol PRN Reason: Nausea/Vomiting Pantoprazole Sodium (Protonix Ec Tab) 40 mg PO 0600 [facility] Physical Exam - Constitutional Appears: Non-toxic, No Acute Distress - Head Exam Head Exam: NORMAL INSPECTION - Neck Exam Neck exam: Negative for: Meningismus - Respiratory Exam Respiratory Exam: Decreased Breath Sounds - Cardiovascular Exam Cardiovascular Exam: +S1, +S2 - GI/Abdominal Exam GI & Abdominal Exam: Soft. absent: Tenderness Results - Vital Signs Recent Vital Signs: Last Vital Signs Temp 97.8 F 12/19/16 17:15 Pulse 54 L 12/19/16 17:15 Resp 14 12/19/16 17:15 BP 91/49 L 12/19/16 17:15 Pulse Ox - Labs Result Diagrams: 12/20/16 06:00 12/20/16 06:00 Assessment & Plan - Assessment and Plan (Free Text) Plan: Assessment severe sepsis with acute renal failure (now resolved) probably due to left upper and lower lobe healthcare-associated pneumonia, clinically improving ulcerative colitis chronic left leg ulcer, R/O pyoderma gangrenosum COPD HTN CAD with chronic CHF S/P pacemaker placement anxiety disorder Plan Blood cx are negative continue Zosyn (total day 11 of antibiotics) and Zyvox (day 8); reviewed CT chest done 2 days ago showing the left sided pneumonia - follow up repeat CXR - WBC count continues to trend downwards - should be able to d/c antibiotics in the next 24 hours will continue to monitor clinically
[2016-12-21] MEDS: Piperacillin/Tazobact 3.375 gm 100 ML IVPB SCH ×3 (00:15→11:01)
--- NOTE | 2016-12-21 05:46 | HP ---
HISTORY OF PRESENT ILLNESS: The patient is an 89-year-old who was admitted with generalized weakness, poor oral intake, was found to be in acute renal failure, initially was in ICU, was given IV fluid since complained of abdominal discomfort, had cholelithiasis and was attempted to have endoscopy done, but because of the patient's age and severe degenerative disc disease of cervical spine that was deferred, and the patient was treated conservatively. She had episode of COPD exacerbation, was on IV steroid and antibiotic, doing well, so was transferred to TCU for rehab and further management. PAST MEDICAL HISTORY: She has significant past medical history of: 1. Generalized osteoarthritis. 2. Hypertension. 3. Anxiety disorder. 4. Status post pacemaker placement. 5. History of ulcerative colitis. ALLERGIES: SHE IS ALLERGIC TO SULFA DRUGS. MEDICATIONS AT HOME: She is on Ativan p.r.n., nebulizer treatment as needed, aspirin, Protonix and Xanax. SOCIAL HISTORY: Denies smoking, drinking or alcohol use. REVIEW OF SYSTEMS: Generalized weakness, bilateral legs pain, she has right foot ulceration that is under care of Dr. Workman. PHYSICAL EXAMINATION: GENERAL: She is awake, alert and oriented, communicative. VITAL SIGNS: She is afebrile, pulse 76, respiration 18 and blood pressure 130/75. LUNGS: Bilateral fair air flow. No rhonchi or crackles. HEART: S1 and S2 audible. ABDOMEN: Soft, nontender. No rebound. No guarding. NEUROLOGIC: She is awake and alert, able to communicate, able to move all extremities, no focal deficit, but has generalized weakness. LABORATORY EXAMINATION: WBC 13, hemoglobin 8.7, hematocrit 27 and platelet 301. Chemistry: Sodium 147, potassium 3.6, chloride 113, CO2 of 27, BUN 11, creatinine 0.6 and blood sugar of 97. ASSESSMENT: 1. Right foot ulcer. 2. Chronic obstructive pulmonary disease. 3. Congestive heart failure, acute on chronic that has resolved, systolic. 4. Left upper lobe pneumonia. 5. Peptic ulcer disease. 6. Deconditioning and difficulty walking. PLAN: Currently, the patient is on Brovana nebulizer treatment. She is on aspirin, subcutaneous heparin. She is on Protonix, we will continue that. She is on Xanax as needed. She is on Zyvox and piperacillin will be continued as recommended by ID. Encourage physical therapy. We will monitor CBC and CMP intermittently. The patient is DNR. Jorden Mcneill MD
[2016-12-21] MEDS: Pantoprazole 40 mg EC Tab PO SCH (05:54)
[2016-12-21] MEDS: Budesonide 0.5 mg/2 ml Inhal Susp UD IH SCH ×2 (07:31→22:16)
[2016-12-21] MEDS: Arformoterol 15 mcg/2 ml Inh Sol IH SCH ×2 (07:31→22:16)
[2016-12-21] MEDS: Magnesium Oxide 400 mg Tab UD PO SCH ×2 (10:16→17:10)
[2016-12-21] MEDS: Nystatin 100,000 Units/gm Topical Pow(15 gm) TOP SCH ×3 (10:17→17:10)
[2016-12-21] MEDS: Clotrimazole/Betamethasone Cream(15 gm) TOP SCH ×2 (10:17→17:10)
[2016-12-21] MEDS: Lactobacillus Acidophilus 500 MU Cap PO SCH (10:18)
--- NOTE | 2016-12-21 11:22 | PN ---
DATE: 12/21/2016 SUBJECTIVE: The patient appears comfortable this morning. She is not short of breath at rest. PHYSICAL EXAMINATION VITAL SIGNS: Temperature 97.6, pulse 68, respirations 14/16, blood pressure 129/68, oxygen saturation on nasal cannula is 99%. HEENT: Normocephalic and atraumatic. NECK: No JVD. CARDIOVASCULAR: Systolic ejection murmur at the lower left sternal border. Questionable S3 gallop. LUNGS: Decreased breath sounds at the bases. Minimal rhonchi. No wheezing. EXTREMITIES: Less edema. No cyanosis, no clubbing. Calves are nontender to palpation. GASTROINTESTINAL: Abdomen is soft, nontender, and nondistended. Bowel sounds are positive. SKIN: Chronic left leg ulcer. No rashes. NEUROLOGIC: Limited at the present time. IMPRESSION: 1. Acute congestive heart failure - improved. 2. Multilobar pneumonia. 3. Acute gastroenteritis. 4. Sepsis syndrome. 5. Chronic obstructive pulmonary disease. 6. Coronary artery disease. PLAN: The patient appears comfortable this morning. She is not short of breath at rest. She states she is feeling much better overall. On physical exam, her bronchospasm continues to resolve. In addition, the oxygen saturation on nasal cannula is now 99%. We will continue with the current nebulizer treatments and inhale steroids for now. The patient remains on antibiotic therapy - as per infectious disease. Input by Dr. Varela is noted. There are no temperatures noted. The leukocytosis is resolving. Clinical status of the patient has certainly improved - compared to earlier in the week. However, again, the overall status/prognosis for this very elderly patient remains very guarded. All are aware. I will discuss the above with Dr. Mcneill. Aleks Mejia MD MTDD
--- NOTE | 2016-12-21 14:02 | PN ---
SUBJECTIVE: The patient is 89 years old seen and examined. Complained of pain in the right lower leg and foot, just had dressing change. Otherwise eating well. PHYSICAL EXAMINATION: VITAL SIGNS: She is afebrile, pulse 67, respirations 20, blood pressure 139/64. LUNGS: Bilateral fair airflow. No rhonchi or crackles. HEART: S1 and S2 audible. ABDOMEN: Soft, nontender. No rebound. No guarding. NEUROLOGIC: The patient is awake, alert and able to communicate. She will move extremities, has generalized weakness. ASSESSMENT: 1. Resolved pneumonia. 2. Granulating right lower leg ulcer. 3. Deconditioning and difficulty walking. 4. Cholelithiasis but no cholecystitis. PLAN: Her left arm is swollen. I will wait for I and D input for the duration of antibiotic, it might be switch to p.o. and then we can discontinue IV access. Jorden Mcneill MD
--- NOTE | 2016-12-21 21:11 | CP.PCM.PN ---
Subjective - Date & Time of Evaluation Date of Evaluation: 12/21/16 Time of Evaluation: 11:00 - Subjective Subjective: Comfortable in bed, breathing better, no fevers. Objective - Vital Signs/Intake and Output Vital Signs (last 24 hours): Temp Pulse Resp BP Pulse Ox 98.3 F 67 20 139/64 99 12/21/16 10:00 12/21/16 10:00 12/21/16 10:00 12/21/16 10:00 12/21/16 10:00 - Medications Medications: Current Medications Albuterol/Ipratropium (Duoneb 3 Mg/0.5 Mg (3 Ml) Ud) 3 ml IH Q2H PRN; Protocol PRN Reason: Shortness of Breath Alprazolam (Xanax) 0.125 mg PO BID PRN; Protocol PRN Reason: Anxiety Stop: 12/26/16 16:36 Last Admin: 12/21/16 20:25 Dose: 0.125 mg Arformoterol Tartrate (Brovana) 15 mcg IH [id number] [facility] Last Admin: 12/21/16 07:31 Dose: 15 mcg Aspirin (Ecotrin) 81 mg PO 0800 [facility] PRN Reason: Protocol Last Admin: 12/21/16 10:16 Dose: 81 mg Betamethasone/Clotrimazole (Lotrisone) 1 gm TOP BID [facility] PRN Reason: Protocol Last Admin: 12/21/16 17:10 Dose: 1 dose Budesonide (Pulmicort Respules) 0.5 mg IH [id number] [facility] PRN Reason: Protocol Last Admin: 12/21/16 07:31 Dose: 0.5 mg Heparin Sodium (Porcine) (Heparin) 5,000 units SC 0600,1800 [facility] PRN Reason: Protocol Last Admin: 12/21/16 17:13 Dose: 5,000 units Lactobacillus Acidophilus (Bacid Acidophilus) 1 cap PO DAILY [facility] Last Admin: 12/21/16 10:18 Dose: 1 cap Levalbuterol HCl (Xopenex) 0.63 mg IH [id number] PRN; Protocol PRN Reason: Shortness of Breath Linezolid (Zyvox) 600 mg PO BID [facility] PRN Reason: Protocol Last Admin: 12/21/16 17:11 Dose: 600 mg Magnesium Oxide (Mag-Ox) 400 mg PO BID [facility] Last Admin: 12/21/16 17:10 Dose: 400 mg Nystatin (Nystop Topical Powder) 1 gm TOP TID [facility] PRN Reason: Protocol Last Admin: 12/21/16 17:10 Dose: 1 applic Ondansetron HCl (Zofran Inj) 4 mg IVP Q6H PRN; Protocol PRN Reason: Nausea/Vomiting Pantoprazole Sodium (Protonix Ec Tab) 40 mg PO 0600 [facility] Last Admin: 12/21/16 05:54 Dose: 40 mg - Labs Labs: 12/20/16 06:00 12/20/16 06:00 - Constitutional Appears: Non-toxic, No Acute Distress - Head Exam Head Exam: NORMAL INSPECTION - Neck Exam Neck Exam: absent: Meningismus - Respiratory Exam Respiratory Exam: Decreased Breath Sounds - Cardiovascular Exam Cardiovascular Exam: +S1, +S2 - GI/Abdominal Exam GI & Abdominal Exam: Soft. absent: Tenderness Assessment and Plan - Assessment and Plan (Free Text) Plan: Assessment severe sepsis with acute renal failure (now resolved) probably due to left upper and lower lobe healthcare-associated pneumonia, clinically improved ulcerative colitis chronic left leg ulcer, R/O pyoderma gangrenosum COPD HTN CAD with chronic CHF S/P pacemaker placement anxiety disorder Plan Blood cx are negative on Zosyn (total day 12 of antibiotics) and Zyvox (day 9); will d/c antibiotics and will continue to monitor clinically
[2016-12-22] MEDS: Pantoprazole 40 mg EC Tab PO SCH (05:42)
[2016-12-22 07:13] LABS: ADD MANUAL DIFF? NO
[2016-12-22 07:24] LABS: BASO # 0.01 K/mm3 (0.0-2.0); BASO % 0.1 % (0.0-3.0); EOS % 0.1 % (1.5-5.0); GRAN # 12.34 (1.4-6.5); GRAN % 89.2 % (50.0-68.0); HEMATOCRIT 31.1 % (36.0-48.0); LYMPH # 0.7 (1.2-3.4); LYMPH % 4.8 % (22.0-35.0); MEAN CELL VOLUME 95.4 fl (80.0-105.0); MEAN CORPUSCULAR HEMOGLOBIN 29.8 pg (25.0-35.0); MEAN CORPUSCULAR HGB CONC 31.2 g/dl (31.0-37.0); MEAN PLATELET VOLUME 9.7 fl (7.0-11.0); MONO # 0.8 (0.1-0.6); MONO % 5.8 % (1.0-6.0); PLATELET COUNT 317 10^3/uL (120.0-450.0); RED CELL DISTRIBUTION WIDTH 16.7 % (11.5-14.5); WHITE BLOOD COUNT 13.8 10^3/ul (4.5-11.0)
[2016-12-22 07:46] LABS: ALKALINE PHOSPHATASE 64 U/L (38-133); ALT/SGPT 30 U/L (7-56); AST/SGOT 22 U/L (15-39); BILIRUBIN,TOTAL 0.5 mg/dL (0.2-1.3); BLOOD UREA NITROGEN 12 mg/dL (7-21); CALCIUM 8.7 mg/dL (8.4-10.5); CARBON DIOXIDE 26 mmol/L (21-33); CHLORIDE 113 mmol/L (98-107); GFR AFRICAN-AMERICAN > 60; GLUCOSE,RANDOM 84 mg/dL (70-110); POTASSIUM 3.3 mmol/L (3.6-5.0); SODIUM 150 mmol/L (132-148); TOTAL PROTEIN 5.6 g/dL (5.8-8.3)
[2016-12-22] MEDS: Arformoterol 15 mcg/2 ml Inh Sol IH SCH ×2 (07:52→20:00)
[2016-12-22] MEDS: Budesonide 0.5 mg/2 ml Inhal Susp UD IH SCH ×2 (07:52→20:00)
[2016-12-22] MEDS: Lactobacillus Acidophilus 500 MU Cap PO SCH (09:18)
[2016-12-22] MEDS: Clotrimazole/Betamethasone Cream(15 gm) TOP SCH ×2 (09:19→18:18)
[2016-12-22] MEDS: Nystatin 100,000 Units/gm Topical Pow(15 gm) TOP SCH ×3 (09:19→18:21)
[2016-12-22] MEDS: Magnesium Oxide 400 mg Tab UD PO SCH ×2 (09:19→18:20)
[2016-12-22] MEDS ORDERED: Potassium Chloride 20 mEq/15 ml LIQ UD PO STA (12:09)
--- NOTE | 2016-12-22 15:21 | PN ---
DATE: SUBJECTIVE: The patient is 89 years old seen and examined, lying in bed, seems to be comfortable. PHYSICAL EXAMINATION: VITAL SIGNS: She is afebrile, pulse 71, respirations 20, blood pressure 150/70. CARDIOPULMONARY: S1 and S2 audible. LUNGS: Bilateral good airflow, no rhonchi or crackles. ABDOMEN: Soft, nontender. No rebound. No guarding. NEUROLOGIC: She is awake and alert, able to communicate, has generalized weakness, right foot is in the dressing. Right lower rodriguez has ulcer that is under care of Dr. De León. LABORATORY DATA: WBC is 13.8, hemoglobin 9.7, hematocrit 31, platelets of 317. Chemistry: Sodium 150, potassium 3.3, chloride 113, CO2 26, BUN 12, creatinine 0.6, blood sugar of 84. ASSESSMENT: 1. Left upper lung lobe pneumonia, improving. 2. Right leg cellulitis, improving. 3. Renal insufficiency. 7. Hyponatremia. 8. Chronic obstructive lung disease. 9. Status post pacemaker placement. 10. Anxiety disorder. 11. Hypokalemia. PLAN: I have discussed with patient's daughter push p.o. fluids. I will replace potassium. Her antibiotic has been switched to p.o. Zyvox. We will discontinue hep-lock. We will follow up her CBC and CMP intermittently. Jorden Mcneill MD
[2016-12-23] MEDS: Pantoprazole 40 mg EC Tab PO SCH (06:27)
[2016-12-23] MEDS: Arformoterol 15 mcg/2 ml Inh Sol IH SCH ×2 (07:32→20:09)
[2016-12-23] MEDS: Budesonide 0.5 mg/2 ml Inhal Susp UD IH SCH ×2 (07:32→20:09)
[2016-12-23] MEDS: Lactobacillus Acidophilus 500 MU Cap PO SCH (10:27)
[2016-12-23] MEDS: Clotrimazole/Betamethasone Cream(15 gm) TOP SCH ×2 (10:28→18:28)
[2016-12-23] MEDS: Nystatin 100,000 Units/gm Topical Pow(15 gm) TOP SCH ×3 (10:28→18:37)
[2016-12-23] MEDS: Magnesium Oxide 400 mg Tab UD PO SCH ×2 (10:28→18:28)
--- NOTE | 2016-12-23 16:01 | CP.PCM.PN ---
<Cali Sharpe - Last Filed: 12/23/16 15:58> Subjective - Date & Time of Evaluation Date of Evaluation: 12/23/16 Time of Evaluation: 15:58 - Subjective Subjective: 89 year old female patient seen at bedside for right lower extremity ulceration. Patient seen resting comfortably in chair. Patient's daughter is present at bedside. Patient admits to pain during dressing changes of the right lower extremity. Patient denies any acute events overnight. Patient denies N/V/F /D/C/SOB/calf pain. No other pedal complaints at this time. Objective - Vital Signs/Intake and Output Vital Signs (last 24 hours): Temp Pulse Resp BP Pulse Ox 97.8 F 71 20 150/70 94 L 12/22/16 06:00 12/22/16 06:00 12/22/16 06:00 12/22/16 06:00 12/22/16 06:00 - Medications Medications: Current Medications Acetaminophen (Tylenol 325mg Tab) 650 mg PO Q6H PRN PRN Reason: Pain, moderate (4-7) Last Admin: 12/22/16 09:31 Dose: 650 mg Albuterol/Ipratropium (Duoneb 3 Mg/0.5 Mg (3 Ml) Ud) 3 ml IH Q2H PRN; Protocol PRN Reason: Shortness of Breath Alprazolam (Xanax) 0.125 mg PO BID PRN; Protocol PRN Reason: Anxiety Stop: 12/26/16 16:36 Last Admin: 12/23/16 13:59 Dose: 0.125 mg Arformoterol Tartrate (Brovana) 15 mcg IH [id number] [facility] Last Admin: 12/23/16 07:32 Dose: 15 mcg Aspirin (Ecotrin) 81 mg PO 0800 [facility] PRN Reason: Protocol Last Admin: 12/23/16 08:08 Dose: 81 mg Betamethasone/Clotrimazole (Lotrisone) 1 gm TOP BID [facility] PRN Reason: Protocol Last Admin: 12/23/16 10:28 Dose: 1 dose Budesonide (Pulmicort Respules) 0.5 mg IH [id number] [facility] PRN Reason: Protocol Last Admin: 12/23/16 07:32 Dose: 0.5 mg Heparin Sodium (Porcine) (Heparin) 5,000 units SC 0600,1800 [facility] PRN Reason: Protocol Last Admin: 12/23/16 06:27 Dose: 5,000 units Lactobacillus Acidophilus (Bacid Acidophilus) 1 cap PO DAILY [facility] Last Admin: 12/23/16 10:27 Dose: 1 cap Levalbuterol HCl (Xopenex) 0.63 mg IH [id number] PRN; Protocol PRN Reason: Shortness of Breath Magnesium Oxide (Mag-Ox) 400 mg PO BID [facility] Last Admin: 12/23/16 10:28 Dose: 400 mg Nystatin (Nystop Topical Powder) 1 gm TOP TID [facility] PRN Reason: Protocol Last Admin: 12/23/16 14:02 Dose: 1 applic Ondansetron HCl (Zofran Inj) 4 mg IVP Q6H PRN; Protocol PRN Reason: Nausea/Vomiting Pantoprazole Sodium (Protonix Ec Tab) 40 mg PO 0600 [facility] Last Admin: 12/23/16 06:27 Dose: 40 mg - Labs Labs: 12/22/16 06:00 12/22/16 06:00 - Constitutional Appears: Well, Non-toxic, No Acute Distress - Extremities Exam Additional comments: Bilateral LE focused physical exam: Dressing appears clean, dry, and intact to right foot. Heel off-cement railroad car loader to right LE is not in place as patient is in chair. VASC: DP/PT pulses are palpable 1/4, cap refill < 3 sec to all digits, skin temperature warm to warm from proximal to distal, no pedal edema appreciated DERM: Right-diffuse superficial ulcer noted on distal right leg/ankle extending to dorsum and plantar aspect of the foot with mild serous exudate with green coloration and bleeding noted posteriorly. Wound base is a mixture of granular tissue and early stage epithelializing tissue. Distal right heel early stage dark-eschar Left- No wounds noted to left lower extremity, no heel eschars noted. NEURO: protective pedal sensation is intact ORTHO: POP to right LE ulceration. Bilateral 2nd digit dorso-lateral gross dislocation noted, non reducible. - Neurological Exam Neurological Exam: Alert, Awake, Oriented x3 - Psychiatric Exam Psychiatric exam: Normal Affect, Normal Mood Assessment and Plan - Assessment and Plan (Free Text) Assessment: 89 y/o female patient with 1) superficial, non-infection ulceration of right lower extremity vs pyoderma . 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 Plan: Patient seen and evaluated in chair Chart, vitals, labs reviewed = afebrile, WBC = 13.8 Right leg wound dressed with non-adhesive dressing, ABD and kirlix. Patient tolerated dressing change well Patient is to continue to wear offloading boot to RLE while in bed. continue IV abx as per ID. Podiatry will continue to follow while patient in house <Ashlie Workman - Last Filed: 01/13/17 16:20> Objective - Vital Signs/Intake and Output Vital Signs (last 24 hours): Temp Pulse Resp BP Pulse Ox 98.7 F 70 18 138/58 L 90 L 12/31/16 10:11 12/31/16 10:11 12/31/16 10:11 12/31/16 10:11 12/30/16 16:16 - Labs Labs: 12/25/16 08:30 12/25/16 08:30 Attending/Attestation - Attestation I have personally seen and examined this patient.: Yes I have fully participated in the care of the patient.: Yes I have reviewed all pertinent clinical information, including history, physical exam and plan: Yes
--- NOTE | 2016-12-23 18:07 | CP.PCM.PN ---
Subjective - Date & Time of Evaluation Date of Evaluation: 12/23/16 Time of Evaluation: 12:40 - Subjective Subjective: Comfortable on a chair, not in distress, afebrile. Objective - Vital Signs/Intake and Output Vital Signs (last 24 hours): Temp Pulse Resp BP Pulse Ox 98.3 F 85 20 142/62 94 L 12/23/16 08:00 12/23/16 08:00 12/23/16 08:00 12/23/16 08:00 12/22/16 06:00 - Medications Medications: Current Medications Acetaminophen (Tylenol 325mg Tab) 650 mg PO Q6H PRN PRN Reason: Pain, moderate (4-7) Last Admin: 12/22/16 09:31 Dose: 650 mg Albuterol/Ipratropium (Duoneb 3 Mg/0.5 Mg (3 Ml) Ud) 3 ml IH Q2H PRN; Protocol PRN Reason: Shortness of Breath Alprazolam (Xanax) 0.125 mg PO BID PRN; Protocol PRN Reason: Anxiety Stop: 12/26/16 16:36 Last Admin: 12/23/16 13:59 Dose: 0.125 mg Arformoterol Tartrate (Brovana) 15 mcg IH [id number] [facility] Last Admin: 12/23/16 07:32 Dose: 15 mcg Aspirin (Ecotrin) 81 mg PO 0800 [facility] PRN Reason: Protocol Last Admin: 12/23/16 08:08 Dose: 81 mg Betamethasone/Clotrimazole (Lotrisone) 1 gm TOP BID [facility] PRN Reason: Protocol Last Admin: 12/23/16 10:28 Dose: 1 dose Budesonide (Pulmicort Respules) 0.5 mg IH [id number] [facility] PRN Reason: Protocol Last Admin: 12/23/16 07:32 Dose: 0.5 mg Heparin Sodium (Porcine) (Heparin) 5,000 units SC 0600,1800 [facility] PRN Reason: Protocol Last Admin: 12/23/16 06:27 Dose: 5,000 units Lactobacillus Acidophilus (Bacid Acidophilus) 1 cap PO DAILY [facility] Last Admin: 12/23/16 10:27 Dose: 1 cap Levalbuterol HCl (Xopenex) 0.63 mg IH [id number] PRN; Protocol PRN Reason: Shortness of Breath Magnesium Oxide (Mag-Ox) 400 mg PO BID [facility] Last Admin: 12/23/16 10:28 Dose: 400 mg Nystatin (Nystop Topical Powder) 1 gm TOP TID [facility] PRN Reason: Protocol Last Admin: 12/23/16 14:02 Dose: 1 applic Ondansetron HCl (Zofran Inj) 4 mg IVP Q6H PRN; Protocol PRN Reason: Nausea/Vomiting Pantoprazole Sodium (Protonix Ec Tab) 40 mg PO 0600 [facility] Last Admin: 12/23/16 06:27 Dose: 40 mg - Labs Labs: 12/22/16 06:00 12/22/16 06:00 - Constitutional Appears: Non-toxic, No Acute Distress - Head Exam Head Exam: NORMAL INSPECTION - ENT Exam ENT Exam: Mucous Membranes Moist - Neck Exam Neck Exam: absent: Lymphadenopathy, Meningismus - Respiratory Exam Respiratory Exam: Decreased Breath Sounds - Cardiovascular Exam Cardiovascular Exam: +S1, +S2 - GI/Abdominal Exam GI & Abdominal Exam: Soft. absent: Tenderness Assessment and Plan - Assessment and Plan (Free Text) Plan: Assessment severe sepsis with acute renal failure (now resolved) probably due to left upper and lower lobe healthcare-associated pneumonia, clinically improved ulcerative colitis chronic left leg ulcer, R/O pyoderma gangrenosum COPD HTN CAD with chronic CHF S/P pacemaker placement anxiety disorder Plan continue to monitor off antibiotics since she is at risk for nosocomial infections
[2016-12-24] MEDS: Pantoprazole 40 mg EC Tab PO SCH (05:33)
[2016-12-24] MEDS: Budesonide 0.5 mg/2 ml Inhal Susp UD IH SCH ×2 (07:51→20:45)
[2016-12-24] MEDS: Arformoterol 15 mcg/2 ml Inh Sol IH SCH ×2 (07:51→20:44)
[2016-12-24] MEDS: Lactobacillus Acidophilus 500 MU Cap PO SCH (10:00)
[2016-12-24] MEDS: Magnesium Oxide 400 mg Tab UD PO SCH ×2 (10:00→17:52)
[2016-12-24] MEDS: Nystatin 100,000 Units/gm Topical Pow(15 gm) TOP SCH ×3 (10:01→17:49)
--- NOTE | 2016-12-24 15:55 | CP.PCM.PN ---
Subjective - Date & Time of Evaluation Date of Evaluation: 12/24/16 Time of Evaluation: 12:10 - Subjective Subjective: Comfortable, not in distress, afebrile. Objective - Vital Signs/Intake and Output Vital Signs (last 24 hours): Temp Pulse Resp BP Pulse Ox 97.9 F 86 18 136/61 97 12/24/16 10:16 12/24/16 10:16 12/24/16 10:16 12/24/16 10:16 12/24/16 10:16 - Medications Medications: Current Medications Acetaminophen (Tylenol 325mg Tab) 650 mg PO Q6H PRN PRN Reason: Pain, moderate (4-7) Last Admin: 12/24/16 15:03 Dose: 650 mg Albuterol/Ipratropium (Duoneb 3 Mg/0.5 Mg (3 Ml) Ud) 3 ml IH Q2H PRN; Protocol PRN Reason: Shortness of Breath Alprazolam (Xanax) 0.125 mg PO BID PRN; Protocol PRN Reason: Anxiety Stop: 12/26/16 16:36 Last Admin: 12/24/16 05:36 Dose: 0.125 mg Arformoterol Tartrate (Brovana) 15 mcg IH [id number] [facility] Last Admin: 12/24/16 07:51 Dose: 15 mcg Aspirin (Ecotrin) 81 mg PO 0800 [facility] PRN Reason: Protocol Last Admin: 12/24/16 08:13 Dose: 81 mg Betamethasone/Clotrimazole (Lotrisone) 1 gm TOP BID [facility] PRN Reason: Protocol Last Admin: 12/23/16 18:28 Dose: 1 dose Budesonide (Pulmicort Respules) 0.5 mg IH [id number] [facility] PRN Reason: Protocol Last Admin: 12/24/16 07:51 Dose: 0.5 mg Heparin Sodium (Porcine) (Heparin) 5,000 units SC 0600,1800 [facility] PRN Reason: Protocol Last Admin: 12/24/16 05:33 Dose: 5,000 units Lactobacillus Acidophilus (Bacid Acidophilus) 1 cap PO DAILY [facility] Last Admin: 12/24/16 10:00 Dose: 1 cap Levalbuterol HCl (Xopenex) 0.63 mg IH [id number] PRN; Protocol PRN Reason: Shortness of Breath Magnesium Oxide (Mag-Ox) 400 mg PO BID [facility] Last Admin: 12/24/16 10:00 Dose: 400 mg Nystatin (Nystop Topical Powder) 1 gm TOP TID [facility] PRN Reason: Protocol Last Admin: 12/24/16 13:25 Dose: 1 applic Ondansetron HCl (Zofran Inj) 4 mg IVP Q6H PRN; Protocol PRN Reason: Nausea/Vomiting Pantoprazole Sodium (Protonix Ec Tab) 40 mg PO 0600 [facility] Last Admin: 12/24/16 05:33 Dose: 40 mg - Labs Labs: 12/22/16 06:00 12/22/16 06:00 - Constitutional Appears: Non-toxic, No Acute Distress - Head Exam Head Exam: NORMAL INSPECTION - ENT Exam ENT Exam: Mucous Membranes Moist - Neck Exam Neck Exam: absent: Lymphadenopathy, Meningismus - Respiratory Exam Respiratory Exam: Decreased Breath Sounds - Cardiovascular Exam Cardiovascular Exam: +S1, +S2 - GI/Abdominal Exam GI & Abdominal Exam: Soft. absent: Tenderness Assessment and Plan - Assessment and Plan (Free Text) Assessment: Assessment S/P severe sepsis with acute renal failure (now resolved) probably due to left upper and lower lobe healthcare-associated pneumonia, clinically improved ulcerative colitis chronic left leg ulcer, R/O pyoderma gangrenosum COPD HTN CAD with chronic CHF S/P pacemaker placement anxiety disorder Plan continue to monitor off antibiotics since she is at risk for hospital-acquired infections
--- NOTE | 2016-12-24 16:38 | PN ---
SUBJECTIVE: The patient is an 89-year-old, seen and examined, just finished physical therapy. She was able to walk 10 steps without getting saturated. PHYSICAL EXAMINATION VITAL SIGNS: She is afebrile, pulse 86, respirations 18, and blood pressure 136/61. LUNGS: Bilateral fair airflow. No rhonchi or crackles. HEART: S1 and S2 audible. ABDOMEN: Soft, nontender. No rebound. No guarding. NEUROLOGIC: The patient is awake and alert. 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 Right rodriguez is in the dressing. LABORATORY DATA: There is no new lab available today. ASSESSMENT AND PLAN: 1. Resolved left upper lobe pneumonia. 2. Resolved respiratory failure. 3. Resolved renal insufficiency. 4. Deconditioning. 5. Leukocytosis and anemia. 6. Deconditioning and difficulty walking. PLAN: We will continue the patient on current medications. She is off of antibiotics and currently in physical therapy. She is on DVT prophylaxis. She is getting local wound care by ____. Jorden Mcneill MD
--- NOTE | 2016-12-24 16:48 | CP.PCM.PN ---
Subjective - Date & Time of Evaluation Date of Evaluation: 12/24/16 Objective - Vital Signs/Intake and Output Vital Signs (last 24 hours): Temp Pulse Resp BP Pulse Ox 97.6 F 71 18 143/67 92 L 12/24/16 16:07 12/24/16 16:07 12/24/16 16:07 12/24/16 16:07 12/24/16 16:07 - Medications Medications: Current Medications Acetaminophen (Tylenol 325mg Tab) 650 mg PO Q6H PRN PRN Reason: Pain, moderate (4-7) Last Admin: 12/24/16 15:03 Dose: 650 mg Albuterol/Ipratropium (Duoneb 3 Mg/0.5 Mg (3 Ml) Ud) 3 ml IH Q2H PRN; Protocol PRN Reason: Shortness of Breath Alprazolam (Xanax) 0.125 mg PO BID PRN; Protocol PRN Reason: Anxiety Stop: 12/26/16 16:36 Last Admin: 12/24/16 05:36 Dose: 0.125 mg Arformoterol Tartrate (Brovana) 15 mcg IH [id number] [facility] Last Admin: 12/24/16 07:51 Dose: 15 mcg Aspirin (Ecotrin) 81 mg PO 0800 [facility] PRN Reason: Protocol Last Admin: 12/24/16 08:13 Dose: 81 mg Betamethasone/Clotrimazole (Lotrisone) 1 gm TOP BID [facility] PRN Reason: Protocol Last Admin: 12/23/16 18:28 Dose: 1 dose Budesonide (Pulmicort Respules) 0.5 mg IH [id number] [facility] PRN Reason: Protocol Last Admin: 12/24/16 07:51 Dose: 0.5 mg Heparin Sodium (Porcine) (Heparin) 5,000 units SC 0600,1800 [facility] PRN Reason: Protocol Last Admin: 12/24/16 05:33 Dose: 5,000 units Lactobacillus Acidophilus (Bacid Acidophilus) 1 cap PO DAILY [facility] Last Admin: 12/24/16 10:00 Dose: 1 cap Levalbuterol HCl (Xopenex) 0.63 mg IH [id number] PRN; Protocol PRN Reason: Shortness of Breath Magnesium Oxide (Mag-Ox) 400 mg PO BID [facility] Last Admin: 12/24/16 10:00 Dose: 400 mg Nystatin (Nystop Topical Powder) 1 gm TOP TID [facility] PRN Reason: Protocol Last Admin: 12/24/16 13:25 Dose: 1 applic Ondansetron HCl (Zofran Inj) 4 mg IVP Q6H PRN; Protocol PRN Reason: Nausea/Vomiting Pantoprazole Sodium (Protonix Ec Tab) 40 mg PO 0600 [facility] Last Admin: 12/24/16 05:33 Dose: 40 mg - Labs Labs: 12/22/16 06:00 12/22/16 06:00
--- NOTE | 2016-12-24 16:48 | CP.PCM.PN ---
<Mayco Barfield - Last Filed: 12/24/16 17:47> Subjective - Date & Time of Evaluation Date of Evaluation: 12/24/16 Time of Evaluation: 17:25 - Subjective Subjective: 89 year old female patient seen at bedside for right lower extremity ulceration. Patient seen resting comfortably in chair. Patient's daughter is present at bedside. Patient denies any acute events overnight. Patient denies N/ V/F/D/C/SOB/calf pain. No other pedal complaints at this time. Objective - Vital Signs/Intake and Output Vital Signs (last 24 hours): Temp Pulse Resp BP Pulse Ox 97.6 F 71 18 143/67 92 L 12/24/16 16:07 12/24/16 16:07 12/24/16 16:07 12/24/16 16:07 12/24/16 16:07 - Medications Medications: Current Medications Acetaminophen (Tylenol 325mg Tab) 650 mg PO Q6H PRN PRN Reason: Pain, moderate (4-7) Last Admin: 12/24/16 15:03 Dose: 650 mg Albuterol/Ipratropium (Duoneb 3 Mg/0.5 Mg (3 Ml) Ud) 3 ml IH Q2H PRN; Protocol PRN Reason: Shortness of Breath Alprazolam (Xanax) 0.125 mg PO BID PRN; Protocol PRN Reason: Anxiety Stop: 12/26/16 16:36 Last Admin: 12/24/16 05:36 Dose: 0.125 mg Arformoterol Tartrate (Brovana) 15 mcg IH [id number] [facility] Last Admin: 12/24/16 07:51 Dose: 15 mcg Aspirin (Ecotrin) 81 mg PO 0800 [facility] PRN Reason: Protocol Last Admin: 12/24/16 08:13 Dose: 81 mg Betamethasone/Clotrimazole (Lotrisone) 1 gm TOP BID [facility] PRN Reason: Protocol Last Admin: 12/23/16 18:28 Dose: 1 dose Budesonide (Pulmicort Respules) 0.5 mg IH [id number] [facility] PRN Reason: Protocol Last Admin: 12/24/16 07:51 Dose: 0.5 mg Heparin Sodium (Porcine) (Heparin) 5,000 units SC 0600,1800 [facility] PRN Reason: Protocol Last Admin: 12/24/16 05:33 Dose: 5,000 units Lactobacillus Acidophilus (Bacid Acidophilus) 1 cap PO DAILY [facility] Last Admin: 12/24/16 10:00 Dose: 1 cap Levalbuterol HCl (Xopenex) 0.63 mg IH [id number] PRN; Protocol PRN Reason: Shortness of Breath Magnesium Oxide (Mag-Ox) 400 mg PO BID [facility] Last Admin: 12/24/16 10:00 Dose: 400 mg Nystatin (Nystop Topical Powder) 1 gm TOP TID [facility] PRN Reason: Protocol Last Admin: 12/24/16 13:25 Dose: 1 applic Ondansetron HCl (Zofran Inj) 4 mg IVP Q6H PRN; Protocol PRN Reason: Nausea/Vomiting Pantoprazole Sodium (Protonix Ec Tab) 40 mg PO 0600 [facility] Last Admin: 12/24/16 05:33 Dose: 40 mg - Labs Labs: 12/22/16 06:00 12/22/16 06:00 - Constitutional Appears: Well, Non-toxic, No Acute Distress - Extremities Exam Additional comments: Bilateral LE focused physical exam: Dressing appears clean, dry, and intact to right foot. Heel off-concrete mixer loader truck mounted to right LE is not in place as patient is in chair. VASC: DP/PT pulses are palpable 1/4, cap refill < 3 sec to all digits, skin temperature warm to warm from proximal to distal, no pedal edema appreciated DERM: Right-diffuse superficial ulcer noted on distal right leg/ankle extending to dorsum and plantar aspect of the foot with moderate serous exudate with green coloration and bleeding noted posteriorly. Wound base is a mixture of granular tissue and early stage epithelializing tissue. Distal right heel early stage dark-eschar. Mild mal-odor noted. Left- No wounds noted to left lower extremity, no heel eschars noted. NEURO: protective pedal sensation is intact ORTHO: POP to right LE ulceration. Bilateral 2nd digit dorso-lateral gross dislocation noted, non reducible. - Neurological Exam Neurological Exam: Alert, Awake, Oriented x3 - Psychiatric Exam Psychiatric exam: Normal Affect, Normal Mood Assessment and Plan - Assessment and Plan (Free Text) Assessment: 89 y/o female patient with 1) superficial, non-infection ulceration of right lower extremity vs pyoderma . 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 Plan: Patient seen and evaluated in bed, with Dr. Workman present. Chart, vitals, labs reviewed = afebrile, WBC = 13.8 Right leg wound dressed with non-adhesive dressing, ABD and kerlix. Patient tolerated dressing change well. Patient is to continue to wear offloading boot to RLE while in bed. continue IV abx as per ID. wound culture taken to evaluate potential colonizing organism. Podiatry will continue to follow while patient in house <Ashlie Workman - Last Filed: 01/13/17 16:25> Objective - Vital Signs/Intake and Output Vital Signs (last 24 hours): Temp Pulse Resp BP Pulse Ox 98.7 F 70 18 138/58 L 90 L 12/31/16 10:11 12/31/16 10:11 12/31/16 10:11 12/31/16 10:11 12/30/16 16:16 - Labs Labs: 12/25/16 08:30 12/25/16 08:30 Attending/Attestation - Attestation I have personally seen and examined this patient.: Yes I have fully participated in the care of the patient.: Yes I have reviewed all pertinent clinical information, including history, physical exam and plan: Yes
[2016-12-24] MEDS: Clotrimazole/Betamethasone Cream(15 gm) TOP SCH (17:49)
[2016-12-25] MEDS: Pantoprazole 40 mg EC Tab PO SCH (05:21)
[2016-12-25] MEDS: Arformoterol 15 mcg/2 ml Inh Sol IH SCH ×2 (07:31→20:33)
[2016-12-25] MEDS: Budesonide 0.5 mg/2 ml Inhal Susp UD IH SCH ×2 (07:31→20:33)
[2016-12-25 08:44] LABS: ADD MANUAL DIFF? NO
[2016-12-25 08:48] LABS: BASO # 0.01 K/mm3 (0.0-2.0); BASO % 0.1 % (0.0-3.0); GRAN # 8.11 (1.4-6.5); GRAN % 84.9 % (50.0-68.0); HEMATOCRIT 30.8 % (36.0-48.0); LYMPH # 0.7 (1.2-3.4); LYMPH % 7.1 % (22.0-35.0); MEAN CELL VOLUME 97.8 fl (80.0-105.0); MEAN CORPUSCULAR HEMOGLOBIN 30.2 pg (25.0-35.0); MEAN CORPUSCULAR HGB CONC 30.8 g/dl (31.0-37.0); MEAN PLATELET VOLUME 10.1 fl (7.0-11.0); MONO # 0.8 (0.1-0.6); MONO % 7.9 % (1.0-6.0); PLATELET COUNT 233 10^3/uL (120.0-450.0); RED CELL DISTRIBUTION WIDTH 18.2 % (11.5-14.5); WHITE BLOOD COUNT 9.6 10^3/ul (4.5-11.0)
[2016-12-25 09:02] LABS: ALB/GLOB RATIO 1.1 (1.1-1.8); ALKALINE PHOSPHATASE 67 U/L (38-133); ALT/SGPT 33 U/L (7-56); AST/SGOT 25 U/L (15-39); BILIRUBIN,TOTAL 0.6 mg/dL (0.2-1.3); BLOOD UREA NITROGEN 13 mg/dL (7-21); CALCIUM 8.7 mg/dL (8.4-10.5); CARBON DIOXIDE 32 mmol/L (21-33); CHLORIDE 111 mmol/L (98-107); GFR AFRICAN-AMERICAN > 60; GLUCOSE,RANDOM 120 mg/dL (70-110); POTASSIUM 3.5 mmol/L (3.6-5.0); SODIUM 149 mmol/L (132-148); TOTAL PROTEIN 5.4 g/dL (5.8-8.3)
[2016-12-25] MEDS: Magnesium Oxide 400 mg Tab UD PO SCH ×2 (09:08→17:48)
[2016-12-25] MEDS: Lactobacillus Acidophilus 500 MU Cap PO SCH (09:08)
[2016-12-25] MEDS: Nystatin 100,000 Units/gm Topical Pow(15 gm) TOP SCH ×3 (09:09→17:48)
[2016-12-25] MEDS: Clotrimazole/Betamethasone Cream(15 gm) TOP SCH ×2 (09:09→17:37)
--- NOTE | 2016-12-25 11:59 | CP.PCM.PN ---
<Mayco Barfield - Last Filed: 12/25/16 13:55> Subjective - Date & Time of Evaluation Date of Evaluation: 12/25/16 Time of Evaluation: 12:30 - Subjective Subjective: 89 year old female patient seen at bedside for right lower extremity ulceration. Patient seen resting comfortably in chair. Patient's daughter is present at bedside. Patient denies any acute events overnight. Patient denies N/ V/F/D/C/SOB/calf pain. No other pedal complaints at this time. Objective - Vital Signs/Intake and Output Vital Signs (last 24 hours): Temp Pulse Resp BP Pulse Ox 97.5 F L 66 20 150/68 93 L 12/25/16 06:00 12/25/16 06:00 12/25/16 06:00 12/25/16 06:00 12/25/16 06:00 - Medications Medications: Current Medications Acetaminophen (Tylenol 325mg Tab) 650 mg PO Q6H PRN PRN Reason: Pain, moderate (4-7) Last Admin: 12/24/16 22:14 Dose: 650 mg Albuterol/Ipratropium (Duoneb 3 Mg/0.5 Mg (3 Ml) Ud) 3 ml IH Q2H PRN; Protocol PRN Reason: Shortness of Breath Alprazolam (Xanax) 0.125 mg PO BID PRN; Protocol PRN Reason: Anxiety Stop: 12/26/16 16:36 Last Admin: 12/25/16 09:15 Dose: 0.125 mg Arformoterol Tartrate (Brovana) 15 mcg IH [id number] [facility] [place] Last Admin: 12/25/16 07:31 Dose: 15 mcg Aspirin (Ecotrin) 81 mg PO 0800 [facility] [place] PRN Reason: Protocol Last Admin: 12/25/16 09:07 Dose: 81 mg Betamethasone/Clotrimazole (Lotrisone) 1 gm TOP BID [facility] PRN Reason: Protocol Last Admin: 12/25/16 09:09 Dose: 1 dose Budesonide (Pulmicort Respules) 0.5 mg IH [id number] [facility] PRN Reason: Protocol Last Admin: 12/25/16 07:31 Dose: 0.5 mg Heparin Sodium (Porcine) (Heparin) 5,000 units SC 0600,1800 [facility] [place] PRN Reason: Protocol Last Admin: 12/25/16 05:21 Dose: 5,000 units Lactobacillus Acidophilus (Bacid Acidophilus) 1 cap PO DAILY [facility] [place] Last Admin: 12/25/16 09:08 Dose: 1 cap Levalbuterol HCl (Xopenex) 0.63 mg IH [id number] PRN; Protocol PRN Reason: Shortness of Breath Magnesium Oxide (Mag-Ox) 400 mg PO BID [facility] [place] Last Admin: 12/25/16 09:08 Dose: 400 mg Nystatin (Nystop Topical Powder) 1 gm TOP TID [facility] PRN Reason: Protocol Last Admin: 12/25/16 09:09 Dose: 1 applic Ondansetron HCl (Zofran Inj) 4 mg IVP Q6H PRN; Protocol PRN Reason: Nausea/Vomiting Pantoprazole Sodium (Protonix Ec Tab) 40 mg PO 0600 [facility] [place] Last Admin: 12/25/16 05:21 Dose: 40 mg - Labs Labs: 12/25/16 08:30 12/25/16 08:30 - Constitutional Appears: Well, Non-toxic, No Acute Distress - Extremities Exam Additional comments: Bilateral LE focused physical exam: Dressing appears clean, dry, and intact to right foot. VASC: DP/PT pulses are palpable 1/4, cap refill < 3 sec to all digits, skin temperature warm to warm from proximal to distal, no pedal edema appreciated DERM: Right-diffuse superficial ulcer noted on distal right leg/ankle extending to dorsum and plantar aspect of the foot with moderate serous exudate with green coloration and bleeding noted posteriorly. Wound base is a mixture of granular tissue and early stage epithelializing tissue. Distal right heel early stage dark-eschar. Mild mal-odor noted. Posterio leg shows dusky green exudate. Left- No wounds noted to left lower extremity, no heel eschars noted. NEURO: protective pedal sensation is intact ORTHO: POP to right LE ulceration. Bilateral 2nd digit dorso-lateral gross dislocation noted, non-reducible - Neurological Exam Neurological Exam: Alert, Awake Assessment and Plan - Assessment and Plan (Free Text) Assessment: 89 y/o female patient with 1) superficial, non-infection ulceration of right lower extremity vs pyoderma . 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 Plan: Patient seen and evaluated in bed. Discussed with attending, Dr. De León. Chart, vitals, labs reviewed = afebrile, WBC = 9.6 Right leg wound dressed with Lotrisone, non-adhesive dressing, ABD and kerlix. Patient tolerated dressing change well. Patient is to continue to wear offloading boot to RLE while in bed. Wound culture results pending: preliminary results show G(-) rods. Podiatry will continue to follow while patient in house <Chi De León - Last Filed: 12/26/16 16:50> Objective - Vital Signs/Intake and Output Vital Signs (last 24 hours): Temp Pulse Resp BP Pulse Ox 97.9 F 72 18 153/67 H 93 L 12/26/16 16:10 12/26/16 16:10 12/26/16 16:10 12/26/16 16:10 12/25/16 06:00 - Medications Medications: Current Medications Acetaminophen (Tylenol 325mg Tab) 650 mg PO Q6H PRN PRN Reason: Pain, moderate (4-7) Last Admin: 12/26/16 09:00 Dose: 650 mg Albuterol/Ipratropium (Duoneb 3 Mg/0.5 Mg (3 Ml) Ud) 3 ml IH Q2H PRN; Protocol PRN Reason: Shortness of Breath Arformoterol Tartrate (Brovana) 15 mcg IH [id number] [facility] [place] Last Admin: 12/26/16 07:33 Dose: 15 mcg Aspirin (Ecotrin) 81 mg PO 0800 [facility] [place] PRN Reason: Protocol Last Admin: 12/26/16 08:43 Dose: 81 mg Betamethasone/Clotrimazole (Lotrisone) 1 gm TOP BID [facility] PRN Reason: Protocol Last Admin: 12/26/16 14:02 Dose: Not Given Budesonide (Pulmicort Respules) 0.5 mg IH [id number] [facility] PRN Reason: Protocol Last Admin: 12/26/16 07:33 Dose: 0.5 mg Heparin Sodium (Porcine) (Heparin) 5,000 units SC 0600,1800 [facility] [place] PRN Reason: Protocol Last Admin: 12/26/16 05:58 Dose: 5,000 units Lactobacillus Acidophilus (Bacid Acidophilus) 1 cap PO DAILY [facility] [place] Last Admin: 12/26/16 09:27 Dose: 1 cap Levalbuterol HCl (Xopenex) 0.63 mg IH [id number] PRN; Protocol PRN Reason: Shortness of Breath Last Admin: 12/26/16 06:20 Dose: 0.63 mg Magnesium Oxide (Mag-Ox) 400 mg PO BID [facility] [place] Last Admin: 12/26/16 09:27 Dose: 400 mg Nystatin (Nystop Topical Powder) 1 gm TOP TID [facility] PRN Reason: Protocol Last Admin: 12/26/16 14:03 Dose: 1 applic Ondansetron HCl (Zofran Inj) 4 mg IVP Q6H PRN; Protocol PRN Reason: Nausea/Vomiting Pantoprazole Sodium (Protonix Ec Tab) 40 mg PO 0600 [facility] [place] Last Admin: 12/26/16 05:58 Dose: 40 mg - Labs Labs: 12/25/16 08:30 12/25/16 08:30 Attending/Attestation - Attestation I have personally seen and examined this patient.: Yes I have fully participated in the care of the patient.: Yes I have reviewed all pertinent clinical information, including history, physical exam and plan: Yes
--- NOTE | 2016-12-25 15:53 | CP.PCM.PN ---
Subjective - Date & Time of Evaluation Date of Evaluation: 12/25/16 Time of Evaluation: 11:50 - Subjective Subjective: Comfortable in bed, not in distress, afebrile. Objective - Vital Signs/Intake and Output Vital Signs (last 24 hours): Temp Pulse Resp BP Pulse Ox 98.2 F 80 18 133/68 93 L 12/25/16 12:44 12/25/16 12:44 12/25/16 12:44 12/25/16 12:44 12/25/16 06:00 - Medications Medications: Current Medications Acetaminophen (Tylenol 325mg Tab) 650 mg PO Q6H PRN PRN Reason: Pain, moderate (4-7) Last Admin: 12/24/16 22:14 Dose: 650 mg Albuterol/Ipratropium (Duoneb 3 Mg/0.5 Mg (3 Ml) Ud) 3 ml IH Q2H PRN; Protocol PRN Reason: Shortness of Breath Alprazolam (Xanax) 0.125 mg PO BID PRN; Protocol PRN Reason: Anxiety Stop: 12/26/16 16:36 Last Admin: 12/25/16 09:15 Dose: 0.125 mg Arformoterol Tartrate (Brovana) 15 mcg IH [id number] [facility] Last Admin: 12/25/16 07:31 Dose: 15 mcg Aspirin (Ecotrin) 81 mg PO 0800 [facility] PRN Reason: Protocol Last Admin: 12/25/16 09:07 Dose: 81 mg Betamethasone/Clotrimazole (Lotrisone) 1 gm TOP BID [facility] PRN Reason: Protocol Last Admin: 12/25/16 09:09 Dose: 1 dose Budesonide (Pulmicort Respules) 0.5 mg IH [id number] [facility] PRN Reason: Protocol Last Admin: 12/25/16 07:31 Dose: 0.5 mg Heparin Sodium (Porcine) (Heparin) 5,000 units SC 0600,1800 [facility] PRN Reason: Protocol Last Admin: 12/25/16 05:21 Dose: 5,000 units Lactobacillus Acidophilus (Bacid Acidophilus) 1 cap PO DAILY [facility] Last Admin: 12/25/16 09:08 Dose: 1 cap Levalbuterol HCl (Xopenex) 0.63 mg IH [id number] PRN; Protocol PRN Reason: Shortness of Breath Magnesium Oxide (Mag-Ox) 400 mg PO BID [facility] Last Admin: 12/25/16 09:08 Dose: 400 mg Nystatin (Nystop Topical Powder) 1 gm TOP TID [facility] PRN Reason: Protocol Last Admin: 12/25/16 13:35 Dose: 1 applic Ondansetron HCl (Zofran Inj) 4 mg IVP Q6H PRN; Protocol PRN Reason: Nausea/Vomiting Pantoprazole Sodium (Protonix Ec Tab) 40 mg PO 0600 [facility] Last Admin: 12/25/16 05:21 Dose: 40 mg - Labs Labs: 12/25/16 08:30 12/25/16 08:30 - Constitutional Appears: Non-toxic, No Acute Distress - Head Exam Head Exam: NORMAL INSPECTION - ENT Exam ENT Exam: Mucous Membranes Moist - Neck Exam Neck Exam: absent: Lymphadenopathy, Meningismus - Respiratory Exam Respiratory Exam: Decreased Breath Sounds - Cardiovascular Exam Cardiovascular Exam: +S1, +S2 - GI/Abdominal Exam GI & Abdominal Exam: Soft. absent: Tenderness Assessment and Plan - Assessment and Plan (Free Text) Plan: Assessment S/P severe sepsis with acute renal failure (now resolved) probably due to left upper and lower lobe healthcare-associated pneumonia, clinically improved ulcerative colitis chronic left leg ulcer, R/O pyoderma gangrenosum COPD HTN CAD with chronic CHF S/P pacemaker placement anxiety disorder Plan continue to monitor off antibiotics since she is at risk for healthcare- associated infections
[2016-12-25] MEDS: Levalbuterol 0.63 MG/3 ML Inhal Soln UD IH PRN (20:33)
--- NOTE | 2016-12-25 21:24 | PN ---
SUBJECTIVE: The patient is an 89-year-old see and examined, just came from dialysis, seems to be little tired. No nausea, no vomiting or diarrhea. PHYSICAL EXAMINATION: VITAL SIGNS: She is afebrile, pulse is 70, respirations 18, blood pressure 142/70. LUNGS: Bilateral fair airflow. No rhonchi or crackles. HEART: S1 and S2 audible. ABDOMEN: Soft, nontender. No rebound. No guarding. NEUROLOGIC: The patient is awake and alert, able to communicate. Right lower leg is in the dressing. She has desquamation and skin ulceration that is being cared by Dr. Workman. LABORATORY EXAMINATION: WBC is 9.6, hemoglobin 9.5, hematocrit 30.5, platelets 233. Chemistry; sodium 149, potassium 3.5, chloride 111, CO2 32, BUN 13, creatinine 0.6, blood sugar of 120. ASSESSMENT: 1. Status post respiratory failure. 2. Left upper lobe pneumonia, resolved. 3. Right lower leg ulceration, seem to be granulating well. 4. Hypertension. 5. History of ulcerative colitis. 6. Anxiety disorder. PLAN: We will continue the patient on current medication, encourage ambulation. Her medications are reviewed. We will continue her on lactobacillus. She is on Brovana. She is on aspirin 81 daily. She is on subcutaneous DVT prophylaxis. She on Protonix, we will continue that. Continue her on Xopenex and Xanax as needed. Jorden Mcneill MD
[2016-12-26] MEDS: Pantoprazole 40 mg EC Tab PO SCH (05:58)
[2016-12-26] MEDS: Levalbuterol 0.63 MG/3 ML Inhal Soln UD IH PRN (06:20)
[2016-12-26] MEDS: Arformoterol 15 mcg/2 ml Inh Sol IH SCH ×2 (07:33→19:50)
[2016-12-26] MEDS: Budesonide 0.5 mg/2 ml Inhal Susp UD IH SCH ×2 (07:33→19:50)
[2016-12-26] MEDS: Lactobacillus Acidophilus 500 MU Cap PO SCH (09:27)
[2016-12-26] MEDS: Nystatin 100,000 Units/gm Topical Pow(15 gm) TOP SCH ×3 (09:27→18:00)
[2016-12-26] MEDS: Magnesium Oxide 400 mg Tab UD PO SCH ×2 (09:27→17:59)
[2016-12-26] MEDS: Clotrimazole/Betamethasone Cream(15 gm) TOP SCH ×2 (14:02→17:59)
--- NOTE | 2016-12-26 14:26 | CP.PCM.PN ---
<Mayco Barfield - Last Filed: 12/26/16 14:22> Subjective - Date & Time of Evaluation Date of Evaluation: 12/26/16 Time of Evaluation: 13:50 - Subjective Subjective: 89 year old female patient seen at bedside for right lower extremity ulceration. Patient seen resting comfortably in chair. Patient's granddaughter is present at bedside. Patient denies any acute events overnight. Patient denies N/V/F/D/C/SOB/calf pain. No other pedal complaints at this time. Pt is in good spirits. Objective - Vital Signs/Intake and Output Vital Signs (last 24 hours): Temp Pulse Resp BP Pulse Ox 98.1 F 78 18 160/76 H 93 L 12/26/16 12:05 12/26/16 12:05 12/26/16 12:05 12/26/16 12:05 12/25/16 06:00 - Medications Medications: Current Medications Acetaminophen (Tylenol 325mg Tab) 650 mg PO Q6H PRN PRN Reason: Pain, moderate (4-7) Last Admin: 12/26/16 09:00 Dose: 650 mg Albuterol/Ipratropium (Duoneb 3 Mg/0.5 Mg (3 Ml) Ud) 3 ml IH Q2H PRN; Protocol PRN Reason: Shortness of Breath Alprazolam (Xanax) 0.125 mg PO BID PRN; Protocol PRN Reason: Anxiety Stop: 12/26/16 16:36 Last Admin: 12/25/16 09:15 Dose: 0.125 mg Arformoterol Tartrate (Brovana) 15 mcg IH [id number] [facility] Last Admin: 12/26/16 07:33 Dose: 15 mcg Aspirin (Ecotrin) 81 mg PO 0800 [facility] PRN Reason: Protocol Last Admin: 12/26/16 08:43 Dose: 81 mg Betamethasone/Clotrimazole (Lotrisone) 1 gm TOP BID [facility] PRN Reason: Protocol Last Admin: 12/26/16 14:02 Dose: Not Given Budesonide (Pulmicort Respules) 0.5 mg IH [id number] [facility] PRN Reason: Protocol Last Admin: 12/26/16 07:33 Dose: 0.5 mg Heparin Sodium (Porcine) (Heparin) 5,000 units SC 0600,1800 [facility] PRN Reason: Protocol Last Admin: 12/26/16 05:58 Dose: 5,000 units Lactobacillus Acidophilus (Bacid Acidophilus) 1 cap PO DAILY [facility] Last Admin: 12/26/16 09:27 Dose: 1 cap Levalbuterol HCl (Xopenex) 0.63 mg IH [id number] PRN; Protocol PRN Reason: Shortness of Breath Last Admin: 12/26/16 06:20 Dose: 0.63 mg Magnesium Oxide (Mag-Ox) 400 mg PO BID [facility] Last Admin: 12/26/16 09:27 Dose: 400 mg Nystatin (Nystop Topical Powder) 1 gm TOP TID [facility] PRN Reason: Protocol Last Admin: 12/26/16 14:03 Dose: 1 applic Ondansetron HCl (Zofran Inj) 4 mg IVP Q6H PRN; Protocol PRN Reason: Nausea/Vomiting Pantoprazole Sodium (Protonix Ec Tab) 40 mg PO 0600 [facility] Last Admin: 12/26/16 05:58 Dose: 40 mg - Labs Labs: 12/25/16 08:30 12/25/16 08:30 - Constitutional Appears: Well, Non-toxic, No Acute Distress - Extremities Exam Additional comments: Bilateral LE focused physical exam: Dressing appears clean, dry, and intact to right foot. VASC: DP/PT pulses are palpable 1/4, cap refill < 3 sec to all digits, skin temperature warm to warm from proximal to distal, no pedal edema appreciated DERM: Right-diffuse superficial ulcer noted on distal right leg/ankle extending to dorsum and plantar aspect of the foot with moderate serous exudate with green coloration and bleeding noted posteriorly. Wound base is a mixture of granular tissue and early stage epithelializing tissue. Distal right heel early stage dark-eschar. Mild mal-odor noted. Posterior leg shows heady amount ot dusky green exudate. Left- No wounds noted to left lower extremity, no heel eschars noted. NEURO: Protective pedal sensation is intact ORTHO: POP to right LE ulceration. Bilateral 2nd digit dorso-lateral gross dislocation noted, non-reducible Assessment and Plan - Assessment and Plan (Free Text) Assessment: 89 y/o female patient with 1) superficial, infected ulceration of right lower extremity vs pyoderma. 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 Plan: Patient seen and evaluated in bed. Discussed with attending, Dr. De León. Chart, vitals, labs reviewed = afebrile absent leukocytosis. Right leg wound dressed with Lotrisone, non-adhesive dressing, ABD and kerlix. Patient tolerated dressing change well. Patient is to continue to wear offloading boot to RLE while in bed. Wound culture final results: Heavy growth of Pseudomonas aeruginosa. Awaiting ID recommendations on potential additional antibiotic course. Ordered stool culture and C-diff analysis. Podiatry will continue to follow while patient in house <Ashlie Workman - Last Filed: 01/13/17 16:29> Objective - Vital Signs/Intake and Output Vital Signs (last 24 hours): Temp Pulse Resp BP Pulse Ox 98.7 F 70 18 138/58 L 90 L 12/31/16 10:11 12/31/16 10:11 12/31/16 10:11 12/31/16 10:11 12/30/16 16:16 - Labs Labs: 12/25/16 08:30 12/25/16 08:30 Attending/Attestation - Attestation I have personally seen and examined this patient.: Yes I have fully participated in the care of the patient.: Yes I have reviewed all pertinent clinical information, including history, physical exam and plan: Yes
--- NOTE | 2016-12-26 18:24 | CP.PCM.PN ---
Subjective - Date & Time of Evaluation Date of Evaluation: 12/26/16 Time of Evaluation: 11:30 - Subjective Subjective: Comfortable, afebrile. Objective - Vital Signs/Intake and Output Vital Signs (last 24 hours): Temp Pulse Resp BP Pulse Ox 97.9 F 72 18 153/67 H 93 L 12/26/16 16:10 12/26/16 16:10 12/26/16 16:10 12/26/16 16:10 12/25/16 06:00 - Medications Medications: Current Medications Acetaminophen (Tylenol 325mg Tab) 650 mg PO Q6H PRN PRN Reason: Pain, moderate (4-7) Last Admin: 12/26/16 09:00 Dose: 650 mg Albuterol/Ipratropium (Duoneb 3 Mg/0.5 Mg (3 Ml) Ud) 3 ml IH Q2H PRN; Protocol PRN Reason: Shortness of Breath Arformoterol Tartrate (Brovana) 15 mcg IH [id number] [facility] Last Admin: 12/26/16 07:33 Dose: 15 mcg Aspirin (Ecotrin) 81 mg PO 0800 [facility] PRN Reason: Protocol Last Admin: 12/26/16 08:43 Dose: 81 mg Betamethasone/Clotrimazole (Lotrisone) 1 gm TOP BID [facility] PRN Reason: Protocol Last Admin: 12/26/16 17:59 Dose: 1 dose Budesonide (Pulmicort Respules) 0.5 mg IH [id number] [facility] PRN Reason: Protocol Last Admin: 12/26/16 07:33 Dose: 0.5 mg Heparin Sodium (Porcine) (Heparin) 5,000 units SC 0600,1800 [facility] PRN Reason: Protocol Last Admin: 12/26/16 17:57 Dose: 5,000 units Lactobacillus Acidophilus (Bacid Acidophilus) 1 cap PO DAILY [facility] Last Admin: 12/26/16 09:27 Dose: 1 cap Levalbuterol HCl (Xopenex) 0.63 mg IH [id number] PRN; Protocol PRN Reason: Shortness of Breath Last Admin: 12/26/16 06:20 Dose: 0.63 mg Magnesium Oxide (Mag-Ox) 400 mg PO BID [facility] Last Admin: 12/26/16 17:59 Dose: 400 mg Nystatin (Nystop Topical Powder) 1 gm TOP TID [facility] PRN Reason: Protocol Last Admin: 12/26/16 18:00 Dose: 1 applic Ondansetron HCl (Zofran Inj) 4 mg IVP Q6H PRN; Protocol PRN Reason: Nausea/Vomiting Pantoprazole Sodium (Protonix Ec Tab) 40 mg PO 0600 [facility] Last Admin: 12/26/16 05:58 Dose: 40 mg - Labs Labs: 12/25/16 08:30 12/25/16 08:30 - Constitutional Appears: Non-toxic, No Acute Distress - Head Exam Head Exam: NORMAL INSPECTION - Neck Exam Neck Exam: absent: Meningismus - Respiratory Exam Respiratory Exam: Decreased Breath Sounds - Cardiovascular Exam Cardiovascular Exam: +S1, +S2 - GI/Abdominal Exam GI & Abdominal Exam: Soft. absent: Tenderness Assessment and Plan - Assessment and Plan (Free Text) Plan: Assessment S/P severe sepsis with acute renal failure (now resolved) probably due to left upper and lower lobe healthcare-associated pneumonia, clinically improved ulcerative colitis chronic left leg ulcer, R/O pyoderma gangrenosum COPD HTN CAD with chronic CHF S/P pacemaker placement anxiety disorder Plan continue to monitor off antibiotics since she is at risk for nosocomial infections
--- NOTE | 2016-12-26 19:19 | PN ---
SUBJECTIVE: The patient is an 89 years old, seen and examined, sitting in chair, seems to be comfortable. No nausea or vomiting. No diarrhea. Eating and tolerating. Participating in therapy. Feels anxious at times. Anxious to go home. PHYSICAL EXAMINATION: VITAL SIGNS: She is afebrile. Pulse 72, respirations 18, blood pressure 153/67. LUNGS: Bilateral fair airflow. No rhonchi or crackles. HEART: S1, S2, audible. ABDOMEN: Soft, nontender. No rebound, no guarding. NEUROLOGIC: Patient is awake and alert. Able to communicative. The right foot and lower leg is in the dressing. LABORATORY DATA: WBC is 9.6, hemoglobin 9.5, hematocrit 30.8, platelets of 233. Chemistry: Sodium 149, potassium 3.5, chloride 111, CO2 is 32, BUN 13, creatinine 0.6, blood sugar of 120. ASSESSMENT: 1. Resolved renal failure. 2. Resolved left upper lobe pneumonia. 3. Chronic obstructive pulmonary disease. 4. Valladares cellulitis improving. 5. Chronic anemia. PLAN: Encourage ambulation. The patient is participating in therapy. We will continue her on Brovana, aspirin. She is also on DVT prophylaxis. We will continue on Protonix. Her therapy time has been extended and she is going to stay till Saturday or Saturday. Jorden Mcneill MD
[2016-12-27] MEDS: Pantoprazole 40 mg EC Tab PO SCH (05:26)
[2016-12-27] MEDS: Arformoterol 15 mcg/2 ml Inh Sol IH SCH ×2 (07:46→20:00)
[2016-12-27] MEDS: Budesonide 0.5 mg/2 ml Inhal Susp UD IH SCH ×2 (07:46→20:00)
[2016-12-27] MEDS: Nystatin 100,000 Units/gm Topical Pow(15 gm) TOP SCH ×3 (10:34→17:45)
[2016-12-27] MEDS: Magnesium Oxide 400 mg Tab UD PO SCH ×2 (10:34→17:45)
[2016-12-27] MEDS: Lactobacillus Acidophilus 500 MU Cap PO SCH (10:34)
[2016-12-27] MEDS: Clotrimazole/Betamethasone Cream(15 gm) TOP SCH ×2 (10:34→17:45)
--- NOTE | 2016-12-27 11:03 | CP.PCM.PN ---
<Lisa Phillips - Last Filed: 12/27/16 11:04> Subjective - Date & Time of Evaluation Date of Evaluation: 12/27/16 Time of Evaluation: 11:00 - Subjective Subjective: 89 year old female patient seen at bedside for right lower extremity ulceration. Patient seen resting comfortably in chair. Patient's granddaughter is present at bedside. Patient denies any acute events overnight. Patient denies N/V/F/D/C/SOB/calf pain. No other pedal complaints at this time. Objective - Vital Signs/Intake and Output Vital Signs (last 24 hours): Temp Pulse Resp BP Pulse Ox 97.9 F 72 18 153/67 H 93 L 12/26/16 16:10 12/26/16 16:10 12/26/16 16:10 12/26/16 16:10 12/25/16 06:00 - Medications Medications: Current Medications Acetaminophen (Tylenol 325mg Tab) 650 mg PO Q6H PRN PRN Reason: Pain, moderate (4-7) Last Admin: 12/26/16 09:00 Dose: 650 mg Albuterol/Ipratropium (Duoneb 3 Mg/0.5 Mg (3 Ml) Ud) 3 ml IH Q2H PRN; Protocol PRN Reason: Shortness of Breath Alprazolam (Xanax) 0.125 mg PO BID PRN; Protocol PRN Reason: Anxiety Last Admin: 12/26/16 20:20 Dose: 0.125 mg Arformoterol Tartrate (Brovana) 15 mcg IH [id number] [facility] Last Admin: 12/27/16 07:46 Dose: 15 mcg Aspirin (Ecotrin) 81 mg PO 0800 [facility] PRN Reason: Protocol Last Admin: 12/27/16 08:58 Dose: 81 mg Betamethasone/Clotrimazole (Lotrisone) 1 gm TOP BID [facility] PRN Reason: Protocol Last Admin: 12/27/16 10:34 Dose: Not Given Budesonide (Pulmicort Respules) 0.5 mg IH [id number] [facility] PRN Reason: Protocol Last Admin: 12/27/16 07:46 Dose: 0.5 mg Heparin Sodium (Porcine) (Heparin) 5,000 units SC 0600,1800 [facility] PRN Reason: Protocol Last Admin: 12/27/16 05:27 Dose: 5,000 units Lactobacillus Acidophilus (Bacid Acidophilus) 1 cap PO DAILY [facility] Last Admin: 12/27/16 10:34 Dose: 1 cap Levalbuterol HCl (Xopenex) 0.63 mg IH [id number] PRN; Protocol PRN Reason: Shortness of Breath Last Admin: 12/26/16 06:20 Dose: 0.63 mg Magnesium Oxide (Mag-Ox) 400 mg PO BID [facility] Last Admin: 12/27/16 10:34 Dose: 400 mg Mupirocin (Bactroban Ointment) 0 gm TOP BID [facility] Nystatin (Nystop Topical Powder) 1 gm TOP TID [facility] PRN Reason: Protocol Last Admin: 12/27/16 10:34 Dose: 1 applic Ondansetron HCl (Zofran Inj) 4 mg IVP Q6H PRN; Protocol PRN Reason: Nausea/Vomiting Pantoprazole Sodium (Protonix Ec Tab) 40 mg PO 0600 [facility] Last Admin: 12/27/16 05:26 Dose: 40 mg - Labs Labs: 12/25/16 08:30 12/25/16 08:30 - Constitutional Appears: Non-toxic, No Acute Distress - Extremities Exam Additional comments: Bilateral LE focused physical exam: Dressing appears clean, dry, and intact to right leg DERM: Right-diffuse superficial ulcer noted on distal right leg/ankle extending to dorsum and plantar aspect of the foot with moderate serous exudate with green coloration and bleeding noted posteriorly. Wound base is a mixture of granular tissue and early stage epithelializing tissue. Distal right heel early stage dark-eschar. Mild mal-odor noted. Posterior leg shows heady amount ot dusky green exudate. Left- No wounds noted to left lower extremity, no heel eschars noted. VASC: DP/PT pulses are palpable 1/4, cap refill < 3 sec to all digits, skin temperature warm to warm from proximal to distal, no pedal edema appreciated NEURO: Protective pedal sensation is intact ORTHO: POP to right LE ulceration. Bilateral 2nd digit dorso-lateral gross dislocation noted, non-reducible - Neurological Exam Neurological Exam: Alert, Awake - Psychiatric Exam Psychiatric exam: Normal Affect, Normal Mood - Skin Skin Exam: Normal Color, Warm Assessment and Plan - Assessment and Plan (Free Text) Assessment: 89 y/o female patient with 1) superficial, infected ulceration of right lower extremity vs pyoderma. 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 Plan: Patient seen and evaluated in bed. Rounded with attending, Dr. Workman Chart, vitals, labs reviewed = afebrile absent leukocytosis. Right leg wound dressed with Telfa and kerlix. Patient tolerated dressing change well. Bactroban ordered today. Patient is to continue to wear offloading boot to RLE while in bed. Wound culture final results: Heavy growth of Pseudomonas aeruginosa. ID recommendation appreciated. Podiatry will continue to follow while patient in house <Ashlie Workman - Last Filed: 01/13/17 19:21> Objective - Vital Signs/Intake and Output Vital Signs (last 24 hours): Temp Pulse Resp BP Pulse Ox 98.7 F 70 18 138/58 L 90 L 12/31/16 10:11 12/31/16 10:11 12/31/16 10:11 12/31/16 10:11 12/30/16 16:16 - Labs Labs: 12/25/16 08:30 12/25/16 08:30 Attending/Attestation - Attestation I have personally seen and examined this patient.: Yes I have fully participated in the care of the patient.: Yes I have reviewed all pertinent clinical information, including history, physical exam and plan: Yes
--- NOTE | 2016-12-27 17:42 | CP.PCM.PN ---
Subjective - Date & Time of Evaluation Date of Evaluation: 12/27/16 Time of Evaluation: 11:35 - Subjective Subjective: Comfortable in bed, not in distress, afebrile. Objective - Vital Signs/Intake and Output Vital Signs (last 24 hours): Temp Pulse Resp BP Pulse Ox 98.6 F 79 20 141/62 90 L 12/27/16 16:18 12/27/16 16:18 12/27/16 16:18 12/27/16 16:18 12/27/16 16:18 - Medications Medications: Current Medications Acetaminophen (Tylenol 325mg Tab) 650 mg PO Q6H PRN PRN Reason: Pain, moderate (4-7) Last Admin: 12/26/16 09:00 Dose: 650 mg Albuterol/Ipratropium (Duoneb 3 Mg/0.5 Mg (3 Ml) Ud) 3 ml IH Q2H PRN; Protocol PRN Reason: Shortness of Breath Alprazolam (Xanax) 0.125 mg PO BID PRN; Protocol PRN Reason: Anxiety Last Admin: 12/26/16 20:20 Dose: 0.125 mg Arformoterol Tartrate (Brovana) 15 mcg IH [id number] [facility] Last Admin: 12/27/16 07:46 Dose: 15 mcg Aspirin (Ecotrin) 81 mg PO 0800 [facility] PRN Reason: Protocol Last Admin: 12/27/16 08:58 Dose: 81 mg Betamethasone/Clotrimazole (Lotrisone) 1 gm TOP BID [facility] PRN Reason: Protocol Last Admin: 12/27/16 10:34 Dose: Not Given Budesonide (Pulmicort Respules) 0.5 mg IH [id number] [facility] PRN Reason: Protocol Last Admin: 12/27/16 07:46 Dose: 0.5 mg Heparin Sodium (Porcine) (Heparin) 5,000 units SC 0600,1800 [facility] PRN Reason: Protocol Last Admin: 12/27/16 05:27 Dose: 5,000 units Lactobacillus Acidophilus (Bacid Acidophilus) 1 cap PO DAILY [facility] Last Admin: 12/27/16 10:34 Dose: 1 cap Levalbuterol HCl (Xopenex) 0.63 mg IH [id number] PRN; Protocol PRN Reason: Shortness of Breath Last Admin: 08/16/17 06:20 Dose: 0.63 mg Magnesium Oxide (Mag-Ox) 400 mg PO BID [facility] Last Admin: 12/27/16 10:34 Dose: 400 mg Mupirocin (Bactroban Ointment) 0 gm TOP BID [facility] Nystatin (Nystop Topical Powder) 1 gm TOP TID [facility] PRN Reason: Protocol Last Admin: 12/27/16 13:19 Dose: 1 applic Ondansetron HCl (Zofran Inj) 4 mg IVP Q6H PRN; Protocol PRN Reason: Nausea/Vomiting Pantoprazole Sodium (Protonix Ec Tab) 40 mg PO 0600 [facility] Last Admin: 12/27/16 05:26 Dose: 40 mg - Labs Labs: 12/25/16 08:30 12/25/16 08:30 - Constitutional Appears: Non-toxic, No Acute Distress - Head Exam Head Exam: NORMAL INSPECTION - ENT Exam ENT Exam: Mucous Membranes Moist - Neck Exam Neck Exam: absent: Meningismus - Respiratory Exam Respiratory Exam: Decreased Breath Sounds - Cardiovascular Exam Cardiovascular Exam: +S1, +S2 - GI/Abdominal Exam GI & Abdominal Exam: Soft. absent: Tenderness - Extremities Exam Additional comments: right leg with dressings in place Assessment and Plan - Assessment and Plan (Free Text) Plan: Assessment S/P severe sepsis with acute renal failure (now resolved) probably due to left upper and lower lobe healthcare-associated pneumonia, clinically improved ulcerative colitis chronic left leg ulcer, R/O pyoderma gangrenosum, now superinfected with Pseudomonas COPD HTN CAD with chronic CHF S/P pacemaker placement anxiety disorder Plan discussed with Dr. Workman - will start PO Ciprofloxacin and target 5-7 days of therapy
--- NOTE | 2016-12-27 18:55 | PN ---
SUBJECTIVE: The patient is an 89-year-old, seen and examined, just came back from the physical therapy, seems to be very exhausted. Does not like food, requesting for regular food, program changed today, otherwise doing well. PHYSICAL EXAMINATION GENERAL: She is awake and alert and communicative. VITAL SIGNS: She is afebrile, pulse 60, respirations 18, and blood pressure 149/70. LUNGS: Bilateral fair airflow. No rhonchi or crackles. HEART: S1 and S2 audible. ABDOMEN: Soft, nontender. No rebound. No guarding. NEUROLOGIC: She is awake and alert, however, communicative. LABORATORY DATA: There is no new lab available today. ASSESSMENT: 1. Deconditioning, difficulty walking. 2. Resolved pneumonia. 3. Resolved renal insufficiency. 4. Hypertension. PLAN: The patient is currently off of antibiotics. She is getting her nebulizer treatments, aspirin 81 daily. She is on DVT prophylaxis. 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 Workman. Probably discharge plan over the weekend. Jorden Mcneill MD
[2016-12-28] MEDS: Pantoprazole 40 mg EC Tab PO SCH (05:33)
[2016-12-28] MEDS: Budesonide 0.5 mg/2 ml Inhal Susp UD IH SCH ×2 (07:27→20:01)
[2016-12-28] MEDS: Arformoterol 15 mcg/2 ml Inh Sol IH SCH ×2 (07:27→20:01)
[2016-12-28] MEDS: Magnesium Oxide 400 mg Tab UD PO SCH ×2 (10:45→17:35)
[2016-12-28] MEDS: Lactobacillus Acidophilus 500 MU Cap PO SCH (10:45)
[2016-12-28] MEDS: Clotrimazole/Betamethasone Cream(15 gm) TOP SCH ×2 (10:47→17:34)
[2016-12-28] MEDS: Nystatin 100,000 Units/gm Topical Pow(15 gm) TOP SCH ×3 (10:47→17:35)
--- NOTE | 2016-12-28 12:03 | CP.PCM.PN ---
Addendum entered and electronically signed by Lisa Phillips DPM 12/28/16 12:05 : Multipodus boot ordered for Left lower extremity Original Note: <Lisa Phillips - Last Filed: 12/28/16 12:01> Subjective - Date & Time of Evaluation Date of Evaluation: 12/28/16 Time of Evaluation: 12:01 - Subjective Subjective: 89 year old female patient seen at bedside for right lower extremity superficial ulceration. Dressing to right leg appears clean dry and intact. Patient seen resting comfortably in chair. Patient's daughter is present at bedside. Patient denies any acute events overnight. Patient denies N/V/F/D/C/SOB /calf pain. No other pedal complaints at this time. Objective - Vital Signs/Intake and Output Vital Signs (last 24 hours): Temp Pulse Resp BP Pulse Ox 98 F 60 20 145/58 L 97 12/28/16 09:17 12/28/16 09:17 12/28/16 09:17 12/28/16 09:17 12/28/16 09:17 - Medications Medications: Current Medications Acetaminophen (Tylenol 325mg Tab) 650 mg PO Q6H PRN PRN Reason: Pain, moderate (4-7) Last Admin: 12/26/16 09:00 Dose: 650 mg Albuterol/Ipratropium (Duoneb 3 Mg/0.5 Mg (3 Ml) Ud) 3 ml IH Q2H PRN; Protocol PRN Reason: Shortness of Breath Alprazolam (Xanax) 0.125 mg PO BID PRN; Protocol PRN Reason: Anxiety Last Admin: 12/26/16 20:20 Dose: 0.125 mg Arformoterol Tartrate (Brovana) 15 mcg IH [id number] [facility] Last Admin: 12/28/16 07:27 Dose: 15 mcg Aspirin (Ecotrin) 81 mg PO 0800 [facility] PRN Reason: Protocol Last Admin: 12/28/16 08:36 Dose: 81 mg Betamethasone/Clotrimazole (Lotrisone) 1 gm TOP BID [facility] PRN Reason: Protocol Last Admin: 12/28/16 10:47 Dose: 1 dose Budesonide (Pulmicort Respules) 0.5 mg IH [id number] [facility] PRN Reason: Protocol Last Admin: 12/28/16 07:27 Dose: 0.5 mg Ciprofloxacin (Cipro) 500 mg PO Q12 [facility] PRN Reason: Protocol Stop: 12/28/16 17:39 Last Admin: 12/28/16 10:45 Dose: 500 mg Heparin Sodium (Porcine) (Heparin) 5,000 units SC 0600,1800 [facility] PRN Reason: Protocol Last Admin: 12/28/16 05:33 Dose: 5,000 units Lactobacillus Acidophilus (Bacid Acidophilus) 1 cap PO DAILY [facility] Last Admin: 12/28/16 10:45 Dose: 1 cap Levalbuterol HCl (Xopenex) 0.63 mg IH [id number] PRN; Protocol PRN Reason: Shortness of Breath Last Admin: 12/26/16 06:20 Dose: 0.63 mg Magnesium Oxide (Mag-Ox) 400 mg PO BID [facility] Last Admin: 12/28/16 10:45 Dose: 400 mg Mupirocin (Bactroban Ointment) 0 gm TOP BID [facility] Last Admin: 12/28/16 10:46 Dose: 1 applic Nystatin (Nystop Topical Powder) 1 gm TOP TID [facility] PRN Reason: Protocol Last Admin: 12/28/16 10:47 Dose: 1 applic Ondansetron HCl (Zofran Inj) 4 mg IVP Q6H PRN; Protocol PRN Reason: Nausea/Vomiting Pantoprazole Sodium (Protonix Ec Tab) 40 mg PO 0600 [facility] Last Admin: 12/28/16 05:33 Dose: 40 mg - Labs Labs: 12/25/16 08:30 12/25/16 08:30 - Constitutional Appears: Well, Non-toxic, No Acute Distress - Extremities Exam Additional comments: Bilateral LE focused physical exam: Dressing appears clean, dry, and intact to right leg DERM: Right-diffuse superficial ulcer noted on distal right leg/ankle extending to dorsum and plantar aspect of the foot with moderate serous exudate with green coloration and bleeding noted posteriorly. Wound base is a mixture of granular tissue and early stage epithelializing tissue. Distal right heel early stage dark-eschar. Mild mal-odor noted. Posterior leg shows heady amount ot dusky green exudate. Left- No wounds noted to left lower extremity, no heel eschars noted. VASC: DP/PT pulses are palpable 1/4, cap refill < 3 sec to all digits, skin temperature warm to warm from proximal to distal, no pedal edema appreciated NEURO: Protective pedal sensation is intact ORTHO: POP to right LE ulceration. Bilateral 2nd digit dorso-lateral gross dislocation noted, non-reducible - Neurological Exam Neurological Exam: Alert, Awake, Oriented x3 - Psychiatric Exam Psychiatric exam: Normal Affect, Normal Mood - Skin Skin Exam: Normal Color, Warm Assessment and Plan - Assessment and Plan (Free Text) Assessment: 89 y/o female patient with 1) superficial, infected ulceration of right lower extremity vs pyoderma. 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 Plan: Patient seen and evaluated in bed. Rounded with attending, Dr. De León Chart, vitals, labs reviewed = afebrile absent leukocytosis. Right leg wound dressed with Bactroban, Telfa and kerlix. Patient tolerated dressing change well. Patient is to continue to wear offloading boot to RLE while in bed. Wound culture final results: Heavy growth of Pseudomonas aeruginosa. ID recommendation appreciated. Podiatry will continue to follow while patient in house <Chi De León - Last Filed: 12/29/16 08:19> Objective - Vital Signs/Intake and Output Vital Signs (last 24 hours): Temp Pulse Resp BP Pulse Ox 97.3 F L 68 16 163/67 H 98 12/28/16 11:08 12/28/16 11:08 12/28/16 11:08 12/28/16 11:08 12/28/16 11:08 - Medications Medications: Current Medications Acetaminophen (Tylenol 325mg Tab) 650 mg PO Q6H PRN PRN Reason: Pain, moderate (4-7) Last Admin: 12/26/16 09:00 Dose: 650 mg Albuterol/Ipratropium (Duoneb 3 Mg/0.5 Mg (3 Ml) Ud) 3 ml IH Q2H PRN; Protocol PRN Reason: Shortness of Breath Alprazolam (Xanax) 0.125 mg PO BID PRN; Protocol PRN Reason: Anxiety Last Admin: 12/28/16 20:04 Dose: 0.125 mg Arformoterol Tartrate (Brovana) 15 mcg IH [id number] [facility] Last Admin: 12/29/16 08:08 Dose: 15 mcg Aspirin (Ecotrin) 81 mg PO 0800 [facility] PRN Reason: Protocol Last Admin: 12/28/16 08:36 Dose: 81 mg Betamethasone/Clotrimazole (Lotrisone) 1 gm TOP BID [facility] PRN Reason: Protocol Last Admin: 12/28/16 17:34 Dose: 1 dose Budesonide (Pulmicort Respules) 0.5 mg IH [id number] [facility] PRN Reason: Protocol Last Admin: 12/29/16 08:08 Dose: 0.5 mg Ciprofloxacin (Cipro) 500 mg PO Q12 [facility] PRN Reason: Protocol Stop: 01/01/17 22:01 Last Admin: 12/28/16 21:15 Dose: 500 mg Heparin Sodium (Porcine) (Heparin) 5,000 units SC 0600,1800 [facility] PRN Reason: Protocol Last Admin: 12/28/16 17:34 Dose: 5,000 units Lactobacillus Acidophilus (Bacid Acidophilus) 1 cap PO DAILY [facility] Last Admin: 12/28/16 10:45 Dose: 1 cap Levalbuterol HCl (Xopenex) 0.63 mg IH [id number] PRN; Protocol PRN Reason: Shortness of Breath Last Admin: 12/26/16 06:20 Dose: 0.63 mg Magnesium Oxide (Mag-Ox) 400 mg PO BID [facility] Last Admin: 12/28/16 17:35 Dose: 400 mg Mupirocin (Bactroban Ointment) 0 gm TOP BID [facility] Last Admin: 12/28/16 17:34 Dose: Not Given Nystatin (Nystop Topical Powder) 1 gm TOP TID [facility] PRN Reason: Protocol Last Admin: 12/28/16 17:35 Dose: 1 applic Ondansetron HCl (Zofran Inj) 4 mg IVP Q6H PRN; Protocol PRN Reason: Nausea/Vomiting Pantoprazole Sodium (Protonix Ec Tab) 40 mg PO 0600 [facility] Last Admin: 12/28/16 05:33 Dose: 40 mg - Labs Labs: 12/25/16 08:30 12/25/16 08:30 Attending/Attestation - Attestation I have personally seen and examined this patient.: Yes I have fully participated in the care of the patient.: Yes I have reviewed all pertinent clinical information, including history, physical exam and plan: Yes
--- NOTE | 2016-12-28 17:39 | PN ---
DATE: SUBJECTIVE: The patient is an 89-year-old seen and examined, lying in bed, seemed to be comfortable, eating and tolerating. Just finished therapy and saturating well during therapy also. PHYSICAL EXAMINATION: VITAL SIGNS: The patient is afebrile, pulse 60, respirations 20, and blood pressure 145/58. LUNGS: Bilateral clear air flow. No rhonchi or crackles. HEART: S1 and S2 audible. ABDOMEN: Soft and nontender. No rebound. No guarding. NEUROLOGIC: The patient is awake and alert, able to communicate. MUSCULOSKELETAL: She osteoarthritis of cervical spine. EXTREMITIES: She has right foot deformity. She has right lower leg ulceration, healing, and granulating. ASSESSMENT: 1. Status post respiratory insufficiency and failure. 2. Status post acute renal failure. 3. Hypernatremia and dehydration, resolving. 4. Deconditioning and difficulty walking. 5. Chronic obstructive pulmonary disease. PLAN: The patient is currently on Cipro. She is getting Brovana. She is on nebulizer treatment as needed. She is on DVT prophylaxis. We will continue current medications. Discharge plan within a day or two. Jorden Mcneill MD
--- NOTE | 2016-12-28 20:05 | CP.PCM.PN ---
Subjective - Date & Time of Evaluation Date of Evaluation: 12/28/16 Time of Evaluation: 11:25 - Subjective Subjective: Comfortable in bed, not in distress, less right leg pain, no fevers. Objective - Vital Signs/Intake and Output Vital Signs (last 24 hours): Temp Pulse Resp BP Pulse Ox 98.6 F 79 20 141/62 90 L 12/27/16 16:18 12/27/16 16:18 12/27/16 16:18 12/27/16 16:18 12/27/16 16:18 - Medications Medications: Current Medications Acetaminophen (Tylenol 325mg Tab) 650 mg PO Q6H PRN PRN Reason: Pain, moderate (4-7) Last Admin: 12/26/16 09:00 Dose: 650 mg Albuterol/Ipratropium (Duoneb 3 Mg/0.5 Mg (3 Ml) Ud) 3 ml IH Q2H PRN; Protocol PRN Reason: Shortness of Breath Alprazolam (Xanax) 0.125 mg PO BID PRN; Protocol PRN Reason: Anxiety Last Admin: 12/26/16 20:20 Dose: 0.125 mg Arformoterol Tartrate (Brovana) 15 mcg IH [id number] [facility] Last Admin: 12/28/16 07:27 Dose: 15 mcg Aspirin (Ecotrin) 81 mg PO 0800 [facility] PRN Reason: Protocol Last Admin: 12/28/16 08:36 Dose: 81 mg Betamethasone/Clotrimazole (Lotrisone) 1 gm TOP BID [facility] PRN Reason: Protocol Last Admin: 12/27/16 17:45 Dose: Not Given Budesonide (Pulmicort Respules) 0.5 mg IH [id number] [facility] PRN Reason: Protocol Last Admin: 12/28/16 07:27 Dose: 0.5 mg Ciprofloxacin (Cipro) 500 mg PO Q12 [facility] PRN Reason: Protocol Stop: 12/28/16 17:39 Last Admin: 12/27/16 22:27 Dose: 500 mg Heparin Sodium (Porcine) (Heparin) 5,000 units SC 0600,1800 [facility] PRN Reason: Protocol Last Admin: 12/28/16 05:33 Dose: 5,000 units Lactobacillus Acidophilus (Bacid Acidophilus) 1 cap PO DAILY [facility] Last Admin: 12/27/16 10:34 Dose: 1 cap Levalbuterol HCl (Xopenex) 0.63 mg IH [id number] PRN; Protocol PRN Reason: Shortness of Breath Last Admin: 12/26/16 06:20 Dose: 0.63 mg Magnesium Oxide (Mag-Ox) 400 mg PO BID [facility] Last Admin: 12/27/16 17:45 Dose: 400 mg Mupirocin (Bactroban Ointment) 0 gm TOP BID [facility] Last Admin: 12/27/16 17:43 Dose: Not Given Nystatin (Nystop Topical Powder) 1 gm TOP TID [facility] PRN Reason: Protocol Last Admin: 12/27/16 17:45 Dose: 1 applic Ondansetron HCl (Zofran Inj) 4 mg IVP Q6H PRN; Protocol PRN Reason: Nausea/Vomiting Pantoprazole Sodium (Protonix Ec Tab) 40 mg PO 0600 [facility] Last Admin: 12/28/16 05:33 Dose: 40 mg - Labs Labs: 12/25/16 08:30 12/25/16 08:30 - Constitutional Appears: Non-toxic, No Acute Distress - Head Exam Head Exam: NORMAL INSPECTION - ENT Exam ENT Exam: Mucous Membranes Moist - Neck Exam Neck Exam: absent: Lymphadenopathy, Meningismus - Respiratory Exam Respiratory Exam: Decreased Breath Sounds - Cardiovascular Exam Cardiovascular Exam: +S1, +S2 - GI/Abdominal Exam GI & Abdominal Exam: Soft. absent: Tenderness Assessment and Plan - Assessment and Plan (Free Text) Plan: Assessment chronic left leg ulcer, R/O pyoderma gangrenosum, now superinfected with Pseudomonas S/P severe sepsis with acute renal failure (now resolved) probably due to left upper and lower lobe healthcare-associated pneumonia, clinically improved ulcerative colitis COPD HTN CAD with chronic CHF S/P pacemaker placement anxiety disorder Plan discussed with Dr. Workman - continue PO Ciprofloxacin (day 2) and target 5-7 days of therapy
[2016-12-29] MEDS: Arformoterol 15 mcg/2 ml Inh Sol IH SCH ×2 (08:08→20:10)
[2016-12-29] MEDS: Budesonide 0.5 mg/2 ml Inhal Susp UD IH SCH ×2 (08:08→20:10)
[2016-12-29] MEDS: Pantoprazole 40 mg EC Tab PO SCH (08:45)
[2016-12-29] MEDS: Lactobacillus Acidophilus 500 MU Cap PO SCH (11:05)
[2016-12-29] MEDS: Magnesium Oxide 400 mg Tab UD PO SCH ×2 (11:08→17:28)
[2016-12-29] MEDS: Nystatin 100,000 Units/gm Topical Pow(15 gm) TOP SCH ×3 (11:08→17:26)
[2016-12-29] MEDS: Clotrimazole/Betamethasone Cream(15 gm) TOP SCH ×2 (11:08→17:25)
--- NOTE | 2016-12-29 11:41 | PN ---
DATE: 12/29/2016 PULMONARY PROGRESS NOTE SUBJECTIVE: The patient was seen and examined at the bedside. She is receiving inhalation treatments with budesonide and Brovana and she is on oral Cipro. The patient reports feeling better with less shortness of breath. PHYSICAL EXAMINATION: VITAL SIGNS: Her vital signs are as follows; temperature 98.4, pulse 60, respirations 20, and blood pressure is 140/58. HEAD, EYES, EARS, NOSE, AND THROAT: Within normal limits. NECK: Supple with no jugular vein distentions. CHEST: Symmetrical. HEART: S1 and S2, no S3, regular. LUNGS: Diminished breath sounds at both bases. No wheezing. GASTROINTESTINAL: Soft, nontender with no organomegaly. EXTREMITIES: She has right foot deformity and right lower leg ulceration healing. No edema. ASSESSMENT: 1. Status post respiratory insufficiency and failure. 2. Status post acute renal failure. 3. Deconditioning. 4. Chronic obstructive pulmonary disease. PLAN: The patient is improving gradually. She will continue on inhalations with Brovana and budesonide. She will continue on oral Cipro. She is getting DVT prophylaxis, this was communicated with Dr. Mcneill, eyeglass frames inspector. Alcon Mcneil MD
--- NOTE | 2016-12-29 15:01 | PN ---
DATE: SUBJECTIVE: An 89-year-old female seen at bedside with her daughter present for continued evaluation and management of right lower leg and dorsal foot ulceration. The patient is resting comfortably and has been afebrile. She is set for discharge on Saturday at which time, we will order visiting nurse to change her wound on Saturday and Fridays and I will see the patient at home either Saturday or Saturday for wound care. PHYSICAL EXAMINATION: VITAL SIGNS: Revealed temperature of 97.3, pulse rate of 68, blood pressure of 163/67 and respiratory rate of 18. EXTREMITIES: Nonpalpable pulses noted bilaterally. Pedal hair growth noted bilaterally. Capillary filling time is delayed x10. There is no need to be a diffuse superficial ulceration composing dorsal aspect of her right lower leg, ankle and proximal foot. The area is mixture of fibrotic and granulate tissue. There is noted to be minimal serous drainage and no purulence to suggest underlying abscess formation, none of the wounds probed at bone. LABORATORY DATA: Findings reveled white count of 9.6, hemoglobin of 9.5, hematocrit of 30.8 and platelet count of 233. Microbiology report reveals pseudomonas growth on right leg wound. ASSESSMENT: Superficial diffuse ulceration to the right lower extremity specifically the lower leg and anterior ankle and dorsal proximal foot. PLAN: The patient's wound was cleansed with normal sterile saline, we will apply Bactroban, Telfa and Kerlix. The patient is in need of a second boating heel boot, which was ordered yesterday and is not yet arrived. I spoke with daughter Prudence at length on the fact that once she is discharged on Saturday, we will order visiting nurse service to come to her house and change her wounds as directed, which includes cleansing with normal sterile saline, applying Bactroban ointment and non-adherent Telfa gauze and dry sterile dressing on Mondays and Fridays. I will follow up her on wound care on Tuesdays and Wednesdays. The patient will be seen in follow up while in house. Chi De León DPM
--- NOTE | 2016-12-29 23:08 | PN ---
DATE: 12/29/2016 SUBJECTIVE: The patient is in bed. No acute distress. Nontoxic. PHYSICAL EXAMINATION: VITAL SIGNS: Temperature 97, blood pressure is 150/50 and respiratory rate of . HEENT: Unremarkable. NECK: Supple. LUNGS: Has decreased breath sounds. HEART: Normal S1 and S2. ABDOMEN: Soft. LABORATORY DATA: Reveals white count is 9.6 and hemoglobin of 9. Chemistries reveals a BUN of 13 and creatinine of 0.6. Microbiology reveals pseudomonas from the right leg culture. Stool cultures, no Salmonella, no Shigella, no Campylobacter is isolated. The stool for C. diff is reported from 12/27/2016 to be negative toxins and negative antigen. MEDICATIONS: Reveals the patient to be on p.o. Cipro. Dr. De León's note is reviewed. ASSESSMENT AND PLAN: An 89-year-old with a chronic right leg ulcer rule out pyoderma gangrenosum now superinfective with pseudomonas status post severe sepsis with acute renal failure, which is resolved due to a left upper and left lower health-care associated pneumonia and ulcerative colitis, chronic obstructive lung disease, hypertension, coronary artery disease and anxiety. Day number 3 of p.o. Cipro, would recommend 5 to 7 days. Miles Lowe MD
[2016-12-30] MEDS: Pantoprazole 40 mg EC Tab PO SCH (05:33)
[2016-12-30] MEDS: Budesonide 0.5 mg/2 ml Inhal Susp UD IH SCH ×2 (07:33→21:00)
[2016-12-30] MEDS: Arformoterol 15 mcg/2 ml Inh Sol IH SCH ×2 (07:33→21:00)
[2016-12-30] MEDS: Lactobacillus Acidophilus 500 MU Cap PO SCH (11:14)
[2016-12-30] MEDS: Clotrimazole/Betamethasone Cream(15 gm) TOP SCH ×2 (11:15→18:07)
[2016-12-30] MEDS: Nystatin 100,000 Units/gm Topical Pow(15 gm) TOP SCH ×3 (11:15→18:08)
[2016-12-30] MEDS: Magnesium Oxide 400 mg Tab UD PO SCH ×2 (11:15→18:07)
--- NOTE | 2016-12-30 14:20 | CP.PCM.PN ---
<Vanesa Rocha - Last Filed: 12/30/16 14:17> Subjective - Date & Time of Evaluation Date of Evaluation: 12/30/16 Time of Evaluation: 14:17 - Subjective Subjective: 89 year old female patient seen sitting in a nick at bedside for right lower extremity superficial ulceration. Dressing to right leg appears clean dry and intact. Patient's granddaughter is present at bedside. Patient denies any acute events overnight. She denies any n/v/f/c/sob/cp. Objective - Vital Signs/Intake and Output Vital Signs (last 24 hours): Temp Pulse Resp BP Pulse Ox 97.5 F L 62 18 152/59 H 100 12/29/16 09:58 12/29/16 09:58 12/29/16 09:58 12/29/16 09:58 12/29/16 09:58 - Medications Medications: Current Medications Acetaminophen (Tylenol 325mg Tab) 650 mg PO Q6H PRN PRN Reason: Pain, moderate (4-7) Last Admin: 12/26/16 09:00 Dose: 650 mg Albuterol/Ipratropium (Duoneb 3 Mg/0.5 Mg (3 Ml) Ud) 3 ml IH Q2H PRN; Protocol PRN Reason: Shortness of Breath Last Admin: 12/29/16 15:30 Dose: 3 ml Alprazolam (Xanax) 0.125 mg PO BID PRN; Protocol PRN Reason: Anxiety Last Admin: 12/30/16 08:55 Dose: 0.125 mg Arformoterol Tartrate (Brovana) 15 mcg IH [id number] [facility] Last Admin: 12/30/16 07:33 Dose: 15 mcg Aspirin (Ecotrin) 81 mg PO 0800 [facility] PRN Reason: Protocol Last Admin: 12/30/16 08:55 Dose: 81 mg Betamethasone/Clotrimazole (Lotrisone) 1 gm TOP BID [facility] PRN Reason: Protocol Last Admin: 12/30/16 11:15 Dose: 1 dose Budesonide (Pulmicort Respules) 0.5 mg IH [id number] [facility] PRN Reason: Protocol Last Admin: 12/30/16 07:33 Dose: 0.5 mg Ciprofloxacin (Cipro) 500 mg PO Q12 [facility] PRN Reason: Protocol Stop: 01/01/17 22:01 Last Admin: 12/30/16 11:15 Dose: 500 mg Heparin Sodium (Porcine) (Heparin) 5,000 units SC 0600,1800 [facility] PRN Reason: Protocol Last Admin: 12/30/16 05:33 Dose: 5,000 units Lactobacillus Acidophilus (Bacid Acidophilus) 1 cap PO DAILY [facility] Last Admin: 12/30/16 11:14 Dose: 1 cap Levalbuterol HCl (Xopenex) 0.63 mg IH [id number] PRN; Protocol PRN Reason: Shortness of Breath Last Admin: 12/26/16 06:20 Dose: 0.63 mg Losartan Potassium (Cozaar) 100 mg PO DAILY [facility] Last Admin: 12/30/16 14:12 Dose: 100 mg Magnesium Oxide (Mag-Ox) 400 mg PO BID [facility] Last Admin: 12/30/16 11:15 Dose: 400 mg Mupirocin (Bactroban Ointment) 0 gm TOP BID [facility] Last Admin: 12/30/16 11:15 Dose: 1 applic Nystatin (Nystop Topical Powder) 1 gm TOP TID [facility] PRN Reason: Protocol Last Admin: 12/30/16 14:09 Dose: Not Given Ondansetron HCl (Zofran Inj) 4 mg IVP Q6H PRN; Protocol PRN Reason: Nausea/Vomiting Pantoprazole Sodium (Protonix Ec Tab) 40 mg PO 0600 [facility] Last Admin: 12/30/16 05:33 Dose: 40 mg - Labs Labs: 12/25/16 08:30 12/25/16 08:30 - Constitutional Appears: Non-toxic, No Acute Distress - Extremities Exam Additional comments: Right lower extremity focused exam: VASC: DP/PT pulses are palpable 1/4, cap refill < 3 sec to all digits, skin temperature warm to warm from proximal to distal, no pedal edema appreciated DERM:Right-diffuse superficial ulcer noted on distal right leg/ankle extending to dorsum and plantar aspect of the foot. Wound base is a mixture of granular tissue and early stage epithelializing tissue. Distal right heel early stage dark-eschar. Mild mal-odor noted. NEURO: Protective pedal sensation is intact ORTHO: POP to right LE ulceration. 2nd digit dorso-lateral gross dislocation noted, non-reducible - Neurological Exam Neurological Exam: Alert, Awake - Psychiatric Exam Psychiatric exam: Normal Affect, Normal Mood Assessment and Plan - Assessment and Plan (Free Text) Assessment: 89 year old female with superficial ulceration of right lower extremity Plan: Patient examined and evaluated Discussed with attending, Dr. De León Chart, vitals, labs reviewed = afebrile absent leukocytosis. Right leg wound cleansed with normal sterile saline, dressed with Bactroban, Telfa and kerlix. Patient is to continue to wear offloading boot to RLE while in bed. Wound culture final results: Heavy growth of Pseudomonas aeruginosa. Continue Ivabx per ID Podiatry will continue to follow while patient in house <Chi De León - Last Filed: 01/01/17 11:54> Objective - Vital Signs/Intake and Output Vital Signs (last 24 hours): Temp Pulse Resp BP Pulse Ox 98.7 F 70 18 138/58 L 90 L 12/31/16 10:11 12/31/16 10:11 12/31/16 10:11 12/31/16 10:11 12/30/16 16:16 - Labs Labs: 12/25/16 08:30 12/25/16 08:30 Attending/Attestation - Attestation I have personally seen and examined this patient.: Yes I have fully participated in the care of the patient.: Yes I have reviewed all pertinent clinical information, including history, physical exam and plan: Yes
--- NOTE | 2016-12-30 14:27 | PN ---
DATE: 12/30/2016 SUBJECTIVE: The patient is in bed, in no acute distress, nontoxic. No fevers and no chills. PHYSICAL EXAMINATION VITAL SIGNS: Temperature is 97, blood pressure is 150/90, respiratory rate of 16. HEENT: Unremarkable. NECK: Supple. LUNGS: Decreased breath sounds. HEART: Normal S1 and S2. ABDOMEN: Soft. LABORATORY DATA: Reveals a white count of 9.6, hemoglobin of 9, platelets of 233. Chemistry reveals a BUN of 13, creatinine of 0.6 and microbiology is noted with pseudomonas from the leg. Review of orders reveals the patient to be on p.o. Cipro. ASSESSMENT AND PLAN: An 89-year-old female with chronic right leg ulcer with rule out pyoderma gangrenosum with superinfective with pseudomonas, status post severe sepsis with acute renal failure, which is resolved now, with left upper and left lower lobe health-care associated pneumonia and ulcerative colitis and chronic obstructive lung disease, hypertension, coronary artery disease, and anxiety. Day #4 of Cipro, would recommend 5 to 7 days. Miles Lowe MD
--- NOTE | 2016-12-30 16:04 | PN ---
DATE: SUBJECTIVE: The patient is 89 years old, seen and examined, sitting in chair and calm, just finished her lunch, doing well, eating and tolerating, anxious to go home tomorrow. PHYSICAL EXAMINATION: VITAL SIGNS: She is afebrile, pulse 64, respirations 18, blood pressure 152/59. LUNGS: Bilaterally fair airflow. No rhonchi or crackles. HEART: S1, S2 audible. ABDOMEN: Soft, nontender. No rebound. No guarding. NEUROLOGIC: The patient is awake and alert, able to communicate. LABORATORY DATA: There is no new lab available today. ASSESSMENT: 1. Resolved renal failure. 2. Resolved renal insufficiency. 3. Improving right rodriguez ulcer. 4. Deconditioning, difficulty walking. 5. Chronic anemia status post blood transfusion. 6. Cholelithiasis. PLAN: The patient is doing well, getting ready for discharge tomorrow. Care discussed with the patient's daughter who was by the bedside. Jorden Mcneill MD
[2016-12-30 16:16] VITALS: O2SAT 90
[2016-12-31] MEDS: Pantoprazole 40 mg EC Tab PO SCH (05:35)
[2016-12-31] MEDS: Arformoterol 15 mcg/2 ml Inh Sol IH SCH (07:36)
[2016-12-31] MEDS: Budesonide 0.5 mg/2 ml Inhal Susp UD IH SCH (07:36)
--- NOTE | 2016-12-31 07:47 | PN ---
DATE: 12/31/2016 PULMONARY NOTE SUBJECTIVE: The patient appears comfortable this morning. She is not short of breath at rest. PHYSICAL EXAMINATION: VITAL SIGNS: Temperature is 98.3, pulse 69, respirations 18, blood pressure 128/57. Oxygen saturation on nasal canula ranges between 90% to 100%. HEENT: Normocephalic and atraumatic. NECK: No JVD. CARDIOVASCULAR: Systolic ejection murmur at the lower left sternal border. No S3 gallop. LUNGS: Decreased breath sounds at the bases. Very minimal rhonchi. No wheezing. EXTREMITIES: Minimal edema. No cyanosis, no clubbing. Calves are nontender to palpation. GASTROINTESTINAL: Abdomen is soft, nontender, and nondistended. Bowel sounds are positive. SKIN: Chronic left leg ulcer. No rashes. NEUROLOGIC: Limited at the present time. IMPRESSION: 1. Status post acute congestive heart failure. 2. Status post multilobar pneumonia. 3. Status post acute gastroenteritis. 4. Sepsis syndrome. 5. Chronic obstructive pulmonary disease. 6. Coronary artery disease. PLAN: The patient appears comfortable this morning. She is not short of breath at rest. She does state to feeling much better overall. On physical exam, there is no significant bronchospasm noted. I will continue with the current nebulizer treatments and inhaled steroids for now. Inputs by Infectious Disease and Cardiology are noted. Clinical status of the patient has significantly improved. However, again, the overall status/prognosis for this very elderly patient-- does remain guarded. All are aware. I will discuss the above with the attending physician. Aleks Mejia MD MTDIsabelle
[2016-12-31 10:12] VITALS: BP 138/58; PULSE 70; RESP 18; TEMP 98.7
[2016-12-31] MEDS: Lactobacillus Acidophilus 500 MU Cap PO SCH (10:55)
[2016-12-31] MEDS: Magnesium Oxide 400 mg Tab UD PO SCH (10:55)
--- NOTE | 2016-12-31 13:38 | CP.PCM.PN ---
Subjective - Date & Time of Evaluation Date of Evaluation: 12/31/16 Time of Evaluation: 10:55 - Subjective Subjective: Comfortable, less pain in the right leg, no fevers overnight, no abdominal pain , no SOB at rest. Objective - Vital Signs/Intake and Output Vital Signs (last 24 hours): Temp Pulse Resp BP Pulse Ox 98.3 F 69 20 148/57 L 90 L 12/30/16 16:16 12/30/16 16:16 12/30/16 16:16 12/30/16 16:16 12/30/16 16:16 Intake and Output: 12/31/16 12/31/16 06:59 18:59 Intake Total 480 Output Total 150 Balance 330 - Medications Medications: Current Medications Acetaminophen (Tylenol 325mg Tab) 650 mg PO Q6H PRN PRN Reason: Pain, moderate (4-7) Last Admin: 12/26/16 09:00 Dose: 650 mg Albuterol/Ipratropium (Duoneb 3 Mg/0.5 Mg (3 Ml) Ud) 3 ml IH Q2H PRN; Protocol PRN Reason: Shortness of Breath Last Admin: 12/29/16 15:30 Dose: 3 ml Alprazolam (Xanax) 0.125 mg PO BID PRN; Protocol PRN Reason: Anxiety Last Admin: 12/30/16 19:07 Dose: 0.125 mg Arformoterol Tartrate (Brovana) 15 mcg IH [id number] [facility] Last Admin: 12/31/16 07:36 Dose: 15 mcg Aspirin (Ecotrin) 81 mg PO 0800 [facility] PRN Reason: Protocol Last Admin: 12/31/16 08:28 Dose: 81 mg Betamethasone/Clotrimazole (Lotrisone) 1 gm TOP BID [facility] PRN Reason: Protocol Last Admin: 12/30/16 18:07 Dose: Not Given Budesonide (Pulmicort Respules) 0.5 mg IH [id number] [facility] PRN Reason: Protocol Last Admin: 12/31/16 07:36 Dose: 0.5 mg Ciprofloxacin (Cipro) 500 mg PO Q12 [facility] PRN Reason: Protocol Stop: 01/01/17 22:01 Last Admin: 12/30/16 21:12 Dose: 500 mg Heparin Sodium (Porcine) (Heparin) 5,000 units SC 0600,1800 [facility] PRN Reason: Protocol Last Admin: 12/31/16 05:34 Dose: 5,000 units Lactobacillus Acidophilus (Bacid Acidophilus) 1 cap PO DAILY [facility] Last Admin: 12/30/16 11:14 Dose: 1 cap Levalbuterol HCl (Xopenex) 0.63 mg IH [id number] PRN; Protocol PRN Reason: Shortness of Breath Last Admin: 12/26/16 06:20 Dose: 0.63 mg Losartan Potassium (Cozaar) 100 mg PO DAILY [facility] Last Admin: 12/30/16 14:12 Dose: 100 mg Magnesium Oxide (Mag-Ox) 400 mg PO BID [facility] Last Admin: 12/30/16 18:07 Dose: 400 mg Mupirocin (Bactroban Ointment) 0 gm TOP BID [facility] Last Admin: 12/30/16 18:07 Dose: Not Given Nystatin (Nystop Topical Powder) 1 gm TOP TID [facility] PRN Reason: Protocol Last Admin: 12/30/16 18:08 Dose: Not Given Ondansetron HCl (Zofran Inj) 4 mg IVP Q6H PRN; Protocol PRN Reason: Nausea/Vomiting Pantoprazole Sodium (Protonix Ec Tab) 40 mg PO 0600 [facility] Last Admin: 12/31/16 05:35 Dose: 40 mg - Labs Labs: 12/25/16 08:30 12/25/16 08:30 - Constitutional Appears: Non-toxic, No Acute Distress - Head Exam Head Exam: NORMAL INSPECTION - ENT Exam ENT Exam: Mucous Membranes Moist - Neck Exam Neck Exam: absent: Lymphadenopathy, Meningismus - Respiratory Exam Respiratory Exam: Decreased Breath Sounds - Cardiovascular Exam Cardiovascular Exam: +S1, +S2 - GI/Abdominal Exam GI & Abdominal Exam: Soft. absent: Tenderness - Extremities Exam Additional comments: right leg with dressings in place Assessment and Plan - Assessment and Plan (Free Text) Plan: Assessment chronic left leg ulcer, R/O pyoderma gangrenosum, now superinfected with Pseudomonas, clinically improving S/P severe sepsis with acute renal failure (now resolved) probably due to left upper and lower lobe healthcare-associated pneumonia, clinically improved ulcerative colitis COPD HTN CAD with chronic CHF S/P pacemaker placement anxiety disorder Plan discussed with Dr. Workman - continue PO Ciprofloxacin (day 5) and target 5-7 days of therapy
[2016-12-31] MEDS: Levalbuterol 0.63 MG/3 ML Inhal Soln UD IH PRN (13:44)
--- NOTE | 2016-12-31 15:51 | CP.PCM.PN ---
<Lisa Phillips - Last Filed: 12/31/16 15:52> Subjective - Date & Time of Evaluation Date of Evaluation: 12/31/16 Time of Evaluation: 11:00 - Subjective Subjective: 89 year old female patient was seen at bedside for right lower extremity superficial ulceration. Dressing to right leg appears clean dry and intact. Patient's daughter is present at bedside. Patient denies any acute events overnight. She denies any n/v/f/c/sob/cp. Objective - Vital Signs/Intake and Output Vital Signs (last 24 hours): Temp Pulse Resp BP Pulse Ox 98.7 F 70 18 138/58 L 90 L 12/31/16 10:11 12/31/16 10:11 12/31/16 10:11 12/31/16 10:11 12/30/16 16:16 Intake and Output: 12/31/16 12/31/16 06:59 18:59 Intake Total 480 Output Total 150 Balance 330 - Medications Medications: Current Medications Acetaminophen (Tylenol 325mg Tab) 650 mg PO Q6H PRN PRN Reason: Pain, moderate (4-7) Last Admin: 12/26/16 09:00 Dose: 650 mg Albuterol/Ipratropium (Duoneb 3 Mg/0.5 Mg (3 Ml) Ud) 3 ml IH Q2H PRN; Protocol PRN Reason: Shortness of Breath Last Admin: 12/29/16 15:30 Dose: 3 ml Alprazolam (Xanax) 0.125 mg PO BID PRN; Protocol PRN Reason: Anxiety Last Admin: 12/31/16 10:54 Dose: 0.125 mg Arformoterol Tartrate (Brovana) 15 mcg IH [id number] [facility] Last Admin: 12/31/16 07:36 Dose: 15 mcg Aspirin (Ecotrin) 81 mg PO 0800 [facility] PRN Reason: Protocol Last Admin: 12/31/16 08:28 Dose: 81 mg Betamethasone/Clotrimazole (Lotrisone) 1 gm TOP BID [facility] PRN Reason: Protocol Last Admin: 12/30/16 18:07 Dose: Not Given Budesonide (Pulmicort Respules) 0.5 mg IH [id number] [facility] PRN Reason: Protocol Last Admin: 12/31/16 07:36 Dose: 0.5 mg Ciprofloxacin (Cipro) 500 mg PO Q12 [facility] PRN Reason: Protocol Stop: 01/01/17 22:01 Last Admin: 12/31/16 10:55 Dose: 500 mg Heparin Sodium (Porcine) (Heparin) 5,000 units SC 0600,1800 [facility] PRN Reason: Protocol Last Admin: 12/31/16 05:34 Dose: 5,000 units Lactobacillus Acidophilus (Bacid Acidophilus) 1 cap PO DAILY [facility] Last Admin: 12/31/16 10:55 Dose: 1 cap Levalbuterol HCl (Xopenex) 0.63 mg IH [id number] PRN; Protocol PRN Reason: Shortness of Breath Last Admin: 12/31/16 13:44 Dose: 0.63 mg Losartan Potassium (Cozaar) 100 mg PO DAILY [facility] Last Admin: 12/30/16 14:12 Dose: 100 mg Magnesium Oxide (Mag-Ox) 400 mg PO BID [facility] Last Admin: 12/31/16 10:55 Dose: 400 mg Mupirocin (Bactroban Ointment) 0 gm TOP BID [facility] Last Admin: 12/30/16 18:07 Dose: Not Given Nystatin (Nystop Topical Powder) 1 gm TOP TID [facility] PRN Reason: Protocol Last Admin: 12/30/16 18:08 Dose: Not Given Ondansetron HCl (Zofran Inj) 4 mg IVP Q6H PRN; Protocol PRN Reason: Nausea/Vomiting Pantoprazole Sodium (Protonix Ec Tab) 40 mg PO 0600 [facility] Last Admin: 12/31/16 05:35 Dose: 40 mg - Labs Labs: 12/25/16 08:30 12/25/16 08:30 - Constitutional Appears: Well, Non-toxic - Head Exam Head Exam: ATRAUMATIC, NORMAL INSPECTION - Extremities Exam Additional comments: Bilateral LE focused physical exam: Dressing appears clean, dry, and intact to right leg DERM: Right -diffuse superficial ulcer noted on distal right leg/ankle extending to dorsum and plantar aspect of the foot with moderate serous exudate with green coloration and bleeding noted posteriorly. Wound base is a mixture of granular tissue and early stage epithelializing tissue. Distal right heel early stage dark-eschar. Mild mal-odor noted. Posterior leg shows heady amount ot dusky green exudate. Left - No wounds noted to left lower extremity, no heel eschars noted. VASC: DP/PT pulses are palpable 1/4, cap refill < 3 sec to all digits, skin temperature warm to warm from proximal to distal, no pedal edema appreciated NEURO: Protective pedal sensation is intact ORTHO: POP to right LE ulceration. Bilateral 2nd digit dorso-lateral gross dislocation noted, non-reducible - Neurological Exam Neurological Exam: Alert, Awake, Oriented x3 - Psychiatric Exam Psychiatric exam: Normal Affect, Normal Mood - Skin Skin Exam: Normal Color, Warm Assessment and Plan - Assessment and Plan (Free Text) Assessment: 89 y/o female patient with 1) superficial, infected ulceration of right lower extremity vs pyoderma. 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 Plan: Patient seen and evaluated in bed. Rounded with attending, Dr. Workman Chart, vitals, labs reviewed; afebrile absent leukocytosis. Right leg wound dressed with Bactroban, Telfa and kerlix. Patient tolerated dressing change well. Patient is to continue to wear offloading boot to RLE while in bed. Wound culture final results: Heavy growth of Pseudomonas aeruginosa. ID recommendation appreciated. Patient is stable from podiatry stand point Podiatry will continue to follow while patient in house <Ashlie Workman - Last Filed: 01/13/17 19:27> Objective - Vital Signs/Intake and Output Vital Signs (last 24 hours): Temp Pulse Resp BP Pulse Ox 98.7 F 70 18 138/58 L 90 L 12/31/16 10:11 12/31/16 10:11 12/31/16 10:11 12/31/16 10:11 12/30/16 16:16 - Labs Labs: 12/25/16 08:30 12/25/16 08:30 Attending/Attestation - Attestation I have personally seen and examined this patient.: Yes I have fully participated in the care of the patient.: Yes I have reviewed all pertinent clinical information, including history, physical exam and plan: Yes
--- NOTE | 2017-01-01 02:58 | DS ---
HISTORY OF PRESENT ILLNESS: The patient is an 89 years old who was initially admitted with poor oral intake, not feeling well, weak, was found to be in acute renal failure, resuscitated with IV fluids with close followup. She was also found to have cholelithiasis. Plan was to do ERCP, but because of her other comorbidities it was held or not done, has been doing well. Developed left upper lobe pneumonia, was treated for that. Has been doing good TCU. PHYSICAL EXAMINATION: GENERAL: She is awake and alert, communicative. VITAL SIGNS: She is afebrile, pulse 69, respirations 20, blood pressure 149/57. LUNGS: Bilateral fair airflow. No rhonchi or crackles. HEART: S1 and S2 audible. ABDOMEN: Soft, nontender. No rebound, no guarding. NEUROLOGIC: She is awake and alert, able to communicative. EXTREMITIES: Moves all extremities. Right lower leg is in dressing, being cared by Dr. Workman. ASSESSMENT AND PLAN: 1. Resolved respiratory failure. 2. Deconditioning, difficulty walking. 3. Right lower leg cellulitis, improving. 4. Hypertension. 5. Chronic obstructive pulmonary disease. PLAN: The patient is being discharged home. She is going to resume all her medications as prior to admission. Discussed with the patient's son and daughter by the bedside at length. We will hold off on Norvasc. She will continue Diovan. She will continue nebulizer. She has oxygen at home that can be used as a backup. Jorden Mcneill MD
== END 2016-12-31 16:44 | disposition home or self-care (01) | DRG 555 ==
LOC: TRCU 15:47
PROVIDERS: ADMIT Internal Medicine; ATTEND Internal Medicine
PROC: F07Z5FZ Bed Mobility Treatment using Assistive, Adaptive, Supportive or Protective Equipment (ICD-10-PCS; 2016-12-21)
PROC: F08Z1FZ Dressing Techniques Treatment using Assistive, Adaptive, Supportive or Protective Equipment (ICD-10-PCS; 2016-12-21)
PROC: F07L6YZ Therapeutic Exercise Treatment of Musculoskeletal System - Lower Back / Lower Extremity using Other Equipment (ICD-10-PCS; 2016-12-22)
PROC: F07Z9FZ Gait Training/Functional Ambulation Treatment using Assistive, Adaptive, Supportive or Protective Equipment (ICD-10-PCS; principal; 2016-12-23)
PROC: F07Z8YZ Transfer Training Treatment using Other Equipment (ICD-10-PCS; 2016-12-23)
DX: R26.2 Difficulty in walking, not elsewhere classified (principal); J18.9 Pneumonia, unspecified organism; J44.0 Chronic obstructive pulmonary disease with (acute) lower respiratory infection; K51.90 Ulcerative colitis, unspecified, without complications; E87.0 Hyperosmolality and hypernatremia; I50.22 Chronic systolic (congestive) heart failure; L03.115 Cellulitis of right lower limb; L88 Pyoderma gangrenosum; M15.9 Polyosteoarthritis, unspecified; I11.0 Hypertensive heart disease with heart failure; F41.9 Anxiety disorder, unspecified; K27.9 Peptic ulcer, site unspecified, unspecified as acute or chronic, without hemorrhage or perforation; L97.519 Non-pressure chronic ulcer of other part of right foot with unspecified severity; I25.10 Atherosclerotic heart disease of native coronary artery without angina pectoris; M20.42 Other hammer toe(s) (acquired), left foot; M20.41 Other hammer toe(s) (acquired), right foot; M24.375 Pathological dislocation of left foot, not elsewhere classified; M24.374 Pathological dislocation of right foot, not elsewhere classified; K80.20 Calculus of gallbladder without cholecystitis without obstruction; E87.6 Hypokalemia; Z66 Do not resuscitate; D64.9 Anemia, unspecified; E86.0 Dehydration; M47.892 Other spondylosis, cervical region; B96.5 Pseudomonas (aeruginosa) (mallei) (pseudomallei) as the cause of diseases classified elsewhere; Z95.0 Presence of cardiac pacemaker; Z88.2 Allergy status to sulfonamides